=== PATIENT | male | born 1965 | race Native Hawaiian/Other Pacific Islander ===

== ENCOUNTER 2017-04-10 14:28 | Emergency (ER) | payer MEDICARE, OTHER ==
[2017-04-10] MEDS ORDERED: FLEXERIL PO ONE (15:51)
[2017-04-10] MEDS ORDERED: NORCO 5/325 PO ONE (15:51)
[2017-04-10 16:24] LABS: Bilirubin,Urine NEG (Negative); Blood,Urine NEG (Negative); Ketones,Urine NEG (Negative); Leukocyte Esterase,Urine NEG (Negative); Nitrite,Urine NEG (Negative); Protein,Urine <15 mg/dL mg/dL (Negative); Urobilinogen,Urine < 2.0 mg/dL (<2.0)
[2017-04-10 17:11] LABS: Basophils % (Auto) 0.6 % (0.0-1.8); Eosinophils % (Auto) 0.6 % (0.0-4.3); Hematocrit 30.1 % (35.5-45.6); Hemoglobin 9.6 gm/dl (11.8-15.2); Mean Corpuscular HGB Conc 32 % (32-34); Mean Corpuscular Hemoglobin 31 pg (28-32); Mean Corpuscular Volume 98 fl (84-94); Platelet Count 265 K/mm3 (140-440); Red Blood Count 3.08 M/mm3 (3.65-5.03); Red Cell Distribution Width 14.8 % (13.2-15.2); White Blood Count 9.6 K/mm3 (4.5-11.0)
[2017-04-10 17:28] LABS: Anion Gap 18 mmol/L; Blood Urea Nitrogen 16 mg/dL (9-20); Calcium 9.5 mg/dL (8.4-10.2); Carbon Dioxide 24 mmol/L (22-30); Chloride 100.6 mmol/L (98-107); Glucose 174 mg/dL (75-100); Potassium 4.8 mmol/L (3.6-5.0); Sodium 138 mmol/L (137-145)
--- NOTE | 2017-04-10 18:25 | Emergency Department Report ---
ED General Adult HPI - General Chief complaint: Hypoglycemia Stated complaint: LOW SUGAR Time Seen by Provider: 04/10/17 15:50 Source: patient, EMS Mode of arrival: Stretcher Limitations: Physical Limitation - History of Present Illness Initial comments: Patient is a 51-year-old male past history of diabetes who presents with hypoglycemia and leg cramps. Patient states that he had breakfast today but he felt weak and lightheaded and he feels this way when his blood sugars is low. Patient states that he has some cramps in his left leg there about a 5 out 10 walking on his leg makes it worse and nothing makes it better. He also states that it's an achy type of pain that doesn't radiate. It happened 6 hours ago. Patient states that he felt lightheaded and his glucose level was low and within the 40s he was given sugar and some bread. He was about to go home but he came to the hospital because his leg as cramping. He states that he is not out of his insulin. And sometimes he gets hypoglycemic. No fevers, no chills, no chest pain. Severity scale (0 -10): 1 - Related Data Home Medications Medication Instructions Recorded Confirmed Last Taken glipiZIDE [glipiZIDE ER] 5 mg PO QAM 01/04/17 03/29/17 01/04/17 Aspirin [Aspirin BABY CHEW TAB] 81 mg PO QDAY 03/29/17 03/29/17 Unknown Metoprolol [Lopressor TAB] 25 mg PO BID 03/29/17 03/29/17 Unknown Previous Rx's Medication Instructions Recorded Last Taken Type Ferrous Sulfate [Feosol 325 MG tab] 325 mg PO BID #60 tablet 10/09/16 01/04/17 Rx Folic Acid [Folvite] 1 mg PO QDAY #30 tablet 10/09/16 01/04/17 Rx Lisinopril [Zestril TAB] 2.5 mg PO QDAY #30 tab 10/09/16 01/04/17 Rx Pantoprazole [Protonix TAB] 40 mg PO QDAY #30 tablet 10/09/16 01/04/17 Rx Simvastatin [Zocor TAB] 20 mg PO QHS #30 tablet 10/09/16 01/04/17 Rx Insulin NPH/Regular [NovoLIN 70/30] 15 unit SQ BIDDIAB 30 Days 04/03/17 Rx Ipratropium/Albuterol Sulfate 1 ampul IH Q6HRT #30 ampul.neb 04/03/17 Unknown Rx [DUONEB *Not for PRN Use*] Levofloxacin [Levaquin TAB] 750 mg PO Q24H #4 tablet 04/03/17 Unknown Rx traMADol [Ultram 50 MG tab] 50 mg PO Q6HR PRN #15 tablet 04/10/17 Unknown Rx Allergies Allergy/AdvReac Type Severity Reaction Status Date / Time No Known Drug Allergies Allergy Unknown Verified 05/05/13 02:40 ED Review of Systems ROS: Stated complaint: LOW SUGAR Other details as noted in HPI Constitutional: weakness. denies: chills, fever Eyes: denies: eye pain, eye discharge, vision change ENT: denies: ear pain, throat pain Respiratory: denies: cough, shortness of breath, wheezing Cardiovascular: denies: chest pain, palpitations Endocrine: no symptoms reported Gastrointestinal: denies: abdominal pain, nausea, diarrhea Genitourinary: denies: urgency, dysuria Musculoskeletal: other (foot cramps) Skin: denies: rash, lesions Neurological: denies: headache, weakness, paresthesias Psychiatric: denies: anxiety, depression Hematological/Lymphatic: denies: easy bleeding, easy bruising ED Past Medical Hx - Past Medical History Hx Hypertension: Yes Hx Heart Attack/AMI: Yes Hx Diabetes: Yes Hx GERD: Yes Hx Asthma: Yes Hx COPD: No Hx HIV: No Additional medical history: Prolonged hospitalization after a hypoglycemic episode in the fall of 2012 "problems with Pancreas" - Surgical History Additional Surgical History: "fractured bones" - Social History Smoking Status: Current Every Day Smoker Substance Use Type: None - Medications Home Medications: Home Medications Medication Instructions Recorded Confirmed Last Taken Type Ferrous Sulfate [Feosol 325 MG tab] 325 mg PO BID #60 tablet 10/09/16 03/29/17 01/04/17 Rx Folic Acid [Folvite] 1 mg PO QDAY #30 tablet 10/09/16 03/29/17 01/04/17 Rx Lisinopril [Zestril TAB] 2.5 mg PO QDAY #30 tab 10/09/16 03/29/17 01/04/17 Rx Pantoprazole [Protonix TAB] 40 mg PO QDAY #30 tablet 10/09/16 03/29/17 01/04/17 Rx Simvastatin [Zocor TAB] 20 mg PO QHS #30 tablet 10/09/16 03/29/17 01/04/17 Rx glipiZIDE [glipiZIDE ER] 5 mg PO QAM 01/04/17 03/29/17 01/04/17 History Aspirin [Aspirin BABY CHEW TAB] 81 mg PO QDAY 03/29/17 03/29/17 Unknown History Metoprolol [Lopressor TAB] 25 mg PO BID 03/29/17 03/29/17 Unknown History Insulin NPH/Regular [NovoLIN 70/30] 15 unit SQ BIDDIAB 30 Days 04/03/1701/04/17 Rx Ipratropium/Albuterol Sulfate 1 ampul IH Q6HRT #30 ampul.neb 04/03/17 Unknown Rx [DUONEB *Not for PRN Use*] Levofloxacin [Levaquin TAB] 750 mg PO Q24H #4 tablet 04/03/17 Unknown Rx traMADol [Ultram 50 MG tab] 50 mg PO Q6HR PRN #15 tablet 04/10/17 Unknown Rx ED Physical Exam - General Limitations: Physical Limitation General appearance: alert, in no apparent distress - Head Head exam: Present: atraumatic, normocephalic - Eye Eye exam: Present: normal appearance - ENT ENT exam: Present: mucous membranes moist - Neck Neck exam: Present: normal inspection - Respiratory Respiratory exam: Present: normal lung sounds bilaterally. Absent: respiratory distress - Cardiovascular Cardiovascular Exam: Present: regular rate, normal rhythm. Absent: systolic murmur, diastolic murmur, rubs, gallop - GI/Abdominal GI/Abdominal exam: Present: soft, normal bowel sounds - Rectal Rectal exam: Present: deferred - Extremities Exam Extremities exam: Present: normal inspection - Back Exam Back exam: Present: normal inspection - Neurological Exam Neurological exam: Present: alert, oriented X3, CN II-XII intact - Psychiatric Psychiatric exam: Present: normal affect, normal mood - Skin Skin exam: Present: warm, dry, intact, normal color. Absent: rash ED Course Vital Signs 04/10/17 04/10/17 04/10/17 15:01 15:11 15:20 Temperature 97.6 F Pulse Rate 91 H 98 H Respiratory 13 20 Rate Blood Pressure 131/77 131/77 Blood Pressure [Right] O2 Sat by Pulse 100 100 Oximetry 04/10/17 04/10/17 04/10/17 15:21 15:28 15:31 Temperature 97.6 F Pulse Rate 98 H Respiratory 20 Rate Blood Pressure 131/77 131/77 Blood Pressure 131/77 [Right] O2 Sat by Pulse 100 100 100 Oximetry 04/10/17 04/10/17 04/10/17 15:41 15:51 16:00 Temperature Pulse Rate Respiratory 24 Rate Blood Pressure 131/77 131/77 131/75 Blood Pressure [Right] O2 Sat by Pulse 100 99 98 Oximetry 04/10/17 04/10/17 04/10/17 16:11 16:15 16:21 Temperature Pulse Rate 88 Respiratory 20 20 Rate Blood Pressure 131/75 131/75 Blood Pressure [Right] O2 Sat by Pulse 100 100 Oximetry 04/10/17 04/10/17 04/10/17 16:31 16:41 16:51 Temperature Pulse Rate 86 91 H Respiratory 10 L 25 H Rate Blood Pressure 131/75 131/75 131/75 Blood Pressure [Right] O2 Sat by Pulse 100 100 100 Oximetry 04/10/17 04/10/17 04/10/17 17:00 17:11 17:21 Temperature Pulse Rate 89 Respiratory Rate Blood Pressure 127/70 127/70 127/70 Blood Pressure [Right] O2 Sat by Pulse 100 100 100 Oximetry 04/10/17 04/10/17 04/10/17 17:31 17:41 17:51 Temperature Pulse Rate Respiratory Rate Blood Pressure 127/70 127/70 127/70 Blood Pressure [Right] O2 Sat by Pulse 100 99 99 Oximetry 04/10/17 04/10/17 04/10/17 18:00 18:11 18:21 Temperature Pulse Rate Respiratory Rate Blood Pressure 99/59 99/59 99/59 Blood Pressure [Right] O2 Sat by Pulse 100 100 98 Oximetry 04/10/17 18:37 Temperature Pulse Rate Respiratory 20 Rate Blood Pressure Blood Pressure [Right] O2 Sat by Pulse 99 Oximetry - Reevaluation(s) Reevaluation #1: 04/10/17 18:20 sign patient states he is feeling better is likely cramps are improved after the oral medication. Patient will go home. His blood sugar has remained within the 200 range. ED Medical Decision Making - Lab Data Result diagrams: 04/10/17 17:00 04/10/17 17:00 Laboratory Results - last 24 hr 04/10/17 04/10/17 04/10/17 15:12 16:00 17:00 WBC 9.6 RBC 3.08 L Hgb 9.6 L Hct 30.1 L MCV 98 H MCH 31 MCHC 32 RDW 14.8 Plt Count 265 Lymph % (Auto) 19.8 [place] % (Auto) 5.0 Eos % (Auto) 0.6 Baso % (Auto) 0.6 Lymph # 1.9 [place] # 0.5 Eos # 0.1 Baso # 0.1 Seg Neutrophils % 74.0 H Seg Neutrophils # 7.1 Sodium Potassium Chloride Carbon Dioxide Anion Gap BUN Creatinine Estimated GFR BUN/Creatinine Ratio Glucose POC Glucose 203 H Calcium Urine Color Colorless Urine Turbidity Clear Urine pH 6.0 Ur Specific [place] 1.005 Urine Protein <15 mg/dl Urine Glucose (UA) 150 Urine Ketones Neg Urine Blood Neg Urine Nitrite Neg Urine Bilirubin Neg Urine Urobilinogen < 2.0 Ur Leukocyte Esterase Neg Urine WBC (Auto) 1.0 Urine RBC (Auto) 1.0 U Epithel Cells (Auto) 1.0 04/10/17 17:00 WBC RBC Hgb Hct MCV MCH MCHC RDW Plt Count Lymph % (Auto) [place] % (Auto) Eos % (Auto) Baso % (Auto) Lymph # [place] # Eos # Baso # Seg Neutrophils % Seg Neutrophils # Sodium 138 Potassium 4.8 Chloride 100.6 Carbon Dioxide 24 Anion Gap 18 BUN 16 Creatinine 0.5 L Estimated GFR > 60 BUN/Creatinine Ratio 32.00 Glucose 174 H POC Glucose Calcium 9.5 Urine Color Urine Turbidity Urine pH Ur Specific [place] Urine Protein Urine Glucose (UA) Urine Ketones Urine Blood Urine Nitrite Urine Bilirubin Urine Urobilinogen Ur Leukocyte Esterase Urine WBC (Auto) Urine RBC (Auto) U Epithel Cells (Auto) - Medical Decision Making Chief medical diagnosis: Hypoglycemia secondary to insulin use Differential medical diagnosis metabolic abnormality, infection, myalgias, medication effect CBC, CMP, food, point of care glucose, and oral pain medication. Patient's lab findings show no metabolic abnormality. Patient's vital signs are within normal limits infection is highly unlikely. Patient feels good and states that he will go home he had often has hypoglycemia episodes like this. Advised patient about monitoring his blood sugar often. Additional verbal discharge instructions were given. Patient agrees with plan. Critical care attestation.: If time is entered above; I have spent that time in minutes in the direct care of this critically ill patient, excluding procedure time. ED Disposition Clinical Impression: Hypoglycemia, Leg cramp Disposition: DC-01 TO HOME OR SELFCARE Is pt being admited?: No Does the pt Need Aspirin: No Condition: Stable Instructions: Diabetic Hypoglycemia (ED) Prescriptions: traMADol [Ultram 50 MG tab] 50 mg PO Q6HR PRN #15 tablet PRN Reason: Pain Referrals: MYNOR GRIGSBY [Primary Care Provider] - 3-5 Days Time of Disposition: 18:24
[2017-04-10 18:40] VITALS: BP 99/59
== END 2017-04-10 18:40 | disposition home or self-care (01) ==
LOC: ED 14:28
DX: E11.649 Type 2 diabetes mellitus with hypoglycemia without coma (principal); M79.605 Pain in left leg; I10 Essential (primary) hypertension; K21.9 Gastro-esophageal reflux disease without esophagitis; I25.2 Old myocardial infarction; J45.909 Unspecified asthma, uncomplicated; F17.200 Nicotine dependence, unspecified, uncomplicated; Z79.82 Long term (current) use of aspirin; Z79.4 Long term (current) use of insulin
CPT/HCPCS: 36415; 80048; 81001; 82962; 85025; 99284

== ENCOUNTER 2018-01-20 23:44 | Observation (INO) | payer MEDICARE ==
[2018-01-21] MEDS ORDERED: SUBLIMAZE IV ONE (00:19)
[2018-01-21] MEDS ORDERED: NACL 0.9% 1000 ML 1,000 ML IV ONE ×3 (00:19→09:12)
[2018-01-21] MEDS ORDERED: ZOFRAN IV ONE (00:19)
--- NOTE | 2018-01-21 00:23 | Emergency Department Report ---
<VIELKA ENGLISH M - Last Filed: 01/21/18 09:08> ED Abdominal Pain HPI - General Chief Complaint: Abdominal Pain Stated Complaint: ABD/ETOH Time Seen by Provider: 01/21/18 00:14 - Related Data Home Medications Medication Instructions Recorded Confirmed Last Taken glipiZIDE [glipiZIDE ER] 5 mg PO QAM 01/04/17 01/21/18 01/04/17 Aspirin [Aspirin BABY CHEW TAB] 81 mg PO QDAY 03/29/17 01/21/18 Unknown Metoprolol [Lopressor TAB] 25 mg PO BID 03/29/17 01/21/18 Unknown Insulin NPH/Regular [NovoLIN 70/30] See Protocol SQ TID 01/21/18 01/21/18 Unknown Ipratropium/Albuterol Sulfate 1 ampul IH Q6HRT PRN 01/21/18 01/21/18 Unknown [DUONEB *Not for PRN Use*] Previous Rx's Medication Instructions Recorded Last Taken Type Folic Acid [Folvite] 1 mg PO QDAY #30 tablet 10/09/16 01/04/17 Rx Lisinopril [Zestril TAB] 2.5 mg PO QDAY #30 tab 10/09/16 01/04/17 Rx traMADol [Ultram 50 MG tab] 50 mg PO Q6HR PRN #15 tablet 04/10/17 Unknown Rx Allergies Allergy/AdvReac Type Severity Reaction Status Date / Time No Known Drug Allergies Allergy Unknown Verified 05/05/13 02:40 ED Review of Systems ROS: Stated complaint: ABD/ETOH Other details as noted in HPI ED Past Medical Hx - Medications Home Medications: Home Medications Medication Instructions Recorded Confirmed Last Taken Type Folic Acid [Folvite] 1 mg PO QDAY #30 tablet 10/09/16 01/21/18 01/04/17 Rx Lisinopril [Zestril TAB] 2.5 mg PO QDAY #30 tab 10/09/16 01/21/18 01/04/17 Rx glipiZIDE [glipiZIDE ER] 5 mg PO QAM 01/04/17 01/21/18 01/04/17 History Aspirin [Aspirin BABY CHEW TAB] 81 mg PO QDAY 03/29/17 01/21/18 Unknown History Metoprolol [Lopressor TAB] 25 mg PO BID 03/29/17 01/21/18 Unknown History traMADol [Ultram 50 MG tab] 50 mg PO Q6HR PRN #15 tablet 04/10/17 01/21/18 Unknown Rx Insulin NPH/Regular [NovoLIN 70/30] See Protocol SQ TID 01/21/18 01/21/18 Unknown History Ipratropium/Albuterol Sulfate 1 ampul IH Q6HRT PRN 01/21/18 01/21/18 Unknown History [DUONEB *Not for PRN Use*] ED Course Vital Signs 01/21/18 01/21/18 01/21/18 00:04 00:15 00:30 Temperature Pulse Rate Respiratory Rate Blood Pressure 87/49 112/71 100/57 Blood Pressure [Left] O2 Sat by Pulse Oximetry 01/21/18 01/21/18 01/21/18 00:38 00:45 01:00 Temperature 97.9 F Pulse Rate 94 H Respiratory 16 Rate Blood Pressure 97/58 102/60 Blood Pressure 87/49 [Left] O2 Sat by Pulse 98 Oximetry 01/21/18 01/21/18 01/21/18 01:15 01:23 01:30 Temperature Pulse Rate Respiratory 16 Rate Blood Pressure 98/59 84/50 Blood Pressure [Left] O2 Sat by Pulse 97 Oximetry 01/21/18 01/21/18 01/21/18 01:45 02:00 02:15 Temperature Pulse Rate Respiratory Rate Blood Pressure 74/40 76/43 70/43 Blood Pressure [Left] O2 Sat by Pulse Oximetry 01/21/18 01/21/18 01/21/18 02:30 02:45 03:00 Temperature Pulse Rate Respiratory Rate Blood Pressure 70/40 121/73 106/68 Blood Pressure [Left] O2 Sat by Pulse Oximetry 01/21/18 01/21/18 01/21/18 03:15 03:30 03:45 Temperature Pulse Rate Respiratory Rate Blood Pressure 98/47 93/49 94/50 Blood Pressure [Left] O2 Sat by Pulse Oximetry 01/21/18 01/21/18 01/21/18 03:50 04:00 04:26 Temperature 97.6 F Pulse Rate 91 H Respiratory 16 Rate Blood Pressure 84/50 84/50 Blood Pressure 90/56 [Left] O2 Sat by Pulse 96 Oximetry 01/21/18 01/21/18 01/21/18 04:30 04:45 05:00 Temperature Pulse Rate Respiratory Rate Blood Pressure 94/53 91/53 80/47 Blood Pressure [Left] O2 Sat by Pulse 96 94 Oximetry 20 052018 05 05:15 05:30 05:45 Temperature Pulse Rate Respiratory Rate Blood Pressure 77/40 68/38 97/64 Blood Pressure [Left] O2 Sat by Pulse 94 95 Oximetry 01/21/18 052018 05 06:00 06:15 06:30 Temperature Pulse Rate Respiratory Rate Blood Pressure 100/56 90/48 82/41 Blood Pressure [Left] O2 Sat by Pulse 95 95 Oximetry 01/21/ 0520/18 05/ 06:45 07:00 07:10 Temperature Pulse Rate Respiratory Rate Blood Pressure 83/45 76/41 76/41 Blood Pressure [Left] O2 Sat by Pulse 95 95 Oximetry 01/21/1820/18 05/ 07:20 07:30 07:40 Temperature Pulse Rate Respiratory Rate Blood Pressure 76/41 121/65 121/65 Blood Pressure [Left] O2 Sat by Pulse 94 97 96 Oximetry 01/21/18 0520/18 01/21/18 07:50 07:53 08:00 Temperature Pulse Rate 99 H Respiratory 18 Rate Blood Pressure 121/65 112/59 Blood Pressure 118/74 [Left] O2 Sat by Pulse 96 100 97 Oximetry 01/21/18 052018 05 08:10 08:20 08:30 Temperature Pulse Rate Respiratory Rate Blood Pressure 112/59 112/59 112/59 Blood Pressure [Left] O2 Sat by Pulse 94 95 98 Oximetry 18 0520/18 0520 08:40 08:50 09:00 Temperature Pulse Rate Respiratory Rate Blood Pressure 112/59 112/59 119/74 Blood Pressure [Left] O2 Sat by Pulse 92 93 96 Oximetry 20/18 05/20/18 0520 09:10 09:20 09:30 Temperature Pulse Rate Respiratory Rate Blood Pressure 119/74 119/74 119/74 Blood Pressure [Left] O2 Sat by Pulse 94 94 96 Oximetry 20/18 0520/18 0520 09:40 09:50 10:00 Temperature Pulse Rate Respiratory Rate Blood Pressure 119/74 119/74 122/64 Blood Pressure [Left] O2 Sat by Pulse 95 96 Oximetry 01/21/18 01/21/18 01/21/18 10:10 10:20 10:34 Temperature 97.9 F Pulse Rate 88 Respiratory 18 Rate Blood Pressure 122/64 122/64 Blood Pressure 124/72 [Left] O2 Sat by Pulse 97 99 100 Oximetry - Reevaluation(s) Reevaluation #1: The patient was seen and examined by me. He does have epigastric tenderness and a bit of voluntary guarding. He has no peritoneal signs. I think he would do poorly to go home and begin feeding now. He does need an MRCP. Therefore he is admitted for intravenous fluids and analgesia and MRCP. 01/21/18 09:08 ED Medical Decision Making - Lab Data Result diagrams: 01/21/18 00:15 01/21/18 00:15 Critical care attestation.: If time is entered above; I have spent that time in minutes in the direct care of this critically ill patient, excluding procedure time. ED Disposition Clinical Impression: Abdominal pain, Pancreatitis, alcoholic, acute, Pancreatic mass, Pancreatic duct obstruction Disposition: OP ADMIT IP TO THIS HOSP Is pt being admited?: Yes Does the pt Need Aspirin: Yes Condition: Stable Time of Disposition: 09:09 <NIHARIKA NICKERSON - Last Filed: 01/22/18 06:16> ED Abdominal Pain HPI - General Source: EMS Mode of arrival: Stretcher Limitations: No Limitations - History of Present Illness Initial Comments: Patient is 52 years old male with history of diabetes in frequent episode of alcoholic pancreatitis. Patient presented to the ER complaining of epigastric pain that radiated to his back. He stated that is similar to his previous episode. Patient admitted to drinking alcohol today. Patient is also complaining of nausea and vomiting. Patient denied any chest pain, shortness of breath, fever or cough. MD Complaint: abdominal pain -: This afternoon Location: epigastric Radiation: back Migration to: no migration Severity: moderate Severity scale (0 -10): 6 Consistency: constant Associated Symptoms: nausea, vomiting ED Review of Systems Comment: All other systems reviewed and negative Constitutional: denies: chills, fever ENT: denies: ear pain, throat pain, dental pain, hearing loss Respiratory: denies: cough, orthopnea, shortness of breath, SOB with exertion, SOB at rest, wheezing Cardiovascular: denies: chest pain, palpitations, dyspnea on exertion Gastrointestinal: abdominal pain, nausea, vomiting. denies: diarrhea, constipation, hematemesis, melena, hematochezia Skin: denies: rash, lesions, change in color, change in hair/nails, pruritus Neurological: denies: headache, weakness, numbness, paresthesias, confusion, abnormal gait ED Past Medical Hx - Past Medical History Hx Hypertension: Yes Hx Heart Attack/AMI: Yes Hx Diabetes: Yes Hx GERD: Yes Hx Asthma: Yes Hx COPD: No Hx HIV: No Additional medical history: Prolonged hospitalization after a hypoglycemic episode in the fall of 2012 "problems with Pancreas" - Surgical History Additional Surgical History: "fractured bones" - Social History Smoking Status: Current Every Day Smoker Substance Use Type: Alcohol ED Physical Exam - General Limitations: No Limitations General appearance: alert, in no apparent distress - Head Head exam: Present: atraumatic, normocephalic, normal inspection - Eye Eye exam: Present: normal appearance - ENT ENT exam: Present: normal exam, normal orophraynx, mucous membranes moist - Neck Neck exam: Present: normal inspection, full ROM. Absent: tenderness, meningismus, lymphadenopathy, thyromegaly - Respiratory Respiratory exam: Present: normal lung sounds bilaterally - Cardiovascular Cardiovascular Exam: Present: regular rate, normal rhythm, normal heart sounds - GI/Abdominal GI/Abdominal exam: Present: soft, tenderness (epigastric), normal bowel sounds. Absent: distended, guarding, rebound, rigid, diminished bowel sounds, organomegaly, mass, bruit, pulsatile mass, hernia - Extremities Exam Extremities exam: Present: normal inspection, full ROM, normal capillary refill - Back Exam Back exam: Present: normal inspection, full ROM. Absent: tenderness, CVA tenderness (R), CVA tenderness (L), muscle spasm, paraspinal tenderness, vertebral tenderness, rash noted - Neurological Exam Neurological exam: Present: alert, oriented X3, CN II-XII intact, normal gait, reflexes normal - Skin Skin exam: Present: warm, intact, normal color ED Course Vital Signs 01/21/18 01/21/18 01/21/18 00:04 00:15 00:30 Temperature Pulse Rate Respiratory Rate Blood Pressure 87/49 112/71 100/57 Blood Pressure [Left] O2 Sat by Pulse Oximetry 01/21/18 01/21/18 01/21/18 00:38 00:45 01:00 Temperature 97.9 F Pulse Rate 94 H Respiratory 16 Rate Blood Pressure 97/58 102/60 Blood Pressure 87/49 [Left] O2 Sat by Pulse 98 Oximetry 01/21/18 01/21/18 01/21/18 01:15 01:23 01:30 Temperature Pulse Rate Respiratory 16 Rate Blood Pressure 98/59 84/50 Blood Pressure [Left] O2 Sat by Pulse 97 Oximetry 01/21/18 01/21/18 01/21/18 01:45 02:00 02:15 Temperature Pulse Rate Respiratory Rate Blood Pressure 74/40 76/43 70/43 Blood Pressure [Left] O2 Sat by Pulse Oximetry 01/21/18 01/21/18 01/21/18 02:30 02:45 03:00 Temperature Pulse Rate Respiratory Rate Blood Pressure 70/40 121/73 106/68 Blood Pressure [Left] O2 Sat by Pulse Oximetry 01/21/18 01/21/18 01/21/18 03:15 03:30 03:45 Temperature Pulse Rate Respiratory Rate Blood Pressure 98/47 93/49 94/50 Blood Pressure [Left] O2 Sat by Pulse Oximetry 01/21/18 01/21/18 01/21/18 03:50 04:00 04:26 Temperature 97.6 F Pulse Rate 91 H Respiratory 16 Rate Blood Pressure 84/50 84/50 Blood Pressure 90/56 [Left] O2 Sat by Pulse 96 Oximetry 01/21/18 01/21/18 01/21/18 04:30 04:45 05:00 Temperature Pulse Rate Respiratory Rate Blood Pressure 94/53 91/53 80/47 Blood Pressure [Left] O2 Sat by Pulse 96 94 Oximetry 01/21/18 01/21/18 01/21/18 05:15 05:30 05:45 Temperature Pulse Rate Respiratory Rate Blood Pressure 77/40 68/38 97/64 Blood Pressure [Left] O2 Sat by Pulse 94 95 Oximetry 01/21/18 01/21/18 01/21/18 06:00 06:15 06:30 Temperature Pulse Rate Respiratory Rate Blood Pressure 100/56 90/48 82/41 Blood Pressure [Left] O2 Sat by Pulse 95 95 Oximetry 05/01/21/18 01/21/18 06:45 07:00 07:10 Temperature Pulse Rate Respiratory Rate Blood Pressure 83/45 76/41 76/41 Blood Pressure [Left] O2 Sat by Pulse 95 95 Oximetry 01/21/18 01/21/18 01/21/18 07:20 07:30 07:40 Temperature Pulse Rate Respiratory Rate Blood Pressure 76/41 121/65 121/65 Blood Pressure [Left] O2 Sat by Pulse 94 97 96 Oximetry 01/21/18 01/21/18 01/21/18 07:50 07:53 08:00 Temperature Pulse Rate 99 H Respiratory 18 Rate Blood Pressure 121/65 112/59 Blood Pressure 118/74 [Left] O2 Sat by Pulse 96 100 97 Oximetry 01/21/18 01/21/18 01/21/18 08:10 08:20 08:30 Temperature Pulse Rate Respiratory Rate Blood Pressure 112/59 112/59 112/59 Blood Pressure [Left] O2 Sat by Pulse 94 95 98 Oximetry 01/21/18 01/21/18 01/21/18 08:40 08:50 09:00 Temperature Pulse Rate Respiratory Rate Blood Pressure 112/59 112/59 119/74 Blood Pressure [Left] O2 Sat by Pulse 92 93 96 Oximetry 01/21/18 01/21/18 01/21/18 09:10 09:20 09:30 Temperature Pulse Rate Respiratory Rate Blood Pressure 119/74 119/74 119/74 Blood Pressure [Left] O2 Sat by Pulse 94 94 96 Oximetry 01/21/18 01/21/18 01/21/18 09:40 09:50 10:00 Temperature Pulse Rate Respiratory Rate Blood Pressure 119/74 119/74 122/64 Blood Pressure [Left] O2 Sat by Pulse 95 96 Oximetry 01/21/18 01/21/18 01/21/18 10:10 10:20 10:34 Temperature 97.9 F Pulse Rate 88 Respiratory 18 Rate Blood Pressure 122/64 122/64 Blood Pressure 124/72 [Left] O2 Sat by Pulse 97 99 100 Oximetry ED Medical Decision Making - Lab Data Result diagrams: 01/21/18 00:15 01/21/18 00:15 - Radiology Data Radiology results: report reviewed Referring Physician: NIHARIKA NICKERSON Patient Name: MADDY LAM Date of : 1965 Sex: Male Report Date: 2018-01-21 Report Status: Finalized Findings [facility] [address] [place] [address] Cat Scan Report Signed Patient: MADDY LAM MR#: [id number] : 1965 Acct:[id number] Age/Sex: 52 / M ADM Date: 01/20/18 Loc: ED Attending Dr: Ordering Physician: NIHARIKA NICKERSON Date of Service: 01/21/18 Procedure(s): CT abdomen pelvis w con Accession Number(s): [id number] cc: NIHARIKA NICKERSON FINAL REPORT EXAM: CT ABDOMEN PELVIS W CON HISTORY: abdominal pain TECHNIQUE: CT images are acquired through the Abdomen and Pelvis arterial and delayed phases following intravenous administration of contrast. Transaxial, coronal and sagittal reformations are provided. PRIORS: 09/27/2016, 10/06/2013 FINDINGS: Partially visualized intrathoracic contents are remarkable for coronary artery disease and bibasilar atelectasis/scarring. There is intra and extrahepatic biliary ductal dilatation. The common duct measures up to 9-10 millimeters near the pancreatic head. There is diffuse pancreatic ductal dilatation and distal pancreatic atrophy, which appears new/worse compared to prior. Multiple calcifications throughout the pancreas. Masslike configuration within the pancreatic head/uncinate measures approximately 3.3 cm transverse x 1.8 cm AP on axial series 4, image 33. Distension of the gallbladder appears unchanged. No calcified gallstones or pericholecystic inflammatory findings identified. Kidneys show no worrisome lesions, hydronephrosis, or calculi. Urinary bladder is unremarkable. Small and large bowel are normal in caliber. Appendix is normal. No free air, free fluid, or lymphadenopathy identified. Aorta is normal in course and caliber with diffusely scattered atherosclerosis. Superficial soft tissues are unremarkable. No acute or aggressive appearing skeletal findings. IMPRESSION: Extensive sequela of chronic pancreatitis with possible superimposed findings of pancreatic head/uncinate mass measuring 3.3 x 1.8 cm and increased intra and extrahepatic biliary ductal and main pancreatic ductal dilatation. Distension of the gallbladder without calcified stones appears unchanged from prior. Differential diagnosis includes pancreatic neoplasm, benign sequela of chronic pancreatitis and choledocholithiasis. Right upper quadrant ultrasound for initial further evaluation of the gallbladder and common duct is recommended. Follow-up MRCP is also recommended for further more sensitive evaluation of the pancreatic head and common bile duct. Notification initiated via [employer] system support specialist immediately following this dictation on 01/21/2018. Transcribed By: MANDA Dictated By: GALLO OLMEDO MD Electronically Authenticated By: GALLO OLMEDO MD Signed Date/Time: 01/21/18500 DD/ 0 TD/TT: 01/21/181 Critical Care Time: Yes Critical care time in (mins) excluding proc time.: 30 ED Disposition Is pt being admited?: Yes
[2018-01-21 00:50] LABS: Basophils % (Auto) 0.7 % (0.0-1.8); Eosinophils # (Auto) 0.1 K/mm3 (0.0-0.4); Eosinophils % (Auto) 1.5 % (0.0-4.3); Hematocrit 29.7 % (35.5-45.6); Hemoglobin 10.2 gm/dl (11.8-15.2); Lymphocytes # (Auto) 3.1 K/mm3 (1.2-5.4); Lymphocytes % (Auto) 47.8 % (13.4-35.0); Mean Corpuscular HGB Conc 34 % (32-34); Mean Corpuscular Hemoglobin 35 pg (28-32); Mean Corpuscular Volume 101 fl (84-94); Monocytes # (Auto) 0.7 K/mm3 (0.0-0.8); Monocytes % (Auto) 10.6 % (0.0-7.3); Platelet Count 195 K/mm3 (140-440); Red Blood Count 2.94 M/mm3 (3.65-5.03); Red Cell Distribution Width 12.9 % (13.2-15.2)
[2018-01-21 01:02] LABS: Bilirubin,Urine NEG (Negative); Blood,Urine NEG (Negative); Color,Urine Yellow (Yellow); Mucus,Urine FEW /HPF; Protein,Urine <15 mg/dL mg/dL (Negative); Urobilinogen,Urine < 2.0 mg/dL (<2.0)
[2018-01-21 01:12] LABS: Alanine Aminotransferase 34 units/L (7-56); BUN/Creatinine Ratio 13; Blood Urea Nitrogen 9 mg/dL (9-20); Calcium 9.3 mg/dL (8.4-10.2); Hemolysis Index 5; Lipase 130 units/L (13-60)
[2018-01-21] MEDS ORDERED: HumuLIN R IV ONE (01:36)
--- NOTE | 2018-01-21 05:05 | Cat Scan Report ---
FINAL REPORT EXAM: CT ABDOMEN PELVIS W CON HISTORY: abdominal pain TECHNIQUE: CT images are acquired through the Abdomen and Pelvis arterial and delayed phases following intravenous administration of contrast. Transaxial, coronal and sagittal reformations are provided. PRIORS: 09/27/2016, 10/06/2013 FINDINGS: Partially visualized intrathoracic contents are remarkable for coronary artery disease and bibasilar atelectasis/scarring. There is intra and extrahepatic biliary ductal dilatation. The common duct measures up to 9-10 millimeters near the pancreatic head. There is diffuse pancreatic ductal dilatation and distal pancreatic atrophy, which appears new/worse compared to prior. Multiple calcifications throughout the pancreas. Masslike configuration within the pancreatic head/uncinate measures approximately 3.3 cm transverse x 1.8 cm AP on axial series 4, image 33. Distension of the gallbladder appears unchanged. No calcified gallstones or pericholecystic inflammatory findings identified. Kidneys show no worrisome lesions, hydronephrosis, or calculi. Urinary bladder is unremarkable. Small and large bowel are normal in caliber. Appendix is normal. No free air, free fluid, or lymphadenopathy identified. Aorta is normal in course and caliber with diffusely scattered atherosclerosis. Superficial soft tissues are unremarkable. No acute or aggressive appearing skeletal findings. IMPRESSION: Extensive sequela of chronic pancreatitis with possible superimposed findings of pancreatic head/uncinate mass measuring 3.3 x 1.8 cm and increased intra and extrahepatic biliary ductal and main pancreatic ductal dilatation. Distension of the gallbladder without calcified stones appears unchanged from prior. Differential diagnosis includes pancreatic neoplasm, benign sequela of chronic pancreatitis and choledocholithiasis. Right upper quadrant ultrasound for initial further evaluation of the gallbladder and common duct is recommended. Follow-up MRCP is also recommended for further more sensitive evaluation of the pancreatic head and common bile duct. Notification initiated via [employer] and support center agent immediately following this dictation on 01/21/2018.
--- NOTE | 2018-01-21 06:35 | Ultrasound Report ---
FINAL REPORT EXAM: US ABDOMEN LIMITED HISTORY: abdominal pain/gallbladder ultrasound COMPARISONS: CT abdomen and pelvis of the same date FINDINGS: Grayscale ultrasound evaluation of the right upper abdomen Liver is normal in size and contour. Hepatic parenchymal echogenicity is within normal limits. No parenchymal lesion identified. Both intra and extrahepatic biliary ductal dilatation are present. At the point of distal tapering within the pancreatic head, the common duct measures around 4 millimeters, however it is much larger at the deana hepatis and near the cystic duct confluence. Unremarkable sonographic appearance of the distended gallbladder. No sludge or cholelithiasis. Gallbladder wall measures approximately 2-3 millimeters in thickness. The pancreatic head is largely obscured by overlying bowel gas and is much better demonstrated on CT of the same date. The imaged portion of the abdominal aorta and inferior vena cava is unremarkable. No abdominal ascites or free fluid in Betts's pouch. The right kidney measures up to 9.6 cm in length and is without hydronephrosis or echogenic shadowing foci to suggest nephrolithiasis. IMPRESSION: Unremarkable gallbladder. No cholelithiasis or choledocholithiasis. Follow-up MRI abdomen with contrast and MRCP are recommended for further evaluation of the pancreatic head and suspected 3+ centimeter mass.
[2018-01-21] MEDS ORDERED: ZOFRAN IV PRN (09:12)
[2018-01-21] MEDS ORDERED: D50W (25GM) Syringe IV PRN (09:21)
[2018-01-21] MEDS ORDERED: MORPHINE IV PRN (09:25)
--- NOTE | 2018-01-21 09:30 | History and Physical Report ---
History of Present Illness Date of examination: 01/21/18 Date of admission: 01/21/18 Chief complaint: mass head of pancreas abdominal pain History of present illness: Patient is 52 years old male who presented to the Ed on account of having epigastric abdominal pain. He has a history of diabetes, Alcohol use disorder, and pancreatitis. Epigastric pain is 8/10 in severity, radiating to his back. He stated that is similar to his previous episode. Patient admitted to drinking alcohol today. Patient is also complaining of nausea and vomiting. Patient denied any chest pain, shortness of breath, hematemesis, melena, fever or cough. Past History Past Medical History: diabetes, other (pnacreatitis, epigstric pain) Past Surgical History: No surgical history Social history: smoking, alcohol abuse Family history: no significant family history Medications and Allergies Allergies Allergy/AdvReac Type Severity Reaction Status Date / Time No Known Drug Allergies Allergy Unknown Verified 05/05/13 02:40 Home Medications Medication Instructions Recorded Confirmed Last Taken Type Folic Acid [Folvite] 1 mg PO QDAY #30 tablet 10/09/16 01/21/18 01/04/17 Rx Lisinopril [Zestril TAB] 2.5 mg PO QDAY #30 tab 10/09/16 01/21/18 01/04/17 Rx glipiZIDE [glipiZIDE ER] 5 mg PO QAM 01/04/17 01/21/18 01/04/17 History Aspirin [Aspirin BABY CHEW TAB] 81 mg PO QDAY 03/29/17 01/21/18 Unknown History Metoprolol [Lopressor TAB] 25 mg PO BID 03/29/17 01/21/18 Unknown History traMADol [Ultram 50 MG tab] 50 mg PO Q6HR PRN #15 tablet 04/10/17 01/21/18 Unknown Rx Insulin NPH/Regular [NovoLIN 70/30] See Protocol SQ TID 01/21/18 01/21/18 Unknown History Ipratropium/Albuterol Sulfate 1 ampul IH Q6HRT PRN 01/21/18 01/21/18 Unknown History [DUONEB *Not for PRN Use*] Active Meds: Active Medications Dextrose (D50w (25gm) Syringe) 50 ml IV PRN PRN PRN Reason: Hypoglycemia Sodium Chloride (Nacl 0.9% 1000 Ml) 1,000 mls @ 125 mls/hr IV ONCE ONE Stop: 01/21/18 17:11 Insulin Human Lispro (Humalog) 0 unit SUB-Q ACHS [facility]; Protocol Morphine Sulfate (Morphine) 2 mg IV Q4H PRN PRN Reason: pain Morphine Sulfate (Morphine) 2 mg IV Q4H PRN PRN Reason: Pain, Moderate (4-6) Ondansetron HCl (Zofran) 4 mg IV Q4HR PRN PRN Reason: nausea Pantoprazole Sodium (Protonix) 40 mg IV BID [facility] Review of Systems Constitutional: anorexia, fatigue, no weight loss, no weight gain, no fever, no chills Ears, nose, mouth and throat: no ear pain, no ear discharge, no tinnitis, no decreased hearing Cardiovascular: no chest pain, no orthopnea, no palpitations, no rapid/ irregular heart beat Respiratory: no cough, no cough with sputum, no excessive sputum, no hemoptysis Gastrointestinal: abdominal pain, nausea, vomiting, no constipation, no hematemesis Genitourinary Male: no dysuria, no hematuria, no flank pain Rectal: no pain, no incontinence Musculoskeletal: no neck pain, no shooting arm pain, no arm numbness/tingling Integumentary: no rash, no pruritis, no redness, no sores Neurological: no head injury, no transient paralysis, no paralysis, no weakness Psychiatric: insomnia, no anxiety, no memory loss, no change in sleep habits, no sleep disturbances Endocrine: no cold intolerance, no heat intolerance, no polyphagia, no excessive thirst, no polydipsia, no weight change Hematologic/Lymphatic: no easy bruising, no easy bleeding Allergic/Immunologic: no urticaria, no allergic rhinitis, no wheezing Exam - Constitutional Vitals: Temp Pulse Resp BP Pulse Ox 97.6 F 99 H 18 118/74 100 01/21/18 03:50 01/21/18 07:53 01/21/18 07:53 01/21/18 07:53 01/21/18 07:53 General appearance: Present: no acute distress, well-nourished - EENT Eyes: Present: PERRL ENT: hearing intact, clear oral mucosa - Neck Neck: Present: supple, normal ROM - Respiratory Respiratory effort: normal Respiratory: bilateral: CTA - Cardiovascular Heart Sounds: Present: S1 & S2. Absent: rub, click - Extremities Extremities: pulses symmetrical, No edema Peripheral Pulses: within normal limits - Abdominal General gastrointestinal: Present: soft, tender (epigastrium), non-distended, normal bowel sounds - Integumentary Integumentary: Present: clear, warm, dry - Musculoskeletal Musculoskeletal: gait normal, strength equal bilaterally - Psychiatric Psychiatric: appropriate mood/affect, intact judgment & insight - Neurologic Neurologic: CNII-XII intact, moves all extremities Results - Labs CBC & Chem 7: 01/21/18 00:15 01/21/18 00:15 Labs: Abnormal lab results 01/21/18 01/21/18 01/21/18 Range/Units 00:15 00:15 00:40 RBC 2.94 L (3.65-5.03) M/mm3 Hgb 10.2 L (11.8-15.2) gm/dl Hct 29.7 L (35.5-45.6) % MCV 101 H (84-94) fl MCH 35 H (28-32) pg RDW 12.9 L (13.2-15.2) % Lymph % (Auto) 47.8 H (13.4-35.0) % [place] % (Auto) 10.6 H (0.0-7.3) % Seg Neutrophils % 39.4 L (40.0-70.0) % Sodium 131 L (137-145) mmol/L Chloride 91.2 L (98-107) mmol/L Carbon Dioxide 20 L (22-30) mmol/L Creatinine 0.7 L (0.8-1.5) mg/dL Glucose 252 H (75-100) mg/dL POC Glucose (70-105) Alkaline Phosphatase 263 H (35-129) units/L Lipase 130 H (13-60) units/L Plasma/Serum Alcohol 0.22 H (0-0.07) % 01/21/18 Range/Units 04:40 RBC (3.65-5.03) M/mm3 Hgb (11.8-15.2) gm/dl Hct (35.5-45.6) % MCV (84-94) fl MCH (28-32) pg RDW (13.2-15.2) % Lymph % (Auto) (13.4-35.0) % [place] % (Auto) (0.0-7.3) % Seg Neutrophils % (40.0-70.0) % Sodium (137-145) mmol/L Chloride (98-107) mmol/L Carbon Dioxide (22-30) mmol/L Creatinine (0.8-1.5) mg/dL Glucose (75-100) mg/dL POC Glucose 110 H (70-105) Alkaline Phosphatase (35-129) units/L Lipase (13-60) units/L Plasma/Serum Alcohol (0-0.07) % - Imaging and Cardiology CT scan - abdomen: report reviewed Assessment and Plan Patient is 52 years old male who presented to the Ed on account of having epigastric abdominal pain. He has a history of diabetes, Alcohol use disorder, and pancreatitis. Epigastric pain is 8/10 in severity, radiating to his back. He stated that is similar to his previous episode. Patient admitted to drinking alcohol today. Patient is also complaining of nausea and vomiting. Patient denied any chest pain, shortness of breath, hematemesis, melena, fever or cough. - Acute on chronic pancraetitis NPO, IVF IV Morphin, protonix and Zofran Lipase - Mass, head of pancrease per CT abdomen For ERCP GI consult - T2DM Pt NPO SSI Consistenc CHO diet when he commnece po intake - Anemia - likely of Chronic disease W/u - DBT PPx with Lovenox
[2018-01-21] MEDS: PROTONIX IV SCH ×2 (09:57→22:42)
[2018-01-21 10:41] LABS: Chol/HDL Ratio 1.45 %
[2018-01-21 10:45] LABS: INR 0.83 (0.87-1.13)
[2018-01-21] MEDS ORDERED: ASPIRIN ONE (11:18)
[2018-01-21] MEDS: ASPIRIN PO SCH (11:20)
[2018-01-21] MEDS: HumaLOG SUB-Q SCH ×3 (12:00→22:42)
[2018-01-21] MEDS: D5/0.45NS 1,000 ML IV SCH (13:24)
[2018-01-21] MEDS: MORPHINE IV PRN ×2 (14:12→23:05)
[2018-01-21] MEDS: ZESTRIL PO SCH (14:29)
[2018-01-21] MEDS: LOPRESSOR PO SCH ×2 (14:29→22:40)
--- NOTE | 2018-01-21 15:50 | Magnetic Resonance Report ---
FINAL REPORT PROCEDURE: MR ABDOMEN MRCP TECHNIQUE: Magnetic resonance imaging of the abdomen was performed using standard pulse sequences without contrast material. MRCP was also performed. HISTORY: abdominal pain pancreatic mass and obstruction COMPARISON: CT 01/21/2018 FINDINGS: Liver: Normal. Biliary system: The common bile duct is dilated up to 15 millimeters in caliber. There is also intrahepatic biliary ductal dilatation. There are numerous small filling defects within the gallbladder lumen, compatible with small gallstones. There is motion artifact limiting evaluation of the common bile duct, however there may be small filling defects in the distal common bile duct, concerning for choledocholithiasis. Pancreas: As seen on the recent CT, there is diffuse pancreatic parenchymal atrophy of the body and tail. However there is an isointense prominent soft tissue area of the pancreatic head, with a pancreatic head mass not excluded. This measures approximately 3.7 centimeters transverse x 3.5 centimeters AP x 2.7 centimeters craniocaudal. Pancreatic duct is dilated, concerning for obstruction Kidneys/Adrenal glands: Normal. Spleen: Normal. Aorta/Lymph nodes: Normal. IMPRESSION: Cholelithiasis. Common bile duct evaluation is limited due to motion artifact, however there is suspicion for small gallstones in the distal duct. There is intrahepatic and extrahepatic biliary ductal dilatation. There is prominence of the pancreatic head, with neoplasm not excluded. The pancreatic duct is also dilated, possibly obstructed. Consider further evaluation with ERCP
--- NOTE | 2018-01-21 15:59 | Consultation ---
History of Present Illness - Reason for Consult Consult date: 01/21/18 pancreatic head mass Requesting physician: ERIK BHARDWAJ - History of Present Illness Patient is a 52-year-old man with a 15 year history of alcohol abuse. He has known episodes of alcoholic pancreatitis. He presented with onset of epigastric pain yesterday, consistent with his prior episodes. He states his last episode was one year ago. His alcohol level on admission was 0.22. CT scan here showed a 3 cm mass in the head of the pancreas with pancreatic atrophy of the body. He is feeling better at present. He denies nausea or vomiting. His bowel movements are regular on a once a day basis. He does smoke 2-3 cigarettes a day. Of note, patient is scheduled for an outpatient colonoscopy with Dr. Gilliam on February 04. Past History Past Medical History: diabetes, other (pnacreatitis, epigstric pain) Past Surgical History: No surgical history Social history: smoking, alcohol abuse Family history: no significant family history Medications and Allergies Allergies Allergy/AdvReac Type Severity Reaction Status Date / Time No Known Drug Allergies Allergy Unknown Verified 05/05/13 02:40 Home Medications Medication Instructions Recorded Confirmed Last Taken Type Folic Acid [Folvite] 1 mg PO QDAY #30 tablet 10/09/16 01/21/18 01/04/17 Rx Lisinopril [Zestril TAB] 2.5 mg PO QDAY #30 tab 10/09/16 01/21/18 01/04/17 Rx glipiZIDE [glipiZIDE ER] 5 mg PO QAM 01/04/17 01/21/18 01/04/17 History Aspirin [Aspirin BABY CHEW TAB] 81 mg PO QDAY 03/29/17 01/21/18 Unknown History Metoprolol [Lopressor TAB] 25 mg PO BID 03/29/17 01/21/18 Unknown History traMADol [Ultram 50 MG tab] 50 mg PO Q6HR PRN #15 tablet 04/10/17 01/21/18 Unknown Rx Insulin NPH/Regular [NovoLIN 70/30] See Protocol SQ TID 01/21/18 01/21/18 Unknown History Ipratropium/Albuterol Sulfate 1 ampul IH Q6HRT PRN 01/21/18 01/21/18 Unknown History [DUONEB *Not for PRN Use*] Active Meds: Active Medications Aspirin (Aspirin) 325 mg PO QDAY [facility] Last Admin: 01/21/18 11:20 Dose: 325 mg Atorvastatin Calcium (Lipitor) 10 mg PO QHS [facility] Dextrose (D50w (25gm) Syringe) 50 ml IV PRN PRN PRN Reason: Hypoglycemia Enoxaparin Sodium (Lovenox) 40 mg SUB-Q QDAY@2200 [facility] Sodium Chloride (Nacl 0.9% 1000 Ml) 1,000 mls @ 125 mls/hr IV ONCE ONE Stop: 01/21/18 17:11 Last Admin: 01/21/18 09:37 Dose: 125 mls/hr Dextrose/Sodium Chloride (D5/0.45ns) 1,000 mls @ 100 mls/hr IV DIRECT [facility] Last Admin: 01/21/18 13:24 Dose: 100 mls/hr Insulin Human Lispro (Humalog) 0 unit SUB-Q ACHS [facility]; Protocol Last Admin: 01/21/18 12:00 Dose: Not Given Lisinopril (Zestril) 2.5 mg PO QDAY [facility] Last Admin: 01/21/18 14:29 Dose: 2.5 mg Metoprolol Tartrate (Lopressor) 12.5 mg PO BID [facility] Last Admin: 01/21/18 14:29 Dose: 12.5 mg Morphine Sulfate (Morphine) 2 mg IV Q4H PRN PRN Reason: pain Last Admin: 01/21/18 14:12 Dose: 2 mg Ondansetron HCl (Zofran) 4 mg IV Q4HR PRN PRN Reason: nausea Pantoprazole Sodium (Protonix) 40 mg IV BID [facility] Last Admin: 01/21/18 09:57 Dose: 40 mg Review of Systems All systems: negative Exam - Constitutional Vitals: Temp Pulse Resp BP Pulse Ox 98.7 F 84 16 126/79 97 01/21/18 14:33 01/21/18 14:33 01/21/18 14:33 01/21/18 14:33 01/21/18 14:33 General appearance: Present: no acute distress - EENT Eyes: Present: PERRL, EOM intact ENT: hearing intact - Neck Neck: Present: supple - Respiratory Respiratory effort: normal Respiratory: bilateral: CTA - Cardiovascular Rhythm: regular Heart Sounds: Present: S1 & S2 - Extremities Extremities: No edema - Abdominal General gastrointestinal: Present: soft, non-tender Results - Labs CBC & Chem 7: 01/21/18 00:15 01/21/18 00:15 Labs: Abnormal lab results 01/21/18 01/21/18 01/21/18 Range/Units 00:15 00:15 00:40 RBC 2.94 L (3.65-5.03) M/mm3 Hgb 10.2 L (11.8-15.2) gm/dl Hct 29.7 L (35.5-45.6) % MCV 101 H (84-94) fl MCH 35 H (28-32) pg RDW 12.9 L (13.2-15.2) % Lymph % (Auto) 47.8 H (13.4-35.0) % [place] % (Auto) 10.6 H (0.0-7.3) % Seg Neutrophils % 39.4 L (40.0-70.0) % PT (12.2-14.9) Sec. INR (0.87-1.13) Sodium 131 L (137-145) mmol/L Chloride 91.2 L (98-107) mmol/L Carbon Dioxide 20 L (22-30) mmol/L Creatinine 0.7 L (0.8-1.5) mg/dL Glucose 252 H (75-100) mg/dL POC Glucose (70-105) Hemoglobin A1c (4-6) % Alkaline Phosphatase 263 H (35-129) units/L LDL Cholesterol Direct (50-130) mg/dL HDL Cholesterol (40-59) mg/dL Lipase 130 H (13-60) units/L Plasma/Serum Alcohol 0.22 H (0-0.07) % 01/21/18 01/21/18 01/21/18 Range/Units 04:40 09:48 09:48 RBC (3.65-5.03) M/mm3 Hgb (11.8-15.2) gm/dl Hct (35.5-45.6) % MCV (84-94) fl MCH (28-32) pg RDW (13.2-15.2) % Lymph % (Auto) (13.4-35.0) % [place] % (Auto) (0.0-7.3) % Seg Neutrophils % (40.0-70.0) % PT (12.2-14.9) Sec. INR (0.87-1.13) Sodium (137-145) mmol/L Chloride (98-107) mmol/L Carbon Dioxide (22-30) mmol/L Creatinine (0.8-1.5) mg/dL Glucose (75-100) mg/dL POC Glucose 110 H (70-105) Hemoglobin A1c 8.6 H (4-6) % Alkaline Phosphatase (35-129) units/L LDL Cholesterol Direct 38 L (50-130) mg/dL HDL Cholesterol 84 H (40-59) mg/dL Lipase (13-60) units/L Plasma/Serum Alcohol (0-0.07) % 01/21/18 01/21/18 Range/Units 09:48 12:24 RBC (3.65-5.03) M/mm3 Hgb (11.8-15.2) gm/dl Hct (35.5-45.6) % MCV (84-94) fl MCH (28-32) pg RDW (13.2-15.2) % Lymph % (Auto) (13.4-35.0) % [place] % (Auto) (0.0-7.3) % Seg Neutrophils % (40.0-70.0) % PT 11.8 L (12.2-14.9) Sec. INR 0.83 L (0.87-1.13) Sodium (137-145) mmol/L Chloride (98-107) mmol/L Carbon Dioxide (22-30) mmol/L Creatinine (0.8-1.5) mg/dL Glucose (75-100) mg/dL POC Glucose 169 H (70-105) Hemoglobin A1c (4-6) % Alkaline Phosphatase (35-129) units/L LDL Cholesterol Direct (50-130) mg/dL HDL Cholesterol (40-59) mg/dL Lipase (13-60) units/L Plasma/Serum Alcohol (0-0.07) % - Imaging and Cardiology CT scan - abdomen: report reviewed (3 cm mass in HOP, with atrophy) Assessment and Plan 1. Pancreatic head mass - Etiology unclear. This could very well be a neoplastic process. Alternatively, it could be related to chronic calcific pancreatitis. At this point, patient is symptomatically feeling better. I would advance his diet. I will check a CA 19-9 level. -Advance diet as tolerated -Check CA 19-9 -If does well, outpatient follow-up with GI. -Likely will need endoscopic ultrasound as outpatient. If EUS is negative for malignancy, patient may well be developing biliary obstruction due to chronic pancreatitis, given elevated alkaline phosphatase, and may need stenting in the near future. -Discussed tobacco and smoking cessation with patient.
[2018-01-21 16:39] LABS: Creatinine,Urine 59.8 mg/dL (0.1-20.0)
[2018-01-21] MEDS ORDERED: LOVENOX SUB-Q SCH (22:00)
[2018-01-22] MEDS: D5/0.45NS 1,000 ML IV SCH (00:23)
[2018-01-22] MEDS: HumaLOG SUB-Q SCH ×3 (07:30→16:30)
[2018-01-22 07:58] LABS: Basophils # (Auto) 0.1 K/mm3 (0.0-0.1); Basophils % (Auto) 1.4 % (0.0-1.8); Eosinophils # (Auto) 0.1 K/mm3 (0.0-0.4); Eosinophils % (Auto) 2.9 % (0.0-4.3); Hemoglobin 10.8 gm/dl (11.8-15.2); Lymphocytes % (Auto) 39.8 % (13.4-35.0); Mean Corpuscular HGB Conc 34 % (32-34); Mean Corpuscular Hemoglobin 34 pg (28-32); Mean Corpuscular Volume 102 fl (84-94); Monocytes # (Auto) 0.6 K/mm3 (0.0-0.8); Monocytes % (Auto) 11.2 % (0.0-7.3); Platelet Count 170 K/mm3 (140-440); Red Blood Count 3.15 M/mm3 (3.65-5.03); Red Cell Distribution Width 12.6 % (13.2-15.2)
[2018-01-22 08:33] LABS: Alanine Aminotransferase 34 units/L (7-56); Albumin 3.5 g/dL (3.9-5); BUN/Creatinine Ratio 12; Blood Urea Nitrogen 7 mg/dL (9-20); Calcium 8.6 mg/dL (8.4-10.2); Hemolysis Index 8
--- NOTE | 2018-01-22 09:22 | Gastroenterology Progress Note ---
Assessment and Plan 1.Pancreatic head mass -etiology unclear- possible neoplastic process vs chronic calcific pancreatitis -CA 19-9 level pending -clinically pt is now feeling better with abd pain improved, no N/V, and tolerating liquids -advance diet- if tolerates okay to d/c home per GI standpoint with clinic follow up (patient already has an appt on February [address] Gilliam) -will likely need EUS as outpatient, if negative for malignancy, patient may well be developing biliary obstruction due to chronic pancreatitis given elevated alk phos and may need stenting in the near future -tobacco cessation discussed with pt -continue supportive care -will sign off, please call if needed Subjective Date of service: 01/22/18 Principal diagnosis: pancreatic mass Interval history: Patient resting in bed this am w/o distress. Reports feeling better this am with abd pain now improved. Denies N/V. Objective - Constitutional Vitals: Temp Pulse Resp BP Pulse Ox 98.6 F 78 16 173/94 99 01/22/18 08:55 01/22/18 08:55 01/22/18 08:55 01/22/18 08:55 01/22/18 08:55 General appearance: no acute distress - Respiratory Respiratory: bilateral: CTA - Cardiovascular Rhythm: regular Heart Sounds: Present: S1 & S2 - Gastrointestinal General gastrointestinal: Present: soft, non-tender, non-distended, normal bowel sounds - Neurologic Neurological: alert and oriented x3 - Labs CBC & Chem 7: 01/22/18 06:55 01/22/18 06:55 Labs: Laboratory Results - last 24 hr 01/21/18 01/21/18 01/21/18 09:48 09:48 09:48 WBC RBC Hgb Hct MCV MCH MCHC RDW Plt Count Lymph % (Auto) [place] % (Auto) Eos % (Auto) Baso % (Auto) Lymph # [place] # Eos # Baso # Seg Neutrophils % Seg Neutrophils # PT 11.8 L INR 0.83 L Sodium Potassium Chloride Carbon Dioxide Anion Gap BUN Creatinine Estimated GFR BUN/Creatinine Ratio Glucose POC Glucose Hemoglobin A1c 8.6 H Calcium Total Bilirubin AST ALT Alkaline Phosphatase Total Protein Albumin Albumin/Globulin Ratio Triglycerides 54 Cholesterol 122 LDL Cholesterol Direct 38 L HDL Cholesterol 84 H Cholesterol/HDL Ratio 1.45 Urine Creatinine Urine Microalbumin Microalb/Creat Ratio 01/21/18 01/21/18 01/21/18 12:24 16:00 17:10 WBC RBC Hgb Hct MCV MCH MCHC RDW Plt Count Lymph % (Auto) [place] % (Auto) Eos % (Auto) Baso % (Auto) Lymph # [place] # Eos # Baso # Seg Neutrophils % Seg Neutrophils # PT INR Sodium Potassium Chloride Carbon Dioxide Anion Gap BUN Creatinine Estimated GFR BUN/Creatinine Ratio Glucose POC Glucose 169 H 219 H Hemoglobin A1c Calcium Total Bilirubin AST ALT Alkaline Phosphatase Total Protein Albumin Albumin/Globulin Ratio Triglycerides Cholesterol LDL Cholesterol Direct HDL Cholesterol Cholesterol/HDL Ratio Urine Creatinine 59.8 H Urine Microalbumin < 1.2 Microalb/Creat Ratio 20.0 01/21/18 01/22/18 01/22/18 21:29 05:43 06:55 WBC 5.1 RBC 3.15 L Hgb 10.8 L Hct 32.0 L MCV 102 H MCH 34 H MCHC 34 RDW 12.6 L Plt Count 170 Lymph % (Auto) 39.8 H [place] % (Auto) 11.2 H Eos % (Auto) 2.9 Baso % (Auto) 1.4 Lymph # 2.0 [place] # 0.6 Eos # 0.1 Baso # 0.1 Seg Neutrophils % 44.7 Seg Neutrophils # 2.3 PT INR Sodium Potassium Chloride Carbon Dioxide Anion Gap BUN Creatinine Estimated GFR BUN/Creatinine Ratio Glucose POC Glucose 290 H 171 H Hemoglobin A1c Calcium Total Bilirubin AST ALT Alkaline Phosphatase Total Protein Albumin Albumin/Globulin Ratio Triglycerides Cholesterol LDL Cholesterol Direct HDL Cholesterol Cholesterol/HDL Ratio Urine Creatinine Urine Microalbumin Microalb/Creat Ratio 01/22/18 06:55 WBC RBC Hgb Hct MCV MCH MCHC RDW Plt Count Lymph % (Auto) [place] % (Auto) Eos % (Auto) Baso % (Auto) Lymph # [place] # Eos # Baso # Seg Neutrophils % Seg Neutrophils # PT INR Sodium 136 L Potassium 4.8 Chloride 99.0 Carbon Dioxide 22 Anion Gap 20 BUN 7 L Creatinine 0.6 L Estimated GFR > 60 BUN/Creatinine Ratio 12 Glucose 340 H POC Glucose Hemoglobin A1c Calcium 8.6 Total Bilirubin 0.40 AST 47 H ALT 34 Alkaline Phosphatase 367 H Total Protein 6.0 L Albumin 3.5 L Albumin/Globulin Ratio 1.4 Triglycerides Cholesterol LDL Cholesterol Direct HDL Cholesterol Cholesterol/HDL Ratio Urine Creatinine Urine Microalbumin Microalb/Creat Ratio
[2018-01-22] MEDS: ZESTRIL PO SCH (09:32)
[2018-01-22] MEDS: PROTONIX IV SCH (09:32)
[2018-01-22] MEDS: LOPRESSOR PO SCH (09:33)
[2018-01-22] MEDS: ASPIRIN PO SCH (09:33)
[2018-01-22 10:31] LABS: INR 0.87 (0.87-1.13)
[2018-01-22 16:24] VITALS: BP 114/74
--- NOTE | 2018-01-22 17:46 | Discharge Summary ---
Providers - Providers Date of Admission: 01/21/18 09:10 Date of discharge: 01/22/18 Attending physician: ERIK BHARDWAJ 01/21/18 09:22 Consult to Physician [CONS] Routine Comment: Consulting Provider: MEREDITH KRAUSE Physician Instructions: Reason For Exam: Mass Head of pancrease Primary care physician: DEMTERIO LEACH Hospitalization Reason for admission: Acute on chronic pancrdatitis, Mass head of pancreas, Epigastric pain Condition: Stable Pertinent studies: CT abdomen and pelvis cecil showed mass at the head of the pancreas MRCP that showed dilated intra, extra biliary ducts as well as intra pancreatic ducts Procedures: none Hospital course: Patient is 52 years old male who presented to the Ed on account of having epigastric abdominal pain. He has a history of diabetes, Alcohol use disorder, and pancreatitis. Epigastric pain is 8/10 in severity, radiating to his back. He stated that is similar to his previous episode. Patient admitted to drinking alcohol today. Patient is also complaining of nausea and vomiting. Patient denied any chest pain, shortness of breath, hematemesis, melena, fever or cough. CT abdomen and pelvis on admssion was remarkable for mass at the head of the pancreas. Pt was commence on iv protonix. Pain control was with narcotic. Counseling on alcohol cessation was done. Was placed on liquid diet and advance to regular diet. He tolaeratd saem. GI consult was obtained on admission. ERC ordered. finding consistent with dilated inta and extra biliary duct as well as the intrahepatic duct. Abdominal pain resolved. Pt tolerated regular diet and is being discharged today to f/u with GI, Dr. Gilliam with whom he already has an appointment for February 04. He is to f/u with his pCP in 3-5 days Disposition: DC-01 TO HOME OR SELFCARE Time spent for discharge: 36 mins Core Measure Documentation - Palliative Care Palliative Care/ Comfort Measures: Not Applicable - Core Measures Any of the following diagnoses?: none Exam - Constitutional Vitals: Temp Pulse Resp BP Pulse Ox 98.2 F 82 15 114/74 100 01/22/18 16:18 01/22/18 16:18 01/22/18 16:18 01/22/18 16:18 01/22/18 16:18 General appearance: Present: no acute distress, well-nourished - EENT Eyes: Present: PERRL - Neck Neck: Present: supple, normal ROM - Respiratory Respiratory effort: normal Respiratory: bilateral: CTA - Cardiovascular Heart Sounds: Present: S1 & S2. Absent: rub, click - Extremities Extremities: pulses symmetrical, No edema Peripheral Pulses: within normal limits - Abdominal General gastrointestinal: Present: soft, non-tender, non-distended, normal bowel sounds - Integumentary Integumentary: Present: clear, warm, dry - Musculoskeletal Musculoskeletal: gait normal, strength equal bilaterally - Psychiatric Psychiatric: appropriate mood/affect, intact judgment & insight - Neurologic Neurologic: CNII-XII intact, moves all extremities Plan Activity: advance as tolerated Diet: advance as tolerated Follow up with: DEMETRIO LEACH MD [Primary Care Provider] - 3-5 Days CESIA GILLIAM MD [Staff Physician] - 7 Days Prescriptions: Aspirin [Aspirin BABY CHEW TAB] 81 mg PO QDAY #30 tab.chew AtorvaSTATin [Lipitor] 10 mg PO QHS #30 tablet Folic Acid [Folvite] 1 mg PO QDAY #30 tablet Lisinopril [Zestril TAB] 2.5 mg PO QDAY #30 tab Metoprolol [Lopressor TAB] 25 mg PO BID #60 tablet Pantoprazole [Protonix TAB] 40 mg PO BID #60 tablet
[2018-01-23] MEDS ORDERED: PROTONIX PO SCH (10:00)
== END 2018-01-22 19:01 | disposition home or self-care (01) ==
LOC: ED 23:44 → INTOOBSV 01-21 09:10 → 3A 01-21 09:10
PROVIDERS: ADMIT Family Medicine; ATTEND Family Medicine
DX: K86.1 Other chronic pancreatitis (principal); K86.89 Other specified diseases of pancreas; F17.210 Nicotine dependence, cigarettes, uncomplicated; E11.9 Type 2 diabetes mellitus without complications; K21.9 Gastro-esophageal reflux disease without esophagitis; J45.909 Unspecified asthma, uncomplicated; D64.9 Anemia, unspecified; I10 Essential (primary) hypertension
CPT/HCPCS: 36415; 74177; 74181; 76705; 80053; 80061; 81001; 82043; 82962; 83036; 83690; 85025; 85610; 86301; 96361; 96374; 96375; 99285; 99406; A9270; C9113; G0378; G0480; J1650; J2270; J2405; J3010; J7030; Q9967; 80320; 96372; 96376; J1815

== ENCOUNTER 2018-10-13 19:17 | Inpatient (IN) | payer MEDICARE ==
[2018-10-13] MEDS ORDERED: ZOFRAN IV ONE ×2 (19:25→21:45)
--- NOTE | 2018-10-13 19:29 | Emergency Department Report ---
ED General Adult HPI - General Stated complaint: N/V CHEST PAIN Time Seen by Provider: 10/13/18 19:17 Source: patient, EMS Mode of arrival: Stretcher Limitations: Altered Mental Status - History of Present Illness Initial comments: Patient is a 53-year-old male that presents emergency room with complaints of nausea and vomiting 3 days and chest pain 1 day. Patient states his chest pain is his bilateral chest. Patient states chest pain is a 6 out of 10. Patient states is worse with movement and vomiting. Patient states chest pain is better with rest. Patient states she's been vomiting for 2-3 days. Patient denies blood in his vomitus. Patient denies diarrhea. Patient states he is having epigastric abdominal pain as well. Patient states the epigastric abdominal pain is a 7 out of 10. Pain is better with rest and worse with vomiting and palpation -: Sudden Location: abdomen Radiation: other (chest) Severity scale (0 -10): 6 Quality: burning, stabbing Consistency: constant Improves with: rest Worsens with: eating, movement, other (vomiting) Associated Symptoms: chest pain, loss of appetite, nausea/vomiting. denies: confusion, cough, diaphoresis, fever/chills, headaches, malaise, rash, seizure, shortness of breath, syncope, weakness Treatments Prior to Arrival: none - Related Data Home Medications Medication Instructions Recorded Confirmed Last Taken Aspirin 81 mg PO DAILY 10/13/18 10/13/18 Unknown Folic Acid [Folvite] 1 mg PO QDAY 10/13/18 10/13/18 Unknown Ipratropium/Albuterol Sulfate 1 ampul IH QID PRN 10/13/18 10/13/18 Unknown [DUONEB *Not for PRN Use*] Lisinopril [Zestril TAB] 2.5 mg PO QDAY 10/13/18 10/13/18 Unknown Pantoprazole [Protonix TAB] 40 mg PO DAILY 10/13/18 10/13/18 Unknown Sildenafil 20 mg PO TID 10/13/18 10/13/18 Unknown Simvastatin 20 mg PO HS 10/13/18 10/13/18 Unknown glipiZIDE [Glipizide] 5 mg PO BID 10/13/18 10/13/18 Unknown metFORMIN [Glucophage] 500 mg PO BID 10/13/18 10/13/18 Unknown traMADol [Ultram 50 MG tab] 50 mg PO DAILY 10/13/18 10/13/18 Unknown Previous Rx's Medication Instructions Recorded Last Taken Type Escitalopram Oxalate [Lexapro] 20 mg PO QDAY #30 tablet 06/14/18 Unknown Rx Gabapentin [Neurontin] 300 mg PO DAILY #30 capsule 06/14/18 Unknown Rx Insulin NPH Hum/Reg Insulin Hm 30 unit SQ BID #1 vial 06/14/18 Unknown Rx [Novolin 70-30 100 Unit/ml Vial] Allergies Allergy/AdvReac Type Severity Reaction Status Date / Time No Known Drug Allergies Allergy Unknown Verified 05/05/13 02:40 ED Review of Systems ROS: Stated complaint: N/V CHEST PAIN Other details as noted in HPI Constitutional: denies: chills, fever Eyes: denies: eye pain, eye discharge, vision change ENT: denies: ear pain, throat pain Respiratory: denies: cough, shortness of breath, wheezing Cardiovascular: chest pain. denies: palpitations Endocrine: no symptoms reported Gastrointestinal: abdominal pain, nausea, vomiting. denies: diarrhea Genitourinary: denies: urgency, dysuria Musculoskeletal: denies: back pain, joint swelling, arthralgia Skin: denies: rash, lesions Neurological: denies: headache, weakness, paresthesias Psychiatric: denies: anxiety, depression Hematological/Lymphatic: denies: easy bleeding, easy bruising ED Past Medical Hx - Past Medical History Previous Medical History?: Yes Hx Hypertension: Yes Hx Heart Attack/AMI: Yes Hx Congestive Heart Failure: No Hx Diabetes: Yes Hx GERD: Yes Hx Renal Disease: No Hx Asthma: Yes Hx COPD: No Hx HIV: No Additional medical history: Prolonged hospitalization after a hypoglycemic episode in the fall of 2012 "problems with Pancreas" - Surgical History Past Surgical History?: Yes Additional Surgical History: "fractured bones", sphincterectomy at bile duct 03/21 - Family History Family history: no significant - Social History Smoking Status: Current Every Day Smoker Substance Use Type: Alcohol - Medications Home Medications: Home Medications Medication Instructions Recorded Confirmed Last Taken Type Escitalopram Oxalate [Lexapro] 20 mg PO QDAY #30 tablet 06/14/18 10/13/18 Unknown Rx Gabapentin [Neurontin] 300 mg PO DAILY #30 capsule 06/14/18 10/13/18 Unknown Rx Insulin NPH Hum/Reg Insulin Hm 30 unit SQ BID #1 vial 06/14/18 10/13/18 Unknown Rx [Novolin 70-30 100 Unit/ml Vial] Aspirin 81 mg PO DAILY 10/13/18 10/13/18 Unknown History Folic Acid [Folvite] 1 mg PO QDAY 10/13/18 10/13/18 Unknown History Ipratropium/Albuterol Sulfate 1 ampul IH QID PRN 10/13/18 10/13/18 Unknown History [DUONEB *Not for PRN Use*] Lisinopril [Zestril TAB] 2.5 mg PO QDAY 10/13/18 10/13/18 Unknown History Pantoprazole [Protonix TAB] 40 mg PO DAILY 10/13/18 10/13/18 Unknown History Sildenafil 20 mg PO TID 10/13/18 10/13/18 Unknown History Simvastatin 20 mg PO HS 10/13/18 10/13/18 Unknown History glipiZIDE [Glipizide] 5 mg PO BID 10/13/18 10/13/18 Unknown History metFORMIN [Glucophage] 500 mg PO BID 10/13/18 10/13/18 Unknown History traMADol [Ultram 50 MG tab] 50 mg PO DAILY 10/13/18 10/13/18 Unknown History ED Physical Exam - General Limitations: No Limitations General appearance: alert, in no apparent distress - Head Head exam: Present: atraumatic, normocephalic - Eye Eye exam: Present: normal appearance - ENT ENT exam: Present: mucous membranes dry - Neck Neck exam: Present: normal inspection - Respiratory Respiratory exam: Present: normal lung sounds bilaterally. Absent: respiratory distress - Cardiovascular Cardiovascular Exam: Present: regular rate, normal rhythm. Absent: systolic murmur, diastolic murmur, rubs, gallop - GI/Abdominal GI/Abdominal exam: Present: soft, tenderness (epigastric tenderness. Left upper quadrant tenderness), normal bowel sounds. Absent: distended, guarding, rebound - Rectal Rectal exam: Present: deferred - Extremities Exam Extremities exam: Present: normal inspection - Back Exam Back exam: Present: normal inspection - Neurological Exam Neurological exam: Present: alert, oriented X3 - Psychiatric Psychiatric exam: Present: normal affect, normal mood - Skin Skin exam: Present: warm, dry, intact, normal color. Absent: rash ED Course Vital Signs 10/13/18 10/13/1819 19:19 19:30 20:00 Temperature 97.7 F Pulse Rate 115 H 112 H 105 H Respiratory 18 26 H 22 Rate Blood Pressure 130/86 104/57 104/66 O2 Sat by Pulse 100 100 Oximetry 10/13/18 10/13/18 10/13/18 20:30 21:00 21:30 Temperature Pulse Rate 106 H 102 H 101 H Respiratory 22 16 18 Rate Blood Pressure 110/71 105/65 117/74 O2 Sat by Pulse Oximetry 10/13/18 10/13/18 10/13/18 22:41 23:00 23:30 Temperature Pulse Rate 107 H 109 H 103 H Respiratory 19 24 30 H Rate Blood Pressure 97/63 102/67 102/67 O2 Sat by Pulse 97 100 Oximetry 10/13/18 10/13/18 10/14/18 23:44 23:56 00:00 Temperature Pulse Rate 102 H 105 H 105 H Respiratory 12 13 10 L Rate Blood Pressure 102/67 102/67 111/57 O2 Sat by Pulse 96 97 98 Oximetry 10/14/18 00:10 Temperature Pulse Rate 103 H Respiratory 14 Rate Blood Pressure 111/57 O2 Sat by Pulse 99 Oximetry - Reevaluation(s) Reevaluation #1: Initial evaluation done. Patient's active vomiting. Zofran has been ordered. 10/13/18 19:17 Patient's nausea has resolved. 10/13/18 21:21 Discussed all results with patient. Patient denies having history of kidney disease or kidney problems. Patient states he does have chronic pancreatitis. Patient to be admitted to the hospitalist service. Patient agrees with plan of care. 10/13/18 23:16 - Consultations Consultation #1: Hospitalist consulted for admission. Hospitalist to admit patient. Hospitalist to assume care patient 10/13/18 23:17 ED Medical Decision Making - Lab Data Result diagrams: 10/13/18 19:52 10/13/18 20:13 - EKG Data -: EKG Interpreted by Me EKG shows normal: sinus rhythm, axis, intervals, QRS complexes, ST-T waves Rate: tachycardia - Radiology Data Radiology results: report reviewed FINAL REPORT EXAM: XR CHEST 1V AP HISTORY: cp COMPARISON: June 2018. FINDINGS: Frontal view(s) of the chest obtained. Cardiac silhouette within normal limits. No gross consolidation or effusion. No pneumothorax. IMPRESSION: No grossly acute findings. FINAL REPORT PROCEDURE: CT ABDOMEN PELVIS WO CON TECHNIQUE: Computerized axial tomography of the abdomen and pelvis was performed without intravenous contrast. This study is performed without intravascular contrast material and its sensitivity for abdominal and pelvic pathology, including neoplasms, inflammation, abscess, free fluid, thrombosis, arterial dissection and infarction, is reduced compared with a contrast enhanced study. HISTORY: abd pain. n/v COMPARISON: Prior CT scan 04/05/2018 FINDINGS: Lower Lung fong: No focal abnormality seen. Upper Abdomen: There is increased density dependently in the gallbladder. There appear to be multiple layering gallstones. Gallbladder is mildly distended otherwise unremarkable. The common bile duct is distended. The pancreatic duct is also distended. There are numerous punctate calcifications seen in the pancreatic head. These were visualized on the prior study. Pancreatic head appears to have enlarged since the prior study. I cannot exclude a mass in the pancreatic head. The enlargement could be due to pancreatitis. Pancreatic head now appears to measure approximately 5 centimeters x 4.2 centimeters. I do not see evidence of a pseudocyst. Prominent pancreatic head best visualized on image 116 series 3 axial image and image 59 series 2. The unenhanced images of the liver showed no focal abnormalities of the exception of intrahepatic bile duct dilatation. This was seen on the prior study. The adrenal glands and the spleen show no focal abnormalities. Kidneys, Ureters and Urinary bladder: Kidneys and ureter show no abnormalities. The spring of the urinary bladder appear mildly thickened. Some of this may be due to lack of distension. I cannot exclude cystitis or muscular hypertrophy. Retroperitoneum: Atherosclerotic changes are seen in the abdominal aorta. No aneurysm is visualized. Nonspecific subcentimeter lymph nodes are seen in the retroperitoneum. No pathologically enlarged lymph nodes are identified. Bowel: Spring of the cecum appear thickened and thicker than on the prior exam. This is best visualized on axial image 97 series 2 and coronal reconstruction image sixty-six series 602. This could be an artifact from contraction. I cannot exclude a nonspecific colitis including infectious colitis, inflammatory bowel disease or even a mass. Bowel loops otherwise are unremarkable. No evidence of bowel obstruction ascites or free intraperitoneal gas. Minimal umbilical hernia containing adipose tissue visualized. No herniated loops of bowel are seen. Reproductive organs: Uterus does not appear to be significantly enlarged. Other: No acute bony abnormalities are seen. IMPRESSION: Interval enlargement of the pancreatic head. Numerous punctate calcifications are seen in the pancreatic head consistent with chronic pancreatitis. The large min could be due to pancreatitis. I cannot exclude a mass in the pancreatic head. The intrahepatic ducts extrahepatic ducts and common bile duct remain distended. These were distended on the prior study as well. Cholelithiasis. Spring of the cecum appear thickened and are thicker than they were on the prior exam. I cannot exclude a nonspecific colitis as described above. - Medical Decision Making Patient is a 53-year-old male the patient's emergency room with complaints of chest pain, nausea vomiting, abdominal pain. Patient history of chronic pancreatitis. Patient does not have. - Differential Diagnosis chest pain. Nausea vomiting. Abdominal pain. pancreatitis Critical Care Time: Yes Critical care attestation.: If time is entered above; I have spent that time in minutes in the direct care of this critically ill patient, excluding procedure time. Critical Care Time: 45 minutes ED Disposition Clinical Impression: Pancreatitis Qualifiers: Chronicity: acute Pancreatitis type: unspecified pancreatitis type Acute pancreatitis complication: unspecified Qualified Code(s): K85.90 - Acute pancreatitis without necrosis or infection, unspecified Nausea & vomiting Qualifiers: Vomiting type: unspecified Vomiting Intractability: intractable Qualified Code(s): R11.2 - Nausea with vomiting, unspecified Chest pain Qualifiers: Chest pain type: unspecified Qualified Code(s): R07.9 - Chest pain, unspecified Abdominal pain Qualifiers: Abdominal location: upper abdomen, unspecified Qualified Code(s): R10.10 - Upper abdominal pain, unspecified Acute renal failure Qualifiers: Acute renal failure type: unspecified Qualified Code(s): N17.9 - Acute kidney failure, unspecified Disposition: -09 OP ADMIT IP TO THIS HOSP Is pt being admited?: Yes Does the pt Need Aspirin: No Condition: Critical Time of Disposition: 23:14
--- NOTE | 2018-10-13 19:46 | XRay Report ---
FINAL REPORT EXAM: XR CHEST 1V AP HISTORY: cp COMPARISON: June 2018. FINDINGS: Frontal view(s) of the chest obtained. Cardiac silhouette within normal limits. No gross consolidatio n or effusion. No pneumothorax. IMPRESSION: No grossly acute findings.
[2018-10-13 19:59] LABS: Basophils # (Auto) 0.1 K/mm3 (0.0-0.1); Basophils % (Auto) 0.8 % (0.0-1.8); Hematocrit 44.1 % (35.5-45.6); Lymphocytes # (Auto) 1.7 K/mm3 (1.2-5.4); Lymphocytes % (Auto) 12.1 % (13.4-35.0); Mean Corpuscular HGB Conc 34 % (32-34); Mean Corpuscular Volume 96 fl (84-94); Monocytes # (Auto) 1.4 K/mm3 (0.0-0.8); Platelet Count 305 K/mm3 (140-440); Red Cell Distribution Width 14.8 % (13.2-15.2)
[2018-10-13] MEDS ORDERED: NACL 0.9% 1000 ML 1,000 ML ONE (20:41)
[2018-10-13] MEDS ORDERED: NACL 0.9% 1000 ML 1,000 ML IV ONE ×2 (20:47→22:43)
[2018-10-13 21:12] LABS: Albumin 4.4 g/dL (3.9-5)
[2018-10-13] MEDS ORDERED: MORPHINE IV ONE (21:38)
[2018-10-13] MEDS ORDERED: MORPHINE ONE (21:41)
--- NOTE | 2018-10-13 22:56 | Cat Scan Report ---
FINAL REPORT PROCEDURE: CT ABDOMEN PELVIS WO CON TECHNIQUE: Computerized axial tomography of the abdomen and pelvis was performed without intravenous contrast. This study is performed without intravascular contrast material and its sensitivity for ab dominal and pelvic pathology, including neoplasms, inflammation, abscess, free fluid, thrombosis, art erial dissection and infarction, is reduced compared with a contrast enhanced study. HISTORY: abd pain. n/v COMPARISON: Prior CT scan 04/05/2018 FINDINGS: Lower Lung fong: No focal abnormality seen. Upper Abdomen: There is increased density dependently in the gallbladder. There appear to be multiple layering gallstones. Gallbladder is mildly distended otherwise unremarkable. The common bile duct is distended. The pancreatic duct is also distended. There are numerous punctate calcifications seen in the pancreatic head. These were visualized on the prior study. Pancreatic head appears to have enlar ged since the prior study. I cannot exclude a mass in the pancreatic head. The enlargement could be d ue to pancreatitis. Pancreatic head now appears to measure approximately 5 centimeters x 4.2 centimet ers. I do not see evidence of a pseudocyst. Prominent pancreatic head best visualized on image 116 se chase 3 axial image and image 59 series 2. The unenhanced images of the liver showed no focal abnormalities of the exception of intrahepatic raghav e duct dilatation. This was seen on the prior study. The adrenal glands and the spleen show no focal abnormalities. Kidneys, Ureters and Urinary bladder: Kidneys and ureter show no abnormalities. The spring of the urin isaura bladder appear mildly thickened. Some of this may be due to lack of distension. I cannot exclude cystitis or muscular hypertrophy. Retroperitoneum: Atherosclerotic changes are seen in the abdominal aorta. No aneurysm is visualized. Nonspecific subcentimeter lymph nodes are seen in the retroperitoneum. No pathologically enlarged lym ph nodes are identified. Bowel: Spring of the cecum appear thickened and thicker than on the prior exam. This is best visualize d on axial image 97 series 2 and coronal reconstruction image sixty-six series 602. This could be an artifact from contraction. I cannot exclude a nonspecific colitis including infectious colitis, infla mmatory bowel disease or even a mass. Bowel loops otherwise are unremarkable. No evidence of bowel ob struction ascites or free intraperitoneal gas. Minimal umbilical hernia containing adipose tissue vis ualized. No herniated loops of bowel are seen. Reproductive organs: Uterus does not appear to be significantly enlarged. Other: No acute bony abnormalities are seen. IMPRESSION: Interval enlargement of the pancreatic head. Numerous punctate calcifications are seen in the pancrea tic head consistent with chronic pancreatitis. The large min could be due to pancreatitis. I cannot e xclude a mass in the pancreatic head. The intrahepatic ducts extrahepatic ducts and common bile duct remain distended. These were distended on the prior study as well. Cholelithiasis. Spring of the cecum appear thickened and are thicker than they were on the prior exam. I cannot exclud e a nonspecific colitis as described above.
--- NOTE | 2018-10-14 00:18 | History and Physical Report ---
<DIAN GUNN - Last Filed: 10/14/18 04:30> History of Present Illness Date of examination: 10/14/18 Date of admission: 10/13/18 23:29 Chief complaint: Chest pain and abdominal pain, nausea/vomiting History of present illness: Patient is a 53-year-old male with past medical history of chronic pancreatitis, diabetes mellitus type 2, who presents to the ER with complaints of chest pain1 day, abdominal pain, nausea and vomiting 2 days. Patient states that yesterday he woke up in morning and had breakfast, right after he ate he felt nauseated, he went to lay down, he woke up around 3 PM with nausea and vomiting, patient states that he threw up everything he ate that , he could not keep anything down. The following day patient states that he woke up with chest pain on the left substernal area, this chest pain is 6 out of 10 in intensity, and the nausea and vomiting continues. Patient admits to having similar chest pain before, but no cardiac disease, he also states that his abdomen pain was located in his epigastric area, associated nausea and vomiting, he reports no radiation of the pain. Patient states that the pain is better when he lays down and rest, he reports palpitation, denies diaphoresis but he reports feeling hot all the time, denies any shortness of breath, denies headache, denies dizziness. Patie nt also reports that the cysts yesterday also was having tingling on both hands and feet. In the ER patient had a CT scan that was positive for acute pancreatitis, lipase was elevated 248, blood glucose was 354, cardiac enzymes 0.023. Patient is admitted for further evaluation and treatment. Past History Past Surgical History: No surgical history Social history: no significant social history Family history: no significant family history Medications and Allergies Allergies Allergy/AdvReac Type Severity Reaction Status Date / Time No Known Drug Allergies Allergy Unknown Verified 05/05/13 02:40 Home Medications Medication Instructions Recorded Confirmed Last Taken Type Escitalopram Oxalate [Lexapro] 20 mg PO QDAY #30 tablet 06/14/18 10/13/18 Unknown Rx Gabapentin [Neurontin] 300 mg PO DAILY #30 capsule 06/14/18 10/13/18 Unknown Rx Insulin NPH Hum/Reg Insulin Hm 30 unit SQ BID #1 vial 06/14/18 10/13/18 Unknown Rx [Novolin 70-30 100 Unit/ml Vial] Aspirin 81 mg PO DAILY 10/13/18 10/13/18 Unknown History Folic Acid [Folvite] 1 mg PO QDAY 10/13/18 10/13/18 Unknown History Ipratropium/Albuterol Sulfate 1 ampul IH QID PRN 10/13/18 10/13/18 Unknown History [DUONEB *Not for PRN Use*] Lisinopril [Zestril TAB] 2.5 mg PO QDAY 10/13/18 10/13/18 Unknown History Pantoprazole [Protonix TAB] 40 mg PO DAILY 10/13/18 10/13/18 Unknown History Sildenafil 20 mg PO TID 10/13/18 10/13/18 Unknown History Simvastatin 20 mg PO HS 10/13/18 10/13/18 Unknown History glipiZIDE [Glipizide] 5 mg PO BID 10/13/18 10/13/18 Unknown History metFORMIN [Glucophage] 500 mg PO BID 10/13/18 10/13/18 Unknown History traMADol [Ultram 50 MG tab] 50 mg PO DAILY 10/13/18 10/13/18 Unknown History Active Meds: Active Medications Enoxaparin Sodium (Lovenox) 30 mg SUB-Q QDAY [facility] Review of Systems Cardiovascular: chest pain, palpitations Gastrointestinal: abdominal pain, nausea, vomiting Exam - Constitutional Vitals: Temp Pulse Resp BP Pulse Ox 97.7 F 103 H 30 H 104/63 100 10/13/18 19:19 10/13/18 23:30 10/13/18 23:30 10/13/18 23:30 10/13/18 23:30 General appearance: Present: no acute distress - EENT Eyes: Present: EOM intact ENT: hearing intact - Neck Neck: Present: supple - Respiratory Respiratory effort: normal Respiratory: bilateral: CTA - Cardiovascular Rhythm: regular Heart Sounds: Present: S1 & S2 - Extremities Extremities: no ischemia Peripheral Pulses: within normal limits - Abdominal Localized gastrointestinal: tender: LUQ Male genitourinary: Present: deferred - Rectal Rectal Exam: deferred - Integumentary Integumentary: Present: clear - Musculoskeletal Musculoskeletal: strength equal bilaterally - Psychiatric Psychiatric: appropriate mood/affect - Neurologic Neurologic: moves all extremities Results - Labs CBC & Chem 7: 10/14/18 01:44 10/14/18 01:44 Labs: Laboratory Last Values WBC 14.4 K/mm3 (4.5-11.0) H 10/13/18 19:52 RBC 4.60 M/mm3 (3.65-5.03) 10/13/18 19:52 Hgb 15.0 gm/dl (11.8-15.2) 10/13/18 19:52 Hct 44.1 % (35.5-45.6) 10/13/18 19:52 MCV 96 fl (84-94) H 10/13/18 19:52 MCH 33 pg (28-32) H 10/13/18 19:52 MCHC 34 % (32-34) 10/13/18 19:52 RDW 14.8 % (13.2-15.2) 10/13/18 19:52 Plt Count 305 K/mm3 (140-440) 10/13/18 19:52 Lymph % (Auto) 12.1 % (13.4-35.0) L 10/13/18 19:52 [place] % (Auto) 10.0 % (0.0-7.3) H 10/13/18 19:52 Eos % (Auto) 0.0 % (0.0-4.3) 10/13/18 19:52 Baso % (Auto) 0.8 % (0.0-1.8) 10/13/18 19:52 Lymph # 1.7 K/mm3 (1.2-5.4) 10/13/18 19:52 [place] # 1.4 K/mm3 (0.0-0.8) H 10/13/18 19:52 Eos # 0.0 K/mm3 (0.0-0.4) 10/13/18 19:52 Baso # 0.1 K/mm3 (0.0-0.1) 10/13/18 19:52 Seg Neutrophils % 77.1 % (40.0-70.0) H 10/13/18 19:52 Seg Neutrophils # 11.1 K/mm3 (1.8-7.7) H 10/13/18 19:52 Sodium 134 mmol/L (137-145) L 10/13/18 20:13 Potassium 4.3 mmol/L (3.6-5.0) 10/13/18 20:13 Chloride 63.7 mmol/L (98-107) L 10/13/18 20:13 Carbon Dioxide 24 mmol/L (22-30) 10/13/18 20:13 Anion Gap 51 mmol/L 10/13/18 20:13 BUN 36 mg/dL (9-20) H 10/13/18 20:13 Creatinine 4.6 mg/dL (0.8-1.5) H 10/13/18 20:13 Estimated GFR 13 ml/min 10/13/18 20:13 BUN/Creatinine Ratio 8 % 10/13/18 20:13 Glucose 354 mg/dL (75-100) H 10/13/18 20:13 Lactic Acid 1.90 mmol/L (0.7-2.0) 10/13/18 22:50 Calcium 10.0 mg/dL (8.4-10.2) 10/13/18 20:13 Total Bilirubin 0.60 mg/dL (0.1-1.2) 10/13/18 20:13 AST 42 units/L (5-40) H 10/13/18 20:13 ALT 42 units/L (7-56) 10/13/18 20:13 Alkaline Phosphatase 1025 units/L (35-129) H 10/13/18 20:13 Total Creatine Kinase 97 units/L (55-170) 10/13/18 20:13 CK-MB (CK-2) 1.0 ng/mL (0.0-4.0) 10/13/18 20:13 CK-MB (CK-2) Rel Index 1.0 (0-4) 10/13/18 20:13 Troponin T 0.023 ng/mL (0.00-0.029) 10/13/18 20:13 Total Protein 7.8 g/dL (6.3-8.2) 10/13/18 20:13 Albumin 4.4 g/dL (3.9-5) 10/13/18 20:13 Albumin/Globulin Ratio 1.3 % 10/13/18 20:13 Lipase 248 units/L (13-60) H 10/13/18 20:13 Assessment and Plan Assessment and plan: 1. Acute pancreatitis 2. Abdominal pain/nausea/vomiting (due to above) 3. Dehydration (due to nausea and vomiting) 4. Acute renal insufficiency (due to dehydration vrs other) 5. Leukocytosis 6. Hyponatremia 7. Uncontrolled DM type II 8. Chest pain (rule out ACS) 9. History of chronic pancreatitis. 10. Peripheral neuropathy Plan: Patient is admitted to [facility] telemetry for acute pancreatitis Will continue cardiac enzymes every 6 hours 2 more Nothing by mouth for bowel rest IVF for hydration/renal perfusion Accu-Chek ACHS with insulin per sliding scale Consult GI for acute pancreatitis Consult cardiology for chest pain If no improvement in kidney function, consult nephrology in a.m. DVT prophylaxis Further plan per GI and cardiovascular recommendation Patient's condition and plan of care discussed with Dr. Ramon Advance Directives: Yes VTE prophylaxis?: Chemical Plan of care discussed with patient/family: Yes <EDD RAMON - Last Filed: 10/14/18 05:14> History of Present Illness Date of admission: 10/13/18 23:29 Medications and Allergies Active Meds: Active Medications Acetaminophen (Tylenol) 650 mg PO Q4H PRN PRN Reason: Pain MILD(1-3)/Fever >100.5/HOLT Aspirin (Ecotrin) 325 mg PO QDAY [facility] Enoxaparin Sodium (Lovenox) 30 mg SUB-Q QDAY [facility] Dextrose/Sodium Chloride (D5/0.45ns) 1,000 mls @ 125 mls/hr IV DIRECT [facility]IVI Morphine Sulfate (Morphine) 3 mg IV Q4H PRN PRN Reason: Chest Pain unrelieved by NTG Ondansetron HCl (Zofran) 4 mg IV Q8H PRN PRN Reason: Nausea And Vomiting Sodium Chloride (Sodium Chloride Flush Syringe 10 Ml) 10 ml IV PRN PRN PRN Reason: LINE FLUSH Sodium Chloride (Sodium Chloride Flush Syringe 10 Ml) 10 ml IV BID [facility] Exam - Constitutional Vitals: Temp Pulse Resp BP Pulse Ox 97.9 F 98 H 18 124/69 98 10/14/18 00:31 10/14/18 00:31 10/14/18 00:31 10/14/18 00:31 10/14/18 00:31 Results - Labs CBC & Chem 7: 10/14/18 01:44 10/14/18 01:44 Labs: Laboratory Last Values WBC 11.6 K/mm3 (4.5-11.0) H 10/14/18 01:44 RBC 4.07 M/mm3 (3.65-5.03) 10/14/18 01:44 Hgb 12.8 gm/dl (11.8-15.2) 10/14/18 01:44 Hct 38.9 % (35.5-45.6) 10/14/18 01:44 MCV 96 fl (84-94) H 10/14/18 01:44 MCH 31 pg (28-32) 10/14/18 01:44 MCHC 33 % (32-34) 10/14/18 01:44 RDW 14.7 % (13.2-15.2) 10/14/18 01:44 Plt Count 261 K/mm3 (140-440) 10/14/18 01:44 Lymph % (Auto) 12.9 % (13.4-35.0) L 10/14/18 01:44 [place] % (Auto) 10.3 % (0.0-7.3) H 10/14/18 01:44 Eos % (Auto) 0.0 % (0.0-4.3) 10/14/18 01:44 Baso % (Auto) 0.4 % (0.0-1.8) 10/14/18 01:44 Lymph # 1.5 K/mm3 (1.2-5.4) 10/14/18 01:44 [place] # 1.2 K/mm3 (0.0-0.8) H 10/14/18 01:44 Eos # 0.0 K/mm3 (0.0-0.4) 10/14/18 01:44 Baso # 0.0 K/mm3 (0.0-0.1) 10/14/18 01:44 Seg Neutrophils % 76.4 % (40.0-70.0) H 10/14/18 01:44 Seg Neutrophils # 8.8 K/mm3 (1.8-7.7) H 10/14/18 01:44 Sodium 136 mmol/L (137-145) L 10/14/18 01:44 Potassium 4.4 mmol/L (3.6-5.0) 10/14/18 01:44 Chloride 73.8 mmol/L (98-107) L 10/14/18 01:44 Carbon Dioxide 26 mmol/L (22-30) 10/14/18 01:44 Anion Gap 41 mmol/L 10/14/18 01:44 BUN 40 mg/dL (9-20) H 10/14/18 01:44 Creatinine 4.4 mg/dL (0.8-1.5) H 10/14/18 01:44 Estimated GFR 14 ml/min 10/14/18 01:44 BUN/Creatinine Ratio 9 % 10/14/18 01:44 Glucose 401 mg/dL (75-100) H 10/14/18 01:44 Hemoglobin A1c 7.3 % (4-6) H 10/14/18 01:44 Lactic Acid 1.90 mmol/L (0.7-2.0) 10/13/18 22:50 Calcium 8.5 mg/dL (8.4-10.2) 10/14/18 01:44 Total Bilirubin 0.60 mg/dL (0.1-1.2) 10/13/18 20:13 AST 42 units/L (5-40) H 10/13/18 20:13 ALT 42 units/L (7-56) 10/13/18 20:13 Alkaline Phosphatase 1025 units/L (35-129) H 10/13/18 20:13 Total Creatine Kinase 97 units/L (55-170) 10/13/18 20:13 CK-MB (CK-2) 1.0 ng/mL (0.0-4.0) 10/13/18 20:13 CK-MB (CK-2) Rel Index 1.0 (0-4) 10/13/18 20:13 Troponin T 0.023 ng/mL (0.00-0.029) 10/13/18 20:13 Total Protein 7.8 g/dL (6.3-8.2) 10/13/18 20:13 Albumin 4.4 g/dL (3.9-5) 10/13/18 20:13 Albumin/Globulin Ratio 1.3 % 10/13/18 20:13 Triglycerides 234 mg/dL (2-149) H 10/14/18 01:44 Cholesterol 181 mg/dL (50-199) 10/14/18 01:44 LDL Cholesterol Direct 90 mg/dL (50-130) 10/14/18 01:44 HDL Cholesterol 55 mg/dL (40-59) 10/14/18 01:44 Cholesterol/HDL Ratio 3.29 % 10/14/18 01:44 Lipase 248 units/L (13-60) H 10/13/18 20:13 Assessment and Plan Assessment and plan: Patient seen and examined with [employer]. 53-year-old man history of hypertension, diabetes, chronic pancreatitis, chronic kidney disease, CVAs, coronary artery disease, status post bile and pancreatic duct cleanout comes emergency room with complaints of nausea vomiting and chest pain, abdominal pain the epigastric area 3 days. Symptoms consistent with pancreatitis , patient quit drinking. Physical exam is significant for tenderness in his epigastric area, agree with plan as discussed above
[2018-10-14] MEDS ORDERED: ZOFRAN IV PRN ×2 (00:19→15:54)
[2018-10-14] MEDS ORDERED: SODIUM CHLORIDE FLUSH SYRINGE 10 ML IV PRN ×3 (00:19→15:54)
[2018-10-14] MEDS ORDERED: TYLENOL PO PRN ×2 (00:19→15:54)
[2018-10-14] MEDS ORDERED: ZOFRAN ONE (01:25)
[2018-10-14 02:33] LABS: Chol/HDL Ratio 3.29 %
[2018-10-14 03:32] LABS: Basophils % (Auto) 0.4 % (0.0-1.8); Calcium 8.5 mg/dL (8.4-10.2); Hematocrit 38.9 % (35.5-45.6); Hemoglobin 12.8 gm/dl (11.8-15.2); Lymphocytes # (Auto) 1.5 K/mm3 (1.2-5.4); Lymphocytes % (Auto) 12.9 % (13.4-35.0); Mean Corpuscular HGB Conc 33 % (32-34); Mean Corpuscular Volume 96 fl (84-94); Monocytes # (Auto) 1.2 K/mm3 (0.0-0.8); Monocytes % (Auto) 10.3 % (0.0-7.3); Platelet Count 261 K/mm3 (140-440); Red Blood Count 4.07 M/mm3 (3.65-5.03); Red Cell Distribution Width 14.7 % (13.2-15.2)
[2018-10-14] MEDS: MORPHINE IV PRN ×2 (06:02→17:11)
[2018-10-14] MEDS: D5/0.45NS 1,000 ML IV SCH ×2 (06:03→14:58)
[2018-10-14 06:47] LABS: Bilirubin,Urine NEG (Negative); Blood,Urine NEG (Negative); Color,Urine Yellow (Yellow); Mucus,Urine FEW /HPF; Urobilinogen,Urine < 2.0 mg/dL (<2.0)
[2018-10-14] MEDS ORDERED: DUONEB *Not for PRN Use IH (06:48)
[2018-10-14] MEDS ORDERED: PROTONIX IV SCH (10:00)
[2018-10-14] MEDS: LOVENOX SUB-Q SCH (10:15)
[2018-10-14] MEDS: SODIUM CHLORIDE FLUSH SYRINGE 10 ML IV SCH ×3 (10:16→22:21)
--- NOTE | 2018-10-14 11:59 | Consultation ---
History of Present Illness Consult date: 10/14/18 Consult reason: chest pain History of present illness: Patient is a 53-year-old male with past medical history of chronic pancreatitis who presented to hospital with epigastric pain, nausea, and vomiting. In the ER patient had a CT scan that was positive for acute pancreatitis, lipase was elevated 248. He has been admitted due to acute on chronic pancreatitis. His troponin level is normal at 0.023. 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 His last MPI on 01/07/17 revealed normal pefusion. ECG reveals sinus rhythm, prolonged QTc, anterior lateral T wave inversions. Past History Past Medical History: diabetes, other (chronic pancreatitis) Social history: no significant social history Family history: no significant family history Medications and Allergies Allergies Allergy/AdvReac Type Severity Reaction Status Date / Time No Known Drug Allergies Allergy Unknown Verified 05/05/13 02:40 Home Medications Medication Instructions Recorded Confirmed Last Taken Type Escitalopram Oxalate [Lexapro] 20 mg PO QDAY #30 tablet 06/14/18 10/13/18 U nknown Rx Gabapentin [Neurontin] 300 mg PO DAILY #30 capsule 06/14/18 10/13/18 Unknown Rx Insulin NPH Hum/Reg Insulin Hm 30 unit SQ BID #1 vial 06/14/18 10/13/18 Unknown Rx [Novolin 70-30 100 Unit/ml Vial] Aspirin 81 mg PO DAILY 10/13/18 10/13/18 Unknown History Folic Acid [Folvite] 1 mg PO QDAY 10/13/18 10/13/18 Unknown History Ipratropium/Albuterol Sulfate 1 ampul IH QID PRN 10/13/18 10/13/18 Unknown History [DUONEB *Not for PRN Use*] Lisinopril [Zestril TAB] 2.5 mg PO QDAY 10/13/18 10/13/18 Unknown History Pantoprazole [Protonix TAB] 40 mg PO DAILY 10/13/18 10/13/18 Unknown History Sildenafil 20 mg PO TID 10/13/18 10/13/18 Unknown History Simvastatin 20 mg PO HS 10/13/18 10/13/18 Unknown History glipiZIDE [Glipizide] 5 mg PO BID 10/13/18 10/13/18 Unknown History metFORMIN [Glucophage] 500 mg PO BID 10/13/18 10/13/18 Unknown History traMADol [Ultram 50 MG tab] 50 mg PO DAILY 10/13/18 10/13/18 Unknown History Active Meds: Active Medications Acetaminophen (Tylenol) 650 mg PO Q4H PRN PRN Reason: Pain MILD(1-3)/Fever >100.5/HOLT Albuterol/Ipratropium (Duoneb *Not For Prn Use*) 1 ampul IH QIDRT PRN PRN Reason: asthma Aspirin (Ecotrin) 325 mg PO QDAY [facility] Enoxaparin Sodium (Lovenox) 30 mg SUB-Q QDAY [facility] Last Admin: 10/14/18 10:15 Dose: 30 mg Documented by: Dextrose/Sodium Chloride (D5/0.45ns) 1,000 mls @ 125 mls/hr IV DIRECT [facility] Last Admin: 10/14/18 06:03 Dose: 125 mls/hr Documented by: Insulin Human Isoph/Insulin Regular (Humulin 70/30) 30 unit SUB-Q BIDDIAB [facility] Last Admin: 10/14/18 08:37 Dose: 30 unit Documented by: Morphine Sulfate (Morphine) 3 mg IV Q4H PRN PRN Reason: Chest Pain unrelieved by NTG Last Admin: 10/14/18 06:02 Dose: 3 mg Documented by: Ondansetron HCl (Zofran) 4 mg IV Q8H PRN PRN Reason: Nausea And Vomiting Last Admin: 10/14/18 06:02 Dose: 4 mg Documented by: Pantoprazole Sodium (Protonix) 40 mg IV BID [facility] Last Admin: 10/14/18 10:15 Dose: 40 mg Documented by: Sodium Chloride (Sodium Chloride Flush Syringe 10 Ml) 10 ml IV PRN PRN PRN Reason: LINE FLUSH Sodium Chloride (Sodium Chloride Flush Syringe 10 Ml) 10 ml IV BID [facility] Last Admin: 10/14/18 10:16 Dose: 10 ml Documented by: Review of Systems All systems: negative (per hpi) Physical Examination Vital Signs Temp Pulse Resp BP Pulse Ox 97.7 F 115 H 18 130/86 100 10/13/18 19:19 10/13/18 19:19 10/13/18 19:19 10/13/18 19:19 10/13/18 19:19 General appearance: no acute distress HEENT: Positive: PERRL, EOMI Neck: Positive: neck supple Cardiac: Positive: Reg Rate and Rhythm. Negative: Audible Murmur Lungs: Positive: clear to auscultation Abdomen: Positive: Tender Extremities: Absent: edema Results 10/14/18 01:44 10/14/18 01:44 Cardiac Enzymes 10/13/18 10/13/18 Range/Units 20:13 20:13 AST 42 H (5-40) units/L CK-MB (CK-2) 1.0 (0.0-4.0) ng/mL Lipids 10/14/18 Range/Units 01:44 Triglycerides 234 H (2-149) mg/dL Cholesterol 181 (50-199) mg/dL HDL Cholesterol 55 (40-59) mg/dL Cholesterol/HDL Ratio 3.29 % CBC 10/13/18 10/14/18 Range/Units 19:52 01:44 WBC 14.4 H 11.6 H (4.5-11.0) K/mm3 RBC 4.60 4.07 (3.65-5.03) M/mm3 Hgb 15.0 12.8 (11.8-15.2) gm/dl Hct 44.1 38.9 (35.5-45.6) % Plt Count 305 261 (140-440) K/mm3 Lymph # 1.7 1.5 (1.2-5.4) K/mm3 [place] # 1.4 H 1.2 H (0.0-0.8) K/mm3 Eos # 0.0 0.0 (0.0-0.4) K/mm3 Baso # 0.1 0.0 (0.0-0.1) K/mm3 Comprehensive Metabolic Panel 10/13/18 10/14/18 Range/Units 20:13 01:44 Sodium 134 L 136 L (137-145) mmol/L Potassium 4.3 4.4 (3.6-5.0) mmol/L Chloride 63.7 L 73.8 L (98-107) mmol/L Carbon Dioxide 24 26 (22-30) mmol/L BUN 36 H 40 H (9-20) mg/dL Creatinine 4.6 H 4.4 H (0.8-1.5) mg/dL Glucose 354 H 401 H (75-100) mg/dL Calcium 10.0 8.5 (8.4-10.2) mg/dL AST 42 H (5-40) units/L ALT 42 (7-56) units/L Alkaline Phosphatase 1025 H (35-129) units/L Total Protein 7.8 (6.3-8.2) g/dL Albumin 4.4 (3.9-5) g/dL Assessment and Plan Acute on chronic pancreatitis DM Recommend: Continue ongoing evaluation and treatment for pancreatitis Check Echocardiogram
[2018-10-14] MEDS ORDERED: LIBRIUM PO PRN ×2 (15:50)
[2018-10-14] MEDS ORDERED: ATIVAN IV PRN ×2 (15:50)
--- NOTE | 2018-10-14 15:50 | Progress Note ---
Assessment and Plan Assessment and plan 1. Acute pancreatitis--mild 2. Abdominal pain/nausea/vomiting (due to above)--improved 3. Dehydration (due to nausea and vomiting)--- improved 4. Acute kidney injury secondary to ATN--- IV fluids for now 5. Leukocytosis--demargination 6. Hyponatremia--improving 7. Uncontrolled DM type II--adjusted insulin 8. Chest pain (rule out ACS)--- nonspecific 9. History of chronic pancreatitis.----Advised abstinence from alcohol 10. Peripheral neuropathy Subjective Date of service: 10/14/18 Principal diagnosis: acute kidney injury and acute pancreatitis Interval history: Patient symptomatically better, abdominal pain less Objective - Constitutional Vitals: Vital Signs - 12hr 10/14/18 10/14/18 05:47 13:09 Temperature 97.9 F 98.0 F Pulse Rate 107 H 91 H Respiratory 18 15 Rate Blood Pressure 93/58 90/56 O2 Sat by Pulse 96 95 Oximetry General appearance: Present: no acute distress, well-nourished - EENT Eyes: PERRL, EOM intact ENT: hearing intact, clear oral mucosa Ears: bilateral: normal - Neck Neck: supple, normal ROM - Respiratory Respiratory effort: normal Respiratory: bilateral: CTA - Breasts Breasts: normal - Cardiovascular Rhythm: regular Heart Sounds: Present: S1 & S2. Absent: gallop, rub Extremities: pulses intact, No edema, normal color, Full ROM - Gastrointestinal General gastrointestinal: Present: soft, non-tender, non-distended, normal bowel sounds - Genitourinary Male genitourinary: normal - Integumentary Integumentary: clear, warm, dry - Musculoskeletal Musculoskeletal: 1, strength equal bilaterally - Neurologic Neurologic: moves all extremities - Psychiatric Psychiatric: memory intact, appropriate mood/affect, intact judgment & insight - Labs CBC & Chem 7: 10/15/18 04:37 10/15/18 14:31 Labs: Abnormal lab results 10/13/18 10/13/18 10/13/18 Range/Units 19:52 20:13 20:13 WBC 14.4 H (4.5-11.0) K/mm3 MCV 96 H (84-94) fl MCH 33 H (28-32) pg Lymph % (Auto) 12.1 L (13.4-35.0) % [place] % (Auto) 10.0 H (0.0-7.3) % [place] # 1.4 H (0.0-0.8) K/mm3 Seg Neutrophils % 77.1 H (40.0-70.0) % Seg Neutrophils # 11.1 H (1.8-7.7) K/mm3 Sodium 134 L (137-145) mmol/L Chloride 63.7 L (98-107) mmol/L BUN 36 H (9-20) mg/dL Creatinine 4.6 H (0.8-1.5) mg/dL Glucose 354 H (75-100) mg/dL POC Glucose (70-105) Hemoglobin A1c (4-6) % AST 42 H (5-40) units/L Alkaline Phosphatase 1025 H (35-129) units/L Triglycerides (2-149) mg/dL Lipase 248 H (13-60) units/L 10/14/18 10/14/18 10/14/18 Range/Units 01:44 01:44 01:44 WBC 11.6 H (4.5-11.0) K/mm3 MCV 96 H (84-94) fl MCH (28-32) pg Lymph % (Auto) 12.9 L (13.4-35.0) % [place] % (Auto) 10.3 H (0.0-7.3) % [place] # 1.2 H (0.0-0.8) K/mm3 Seg Neutrophils % 76.4 H (40.0-70.0) % Seg Neutrophils # 8.8 H (1.8-7.7) K/mm3 Sodium 136 L (137-145) mmol/L Chloride 73.8 L (98-107) mmol/L BUN 40 H (9-20) mg/dL Creatinine 4.4 H (0.8-1.5) mg/dL Glucose 401 H (75-100) mg/dL POC Glucose (70-105) Hemoglobin A1c 7.3 H (4-6) % AST (5-40) units/L Alkaline Phosphatase (35-129) units/L Triglycerides (2-149) mg/dL Lipase (13-60) units/L 10/14/18 10/14/18 10/14/18 Range/Units 01:44 07:54 11:59 WBC (4.5-11.0) K/mm3 MCV (84-94) fl MCH (28-32) pg Lymph % (Auto) (13.4-35.0) % [place] % (Auto) (0.0-7.3) % [place] # (0.0-0.8) K/mm3 Seg Neutrophils % (40.0-70.0) % Seg Neutrophils # (1.8-7.7) K/mm3 Sodium (137-145) mmol/L Chloride (98-107) mmol/L BUN (9-20) mg/dL Creatinine (0.8-1.5) mg/dL Glucose (75-100) mg/dL POC Glucose 375 H 329 H (70-105) Hemoglobin A1c (4-6) % AST (5-40) units/L Alkaline Phosphatase (35-129) units/L Triglycerides 234 H (2-149) mg/dL Lipase (13-60) units/L
[2018-10-14] MEDS ORDERED: PERCOCET 5/325 PO PRN (15:54)
[2018-10-14] MEDS ORDERED: DILAUDID IV PRN (15:54)
[2018-10-14] MEDS ORDERED: PEPCID IV SCH (16:00)
--- NOTE | 2018-10-14 16:58 | Gastroenterology Consultation ---
History of Present Illness - Reason for Consult Consult date: 10/14/18 Acute on Chronic Pancreatitis Requesting physician: AMANDA HARGROVE - History of Present Illness The patient was last seen in April for severe pancreatic disease from EtOH. He had ductal dilation (CBD and PD) and was felt to possibly have a malignancy; w/u by Dr Clarke at [facility] with Spyglass showed only inflammatory changes. He quit EtOH for awhile, and has actually gained about 10-20 pounds by his report, but now is drinking 1-3 6-packs of beer per week, as well as occasional liquor. He was admitted with severe pain, and acute on chronic pancreatitis. He has calcifications on his CT consistent with prior necrosis. He is already insulin- requiring diabetic, but denies steatorrhea-type symptoms. He is no longer on pancreatic enzymes. Past History Past Medical History: CAD, diabetes, hypertension, other (chronic pancreatitis from EtOH) Past Surgical History: No surgical history Social history: smoking, alcohol abuse Family history: diabetes, hypertension Medications and Allergies Allergies Allergy/AdvReac Type Severity Reaction Status Date / Time No Known Drug Allergies Allergy Unknown Verified 05/05/13 02:40 Home Medications Medication Instructions Recorded Confirmed Last Taken Type Escitalopram Oxalate [Lexapro] 20 mg PO QDAY #30 tablet 06/14/18 10/13/18 Unknown Rx Gabapentin [Neurontin] 300 mg PO DAILY #30 capsule 06/14/18 10/13/18 Unknown Rx Insulin NPH Hum/Reg Insulin Hm 30 unit SQ BID #1 vial 06/14/18 10/13/18 Unknown Rx [Novolin 70-30 100 Unit/ml Vial] Aspirin 81 mg PO DAILY 10/13/18 10/13/18 Unknown History Folic Acid [Folvite] 1 mg PO QDAY 10/13/18 10/13/18 Unknown History Ipratropium/Albuterol Sulfate 1 ampul IH QID PRN 10/13/18 10/13/18 Unknown History [DUONEB *Not for PRN Use*] Lisinopril [Zestril TAB] 2.5 mg PO QDAY 10/13/18 10/13/18 Unknown History Pantoprazole [Protonix TAB] 40 mg PO DAILY 10/13/18 10/13/18 Unknown History Sildenafil 20 mg PO TID 10/13/18 10/13/18 Unknown History Simvastatin 20 mg PO HS 10/13/18 10/13/18 Unknown History glipiZIDE [Glipizide] 5 mg PO BID 10/13/18 10/13/18 Unknown History metFORMIN [Glucophage] 500 mg PO BID 10/13/18 10/13/18 Unknown History traMADol [Ultram 50 MG tab] 50 mg PO DAILY 10/13/18 10/13/18 Unknown History Active Meds: Active Medications Acetaminophen (Tylenol) 650 mg PO Q4H PRN PRN Reason: Pain MILD(1-3)/Fever >100.5/HOLT Acetaminophen (Tylenol) 650 mg PO Q4H PRN PRN Reason: Pain MILD(1-3)/Fever >100.5/HOLT Albuterol/Ipratropium (Duoneb *Not For Prn Use*) 1 ampul IH QIDRT PRN PRN Reason: asthma Lipase/Protease/Amylase (Crejeanette Dr 6,000 Units) 2 each PO AC VIVI Aspirin (Ecotrin) 325 mg PO QDAY VIVI Chlordiazepoxide HCl (Librium) 50 mg PO Q1H PRN PRN Reason: Fidelina 8-15 Stop: 10/15/18 15:49 Chlordiazepoxide HCl (Librium) 100 mg PO Q1H PRN PRN Reason: Fidelina 16 Stop: 10/16/18 23:59 Enoxaparin Sodium (Lovenox) 30 mg SUB-Q QDAY [facility] Last Admin: 10/14/18 10:15 Dose: 30 mg Documented by: Hydromorphone HCl (Dilaudid) 0.5 mg IV Q3H PRN PRN Reason: Pain , Severe (7-10) Dextrose/Sodium Chloride (D5/0.45ns) 1,000 mls @ 125 mls/hr IV DIRECT [facility] Last Admin: 10/14/18 14:58 Dose: 125 mls/hr Documented by: Dextrose/Sodium Chloride (D5ns) 1,000 mls @ 125 mls/hr IV DIRECT VIVI Insulin Human Isoph/Insulin Regular (Humulin 70/30) 30 unit SUB-Q BIDDIAB [facility] Last Admin: 10/14/18 08:37 Dose: 30 unit Documented by: Lorazepam (Ativan) 2 mg IV Q1H PRN PRN Reason: CIWA-Ar 8-15 Lorazepam (Ativan) 4 mg IV Q1H PRN PRN Reason: CIWA-Ar 16-25 Stop: 10/16/18 15:49 Morphine Sulfate (Morphine) 3 mg IV Q4H PRN PRN Reason: Chest Pain unrelieved by NTG Last Admin: 10/14/18 06:02 Dose: 3 mg Documented by: Multivitamins (Theragran Tab) 1 each PO QDAY [facility] Ondansetron HCl (Zofran) 4 mg IV Q8H PRN PRN Reason: Nausea And Vomiting Last Admin: 10/14/18 06:02 Dose: 4 mg Documented by: Ondansetron HCl (Zofran) 4 mg IV Q8H PRN PRN Reason: Nausea And Vomiting Oxycodone/Acetaminophen (Percocet 5/325) 1 tab PO Q6H PRN PRN Reason: Pain, Moderate (4-6) Pantoprazole Sodium (Protonix) 40 mg PO QDAY [facility] Sodium Chloride (Sodium Chloride Flush Syringe 10 Ml) 10 ml IV PRN PRN PRN Reason: LINE FLUSH Sodium Chloride (Sodium Chloride Flush Syringe 10 Ml) 10 ml IV BID [facility] Last Admin: 10/14/18 10:16 Dose: 10 ml Documented by: Sodium Chloride (Sodium Chloride Flush Syringe 10 Ml) 10 ml IV BID VIVI Sodium Chloride (Sodium Chloride Flush Syringe 10 Ml) 10 ml IV PRN PRN PRN Reason: LINE FLUSH I HAVE REVIEWED AND RECONCILED MEDICATONS Review of Systems - Review of Systems All systems: negative (as noted in the HPI) Exam - Constitutional Vital Signs: Temp Pulse Resp BP Pulse Ox 98.0 F 91 H 15 90/56 95 10/14/18 13:09 10/14/18 13:09 10/14/18 13:09 10/14/18 13:09 10/14/18 13:09 General appearance: no acute distress, temporal muscle wasting - EENT Eyes: PERRL, EOM intact ENT: hearing intact, clear oral mucosa, poor dentition, no thrush - Neck Neck: supple, normal ROM - Respiratory Respiratory effort: normal Respiratory: bilateral: CTA - Cardiovascular Rhythm: regular Heart Sounds: Present: S1 & S2 Extremities: no ischemia, No edema - Gastrointestinal General gastrointestinal: Present: soft, tender (minimal epigastric tenderness), non-distended - Integumentary Integumentary: Present: clear, warm, dry - Musculoskeletal Musculoskeletal: other (diffuse muscular wasting) - Neurologic Neurological: alert and oriented x3 - Labs CBC & Chem 7: 10/14/18 01:44 10/14/18 01:44 Lab Results: Laboratory Results - last 24 hr 10/13/18 10/13/18 10/13/18 19:52 20:13 20:13 WBC 14.4 H RBC 4.60 Hgb 15.0 Hct 44.1 MCV 96 H MCH 33 H MCHC 34 RDW 14.8 Plt Count 305 Lymph % (Auto) 12.1 L [place] % (Auto) 10.0 H Eos % (Auto) 0.0 Baso % (Auto) 0.8 Lymph # 1.7 [place] # 1.4 H Eos # 0.0 Baso # 0.1 Seg Neutrophils % 77.1 H Seg Neutrophils # 11.1 H Sodium 134 L Potassium 4.3 Chloride 63.7 L Carbon Dioxide 24 Anion Gap 51 BUN 36 H Creatinine 4.6 H Estimated GFR 13 BUN/Creatinine Ratio 8 Glucose 354 H POC Glucose Hemoglobin A1c Lactic Acid Calcium 10.0 Total Bilirubin 0.60 AST 42 H ALT 42 Alkaline Phosphatase 1025 H Total Creatine Kinase 97 CK-MB (CK-2) 1.0 CK-MB (CK-2) Rel Index 1.0 Troponin T 0.023 Total Protein 7.8 Albumin 4.4 Albumin/Globulin Ratio 1.3 Triglycerides Cholesterol LDL Cholesterol Direct HDL Cholesterol Cholesterol/HDL Ratio Lipase Urine Color Urine Turbidity Urine pH Ur Specific [place] Urine Protein Urine Glucose (UA) Urine Ketones Urine Blood Urine Nitrite Urine Bilirubin Urine Urobilinogen Ur Leukocyte Esterase Urine WBC (Auto) Urine RBC (Auto) U Epithel Cells (Auto) Urine Mucus 10/13/18 10/13/18 10/14/18 20:13 22:50 01:44 WBC 11.6 H RBC 4.07 Hgb 12.8 Hct 38.9 MCV 96 H MCH 31 MCHC 33 RDW 14.7 Plt Count 261 Lymph % (Auto) 12.9 L [place] % (Auto) 10.3 H Eos % (Auto) 0.0 Baso % (Auto) 0.4 Lymph # 1.5 [place] # 1.2 H Eos # 0.0 Baso # 0.0 Seg Neutrophils % 76.4 H Seg Neutrophils # 8.8 H Sodium Potassium Chloride Carbon Dioxide Anion Gap BUN Creatinine Estimated GFR BUN/Creatinine Ratio Glucose POC Glucose Hemoglobin A1c Lactic Acid 1.90 Calcium Total Bilirubin AST ALT Alkaline Phosphatase Total Creatine Kinase CK-MB (CK-2) CK-MB (CK-2) Rel Index Troponin T Total Protein Albumin Albumin/Globulin Ratio Triglycerides Cholesterol LDL Cholesterol Direct HDL Cholesterol Cholesterol/HDL Ratio Lipase 248 H Urine Color Urine Turbidity Urine pH Ur Specific [place] Urine Protein Urine Glucose (UA) Urine Ketones Urine Blood Urine Nitrite Urine Bilirubin Urine Urobilinogen Ur Leukocyte Esterase Urine WBC (Auto) Urine RBC (Auto) U Epithel Cells (Auto) Urine Mucus 10/14/18 10/14/18 10/14/18 01:44 01:44 01:44 WBC RBC Hgb Hct MCV MCH MCHC RDW Plt Count Lymph % (Auto) [place] % (Auto) Eos % (Auto) Baso % (Auto) Lymph # [place] # Eos # Baso # Seg Neutrophils % Seg Neutrophils # Sodium 136 L Potassium 4.4 Chloride 73.8 L Carbon Dioxide 26 Anion Gap 41 BUN 40 H Creatinine 4.4 H Estimated GFR 14 BUN/Creatinine Ratio 9 Glucose 401 H POC Glucose Hemoglobin A1c 7.3 H Lactic Acid Calcium 8.5 Total Bilirubin AST ALT Alkaline Phosphatase Total Creatine Kinase CK-MB (CK-2) CK-MB (CK-2) Rel Index Troponin T Total Protein Albumin Albumin/Globulin Ratio Triglycerides 234 H Cholesterol 181 LDL Cholesterol Direct 90 HDL Cholesterol 55 Cholesterol/HDL Ratio 3.29 Lipase Urine Color Urine Turbidity Urine pH Ur Specific [place] Urine Protein Urine Glucose (UA) Urine Ketones Urine Blood Urine Nitrite Urine Bilirubin Urine Urobilinogen Ur Leukocyte Esterase Urine WBC (Auto) Urine RBC (Auto) U Epithel Cells (Auto) Urine Mucus 10/14/18 10/14/18 10/14/18 06:15 07:54 11:59 WBC RBC Hgb Hct MCV MCH MCHC RDW Plt Count Lymph % (Auto) [place] % (Auto) Eos % (Auto) Baso % (Auto) Lymph # [place] # Eos # Baso # Seg Neutrophils % Seg Neutrophils # Sodium Potassium Chloride Carbon Dioxide Anion Gap BUN Creatinine Estimated GFR BUN/Creatinine Ratio Glucose POC Glucose 375 H 329 H Hemoglobin A1c Lactic Acid Calcium Total Bilirubin AST ALT Alkaline Phosphatase Total Creatine Kinase CK-MB (CK-2) CK-MB (CK-2) Rel Index Troponin T Total Protein Albumin Albumin/Globulin Ratio Triglycerides Cholesterol LDL Cholesterol Direct HDL Cholesterol Cholesterol/HDL Ratio Lipase Urine Color Yellow Urine Turbidity Slightly-cloudy Urine pH 5.0 Ur Specific [place] 1.008 Urine Protein 30 mg/dl Urine Glucose (UA) >=500 Urine Ketones 80 Urine Blood Neg Urine Nitrite Neg Urine Bilirubin Neg Urine Urobilinogen < 2.0 Ur Leukocyte Esterase Neg Urine WBC (Auto) 4.0 Urine RBC (Auto) 1.0 U Epithel Cells (Auto) < 1.0 Urine Mucus Few 10/14/18 16:09 WBC RBC Hgb Hct MCV MCH MCHC RDW Plt Count Lymph % (Auto) [place] % (Auto) Eos % (Auto) Baso % (Auto) Lymph # [place] # Eos # Baso # Seg Neutrophils % Seg Neutrophils # Sodium Potassium Chloride Carbon Dioxide Anion Gap BUN Creatinine Estimated GFR BUN/Creatinine Ratio Glucose POC Glucose 259 H Hemoglobin A1c Lactic Acid Calcium Total Bilirubin AST ALT Alkaline Phosphatase Total Creatine Kinase CK-MB (CK-2) CK-MB (CK-2) Rel Index Troponin T Total Protein Albumin Albumin/Globulin Ratio Triglycerides Cholesterol LDL Cholesterol Direct HDL Cholesterol Cholesterol/HDL Ratio Lipase Urine Color Urine Turbidity Urine pH Ur Specific [place] Urine Protein Urine Glucose (UA) Urine Ketones Urine Blood Urine Nitrite Urine Bilirubin Urine Urobilinogen Ur Leukocyte Esterase Urine WBC (Auto) Urine RBC (Auto) U Epithel Cells (Auto) Urine Mucus Assessment and Plan - Patient Problems (1) Acute on chronic pancreatitis Current Visit: Yes Status: Acute Plan to address problem: - Long hx of EtOH abuse, and active. - Discussed physiology of pancreas/liver disease, and the need for abstinence. - Will advance diet, and place on MVI and pancreas enzymes. - Pain control and IV fluids. - Agree with CIWA protocol. - No need to repeat ERCP or other imaging at present, as no significant change. (2) Protein-calorie malnutrition, moderate Current Visit: Yes Status: Acute Plan to address problem: - MVI and pancreas enzymes initiated.
[2018-10-14] MEDS: D5NS 1,000 ML IV SCH (17:46)
[2018-10-15] MEDS: D5NS 1,000 ML IV SCH ×2 (02:56→15:03)
[2018-10-15 04:54] LABS: Basophils % (Auto) 0.6 % (0.0-1.8); Eosinophils # (Auto) 0.1 K/mm3 (0.0-0.4); Eosinophils % (Auto) 1.7 % (0.0-4.3); Hematocrit 36.6 % (35.5-45.6); Lymphocytes % (Auto) 26.1 % (13.4-35.0); Mean Corpuscular HGB Conc 33 % (32-34); Mean Corpuscular Volume 97 fl (84-94); Monocytes % (Auto) 12.7 % (0.0-7.3); Platelet Count 199 K/mm3 (140-440); Red Blood Count 3.76 M/mm3 (3.65-5.03); Red Cell Distribution Width 14.4 % (13.2-15.2)
[2018-10-15 05:11] LABS: Albumin 3.4 g/dL (3.9-5)
[2018-10-15] MEDS ORDERED: K-DUR PO ONE ×2 (06:27→15:00)
[2018-10-15] MEDS: K-DUR PO SCH ×3 (06:32→09:37)
[2018-10-15] MEDS: CREON DR 6,000 UNITS PO SCH ×3 (08:32→17:09)
--- NOTE | 2018-10-15 09:02 | Progress Note ---
Assessment and Plan - Patient Problems (1) CAD (coronary artery disease) Current Visit: Yes Status: Acute (2) Acute on chronic pancreatitis Current Visit: Yes Status: Acute (3) Diabetes mellitus type 2 in nonobese Current Visit: No Status: Acute Subjective Date of service: 10/15/18 Interval history: MILD ABD. PAIN,,,,NO CV C\O Objective Vital Signs Temp Pulse Resp BP BP Pulse Ox 10/15/18 05:59 97.7 F 74 16 104/55 95 10/15/18 00:19 98.2 F 72 17 115/55 99 10/14/18 23:58 98.8 F 81 16 88/48 95 10/14/18 17:43 98.2 F 87 1 L 106/60 99 10/14/18 13:09 98.0 F 91 H 15 90/56 95 - Physical Examination General: No Apparent Distress HEENT: Positive: PERRL, EOMI Neck: Positive: neck supple Cardiac: Positive: Reg Rate and Rhythm Lungs: Positive: clear to auscultation Neuro: Positive: Grossly Intact Abdomen: Positive: Tender Extremities: Present: normal. Absent: edema - Labs and Meds Cardiac Enzymes 10/15/18 Range/Units 04:37 AST 21 (5-40) units/L CBC 10/15/18 Range/Units 04:37 WBC 7.6 (4.5-11.0) K/mm3 RBC 3.76 (3.65-5.03) M/mm3 Hgb 12.0 (11.8-15.2) gm/dl Hct 36.6 (35.5-45.6) % Plt Count 199 (140-440) K/mm3 Lymph # 2.0 (1.2-5.4) K/mm3 [place] # 1.0 H (0.0-0.8) K/mm3 Eos # 0.1 (0.0-0.4) K/mm3 Baso # 0.0 (0.0-0.1) K/mm3 Comprehensive Metabolic Panel 10/15/18 10/15/18 Range/Units 04:37 06:53 Sodium 138 137 (137-145) mmol/L Potassium 2.8 L* D 2.9 L* (3.6-5.0) mmol/L Chloride 90.8 L 90.2 L (98-107) mmol/L Carbon Dioxide 36 H D 35 H (22-30) mmol/L BUN 21 H 20 (9-20) mg/dL Creatinine 1.4 D 1.3 (0.8-1.5) mg/dL Glucose 153 H 179 H (75-100) mg/dL Calcium 8.0 L 8.0 L (8.4-10.2) mg/dL AST 21 (5-40) units/L ALT 24 (7-56) units/L Alkaline Phosphatase 606 H (35-129) units/L Total Protein 6.4 (6.3-8.2) g/dL Albumin 3.4 L (3.9-5) g/dL
[2018-10-15] MEDS: LOVENOX SUB-Q SCH (09:37)
[2018-10-15] MEDS ORDERED: THERAGRAN Tab PO SCH (10:00)
[2018-10-15] MEDS ORDERED: PROTONIX PO SCH (10:00)
[2018-10-15] MEDS ORDERED: ECOTRIN PO SCH (10:00)
--- NOTE | 2018-10-15 11:22 | Gastroenterology Progress Note ---
Addendum entered and electronically signed by HENRI DREW MD 10/15/18 20:18: I have personally interviewed and examined the patient. I agree with the A/P. Original Note: Assessment and Plan 1.acute on chronic pancreatitis 2.protein-calorie malnutrition -afebrile -WBC 7.6-trended down -lipase 121-trending down -CT c/w prior necrosis-s/p spyglass by Dr. Clarke at [facility] which showed only inflammatory changes (no malignancy) -patient with long hx of ETOH abuse, and active -clinically, patient reports feeling better with abd pain improving and no N/V. Tolerating clears. -advance diet as tolerated -continue MVI, pancreas enzymes, and supportive care -alcohol cessation discussed and encouraged with patient- monitor for withdrawal symptoms -Patient okay to be d/c per GI standpoint once tolerating PO with f/u in clinic -no further recommendations at this time -will sign off, please call if needed Subjective Date of service: 10/15/18 Principal diagnosis: pancreatitis Interval history: No acute distress. Reports abd pain improving. No N/V. Tolerating clears. Objective - Constitutional Vitals: Temp Pulse Resp BP Pulse Ox 97.7 F 74 16 104/55 95 10/15/18 05:59 10/15/18 05:59 10/15/18 05:59 10/15/18 05:59 10/15/18 05:59 General appearance: no acute distress, other (thin appearing) - Respiratory Respiratory: bilateral: CTA - Cardiovascular Rhythm: regular Heart Sounds: Present: S1 & S2 - Gastrointestinal General gastrointestinal: Present: soft, tender (slight TTP in epigastric area), non-distended, normal bowel sounds - Neurologic Neurological: alert and oriented x3 - Labs CBC & Chem 7: 10/15/18 04:37 10/15/18 06:53 Labs: Laboratory Results - last 24 hr 10/14/18 10/14/18 10/14/18 11:59 16:09 17:17 WBC RBC Hgb Hct MCV MCH MCHC RDW Plt Count Lymph % (Auto) [place] % (Auto) Eos % (Auto) Baso % (Auto) Lymph # [place] # Eos # Baso # Seg Neutrophils % Seg Neutrophils # Sodium Potassium Chloride Carbon Dioxide Anion Gap BUN Creatinine Estimated GFR BUN/Creatinine Ratio Glucose POC Glucose 329 H 259 H Calcium Magnesium 2.30 Total Bilirubin AST ALT Alkaline Phosphatase Total Protein Albumin Albumin/Globulin Ratio Amylase Lipase 10/14/18 10/15/18 10/15/18 22:14 04:37 04:37 WBC 7.6 RBC 3.76 Hgb 12.0 Hct 36.6 MCV 97 H MCH 32 MCHC 33 RDW 14.4 Plt Count 199 Lymph % (Auto) 26.1 [place] % (Auto) 12.7 H Eos % (Auto) 1.7 Baso % (Auto) 0.6 Lymph # 2.0 [place] # 1.0 H Eos # 0.1 Baso # 0.0 Seg Neutrophils % 58.9 Seg Neutrophils # 4.5 Sodium 138 Potassium 2.8 L* D Chloride 90.8 L Carbon Dioxide 36 H D Anion Gap 14 BUN 21 H Creatinine 1.4 D Estimated GFR 53 BUN/Creatinine Ratio 15 Glucose 153 H POC Glucose 87 Calcium 8.0 L Magnesium Total Bilirubin 0.40 AST 21 ALT 24 Alkaline Phosphatase 606 H Total Protein 6.4 Albumin 3.4 L Albumin/Globulin Ratio 1.1 Amylase 99 Lipase 121 H 10/15/18 10/15/18 06:53 07:49 WBC RBC Hgb Hct MCV MCH MCHC RDW Plt Count Lymph % (Auto) [place] % (Auto) Eos % (Auto) Baso % (Auto) Lymph # [place] # Eos # Baso # Seg Neutrophils % Seg Neutrophils # Sodium 137 Potassium 2.9 L* Chloride 90.2 L Carbon Dioxide 35 H Anion Gap 15 BUN 20 Creatinine 1.3 Estimated GFR 58 BUN/Creatinine Ratio 15 Glucose 179 H POC Glucose 215 H Calcium 8.0 L Magnesium Total Bilirubin AST ALT Alkaline Phosphatase Total Protein Albumin Albumin/Globulin Ratio Amylase Lipase
[2018-10-15] MEDS: SODIUM CHLORIDE FLUSH SYRINGE 10 ML IV SCH ×2 (11:58→12:04)
[2018-10-15 15:01] LABS: BUN/Creatinine Ratio 13; Blood Urea Nitrogen 14 mg/dL (9-20); Calcium 8.5 mg/dL (8.4-10.2); Hemolysis Index 49
[2018-10-15] MEDS: KCL 10MEQ/100ML 10 MEQ/100 ML BAG IV SCH ×3 (16:00→18:45)
[2018-10-15 16:44] VITALS: BP 128/75
--- NOTE | 2018-10-15 18:12 | Discharge Summary ---
Providers - Providers Date of Admission: 10/13/18 23:29 Date of discharge: 10/15/18 Attending physician: AMANDA HARGROVE 10/14/18 00:57 Consult to Physician [CONS] Routine Comment: Consulting Provider: CESIA GOMEZ Physician Instructions: Reason For Exam: acute pancreatitis 10/14/18 05:15 Consult to Physician [CONS] Routine Comment: Consulting Provider: BRII MOREIRA Physician Instructions: Reason For Exam: Primary care physician: DEMETRIO LEACH Hospitalization Condition: Critical Hospital course: 1. Acute pancreatitis--mild 2. Abdominal pain/nausea/vomiting (due to above)--improved 3. Dehydration (due to nausea and vomiting)--- improved 4. Acute kidney injury secondary to ATN--- improved to baseline 5. Leukocytosis--demargination 6. Hyponatremia--improved 7. Uncontrolled DM type II--adjusted insulin 8. Chest pain (rule out ACS)--- nonspecific 9. History of chronic pancreatitis.----Advised abstinence from alcohol 10. Peripheral neuropathy 11. EtOH dependence-patient counseled-Ativan prescribed 1 mg 3 times a day when necessary and to follow up with his PCP and alcohol rehabilitation place 12. Hypokalemia--corrected Disposition: DC-01 TO HOME OR SELFCARE Core Measure Documentation - Palliative Care Palliative Care/ Comfort Measures: Not Applicable - Core Measures Any of the following diagnoses?: none Exam - Constitutional Vitals: Temp Pulse Resp BP Pulse Ox 99.4 F 74 19 128/75 95 10/15/18 16:43 10/15/18 05:59 10/15/18 16:43 10/15/18 16:43 10/15/18 05:59 General appearance: Present: no acute distress, well-nourished - EENT Eyes: Present: PERRL ENT: hearing intact, clear oral mucosa - Neck Neck: Present: supple, normal ROM - Respiratory Respiratory effort: normal Respiratory: bilateral: CTA - Cardiovascular Heart rate: 78 Rhythm: regular Heart Sounds: Present: S1 & S2. Absent: rub, click - Extremities Extremities: pulses symmetrical, No edema Peripheral Pulses: within normal limits - Abdominal General gastrointestinal: Present: soft, non-tender, non-distended, normal bowel sounds Male genitourinary: Present: normal - Integumentary Integumentary: Present: clear, warm, dry - Musculoskeletal Musculoskeletal: gait normal, strength equal bilaterally - Psychiatric Psychiatric: appropriate mood/affect, intact judgment & insight - Neurologic Neurologic: CNII-XII intact, moves all extremities Plan Activity: no restrictions, advance as tolerated (clear liquids for 3 days) Diet: clear liquids (for 3 days then advance as directed) Follow up with: DEMETRIO LEACH MD [Primary Care Provider] - 7 Days
[2018-10-16] MEDS ORDERED: LOVENOX SUB-Q SCH (10:00)
== END 2018-10-15 19:25 | disposition home or self-care (01) | DRG 438 ==
LOC: ED 19:17 → 3A 23:29
PROVIDERS: ADMIT Internal Medicine; ATTEND Internal Medicine
DX: K85.20 Alcohol induced acute pancreatitis without necrosis or infection (principal); N17.0 Acute kidney failure with tubular necrosis; E44.0 Moderate protein-calorie malnutrition; E87.1 Hypo-osmolality and hyponatremia; K86.0 Alcohol-induced chronic pancreatitis; E86.0 Dehydration; Y90.9 Presence of alcohol in blood, level not specified; F17.200 Nicotine dependence, unspecified, uncomplicated; K21.9 Gastro-esophageal reflux disease without esophagitis; F10.20 Alcohol dependence, uncomplicated; E11.42 Type 2 diabetes mellitus with diabetic polyneuropathy; I12.9 Hypertensive chronic kidney disease with stage 1 through stage 4 chronic kidney disease, or unspecified chronic kidney disease; N18.9 Chronic kidney disease, unspecified; F17.210 Nicotine dependence, cigarettes, uncomplicated; I25.10 Atherosclerotic heart disease of native coronary artery without angina pectoris; E87.6 Hypokalemia; Z68.20 Body mass index [BMI] 20.0-20.9, adult; Z79.4 Long term (current) use of insulin; Z79.899 Other long term (current) drug therapy; Z79.82 Long term (current) use of aspirin; I25.2 Old myocardial infarction; Z71.41 Alcohol abuse counseling and surveillance of alcoholic; Z71.6 Tobacco abuse counseling
CPT/HCPCS: 36415; 71045; 74176; 80048; 80053; 80061; 81001; 82140; 82150; 82550; 82553; 82962; 83036; 83690; 83735; 84484; 85025; 87116; 93005; 93010; 93306; 99406; G0378; C9113; J1650; J1815; J2270; J2405; J3480; J7030; J7042

== ENCOUNTER 2018-10-27 20:58 | Emergency (ER) | payer MEDICARE ==
[2018-10-27] MEDS ORDERED: NACL 0.9% 1000 ML 1,000 ML IV ONE (21:10)
[2018-10-27] MEDS ORDERED: NACL 0.9% 1000 ML 1,000 ML ONE (21:10)
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
[2018-10-27 21:56] LABS: Basophils # (Auto) 0.1 K/mm3 (0.0-0.1); Basophils % (Auto) 1.3 % (0.0-1.8); Eosinophils # (Auto) 0.3 K/mm3 (0.0-0.4); Eosinophils % (Auto) 2.9 % (0.0-4.3); Hemoglobin 13.1 gm/dl (11.8-15.2); Lymphocytes # (Auto) 2.3 K/mm3 (1.2-5.4); Lymphocytes % (Auto) 26.7 % (13.4-35.0); Mean Corpuscular HGB Conc 33 % (32-34); Mean Corpuscular Volume 98 fl (84-94); Monocytes # (Auto) 0.6 K/mm3 (0.0-0.8); Monocytes % (Auto) 6.6 % (0.0-7.3); Platelet Count 258 K/mm3 (140-440); Red Blood Count 3.99 M/mm3 (3.65-5.03); Red Cell Distribution Width 14.6 % (13.2-15.2)
[2018-10-27 22:17] LABS: Alanine Aminotransferase 31 units/L (7-56); Albumin 4.2 g/dL (3.9-5); BUN/Creatinine Ratio 13; Blood Urea Nitrogen 9 mg/dL (9-20); Calcium 9.9 mg/dL (8.4-10.2); Hemolysis Index 14
[2018-10-27] MEDS ORDERED: D50W (25GM) Syringe IV ONE ×2 (22:34→22:53)
[2018-10-28 01:08] VITALS: BP 119/42
== END 2018-10-28 01:43 | disposition home or self-care (01) ==
LOC: ED 20:58
DX: E11.649 Type 2 diabetes mellitus with hypoglycemia without coma (principal); I10 Essential (primary) hypertension; I25.2 Old myocardial infarction; K21.9 Gastro-esophageal reflux disease without esophagitis; J45.909 Unspecified asthma, uncomplicated
CPT/HCPCS: 36415; 80053; 82805; 82962; 84484; 85025; 93005; 93010; 96374; 99284; G0480; J7030; 80320

== ENCOUNTER 2019-06-12 20:31 | Inpatient (IN) | payer MEDICARE ==
[2019-06-12] MEDS ORDERED: ZOFRAN IV ONE (22:06)
[2019-06-12] MEDS ORDERED: NACL 0.9% 1000 ML 1,000 ML IV ONE (22:06)
[2019-06-12] MEDS ORDERED: MORPHINE IV ONE (22:06)
[2019-06-12 22:20] LABS: Basophils % (Auto) 0.9 % (0.0-1.8); Eosinophils % (Auto) 0.3 % (0.0-4.3); Hematocrit 37.2 % (35.5-45.6); Lymphocytes # (Auto) 1.2 K/mm3 (1.2-5.4); Lymphocytes % (Auto) 22.5 % (13.4-35.0); Mean Corpuscular HGB Conc 32 % (32-34); Mean Corpuscular Volume 101 fl (84-94); Monocytes # (Auto) 0.5 K/mm3 (0.0-0.8); Monocytes % (Auto) 10.3 % (0.0-7.3); Platelet Count 280 K/mm3 (140-440); Red Blood Count 3.67 M/mm3 (3.65-5.03); Red Cell Distribution Width 13.1 % (13.2-15.2)
[2019-06-12 22:32] LABS: INR 0.94 (0.87-1.13); Partial Thromboplastin Time 27.8 Sec. (24.2-36.6)
[2019-06-12] MEDS ORDERED: HABITROL TD ONE (22:32)
--- NOTE | 2019-06-12 22:37 | XRay Report ---
CHEST 1 VIEW 06/12/2019 10:10 PM INDICATION / CLINICAL INFORMATION: weakness. COMPARISON: Images from 10/13/18 are not immediately available. Report from that study was reviewed. FINDINGS: SUPPORT DEVICES: None. HEART / MEDIASTINUM: No significant abnormality. LUNGS / PLEURA: No significant pulmonary or pleural abnormality. No pneumothorax. ADDITIONAL FINDINGS: No significant additional findings. IMPRESSION: 1. No acute findings. Signer Name: Beny Carias MD Signed: 06/12/2019 10:33 PM Workstation Name: [email or web address]
[2019-06-12 22:43] LABS: Alanine Aminotransferase 46 units/L (7-56); Albumin 4.2 g/dL (3.9-5); BUN/Creatinine Ratio 13; Blood Urea Nitrogen 16 mg/dL (9-20); Calcium 9.6 mg/dL (8.4-10.2); Hemolysis Index 2
--- NOTE | 2019-06-12 23:07 | Cat Scan Report ---
CT ABDOMEN AND PELVIS WITHOUT CONTRAST INDICATION / CLINICAL INFORMATION: abdominal pain epigastric. TECHNIQUE: Axial CT images were obtained through the abdomen and pelvis without IV contrast. All CT scans at [facility] location are performed using CT dose reduction for ALARA by means of automated exposure control. COMPARISON: CT abdomen pelvis 10/13/2018 FINDINGS: LOWER CHEST: Visualized lung bases are clear. Trace pericardial effusion. LIVER: No significant abnormality. GALLBLADDER: Cholelithiasis. The gallbladder is slightly round and distended, but without significant pericholecystic inflammatory change. BILE DUCTS: Moderate intra- and extrahepatic biliary dilation is not significant changed, with the co mmon bile duct measuring up to 1.2 cm in diameter. There is tapering of the common bile duct caliber at the level of the pancreatic head. PANCREAS: Masslike enlargement of the pancreatic head with multiple punctate calcifications is unchan ged in appearance from prior examination. There is again diffuse dilation of the downstream pancreati c duct measuring up to 6 to 7 mm in caliber, and atrophy of the pancreatic neck, body, and tail. SPLEEN: No significant abnormality. ADRENALS: No significant abnormality. RIGHT KIDNEY and URETER: No significant abnormality. LEFT KIDNEY and URETER: No significant abnormality. STOMACH and SMALL BOWEL: The stomach is mildly distended and fluid-filled. The second portion of the duodenum is indistinct from the adjacent pancreatic head lesion. Remainder of the small bowel is unre markable. COLON: No significant abnormality. APPENDIX: No significant abnormality. PERITONEUM: No free fluid. No free air. No fluid collection. LYMPH NODES: Several prominent periportal and upper abdominal retroperitoneal lymph nodes, not signif icant changed. AORTA and ARTERIES: Extensive aortic atherosclerosis. IVC and VEINS: No significant abnormality. URINARY BLADDER: No significant abnormality. REPRODUCTIVE ORGANS: No significant abnormality. ADDITIONAL FINDINGS: None. SKELETAL SYSTEM: Old left rib fracture. IMPRESSION: 1. Unchanged masslike appearance of the pancreatic head with abrupt cut off of both the common bile d uct and pancreatic duct, most worrisome for pancreatic neoplasm. Given the associated parenchymal maria del carmen cifications, differential consideration includes chronic pancreatitis with associated strictures. 2. Mass effect on the second portion of the duodenum with mild upstream gastric distention, may refle ct partial obstruction. 3. Cholelithiasis. Moderate intra and extra hepatic biliary dilation related to the pancreatic lesion . 4. Multiple prominent periportal and retroperitoneal lymph nodes are not significant changed. Signer Name: Charisma Smith MD Signed: 06/12/2019 11:03 PM Workstation Name: [id number]
--- NOTE | 2019-06-12 23:14 | Cat Scan Report ---
CT head/brain wo con INDICATION: weakness. TECHNIQUE: Routine CT head without contrast. All CT scans at this location are performed using CT dos e reduction for ALARA by means of automated exposure control. COMPARISON: None. FINDINGS: BRAIN / INTRACRANIAL CONTENTS: No acute hemorrhage, mass effect, midline shift, or hydrocephalus. No appreciable acute large territorial or lacunar infarct. No chronic infarct or focal atrophy. Normal b rain volume and ventricular/sulcal size for age. Minimal periventricular white matter low density, no nspecific but suggestive of chronic microvascular ischemic change. ORBITS: No significant abnormality of visualized orbits. SINUSES / MASTOIDS: No significant abnormality of visualized sinuses and mastoid air cells. ADDITIONAL FINDINGS: None. IMPRESSION: 1. No acute intracranial abnormality on noncontrast CT of the brain. Signer Name: Charisma Smith MD Signed: 06/12/2019 11:10 PM Workstation Name: [id number]
--- NOTE | 2019-06-12 23:16 | Emergency Department Report ---
ED General Adult HPI - General Chief complaint: Weakness Stated complaint: GENERAL WEAKNESS Time Seen by Provider: 06/12/19 21:15 Source: patient, EMS Mode of arrival: Stretcher Limitations: No Limitations - History of Present Illness Initial comments: Patient presents to the emergency department with a chief complaint of epigastric abdominal pain that has been present for greater than a month and generalized weakness with dizziness. Patient states he has a history of chronic pancreatitis. Patient endorses a decreased appetite with nausea. Patient denies chest pain, headache, shortness of breath. Patient states that he has lost 10 pounds within the last month with this weight change her from 124 pounds 114 pounds -: Gradual Location: abdomen Radiation: non-radiation Severity scale (0 -10): 7 Quality: sharp Consistency: constant Improves with: none Worsens with: none Associated Symptoms: denies other symptoms Treatments Prior to Arrival: none - Related Data Home Medications Medication Instructions Recorded Confirmed Last Taken Folic Acid [Folvite] 1 mg PO QDAY 10/13/18 06/12/19 Unknown Ipratropium/Albuterol Sulfate 1 ampul IH QID PRN 10/13/18 06/12/19 Unknown [DUONEB *Not for PRN Use*] Sildenafil 20 mg PO TID 10/13/18 06/12/19 Unknown Simvastatin 20 mg PO HS 10/13/18 06/12/19 Unknown traMADol [Ultram 50 MG tab] 50 mg PO DAILY 10/13/18 06/12/19 Unknown NovoLOG 100 UNITS/ML VIAL See Protocol SUB-Q TID 10/27/18 06/12/19 Unknown Previous Rx's Medication Instructions Recorded Last Taken Type Escitalopram Oxalate [Lexapro] 20 mg PO QDAY #30 tablet 10/15/18 Unknown Rx LORazepam [Ativan] 1 mg PO TID PRN #30 tablet 10/15/18 Unknown Rx Pantoprazole [Protonix TAB] 40 mg PO DAILY #30 tablet 10/15/18 Unknown Rx oxyCODONE /ACETAMINOPHEN [Percocet 1 tab PO Q6H PRN #20 tablet 10/15/18 Unknown Rx 5/325 mg] Allergies Allergy/AdvReac Type Severity Reaction Status Date / Time No Known Drug Allergies Allergy Unknown Verified 05/05/13 02:40 ED Review of Systems ROS: Stated complaint: GENERAL WEAKNESS Other details as noted in HPI Constitutional: weakness. denies: chills, fever Eyes: denies: eye pain, eye discharge, vision change ENT: denies: ear pain, throat pain Respiratory: denies: cough, shortness of breath, wheezing Cardiovascular: denies: chest pain, palpitations Endocrine: no symptoms reported Gastrointestinal: abdominal pain. 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) Hx Heart Attack/AMI: Yes Hx Congestive Heart Failure: No Hx Diabetes: Yes Hx GERD: Yes Hx Renal Disease: No Hx Asthma: Yes Hx COPD: Yes Hx HIV: No Additional medical history: Prolonged hospitalization after a hypoglycemic episode in the fall of 2012 "problems with Pancreas", ALAYNA, chronic pancreatitis - Surgical History Additional Surgical History: "fractured bones", sphincterectomy at bile duct 03/21 - Social History Smoking Status: Current Every Day Smoker Substance Use Type: None - Medications Home Medications: Home Medications Medication Instructions Recorded Confirmed Last Taken Type Folic Acid [Folvite] 1 mg PO QDAY 10/13/18 06/12/19 Unknown History Ipratropium/Albuterol Sulfate 1 ampul IH QID PRN 10/13/18 06/12/19 Unknown History [DUONEB *Not for PRN Use*] Sildenafil 20 mg PO TID 10/13/18 06/12/19 Unknown History Simvastatin 20 mg PO HS 10/13/18 06/12/19 Unknown History traMADol [Ultram 50 MG tab] 50 mg PO DAILY 10/13/18 06/12/19 Unknown History Escitalopram Oxalate [Lexapro] 20 mg PO QDAY #30 tablet 10/15/18 06/12/19 Unknown Rx LORazepam [Ativan] 1 mg PO TID PRN #30 tablet 10/15/18 06/12/19 Unknown Rx Pantoprazole [Protonix TAB] 40 mg PO DAILY #30 tablet 10/15/18 06/12/19 Unknown Rx oxyCODONE /ACETAMINOPHEN [Percocet 1 tab PO Q6H PRN #20 tablet 10/15/18 06/12/19 Unknown Rx 5/325 mg] NovoLOG 100 UNITS/ML VIAL See Protocol SUB-Q TID 10/27/18 06/12/19 Unknown History ED Physical Exam - General Limitations: No Limitations General appearance: alert, in no apparent distress, other (thin appearing) - Head Head exam: Present: atraumatic, normocephalic - Eye Eye exam: Present: normal appearance - ENT ENT exam: Present: mucous membranes dry - Neck Neck exam: Present: normal inspection - Respiratory Respiratory exam: Present: normal lung sounds bilaterally. Absent: respiratory distress - Cardiovascular Cardiovascular Exam: Present: regular rate, normal rhythm. Absent: systolic murmur, diastolic murmur, rubs, gallop - GI/Abdominal GI/Abdominal exam: Present: soft, tenderness (ttp of the epigastric region), normal bowel sounds. Absent: distended - Rectal Rectal exam: Present: deferred - Extremities Exam Extremities exam: Present: normal inspection - Back Exam Back exam: Present: normal inspection - Neurological Exam Neurological exam: Present: alert, oriented X3, CN II-XII intact. Absent: motor sensory deficit - Psychiatric Psychiatric exam: Present: normal affect, normal mood - Skin Skin exam: Present: warm, dry, intact, normal color. Absent: rash ED Course Vital Signs 06/12/19 06/12/19 06/12/19 20:50 20:54 21:00 Temperature 97.9 F Pulse Rate 105 H 108 H Respiratory 18 16 Rate Blood Pressure 132/77 O2 Sat by Pulse 100 Oximetry 06/12/19 06/12/19 06/12/19 21:16 21:30 21:46 Temperature Pulse Rate 111 H 110 H 104 H Respiratory 21 21 20 Rate Blood Pressure 131/71 116/67 130/78 O2 Sat by Pulse 100 100 100 Oximetry 06/12/19 06/12/19 06/12/19 22:00 22:07 22:16 Temperature Pulse Rate 107 H 108 H Respiratory 14 18 15 Rate Blood Pressure 109/67 123/86 O2 Sat by Pulse 100 95 100 Oximetry 06/12/19 06/12/19 06/12/19 22:43 22:46 23:00 Temperature Pulse Rate 106 H 100 H 99 H Respiratory 13 12 14 Rate Blood Pressure 133/83 133/83 137/76 O2 Sat by Pulse 100 100 100 Oximetry 06/12/19 06/12/19 23:16 23:30 Temperature Pulse Rate 102 H 107 H Respiratory 14 10 L Rate Blood Pressure 119/66 116/61 O2 Sat by Pulse 100 100 Oximetry ED Medical Decision Making - Lab Data Result diagrams: 06/12/19 21:59 06/12/19 21:59 Lab Results 06/12/19 06/12/19 06/12/19 Range/Units 21:59 21:59 21:59 WBC 5.2 (4.5-11.0) K/mm3 RBC 3.67 (3.65-5.03) M/mm3 Hgb 12.0 (11.8-15.2) gm/dl Hct 37.2 (35.5-45.6) % MCV 101 H (84-94) fl MCH 33 H (28-32) pg MCHC 32 (32-34) % RDW 13.1 L (13.2-15.2) % Plt Count 280 (140-440) K/mm3 Lymph % (Auto) 22.5 (13.4-35.0) % Ponce % (Auto) 10.3 H (0.0-7.3) % Eos % (Auto) 0.3 (0.0-4.3) % Baso % (Auto) 0.9 (0.0-1.8) % Lymph # 1.2 (1.2-5.4) K/mm3 Ponce # 0.5 (0.0-0.8) K/mm3 Eos # 0.0 (0.0-0.4) K/mm3 Baso # 0.0 (0.0-0.1) K/mm3 Seg Neutrophils % 66.0 (40.0-70.0) % Seg Neutrophils # 3.5 (1.8-7.7) K/mm3 PT 12.3 (12.2-14.9) Sec. INR 0.94 (0.87-1.13) APTT 27.8 (24.2-36.6) Sec. Sodium 138 (137-145) mmol/L Potassium 4.6 (3.6-5.0) mmol/L Chloride 94.4 L (98-107) mmol/L Carbon Dioxide 12 L (22-30) mmol/L Anion Gap 36 mmol/L BUN 16 (9-20) mg/dL Creatinine 1.2 (0.8-1.5) mg/dL Estimated GFR > 60 ml/min BUN/Creatinine Ratio 13 % Glucose 369 H (75-100) mg/dL Calcium 9.6 (8.4-10.2) mg/dL Total Bilirubin 0.70 (0.1-1.2) mg/dL AST 23 (5-40) units/L ALT 46 (7-56) units/L Alkaline Phosphatase 1568 H (35-129) units/L Troponin T < 0.010 (0.00-0.029) ng/mL NT-Pro-B Natriuret Pep 72.70 (0-900) pg/mL Total Protein 8.3 H (6.3-8.2) g/dL Albumin 4.2 (3.9-5) g/dL Albumin/Globulin Ratio 1.0 % Lipase (13-60) units/L 06/12/19 Range/Units 21:59 WBC (4.5-11.0) K/mm3 RBC (3.65-5.03) M/mm3 Hgb (11.8-15.2) gm/dl Hct (35.5-45.6) % MCV (84-94) fl MCH (28-32) pg MCHC (32-34) % RDW (13.2-15.2) % Plt Count (140-440) K/mm3 Lymph % (Auto) (13.4-35.0) % Ponce % (Auto) (0.0-7.3) % Eos % (Auto) (0.0-4.3) % Baso % (Auto) (0.0-1.8) % Lymph # (1.2-5.4) K/mm3 Ponce # (0.0-0.8) K/mm3 Eos # (0.0-0.4) K/mm3 Baso # (0.0-0.1) K/mm3 Seg Neutrophils % (40.0-70.0) % Seg Neutrophils # (1.8-7.7) K/mm3 PT (12.2-14.9) Sec. INR (0.87-1.13) APTT (24.2-36.6) Sec. Sodium (137-145) mmol/L Potassium (3.6-5.0) mmol/L Chloride (98-107) mmol/L Carbon Dioxide (22-30) mmol/L Anion Gap mmol/L BUN (9-20) mg/dL Creatinine (0.8-1.5) mg/dL Estimated GFR ml/min BUN/Creatinine Ratio % Glucose (75-100) mg/dL Calcium (8.4-10.2) mg/dL Total Bilirubin (0.1-1.2) mg/dL AST (5-40) units/L ALT (7-56) units/L Alkaline Phosphatase (35-129) units/L Troponin T (0.00-0.029) ng/mL NT-Pro-B Natriuret Pep (0-900) pg/mL Total Protein (6.3-8.2) g/dL Albumin (3.9-5) g/dL Albumin/Globulin Ratio % Lipase 167 H (13-60) units/L - Radiology Data Radiology results: report reviewed - Medical Decision Making Abdomen values reviewed from prior visit and the patient's alkaline phosphatase is significantly elevated when compared to prior studies Although the mass on the CT was present on prior CAT scans the involvement with the biliary ducts seems to be more impressive Critical care attestation.: If time is entered above; I have spent that time in minutes in the direct care of this critically ill patient, excluding procedure time. ED Disposition Clinical Impression: Pancreatic mass, Abdominal pain, Nausea and vomiting, Elevated alkaline phosphatase level Disposition: OP ADMIT IP TO THIS HOSP Is pt being admited?: Yes Does the pt Need Aspirin: No Condition: Stable
[2019-06-13] MEDS ORDERED: APRESOLINE IV PRN (00:44)
[2019-06-13] MEDS ORDERED: D50W (25GM) Syringe IV PRN (00:45)
[2019-06-13] MEDS ORDERED: SODIUM CHLORIDE FLUSH SYRINGE 10 ML IV PRN (00:45)
[2019-06-13] MEDS ORDERED: ZOFRAN IV PRN (00:45)
[2019-06-13] MEDS ORDERED: ATIVAN IV PRN ×3 (00:45)
[2019-06-13] MEDS ORDERED: TYLENOL PO PRN (00:45)
[2019-06-13] MEDS ORDERED: PROVENTIL IH PRN (00:51)
--- NOTE | 2019-06-13 00:54 | History and Physical Report ---
History of Present Illness Chief complaint: Abdominal pain History of present illness: 53-year-old man with history of chronic pancreatitis who presents to the hospital with weight loss, abdominal pain and hypochondrium, intractable vomiting, his symptoms have been going on for 2 to 3 weeks.. 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 He had spyglass biopsy with Dr. Clarke at [facility] which only showed inflammatory changes and was negative for malignancy.. However patient has had a change in status. Before he was able to tolerate p.o., his pain was not so uncontrolled, and he was not losing weight. He denies jaundice, denies rosa colored stools, denies melena or hematochezia. He has been vomiting nonstop and cannot even hold water down. PAST MEDICAL HISTORY:hypertension, diabetes, CVA, coronary artery disease, pancreatic mass, pancreatitis PAST SURGICAL HISTORY: None SOCIAL HISTORY: No drugs, or smoking, long history of alcohol abuse, he has not had a drink in 6 weeks. FAMILY HISTORY: Hypertension Medications and Allergies Allergies Allergy/AdvReac Type Severity Reaction Status Date / Time No Known Drug Allergies Allergy Unknown Verified 05/05/13 02:40 Home Medications Medication Instructions Recorded Confirmed Last Taken Type Folic Acid [Folvite] 1 mg PO QDAY 10/13/18 06/12/19 Unknown History Ipratropium/Albuterol Sulfate 1 ampul IH QID PRN 10/13/18 06/12/19 Unknown History [DUONEB *Not for PRN Use*] Sildenafil 20 mg PO TID 10/13/18 06/12/19 Unknown History Simvastatin 20 mg PO HS 10/13/18 06/12/19 Unknown History traMADol [Ultram 50 MG tab] 50 mg PO DAILY 10/13/18 06/12/19 Unknown History Escitalopram Oxalate [Lexapro] 20 mg PO QDAY #30 tablet 10/15/18 06/12/19 Unknown Rx LORazepam [Ativan] 1 mg PO TID PRN #30 tablet 10/15/18 06/12/19 Unknown Rx Pantoprazole [Protonix TAB] 40 mg PO DAILY #30 tablet 10/15/18 06/12/19 Unknown Rx oxyCODONE /ACETAMINOPHEN [Percocet 1 tab PO Q6H PRN #20 tablet 10/15/18 06/12/19 Unknown Rx 5/325 mg] NovoLOG 100 UNITS/ML VIAL See Protocol SUB-Q TID 10/27/18 06/12/19 Unknown History Active Meds: Active Medications Acetaminophen (Tylenol) 650 mg PO Q4H PRN PRN Reason: Pain MILD(1-3)/Fever >100.5/HOLT Acetaminophen/Hydrocodone Bitart ([place] 5/325) 2 each PO Q6H PRN PRN Reason: Pain, Moderate (4-6) Dextrose (D50w (25gm) Syringe) 50 ml IV PRN PRN PRN Reason: Hypoglycemia Enoxaparin Sodium (Lovenox) 40 mg SUB-Q QDAY VIVI Folic Acid (Folvite) 1 mg PO QDAY VIVI Hydralazine HCl (Apresoline) 10 mg IV Q4HR PRN PRN Reason: BP >160/100 Hydromorphone HCl (Dilaudid) 0.5 mg IV Q3H PRN PRN Reason: Pain , Severe (7-10) Dextrose/Sodium Chloride (D5/0.45ns) 1,000 mls @ 100 mls/hr IV DIRECT VIVI Thiamine HCl 100 mg/ Sodium (Chloride) 51 mls @ 100 mls/hr IV ONCE ONE Stop: 06/13/19 01:18 Insulin Human Lispro (Humalog) 0 unit SUB-Q ACHS VIVI; Protocol Lorazepam (Ativan) 2 mg IV Q1H PRN PRN Reason: CIWA-Ar 8-15 Lorazepam (Ativan) 4 mg IV Q1H PRN PRN Reason: CIWA-Ar 16-25 Lorazepam (Ativan) 4 mg IV Q15MIN PRN PRN Reason: CIWA-Ar >25 Ondansetron HCl (Zofran) 4 mg IV Q8H PRN PRN Reason: Nausea And Vomiting Sodium Chloride (Sodium Chloride Flush Syringe 10 Ml) 10 ml IV BID VIVI Sodium Chloride (Sodium Chloride Flush Syringe 10 Ml) 10 ml IV PRN PRN PRN Reason: LINE FLUSH Thiamine HCl (Vitamin B-1) 100 mg PO ONCE ONE Stop: 06/13/19 00:49 Review of Systems All systems: negative Constitutional: weight loss Exam - Constitutional Vitals: Temp Pulse Resp BP Pulse Ox 97.9 F 107 H 10 L 116/61 100 06/12/19 20:50 06/12/19 23:30 06/12/19 23:30 06/12/19 23:30 06/12/19 23:30 General appearance: Present: mild distress, cachectic - EENT Eyes: Present: PERRL ENT: hearing intact, clear oral mucosa - Neck Neck: Present: supple, normal ROM - Respiratory Respiratory effort: normal Respiratory: bilateral: CTA - Cardiovascular Heart Sounds: Present: S1 & S2. Absent: rub, click - Extremities Extremities: pulses symmetrical, No edema Peripheral Pulses: within normal limits - Abdominal General gastrointestinal: Present: soft, tender, non-distended, normal bowel sounds Male genitourinary: Present: normal - Integumentary Integumentary: Present: clear, warm, dry - Musculoskeletal Musculoskeletal: gait normal, strength equal bilaterally - Psychiatric Psychiatric: appropriate mood/affect, intact judgment & insight - Neurologic Neurologic: CNII-XII intact, moves all extremities Results - Labs CBC & Chem 7: 06/12/19 21:59 06/12/19 21:59 Labs: Laboratory Last Values WBC 5.2 K/mm3 (4.5-11.0) 06/12/19 21:59 RBC 3.67 M/mm3 (3.65-5.03) 06/12/19 21:59 Hgb 12.0 gm/dl (11.8-15.2) 06/12/19 21:59 Hct 37.2 % (35.5-45.6) 06/12/19 21:59 MCV 101 fl (84-94) H 06/12/19 21:59 MCH 33 pg (28-32) H 06/12/19 21:59 MCHC 32 % (32-34) 06/12/19 21:59 RDW 13.1 % (13.2-15.2) L 06/12/19 21:59 Plt Count 280 K/mm3 (140-440) 06/12/19 21:59 Lymph % (Auto) 22.5 % (13.4-35.0) 06/12/19 21:59 [place] % (Auto) 10.3 % (0.0-7.3) H 06/12/19 21:59 Eos % (Auto) 0.3 % (0.0-4.3) 06/12/19 21:59 Baso % (Auto) 0.9 % (0.0-1.8) 06/12/19 21:59 Lymph # 1.2 K/mm3 (1.2-5.4) 06/12/19 21:59 [place] # 0.5 K/mm3 (0.0-0.8) 06/12/19 21:59 Eos # 0.0 K/mm3 (0.0-0.4) 06/12/19 21:59 Baso # 0.0 K/mm3 (0.0-0.1) 06/12/19 21:59 Seg Neutrophils % 66.0 % (40.0-70.0) 06/12/19 21:59 Seg Neutrophils # 3.5 K/mm3 (1.8-7.7) 06/12/19 21:59 PT 12.3 Sec. (12.2-14.9) 06/12/19 21:59 INR 0.94 (0.87-1.13) 06/12/19 21:59 APTT 27.8 Sec. (24.2-36.6) 06/12/19 21:59 Sodium 138 mmol/L (137-145) 06/12/19 21:59 Potassium 4.6 mmol/L (3.6-5.0) 06/12/19 21:59 Chloride 94.4 mmol/L (98-107) L 06/12/19 21:59 Carbon Dioxide 12 mmol/L (22-30) L 06/12/19 21:59 Anion Gap 36 mmol/L 06/12/19 21:59 BUN 16 mg/dL (9-20) 06/12/19 21:59 Creatinine 1.2 mg/dL (0.8-1.5) 06/12/19 21:59 Estimated GFR > 60 ml/min 06/12/19 21:59 BUN/Creatinine Ratio 13 % 06/12/19 21:59 Glucose 369 mg/dL (75-100) H 06/12/19 21:59 Calcium 9.6 mg/dL (8.4-10.2) 06/12/19 21:59 Total Bilirubin 0.70 mg/dL (0.1-1.2) 06/12/19 21:59 AST 23 units/L (5-40) 06/12/19 21:59 ALT 46 units/L (7-56) 06/12/19 21:59 Alkaline Phosphatase 1568 units/L (35-129) H 06/12/19 21:59 Troponin T < 0.010 ng/mL (0.00-0.029) 06/12/19 22:48 NT-Pro-B Natriuret Pep 72.70 pg/mL (0-900) 06/12/19 21:59 Total Protein 8.3 g/dL (6.3-8.2) H 06/12/19 21:59 Albumin 4.2 g/dL (3.9-5) 06/12/19 21:59 Albumin/Globulin Ratio 1.0 % 06/12/19 21:59 Lipase 167 units/L (13-60) H 06/12/19 21:59 Assessment and Plan Assessment and plan: 53-year-old man with history of chronic pancreatitis and ongoing alcohol abuse who presents with abdominal pain vomiting and weight loss. Labs show a glucose of 369, alkaline phosphatase 1568, lipase is 167 CT abdomen and pelvis; unchanged masslike appearance of the pancreatic head with upper cutoff of both the common bile duct and pancreatic duct, most worrisome for pancreatic neoplasm. Given associated parenchymal calcifications differential consideration include chronic pancreatitis with associated strictures Mass-effect on the second portion of the duodenum with mild upstream gastric distention may reflect partial obstruction, Cholelithiasis, Pancreatic head mass like abnormality GI consult, patient may benefit from repeat biopsy, it may be due to pancreatitis scarring and stricture, ALK phos now elevated, check bili and MRCP Intractable nausea and vomiting Keep n.p.o. for now, antiemetics and pain meds as needed. May have sips of water for comfort Chronic pancreatitis Pain meds, IV fluids, antiemetics History of alcohol dependence/ Has not had a drink in 6 weeks, patient was counseled on continued abstinence Preventative health counseling performed for 17 minutes Hypertension; optimize BP meds Diabetes with persistent hyperglycemia , sliding scale insulin, check A1c Severe malnutrition Dietitian consult DVT prophylaxis with Lovenox Plan of care discussed with patient/family: Yes
[2019-06-13] MEDS: D5/0.45NS 1,000 ML IV SCH ×2 (01:19→17:27)
[2019-06-13] MEDS: NORCO 5/325 PO PRN (01:20)
[2019-06-13 01:38] LABS: Bilirubin,Direct 0.4 mg/dL (0-0.2)
[2019-06-13] MEDS ORDERED: VITAMIN B-1 100 MG in NACL 0.9% 50 ML IV ONE (02:00)
[2019-06-13] MEDS: HumaLOG SUB-Q SCH ×4 (02:52→17:30)
--- NOTE | 2019-06-13 07:26 | Progress Note ---
Assessment and Plan Assessment and plan: Patient is a 53 year man with a history of IDDM, Bipolar disorder, AMI, CVA, COPD, depression and chronic pancreatitis with necrosis who presented to [facility] ED with Abdominal pains, n/v * Labs show a glucose of 369, alkaline phosphatase 1568, lipase is 167 * CT abdomen and pelvis; unchanged masslike appearance of the pancreatic head with upper cutoff of both the common bile duct and pancreatic duct, most worrisome for pancreatic neoplasm. Given associated parenchymal calcifications differential consideration include chronic pancreatitis with associated strictures, Mass-effect on the second portion of the duodenum with mild upstream gastric distention may reflect partial obstruction, Cholelithiasis, Pancreatic head mass like abnormality: GI consult, patient may benefit from repeat biopsy, it may be due to pancreatitis scarring and stricture, ALK phos now elevated, check bili and MRCP Cholelithiasis: order GB ultrasound Intractable nausea and vomiting: Keep n.p.o. for now, antiemetics and pain meds as needed. May have sips of water for comfort Chronic pancreatitis, recurrent: Pain meds, IV fluids, antiemetics, bowel rest History of alcohol dependence, Has not had a drink in 6 weeks: patient was counseled on continued abstinence, CiWA protocol and thiamine ordered Hypertension; optimize BP meds Diabetes mellitus with uncontrolled hyperglycemia: sliding scale insulin, checked A1c==>9.4, counseling and education done Severe malnutrition: Dietitian consult DVT prophylaxis with Lovenox History Interval history: Patient was seen and examined. Follow-up on current diagnosis of Abd pains. No overnight events reported to me. Patient denies any chest pain, shortness breath, severe headaches. Imaging, nursing note, chart, labs and old chart reviewed. Discussed with patient. Hospitalist Physical - Physical exam Narrative exam: Gen: thin frail, chronically disable appearing, NAD, Awake, Alert, Orientated HEENT: NCAT, EOMI, PERRL, OP Clear Neck: supple, no adenopathy, no thyromegaly, no JVD CVS/Heart: RRR, normal S1S2, pulses present bilaterally Chest/Lungs: CTA B, Symmetrical chest expansion, good air entry bilaterally GI/Abdomen: soft, +tenderness good bowel sounds, no guarding or rebound /Bladder: no suprapubic tenderness, no CVA or paraspinal tenderness Extermity/Skin: no c/c/e, no obvious rash MSK: FROM x 4 Neuro: CN 2-12 grossly intact, no new focal deficits Psych: calm - Constitutional Vitals: Temp Pulse Resp BP Pulse Ox 97.5 F L 105 H 22 111/69 100 06/13/19 04:07 06/13/19 04:07 06/13/19 04:07 06/13/19 04:07 06/13/19 04:07 General appearance: Present: no acute distress, cachectic. Absent: mild distress, severe distress Results - Labs CBC & Chem 7: 06/12/19 21:59 06/12/19 21:59 Labs: Laboratory Last Values WBC 5.2 K/mm3 (4.5-11.0) 06/12/19 21:59 RBC 3.67 M/mm3 (3.65-5.03) 06/12/19 21:59 Hgb 12.0 gm/dl (11.8-15.2) 06/12/19 21:59 Hct 37.2 % (35.5-45.6) 06/12/19 21:59 MCV 101 fl (84-94) H 06/12/19 21:59 MCH 33 pg (28-32) H 06/12/19 21:59 MCHC 32 % (32-34) 06/12/19 21:59 RDW 13.1 % (13.2-15.2) L 06/12/19 21:59 Plt Count 280 K/mm3 (140-440) 06/12/19 21:59 Lymph % (Auto) 22.5 % (13.4-35.0) 06/12/19 21:59 [place] % (Auto) 10.3 % (0.0-7.3) H 06/12/19 21:59 Eos % (Auto) 0.3 % (0.0-4.3) 06/12/19 21:59 Baso % (Auto) 0.9 % (0.0-1.8) 06/12/19 21:59 Lymph # 1.2 K/mm3 (1.2-5.4) 06/12/19 21:59 [place] # 0.5 K/mm3 (0.0-0.8) 06/12/19 21:59 Eos # 0.0 K/mm3 (0.0-0.4) 06/12/19 21:59 Baso # 0.0 K/mm3 (0.0-0.1) 06/12/19 21:59 Seg Neutrophils % 66.0 % (40.0-70.0) 06/12/19 21:59 Seg Neutrophils # 3.5 K/mm3 (1.8-7.7) 06/12/19 21:59 PT 12.3 Sec. (12.2-14.9) 06/12/19 21:59 INR 0.94 (0.87-1.13) 06/12/19 21:59 APTT 27.8 Sec. (24.2-36.6) 06/12/19 21:59 Sodium 138 mmol/L (137-145) 06/12/19 21:59 Potassium 4.6 mmol/L (3.6-5.0) 06/12/19 21:59 Chloride 94.4 mmol/L (98-107) L 06/12/19 21:59 Carbon Dioxide 12 mmol/L (22-30) L 06/12/19 21:59 Anion Gap 36 mmol/L 06/12/19 21:59 BUN 16 mg/dL (9-20) 06/12/19 21:59 Creatinine 1.2 mg/dL (0.8-1.5) 06/12/19 21:59 Estimated GFR > 60 ml/min 06/12/19 21:59 BUN/Creatinine Ratio 13 % 06/12/19 21:59 Glucose 369 mg/dL (75-100) H 06/12/19 21:59 POC Glucose 385 (70-105) H 06/13/19 02:46 Hemoglobin A1c 9.4 % (4-6) H 06/13/19 04:15 Calcium 9.6 mg/dL (8.4-10.2) 06/12/19 21:59 Total Bilirubin 0.60 mg/dL (0.1-1.2) 06/13/19 01:18 Direct Bilirubin 0.4 mg/dL (0-0.2) H 06/13/19 01:18 Indirect Bilirubin 0.2 mg/dL 06/13/19 01:18 AST 23 units/L (5-40) 06/12/19 21:59 ALT 46 units/L (7-56) 06/12/19 21:59 Alkaline Phosphatase 1568 units/L (35-129) H 06/12/19 21:59 Troponin T < 0.010 ng/mL (0.00-0.029) 06/12/19 22:48 NT-Pro-B Natriuret Pep 72.70 pg/mL (0-900) 06/12/19 21:59 Total Protein 8.3 g/dL (6.3-8.2) H 06/12/19 21:59 Albumin 4.2 g/dL (3.9-5) 06/12/19 21:59 Albumin/Globulin Ratio 1.0 % 06/12/19 21:59 Lipase 167 units/L (13-60) H 06/12/19 21:59 Active Medications - Current Medications Current Medications: Generic Name Dose Route Start Last Admin Trade Name Freq PRN Reason Stop Dose Admin Acetaminophen 650 mg 06/13/19 00:45 Tylenol PO Q4H PRN Pain MILD(1-3)/Fever >100.5/HOLT Acetaminophen/Hydrocodone Bitart 2 each 06/13/19 00:45 06/13/19 01:20 [place] 5/325 PO 2 each Q6H PRN Administration Pain, Moderate (4-6) Albuterol 2.5 mg 06/13/19 00:51 Proventil IH QIDRT PRN asthma Dextrose 50 ml 06/13/19 00:45 D50w (25gm) Syringe IV PRN PRN Hypoglycemia Enoxaparin Sodium 40 mg 06/13/19 10:00 Lovenox SUB-Q QDAY VIVI Escitalopram Oxalate 20 mg 06/13/19 10:00 Lexapro PO QDAY VIVI Folic Acid 1 mg 06/13/19 10:00 Folvite PO QDAY VIVI Hydralazine HCl 10 mg 06/13/19 00:44 Apresoline IV Q4H PRN BP >160/100 Hydromorphone HCl 0.5 mg 06/13/19 00:45 Dilaudid IV Q3H PRN Pain , Severe (7-10) Dextrose/Sodium Chloride 1,000 mls @ 100 mls/hr 06/13/19 01:00 06/13/19 01:19 D5/0.45ns IV 100 mls/hr DIRECT VIVI Administration Insulin Human Lispro 0 unit 06/13/19 03:00 06/13/19 02:52 Humalog SUB-Q 8 unit Q6H VIVI Administration Protocol Lorazepam 2 mg 06/13/19 00:45 Ativan IV Q1H PRN CIWA-Ar 8-15 Lorazepam 4 mg 06/13/19 00:45 Ativan IV Q1H PRN CIWA-Ar 16-25 Lorazepam 4 mg 06/13/19 00:45 Ativan IV Q15MIN PRN CIWA-Ar >25 Ondansetron HCl 4 mg 06/13/19 00:45 06/13/19 01:48 Zofran IV 4 mg Q8H PRN Administration Nausea And Vomiting Pantoprazole Sodium 40 mg 06/13/19 10:00 Protonix PO DAILY [facility] Pravastatin Sodium 40 mg 06/13/19 22:00 Pravachol PO QHS [facility] Sodium Chloride 10 ml 06/13/19 10:00 Sodium Chloride Flush Syringe 10 Ml IV BID VIVI Sodium Chloride 10 ml 06/13/19 00:45 Sodium Chloride Flush Syringe 10 Ml IV PRN PRN LINE FLUSH Thiamine HCl 100 mg 06/13/19 10:00 Vitamin B-1 PO QDAY VIVI Tramadol HCl 50 mg 06/13/19 10:00 Ultram PO DAILY VIVI
[2019-06-13] MEDS ORDERED: HumaLOG SUB-Q SCH (07:30)
[2019-06-13] MEDS ORDERED: ULTRAM PO SCH (10:00)
[2019-06-13] MEDS ORDERED: FOLVITE PO SCH (10:00)
--- NOTE | 2019-06-13 10:08 | Ultrasound Report ---
LIMITED RUQ ABDOMINAL ULTRASOUND INDICATION: cholelithiasis. COMPARISON: Noncontrast CT abdomen and pelvis dated 06/12/2019. FINDINGS: Pancreas: Visualized portions show no significant abnormality. Masslike lesion in the pancreatic head seen on previous CT are not clearly demonstrated on ultrasound. Abdominal Aorta: No significant abnormality. IVC: No significant abnormality. Liver: No significant abnormality. Normal hepatopedal blood flow in the main portal vein. Gallbladder: There are multiple small shadowing stones in a mild degree of sludge in the gallbladder. The gallbladder wall is mildly thickened measuring or 0.1 mm.. Bile ducts: Mild intrahepatic biliary dilatation is suspected. Common bile duct measures 16 mm. Right kidney: The right kidney measures 8.8 cm and demonstrates mild increased echotexture suggesting mild chronic renal parenchymal disease. No focal lesion or hydronephrosis.. Free fluid: None. Additional Findings: None. IMPRESSION: Cholelithiasis. There is moderate diffuse biliary dilatation with the common bile duct measuring 1.6 cm. No obvious choledocholithiasis on ultrasound. Mild chronic renal parenchymal disease. The pancreas is poorly evaluated on ultrasound as described above.. Signer Name: Zurdo Lindo Jr, MD Signed: 06/13/2019 10:04 AM Workstation Name: [id number]
--- NOTE | 2019-06-13 11:38 | Magnetic Resonance Report ---
MR ABDOMEN MRCP HISTORY: Abdominal pain, weight loss, vomiting, elevated alkaline phosphatase COMPARISON: CT abdomen pelvis without contrast dated 06/12/2019. Right upper quadrant ultrasound dated 06/13/2019. MRCP dated 01/21/2018 TECHNIQUE: Multiplanar, multisequence MR imaging was performed of the abdomen without intravenous con trast. T2-weighted MIP projections were post-processed under concurrent physician supervision for pu rposes of MRCP. CONTRAST: None. FINDINGS: Comment: This exam is markedly limited secondary to breathing motion artifact on all sequences. Liver: The liver is normal size and contour. No parenchymal liver disease is appreciated. Biliary: Multiple small gallstones and a mild degree of sludge is again identified in the gallbladder . No evidence for acute cholecystitis. Moderate intrahepatic and extrahepatic biliary dilatation is a gain demonstrated and not significantly changed. The common bile duct measures up to 1.3 cm in diamet er. There is mild to moderate diffuse intrahepatic biliary dilatation as well. Although this examinat ion is limited by motion artifact there is no obvious choledocholithiasis. There does appear to be a smooth stricture of the distal common bile duct. Spleen: No significant abnormality. Pancreas: Mild prominence of the pancreatic head is again noted on MRI. This finding is unchanged. Th ere is suggestion of chronic pancreatitis on previous CTs. There is no obvious pancreatic head mass o n noncontrast MRI. Mild atrophy of the distal pancreas with ductal dilatation is unchanged. No pseudo cyst. Adrenals: No significant abnormality. Kidneys: No significant abnormality. Lymphatics: No lymphadenopathy. Vasculature: The aorta and IVC are widely patent. 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 In retrospect this appears unchanged from pre vious studies. There are multiple collateral vessels in the deana hepatis. Bowel and Mesentery: Visualized portions without significant abnormality. Fluid: No ascites. Osseous Structures: No significant abnormality. Additional Findings: None. IMPRESSION: Cholelithiasis. There is moderate intrahepatic and extrahepatic biliary dilatation as described above. CBD measures u p to 1.3 cm in diameter. There is no obvious choledocholithiasis on this limited with motion. There d oes appear to be a moderate to high-grade smooth stricture in the distal common bile duct which is un changed since the previous MRCP. 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 Mild prominence of the pancreatic head is again noted but no definite mass on noncontrast MRI. Signer Name: Zurdo Lindo Jr, MD Signed: 06/13/2019 11:33 AM Workstation Name: [id number]
[2019-06-13] MEDS: LEXAPRO PO SCH (11:41)
[2019-06-13] MEDS: PROTONIX PO SCH (11:42)
[2019-06-13] MEDS: FOLVITE PO SCH (11:42)
[2019-06-13] MEDS: VITAMIN B-1 PO SCH (11:43)
[2019-06-13] MEDS: LOVENOX SUB-Q SCH (11:43)
[2019-06-13] MEDS: SODIUM CHLORIDE FLUSH SYRINGE 10 ML IV SCH ×2 (11:43→21:25)
--- NOTE | 2019-06-13 20:01 | Gastroenterology Consultation ---
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 he has had intermittent episodes of abstinence with relapse of alcohol (mostly beer), but states he quit ~4-6 weeks ago. He has been feeling unwell for 2-3 weeks. He has a h/o biliary and PD dilatation and concern for HOP mass, however prior ercp with spyglass did not show signs of malignancy. he has lost weight recently with poor po intake. alk phos > 1400; rest of liver enzymes unremarkable, lipase mildly elevated. Past History Past Medical History: other (chronic pancreatitis) Social history: alcohol abuse Family history: no significant family history Medications and Allergies Allergies Allergy/AdvReac Type Severity Reaction Status Date / Time No Known Drug Allergies Allergy Unknown Verified 05/05/13 02:40 Home Medications Medication Instructions Recorded Confirmed Last Taken Type Folic Acid [Folvite] 1 mg PO QDAY 10/13/18 06/12/19 Unknown History Ipratropium/Albuterol Sulfate 1 ampul IH QID PRN 10/13/18 06/12/19 Unknown History [DUONEB *Not for PRN Use*] Sildenafil 20 mg PO TID 10/13/18 06/12/19 Unknown History Simvastatin 20 mg PO HS 10/13/18 06/12/19 Unknown History traMADol [Ultram 50 MG tab] 50 mg PO DAILY 10/13/18 06/12/19 Unknown History Escitalopram Oxalate [Lexapro] 20 mg PO QDAY #30 tablet 10/15/18 06/12/19 Unknown Rx LORazepam [Ativan] 1 mg PO TID PRN #30 tablet 10/15/18 06/12/19 Unknown Rx Pantoprazole [Protonix TAB] 40 mg PO DAILY #30 tablet 10/15/18 06/12/19 Unknown Rx oxyCODONE /ACETAMINOPHEN [Percocet 1 tab PO Q6H PRN #20 tablet 10/15/18 06/12/19 Unknown Rx 5/325 mg] NovoLOG 100 UNITS/ML VIAL See Protocol SUB-Q TID 10/27/18 06/12/19 Unknown History Active Meds: Active Medications Acetaminophen (Tylenol) 650 mg PO Q4H PRN PRN Reason: Pain MILD(1-3)/Fever >100.5/HOLT Acetaminophen/Hydrocodone Bitart ([place] 5/325) 2 each PO Q6H PRN PRN Reason: Pain, Moderate (4-6) Last Admin: 06/13/19 01:20 Dose: 2 each Documented by: Albuterol (Proventil) 2.5 mg IH QIDRT PRN PRN Reason: asthma Dextrose (D50w (25gm) Syringe) 50 ml IV PRN PRN PRN Reason: Hypoglycemia Enoxaparin Sodium (Lovenox) 40 mg SUB-Q QDAY [facility] Last Admin: 06/13/19 11:43 Dose: 40 mg Documented by: Escitalopram Oxalate (Lexapro) 20 mg PO QDAY [facility] Last Admin: 06/13/19 11:41 Dose: 20 mg Documented by: Folic Acid (Folvite) 1 mg PO QDAY [facility] Last Admin: 06/13/19 11:42 Dose: 1 mg Documented by: Hydralazine HCl (Apresoline) 10 mg IV Q4H PRN PRN Reason: BP >160/100 Hydromorphone HCl (Dilaudid) 0.5 mg IV Q3H PRN PRN Reason: Pain , Severe (7-10) Dextrose/Sodium Chloride (D5/0.45ns) 1,000 mls @ 100 mls/hr IV DIRECT [facility] Last Admin: 06/13/19 17:27 Dose: 100 mls/hr Documented by: Insulin Human Lispro (Humalog) 0 unit SUB-Q Q6HR [facility]; Protocol Last Admin: 06/13/19 17:30 Dose: 4 unit Documented by: Lorazepam (Ativan) 2 mg IV Q1H PRN PRN Reason: CIWA-Ar 8-15 Lorazepam (Ativan) 4 mg IV Q1H PRN PRN Reason: CIWA-Ar 16-25 Lorazepam (Ativan) 4 mg IV Q15MIN PRN PRN Reason: CIWA-Ar >25 Ondansetron HCl (Zofran) 4 mg IV Q8H PRN PRN Reason: Nausea And Vomiting Last Admin: 06/13/19 01:48 Dose: 4 mg Documented by: Pantoprazole Sodium (Protonix) 40 mg PO DAILY [facility] Last Admin: 06/13/19 11:42 Dose: 40 mg Documented by: Pravastatin Sodium (Pravachol) 40 mg PO QHS [facility] Sodium Chloride (Sodium Chloride Flush Syringe 10 Ml) 10 ml IV BID [facility] Last Admin: 06/13/19 11:43 Dose: 10 ml Documented by: Sodium Chloride (Sodium Chloride Flush Syringe 10 Ml) 10 ml IV PRN PRN PRN Reason: LINE FLUSH Thiamine HCl (Vitamin B-1) 100 mg PO QDAY [facility] Last Admin: 06/13/19 11:43 Dose: 100 mg Documented by: Reviewed/updated patient's home and current medications. Review of Systems - Review of Systems All systems: negative (per HPI) Exam - Constitutional Vital Signs: Temp Pulse Resp BP Pulse Ox 98.9 F 96 H 14 108/68 100 06/13/19 16:22 06/13/19 16:22 06/13/19 16:22 06/13/19 16:22 06/13/19 16:22 General appearance: no acute distress, other (chronically ill appearing) - Neck Neck: supple, normal ROM - Respiratory Respiratory effort: normal Respiratory: bilateral: CTA - Cardiovascular Rhythm: regular Heart Sounds: Present: S1 & S2 - Gastrointestinal General gastrointestinal: Present: soft, tender, normal bowel sounds - Integumentary Integumentary: Present: clear, warm - Neurologic Neurological: alert and oriented x3 - Psychiatric Psychiatric: appropriate mood/affect - Labs CBC & Chem 7: 06/14/19 05:40 06/14/19 05:40 Lab Results: Laboratory Results - last 24 hr 06/12/19 06/12/19 06/12/19 21:59 21:59 21:59 WBC 5.2 RBC 3.67 Hgb 12.0 Hct 37.2 MCV 101 H MCH 33 H MCHC 32 RDW 13.1 L Plt Count 280 Lymph % (Auto) 22.5 [place] % (Auto) 10.3 H Eos % (Auto) 0.3 Baso % (Auto) 0.9 Lymph # 1.2 [place] # 0.5 Eos # 0.0 Baso # 0.0 Seg Neutrophils % 66.0 Seg Neutrophils # 3.5 PT 12.3 INR 0.94 APTT 27.8 Sodium 138 Potassium 4.6 Chloride 94.4 L Carbon Dioxide 12 L Anion Gap 36 BUN 16 Creatinine 1.2 Estimated GFR > 60 BUN/Creatinine Ratio 13 Glucose 369 H POC Glucose Hemoglobin A1c Calcium 9.6 Total Bilirubin 0.70 Direct Bilirubin Indirect Bilirubin AST 23 ALT 46 Alkaline Phosphatase 1568 H Troponin T < 0.010 NT-Pro-B Natriuret Pep 72.70 Total Protein 8.3 H Albumin 4.2 Albumin/Globulin Ratio 1.0 Lipase 06/12/19 06/12/19 06/13/19 21:59 22:48 01:18 WBC RBC Hgb Hct MCV MCH MCHC RDW Plt Count Lymph % (Auto) [place] % (Auto) Eos % (Auto) Baso % (Auto) Lymph # [place] # Eos # Baso # Seg Neutrophils % Seg Neutrophils # PT INR APTT Sodium Potassium Chloride Carbon Dioxide Anion Gap BUN Creatinine Estimated GFR BUN/Creatinine Ratio Glucose POC Glucose Hemoglobin A1c Calcium Total Bilirubin 0.60 Direct Bilirubin 0.4 H Indirect Bilirubin 0.2 AST ALT Alkaline Phosphatase Troponin T < 0.010 NT-Pro-B Natriuret Pep Total Protein Albumin Albumin/Globulin Ratio Lipase 167 H 06/13/19 06/13/19 06/13/19 02:46 04:15 08:55 WBC RBC Hgb Hct MCV MCH MCHC RDW Plt Count Lymph % (Auto) [place] % (Auto) Eos % (Auto) Baso % (Auto) Lymph # [place] # Eos # Baso # Seg Neutrophils % Seg Neutrophils # PT INR APTT Sodium Potassium Chloride Carbon Dioxide Anion Gap BUN Creatinine Estimated GFR BUN/Creatinine Ratio Glucose POC Glucose 385 H 306 H Hemoglobin A1c 9.4 H Calcium Total Bilirubin Direct Bilirubin Indirect Bilirubin AST ALT Alkaline Phosphatase Troponin T NT-Pro-B Natriuret Pep Total Protein Albumin Albumin/Globulin Ratio Lipase 06/13/19 06/13/19 11:40 16:33 WBC RBC Hgb Hct MCV MCH MCHC RDW Plt Count Lymph % (Auto) [place] % (Auto) Eos % (Auto) Baso % (Auto) Lymph # [place] # Eos # Baso # Seg Neutrophils % Seg Neutrophils # PT INR APTT Sodium Potassium Chloride Carbon Dioxide Anion Gap BUN Creatinine Estimated GFR BUN/Creatinine Ratio Glucose POC Glucose 308 H 285 H Hemoglobin A1c Calcium Total Bilirubin Direct Bilirubin Indirect Bilirubin AST ALT Alkaline Phosphatase Troponin T NT-Pro-B Natriuret Pep Total Protein Albumin Albumin/Globulin Ratio Lipase - Imaging CT Scan: report reviewed MRI: report reviewed Assessment and Plan 1. Abdominal pain with nausea/vomiting 2. Chronic pancreatitis 3. Biliary dilatation -symptoms likely due to chronic pancreatitis with possible acute component in setting of recent alcohol use -prior work-up for HOP lesion/mass included ercp with spyglass which did not show signs of malignancy -consider EUS as outpatient given persistent findings and worsening symptoms to r/o occult malignancy -diet as tolerated and counseled on alcohol cessation.
[2019-06-13] MEDS: PRAVACHOL PO SCH (21:24)
[2019-06-14] MEDS: HumaLOG SUB-Q SCH ×4 (04:20→17:48)
[2019-06-14] MEDS: D5/0.45NS 1,000 ML IV SCH ×2 (04:34→16:19)
[2019-06-14] MEDS: NORCO 5/325 PO PRN ×2 (05:57→21:45)
[2019-06-14 06:41] LABS: Basophils % (Auto) 0.3 % (0.0-1.8); Eosinophils % (Auto) 0.7 % (0.0-4.3); Hemoglobin 11.1 gm/dl (11.8-15.2); Lymphocytes # (Auto) 0.8 K/mm3 (1.2-5.4); Lymphocytes % (Auto) 11.2 % (13.4-35.0); Mean Corpuscular HGB Conc 34 % (32-34); Mean Corpuscular Volume 97 fl (84-94); Monocytes # (Auto) 0.5 K/mm3 (0.0-0.8); Monocytes % (Auto) 7.6 % (0.0-7.3); Platelet Count 212 K/mm3 (140-440); Red Cell Distribution Width 12.9 % (13.2-15.2)
[2019-06-14 06:56] LABS: Alanine Aminotransferase 36 units/L (7-56); Albumin 3.4 g/dL (3.9-5); BUN/Creatinine Ratio 7; Blood Urea Nitrogen 7 mg/dL (9-20); Calcium 8.8 mg/dL (8.4-10.2); Hemolysis Index 1
[2019-06-14] MEDS ORDERED: POTASSIUM CHLORIDE PO NR (07:17)
[2019-06-14] MEDS: PROTONIX PO SCH (09:40)
[2019-06-14] MEDS: VITAMIN B-1 PO SCH (09:40)
[2019-06-14] MEDS: KCL 10MEQ/100ML 10 MEQ/100 ML BAG IV SCH ×4 (09:40→13:04)
[2019-06-14] MEDS: LOVENOX SUB-Q SCH (09:41)
[2019-06-14] MEDS: FOLVITE PO SCH (09:41)
[2019-06-14] MEDS: LEXAPRO PO SCH (09:41)
[2019-06-14] MEDS: SODIUM CHLORIDE FLUSH SYRINGE 10 ML IV SCH ×2 (09:41→21:45)
[2019-06-14 10:44] LABS: Bilirubin,Urine NEG (Negative); Blood,Urine NEG (Negative); Color,Urine Yellow (Yellow); Protein,Urine <15 mg/dL mg/dL (Negative); RBC,Urine < 1.0 /HPF (0.0-6.0); Urobilinogen,Urine < 2.0 mg/dL (<2.0)
[2019-06-14 10:50] LABS: WBC,Urine < 1.0 /HPF (0.0-6.0)
--- NOTE | 2019-06-14 13:31 | Progress Note ---
Assessment and Plan Assessment and plan: Patient is a 53 year man with a history of IDDM, Bipolar disorder, AMI, CVA, COPD, depression and chronic pancreatitis with necrosis who presented to [facility] ED with Abdominal pains, n/v * Labs show a glucose of 369, alkaline phosphatase 1568, lipase is 167 * CT abdomen and pelvis; unchanged mass-like appearance of the pancreatic head with upper cutoff of both the common bile duct and pancreatic duct, most worrisome for pancreatic neoplasm. Given associated parenchymal calcifications differential consideration include chronic pancreatitis with associated strictures, Mass-effect on the second portion of the duodenum with mild upstream gastric distention may reflect partial obstruction, Cholelithiasis, Acute on Chronic pancreatitis, recurrent: Pain meds, IV fluids, antiemetics, advance diet. Pancreatic head mass like abnormality: GI consulted, patient may benefit from repeat biopsy, it may be due to pancreatitis scarring and stricture, ALK phos now elevated, check bili and MRCP Cholelithiasis: ordered GB ultrasound with acute cholecystitis, GI input noted Intractable nausea and vomiting: Keep n.p.o. for now, antiemetics and pain meds as needed. May have sips of water for comfort History of alcohol dependence, Has not had a drink in 6 weeks: patient was counseled on continued abstinence, CiWA protocol and thiamine ordered Hypertension; optimize BP meds Diabetes mellitus with uncontrolled hyperglycemia: sliding scale insulin, checked A1c==>9.4, counseling and education done Severe malnutrition: Dietitian consult DVT prophylaxis with Lovenox d/w at bedside Disposition: continue inpatient care for pancreatitis History Interval history: Patient was seen and examined. Follow-up on current diagnosis of Abd pains, slightly improved, tolerating clear liquids. No overnight events reported to me. Patient denies any chest pain, shortness breath, severe headaches. Imaging, nursing note, chart, labs and old chart reviewed. Discussed with patient. Hospitalist Physical - Physical exam Narrative exam: Gen: thin frail, chronically disable appearing, NAD, Awake, Alert, Orientated HEENT: NCAT, EOMI, PERRL, OP Clear Neck: supple, no adenopathy, no thyromegaly, no JVD CVS/Heart: RRR, normal S1S2, pulses present bilaterally Chest/Lungs: CTA B, Symmetrical chest expansion, good air entry bilaterally GI/Abdomen: soft, +tenderness good bowel sounds, no guarding or rebound /Bladder: no suprapubic tenderness, no CVA or paraspinal tenderness Extermity/Skin: no c/c/e, no obvious rash MSK: FROM x 4 Neuro: CN 2-12 grossly intact, no new focal deficits Psych: calm - Constitutional Vitals: Temp Pulse Resp BP Pulse Ox 97.7 F 97 H 15 105/68 100 06/14/19 12:06 06/14/19 12:06 06/14/19 12:06 06/14/19 12:06 06/14/19 12:06 General appearance: Present: no acute distress, cachectic. Absent: mild distre ss, severe distress Results - Labs CBC & Chem 7: 06/14/19 05:40 06/14/19 05:40 Labs: Laboratory Last Values WBC 7.1 K/mm3 (4.5-11.0) 06/14/19 05:40 RBC 3.40 M/mm3 (3.65-5.03) L 06/14/19 05:40 Hgb 11.1 gm/dl (11.8-15.2) L 06/14/19 05:40 Hct 33.0 % (35.5-45.6) L 06/14/19 05:40 MCV 97 fl (84-94) H 06/14/19 05:40 MCH 33 pg (28-32) H 06/14/19 05:40 MCHC 34 % (32-34) 06/14/19 05:40 RDW 12.9 % (13.2-15.2) L 06/14/19 05:40 Plt Count 212 K/mm3 (140-440) 06/14/19 05:40 Lymph % (Auto) 11.2 % (13.4-35.0) L 06/14/19 05:40 [place] % (Auto) 7.6 % (0.0-7.3) H 06/14/19 05:40 Eos % (Auto) 0.7 % (0.0-4.3) 06/14/19 05:40 Baso % (Auto) 0.3 % (0.0-1.8) 06/14/19 05:40 Lymph # 0.8 K/mm3 (1.2-5.4) L 06/14/19 05:40 [place] # 0.5 K/mm3 (0.0-0.8) 06/14/19 05:40 Eos # 0.0 K/mm3 (0.0-0.4) 06/14/19 05:40 Baso # 0.0 K/mm3 (0.0-0.1) 06/14/19 05:40 Seg Neutrophils % 80.2 % (40.0-70.0) H 06/14/19 05:40 Seg Neutrophils # 5.7 K/mm3 (1.8-7.7) 06/14/19 05:40 PT 12.3 Sec. (12.2-14.9) 06/12/19 21:59 INR 0.94 (0.87-1.13) 06/12/19 21:59 APTT 27.8 Sec. (24.2-36.6) 06/12/19 21:59 Sodium 138 mmol/L (137-145) 06/14/19 05:40 Potassium 2.9 mmol/L (3.6-5.0) L* D 06/14/19 05:40 Chloride 104.1 mmol/L (98-107) 06/14/19 05:40 Carbon Dioxide 19 mmol/L (22-30) L D 06/14/19 05:40 Anion Gap 18 mmol/L 06/14/19 05:40 BUN 7 mg/dL (9-20) L 06/14/19 05:40 Creatinine 1.0 mg/dL (0.8-1.5) 06/14/19 05:40 Estimated GFR > 60 ml/min 06/14/19 05:40 BUN/Creatinine Ratio 7 % 06/14/19 05:40 Glucose 321 mg/dL (75-100) H 06/14/19 05:40 POC Glucose 405 (70-105) H 06/14/19 12:17 Hemoglobin A1c 9.4 % (4-6) H 06/13/19 04:15 Calcium 8.8 mg/dL (8.4-10.2) 06/14/19 05:40 Total Bilirubin 0.60 mg/dL (0.1-1.2) 06/14/19 05:40 Direct Bilirubin 0.4 mg/dL (0-0.2) H 06/13/19 01:18 Indirect Bilirubin 0.2 mg/dL 06/13/19 01:18 AST 27 units/L (5-40) 06/14/19 05:40 ALT 36 units/L (7-56) 06/14/19 05:40 Alkaline Phosphatase 1094 units/L (35-129) H 06/14/19 05:40 Troponin T < 0.010 ng/mL (0.00-0.029) 06/12/19 22:48 NT-Pro-B Natriuret Pep 72.70 pg/mL (0-900) 06/12/19 21:59 Total Protein 6.8 g/dL (6.3-8.2) 06/14/19 05:40 Albumin 3.4 g/dL (3.9-5) L 06/14/19 05:40 Albumin/Globulin Ratio 1.0 % 06/14/19 05:40 Lipase 167 units/L (13-60) H 06/12/19 21:59 Urine Color Yellow (Yellow) 06/14/19 10:30 Urine Turbidity Clear (Clear) 06/14/19 10:30 Urine pH 6.0 (5.0-7.0) 06/14/19 10:30 Ur Specific [place] 1.018 (1.003-1.030) 06/14/19 10:30 Urine Protein <15 mg/dl mg/dL (Negative) 06/14/19 10:30 Urine Glucose (UA) >=500 mg/dL (Negative) 06/14/19 10:30 Urine Ketones 20 mg/dL (Negative) 06/14/19 10:30 Urine Blood Neg (Negative) 06/14/19 10:30 Urine Nitrite Neg (Negative) 06/14/19 10:30 Urine Bilirubin Neg (Negative) 06/14/19 10:30 Urine Urobilinogen < 2.0 mg/dL (<2.0) 06/14/19 10:30 Ur Leukocyte Esterase Neg (Negative) 06/14/19 10:30 Urine WBC (Auto) < 1.0 /HPF (0.0-6.0) 06/14/19 10:30 Urine RBC (Auto) < 1.0 /HPF (0.0-6.0) 06/14/19 10:30 Active Medications - Current Medications Current Medications: Generic Name Dose Route Start Last Admin Trade Name Freq PRN Reason Stop Dose Admin Acetaminophen 650 mg 06/13/19 00:45 Tylenol PO Q4H PRN Pain MILD(1-3)/Fever >100.5/HOLT Acetaminophen/Hydrocodone Bitart 2 each 06/13/19 00:45 06/14/19 05:57 [place] 5/325 PO 2 each Q6H PRN Administration Pain, Moderate (4-6) Albuterol 2.5 mg 06/13/19 00:51 Proventil IH QIDRT PRN asthma Dextrose 50 ml 06/13/19 00:45 D50w (25gm) Syringe IV PRN PRN Hypoglycemia Enoxaparin Sodium 40 mg 06/13/19 10:00 06/14/19 09:41 Lovenox SUB-Q 40 mg QDAY [facility] Administration Escitalopram Oxalate 20 mg 06/13/19 10:00 06/14/19 09:41 Lexapro PO 20 mg QDAY [facility] Administration Folic Acid 1 mg 06/13/19 10:00 06/14/19 09:41 Folvite PO 1 mg QDAY [facility] Administration Hydralazine HCl 10 mg 06/13/19 00:44 Apresoline IV Q4H PRN BP >160/100 Hydromorphone HCl 0.5 mg 06/13/19 00:45 Dilaudid IV Q3H PRN Pain , Severe (7-10) Dextrose/Sodium Chloride 1,000 mls @ 100 mls/hr 06/13/19 01:00 06/14/19 04:34 D5/0.45ns IV 100 mls/hr DIRECT [facility] Administration Insulin Human Lispro 0 unit 06/13/19 18:00 06/14/19 13:05 Humalog SUB-Q 8 unit Q6HR [facility] Administration Protocol Lorazepam 2 mg 06/13/19 00:45 Ativan IV Q1H PRN CIWA-Ar 8-15 Lorazepam 4 mg 06/13/19 00:45 Ativan IV Q1H PRN CIWA-Ar 16-25 Lorazepam 4 mg 06/13/19 00:45 Ativan IV Q15MIN PRN CIWA-Ar >25 Ondansetron HCl 4 mg 06/13/19 00:45 06/13/19 01:48 Zofran IV 4 mg Q8H PRN Administration Nausea And Vomiting Pantoprazole Sodium 40 mg 06/13/19 10:00 06/14/19 09:40 Protonix PO 40 mg DAILY [facility] Administration Pravastatin Sodium 40 mg 06/13/19 22:00 06/13/19 21:24 Pravachol PO 40 mg QHS [facility] Administration Sodium Chloride 10 ml 06/13/19 10:00 06/14/19 09:41 Sodium Chloride Flush Syringe 10 Ml IV 10 ml BID [facility] Administration Sodium Chloride 10 ml 06/13/19 00:45 Sodium Chloride Flush Syringe 10 Ml IV PRN PRN LINE FLUSH Thiamine HCl 100 mg 06/13/19 10:00 06/14/19 09:40 Vitamin B-1 PO 100 mg QDAY [facility] Administration Nutrition/Malnutrition Assess - Dietary Evaluation Nutrition/Malnutrition Findings: Nutrition Notes Start: 06/13/19 13:15 Freq: Status: Active Protocol: Document 06/14/19 08:43 MK (Rec: 06/14/19 08:45 MK [id number]) Co-Sign 06/14/19 08:43 LP Nutrition Notes Initial or Follow up Brief Note Current Diagnosis Coronary Artery Disease, Diabetes,Hypertension Other Pertinent Diagnosis Pacreatitis, CVD Current Diet NPO Subjective/Other Information Pt continues NPO. Nutrition Intervention Follow-Up By: 06/17/19 Additional Comments F/U for diet advancement
[2019-06-14] MEDS: PRAVACHOL PO SCH (21:45)
[2019-06-15] MEDS: HumaLOG SUB-Q SCH ×4 (00:47→18:22)
[2019-06-15] MEDS: D5/0.45NS 1,000 ML IV SCH (04:16)
[2019-06-15 05:25] LABS: BUN/Creatinine Ratio 6; Blood Urea Nitrogen 4 mg/dL (9-20); Calcium 8.8 mg/dL (8.4-10.2); Hemolysis Index 2
[2019-06-15 05:27] LABS: Hematocrit 32.6 % (35.5-45.6); Mean Corpuscular HGB Conc 34 % (32-34); Mean Corpuscular Volume 96 fl (84-94); Platelet Count 185 K/mm3 (140-440); Red Blood Count 3.38 M/mm3 (3.65-5.03); Red Cell Distribution Width 12.9 % (13.2-15.2)
--- NOTE | 2019-06-15 06:55 | Event Note ---
Date: 06/15/19 potassium 2.8 this am, will order K 40 Meq po, and 20 IV. follow up repeat labs
[2019-06-15] MEDS ORDERED: K-DUR PO NR (06:57)
[2019-06-15] MEDS ORDERED: MAGNESIUM SULFATE 2GM/50ML 2 GM/50 ML BAG IV NR (07:16)
--- NOTE | 2019-06-15 07:22 | Progress Note ---
Assessment and Plan Assessment and plan: Patient is a 53 year man with a history of IDDM, Bipolar disorder, AMI, CVA, COPD, depression and chronic pancreatitis with necrosis who presented to [facility] with Abdominal pains, n/v * Labs show a glucose of 369, alkaline phosphatase 1568, lipase is 167 * CT abdomen and pelvis; unchanged mass-like appearance of the pancreatic head with upper cutoff of both the common bile duct and pancreatic duct, most worrisome for pancreatic neoplasm. Given associated parenchymal calcifications differential consideration include chronic pancreatitis with associated strictures, Mass-effect on the second portion of the duodenum with mild upstream gastric distention may reflect partial obstruction, Cholelithiasis, Acute on Chronic pancreatitis, recurrent: Pain meds, IV fluids, antiemetics, advanced diet. Pancreatic head mass like abnormality: GI consulted, patient may benefit from repeat biopsy, it may be due to pancreatitis scarring and stricture, ALK phos now elevated, check bili and MRCP Cholelithiasis: ordered GB ultrasound with acute cholecystitis, GI input noted Intractable nausea and vomiting: Keep n.p.o. for now, antiemetics and pain meds as needed. May have sips of water for comfort History of alcohol dependence, Has not had a drink in 6 weeks: patient was counseled on continued abstinence, CiWA protocol and thiamine ordered Hypertension; optimize BP meds Diabetes mellitus with uncontrolled hyperglycemia: sliding scale insulin, checked A1c==>9.4, counseling and education done, stop IV with Dextrose Severe malnutrition: Dietitian consult Severe hypokalemia: replete and recheck in AM, also augment with IV magnesium DVT prophylaxis with Lovenox Disposition: continue inpatient care for pancreatitis, once potassium level improved will d/c hopefully tomorrow. History Interval history: Patient was seen and examined. Follow-up on current diagnosis of Abd pains/n/v, improved, tolerating clear liquids. No overnight events reported to me. Patient denies any chest pain, shortness breath, severe headaches. Imaging, nursing note, chart, labs and old chart reviewed. Discussed with patient. Hospitalist Physical - Physical exam Narrative exam: Gen: thin frail, chronically disable appearing, NAD, Awake, Alert, Orientated HEENT: NCAT, EOMI, PERRL, OP Clear Neck: supple, no adenopathy, no thyromegaly, no JVD CVS/Heart: RRR, normal S1S2, pulses present bilaterally Chest/Lungs: CTA B, Symmetrical chest expansion, good air entry bilaterally GI/Abdomen: soft, +tenderness epigastric area improving, good bowel sounds, no g uarding or rebound /Bladder: no suprapubic tenderness, no CVA or paraspinal tenderness Extermity/Skin: no c/c/e, no obvious rash MSK: FROM x 4 Neuro: CN 2-12 grossly intact, no new focal deficits Psych: calm - Constitutional Vitals: Temp Pulse Resp BP Pulse Ox 97.9 F 90 17 118/69 100 06/15/19 04:48 06/15/19 04:48 06/15/19 04:48 06/15/19 04:48 06/15/19 04:48 General appearance: Present: no acute distress, cachectic. Absent: mild distress, severe distress Results - Labs CBC & Chem 7: 06/15/19 04:12 06/15/19 04:12 Labs: Laboratory Last Values WBC 5.4 K/mm3 (4.5-11.0) 06/15/19 04:12 RBC 3.38 M/mm3 (3.65-5.03) L 06/15/19 04:12 Hgb 11.0 gm/dl (11.8-15.2) L 06/15/19 04:12 Hct 32.6 % (35.5-45.6) L 06/15/19 04:12 MCV 96 fl (84-94) H 06/15/19 04:12 MCH 33 pg (28-32) H 06/15/19 04:12 MCHC 34 % (32-34) 06/15/19 04:12 RDW 12.9 % (13.2-15.2) L 06/15/19 04:12 Plt Count 185 K/mm3 (140-440) 06/15/19 04:12 Lymph % (Auto) 11.2 % (13.4-35.0) L 06/14/19 05:40 [place] % (Auto) 7.6 % (0.0-7.3) H 06/14/19 05:40 Eos % (Auto) 0.7 % (0.0-4.3) 06/14/19 05:40 Baso % (Auto) 0.3 % (0.0-1.8) 06/14/19 05:40 Lymph # 0.8 K/mm3 (1.2-5.4) L 06/14/19 05:40 [place] # 0.5 K/mm3 (0.0-0.8) 06/14/19 05:40 Eos # 0.0 K/mm3 (0.0-0.4) 06/14/19 05:40 Baso # 0.0 K/mm3 (0.0-0.1) 06/14/19 05:40 Seg Neutrophils % 80.2 % (40.0-70.0) H 06/14/19 05:40 Seg Neutrophils # 5.7 K/mm3 (1.8-7.7) 06/14/19 05:40 PT 12.3 Sec. (12.2-14.9) 06/12/19 21:59 INR 0.94 (0.87-1.13) 06/12/19 21:59 APTT 27.8 Sec. (24.2-36.6) 06/12/19 21:59 Sodium 136 mmol/L (137-145) L 06/15/19 04:12 Potassium 2.8 mmol/L (3.6-5.0) L* 06/15/19 04:12 Chloride 101.0 mmol/L (98-107) 06/15/19 04:12 Carbon Dioxide 23 mmol/L (22-30) 06/15/19 04:12 Anion Gap 15 mmol/L 06/15/19 04:12 BUN 4 mg/dL (9-20) L 06/15/19 04:12 Creatinine 0.7 mg/dL (0.8-1.5) L 06/15/19 04:12 Estimated GFR > 60 ml/min 06/15/19 04:12 BUN/Creatinine Ratio 6 % 06/15/19 04:12 Glucose 315 mg/dL (75-100) H 06/15/19 04:12 POC Glucose 413 (70-105) H 06/15/19 00:46 Hemoglobin A1c 9.4 % (4-6) H 06/13/19 04:15 Calcium 8.8 mg/dL (8.4-10.2) 06/15/19 04:12 Total Bilirubin 0.60 mg/dL (0.1-1.2) 06/14/19 05:40 Direct Bilirubin 0.4 mg/dL (0-0.2) H 06/13/19 01:18 Indirect Bilirubin 0.2 mg/dL 06/13/19 01:18 AST 27 units/L (5-40) 06/14/19 05:40 ALT 36 units/L (7-56) 06/14/19 05:40 Alkaline Phosphatase 1094 units/L (35-129) H 06/14/19 05:40 Troponin T < 0.010 ng/mL (0.00-0.029) 06/12/19 22:48 NT-Pro-B Natriuret Pep 72.70 pg/mL (0-900) 06/12/19 21:59 Total Protein 6.8 g/dL (6.3-8.2) 06/14/19 05:40 Albumin 3.4 g/dL (3.9-5) L 06/14/19 05:40 Albumin/Globulin Ratio 1.0 % 06/14/19 05:40 Lipase 167 units/L (13-60) H 06/12/19 21:59 Urine Color Yellow (Yellow) 06/14/19 10:30 Urine Turbidity Clear (Clear) 06/14/19 10:30 Urine pH 6.0 (5.0-7.0) 06/14/19 10:30 Ur Specific [place] 1.018 (1.003-1.030) 06/14/19 10:30 Urine Protein <15 mg/dl mg/dL (Negative) 06/14/19 10:30 Urine Glucose (UA) >=500 mg/dL (Negative) 06/14/19 10:30 Urine Ketones 20 mg/dL (Negative) 06/14/19 10:30 Urine Blood Neg (Negative) 06/14/19 10:30 Urine Nitrite Neg (Negative) 06/14/19 10:30 Urine Bilirubin Neg (Negative) 06/14/19 10:30 Urine Urobilinogen < 2.0 mg/dL (<2.0) 06/14/19 10:30 Ur Leukocyte Esterase Neg (Negative) 06/14/19 10:30 Urine WBC (Auto) < 1.0 /HPF (0.0-6.0) 06/14/19 10:30 Urine RBC (Auto) < 1.0 /HPF (0.0-6.0) 06/14/19 10:30 Active Medications - Current Medications Current Medications: Generic Name Dose Route Start Last Admin Trade Name Freq PRN Reason Stop Dose Admin Acetaminophen 650 mg 06/13/19 00:45 Tylenol PO Q4H PRN Pain MILD(1-3)/Fever >100.5/HOLT Acetaminophen/Hydrocodone Bitart 2 each 06/13/19 00:45 06/14/19 21:45 [place] 5/325 PO 2 each Q6H PRN Administration Pain, Moderate (4-6) Albuterol 2.5 mg 06/13/19 00:51 Proventil IH QIDRT PRN asthma Dextrose 50 ml 06/13/19 00:45 D50w (25gm) Syringe IV PRN PRN Hypoglycemia Enoxaparin Sodium 40 mg 06/13/19 10:00 06/14/19 09:41 Lovenox SUB-Q 40 mg QDAY VIVI Administration Escitalopram Oxalate 20 mg 06/13/19 10:00 06/14/19 09:41 Lexapro PO 20 mg QDAY VIVI Administration Folic Acid 1 mg 06/13/19 10:00 06/14/19 09:41 Folvite PO 1 mg QDAY VIVI Administration Hydralazine HCl 10 mg 06/13/19 00:44 Apresoline IV Q4H PRN BP >160/100 Hydromorphone HCl 0.5 mg 06/13/19 00:45 Dilaudid IV Q3H PRN Pain , Severe (7-10) Potassium Chloride 10 meq in 100 mls @ 100 mls/hr 06/15/19 07:00 Kcl 10meq/100ml IV 06/15/19 08:59 Q1H VIVI Magnesium Sulfate 2 gm in 50 mls @ 25 mls/hr 06/15/19 07:16 Magnesium Sulfate 2gm/50ml IV 06/15/19 09:15 ONCE ONE Insulin Human Lispro 0 unit 06/13/19 18:00 06/15/19 05:13 Humalog SUB-Q 4 unit Q6HR VIVI Administration Protocol Lorazepam 2 mg 06/13/19 00:45 Ativan IV Q1H PRN CIWA-Ar 8-15 Lorazepam 4 mg 06/13/19 00:45 Ativan IV Q1H PRN CIWA-Ar 16-25 Lorazepam 4 mg 06/13/19 00:45 Ativan IV Q15MIN PRN CIWA-Ar >25 Ondansetron HCl 4 mg 06/13/19 00:45 06/13/19 01:48 Zofran IV 4 mg Q8H PRN Administration Nausea And Vomiting Pantoprazole Sodium 40 mg 06/13/19 10:00 06/14/19 09:40 Protonix PO 40 mg DAILY VIVI Administration Pantoprazole Sodium 40 mg 06/15/19 10:00 Protonix PO QDAY VIVI Potassium Chloride 40 meq 06/15/19 06:57 K-Dur PO 06/15/19 06:58 ONCE ONE Pravastatin Sodium 40 mg 06/13/19 22:00 06/14/19 21:45 Pravachol PO 40 mg QHS VIVI Administration Sodium Chloride 10 ml 06/13/19 10:00 06/14/19 21:45 Sodium Chloride Flush Syringe 10 Ml IV 10 ml BID VIVI Administration Sodium Chloride 10 ml 06/13/19 00:45 Sodium Chloride Flush Syringe 10 Ml IV PRN PRN LINE FLUSH Thiamine HCl 100 mg 06/13/19 10:00 06/14/19 09:40 Vitamin B-1 PO 100 mg QDAY VIVI Administration Nutrition/Malnutrition Assess - Dietary Evaluation Nutrition/Malnutrition Findings: Nutrition Notes Start: 06/13/19 13:15 Freq: Status: Active Protocol: Document 06/14/19 08:43 MK (Rec: 06/14/19 08:45 MK [id number]) Co-Sign 06/14/19 08:43 LP Nutrition Notes Initial or Follow up Brief Note Current Diagnosis Coronary Artery Disease, Diabetes,Hypertension Other Pertinent Diagnosis Pacreatitis, CVD Current Diet NPO Subjective/Other Information Pt continues NPO. Nutrition Intervention Follow-Up By: 06/17/19 Additional Comments F/U for diet advancement
[2019-06-15] MEDS ORDERED: KCL 10MEQ/100ML 10 MEQ/100 ML BAG IV SCH (08:00)
[2019-06-15] MEDS: KCL 10MEQ/100ML 10 MEQ/100 ML BAG IV SCH ×2 (09:44→12:55)
[2019-06-15] MEDS: LEXAPRO PO SCH (09:57)
[2019-06-15] MEDS: VITAMIN B-1 PO SCH (09:58)
[2019-06-15] MEDS: FOLVITE PO SCH (09:58)
[2019-06-15] MEDS: PROTONIX PO SCH ×2 (09:58→10:00)
[2019-06-15] MEDS: LOVENOX SUB-Q SCH (09:59)
[2019-06-15] MEDS: SODIUM CHLORIDE FLUSH SYRINGE 10 ML IV SCH ×2 (09:59→21:09)
--- NOTE | 2019-06-15 12:41 | Gastroenterology Progress Note ---
Assessment and Plan 1. Abdominal pain with nausea/vomiting - improved; n/v resolved. tolerating liquids. suspect acute on chronic pancreatitis etiology 2. Chronic pancreatitis - counseled on alcohol cessation 3. Biliary dilatation -prior work-up for HOP lesion/mass included ercp with spyglass which did not show signs of malignancy -consider EUS as outpatient given persistent findings and worsening symptoms to r/o occult malignancy will sign off, please call as needed or with questions. pt instructed to f/u with his primary gi physician in 2-3 weeks after d/c. Subjective Date of service: 06/15/19 Principal diagnosis: abdominal pain, pancreatitis Interval history: Patient seen and examined; tolerating liquids. still with abd pain but improved since admission. no n/v. Objective - Exam Narrative Exam: Gen: NAD, thin male, chronically ill appearing CV: RRR Lungs: CTAB Abd: soft, mild epigastric ttp, no r/g, +bs - Constitutional Vitals: Temp Pulse Resp BP Pulse Ox 97.7 F 90 16 138/79 99 06/15/19 12:09 06/15/19 12:09 06/15/19 12:09 06/15/19 12:09 06/15/19 12:09 - Labs CBC & Chem 7: 06/15/19 04:12 06/15/19 04:12 Labs: Laboratory Results - last 24 hr 06/14/19 06/14/19 06/15/19 12:17 17:13 00:46 WBC RBC Hgb Hct MCV MCH MCHC RDW Plt Count Sodium Potassium Chloride Carbon Dioxide Anion Gap BUN Creatinine Estimated GFR BUN/Creatinine Ratio Glucose POC Glucose 405 H 376 H 413 H Calcium 06/15/19 06/15/19 06/15/19 04:12 04:12 05:08 WBC 5.4 RBC 3.38 L Hgb 11.0 L Hct 32.6 L MCV 96 H MCH 33 H MCHC 34 RDW 12.9 L Plt Count 185 Sodium 136 L Potassium 2.8 L* Chloride 101.0 Carbon Dioxide 23 Anion Gap 15 BUN 4 L Creatinine 0.7 L Estimated GFR > 60 BUN/Creatinine Ratio 6 Glucose 315 H POC Glucose 298 H Calcium 8.8 06/15/19 11:42 WBC RBC Hgb Hct MCV MCH MCHC RDW Plt Count Sodium Potassium Chloride Carbon Dioxide Anion Gap BUN Creatinine Estimated GFR BUN/Creatinine Ratio Glucose POC Glucose 309 H Calcium
[2019-06-15 13:41] LABS: Albumin 3.4 g/dL (3.9-5); Bilirubin,Direct 0.4 mg/dL (0-0.2)
[2019-06-15] MEDS ORDERED: LANTUS SUB-Q ONE (20:15)
[2019-06-15] MEDS ORDERED: HumuLIN R SUB-Q ONE (20:16)
[2019-06-15] MEDS: PRAVACHOL PO SCH (21:08)
[2019-06-15] MEDS: DILAUDID IV PRN (21:08)
[2019-06-16] MEDS: HumaLOG SUB-Q SCH ×4 (00:13→19:32)
[2019-06-16] MEDS: NORCO 5/325 PO PRN (00:13)
[2019-06-16] MEDS: DILAUDID IV PRN (02:18)
[2019-06-16 05:24] LABS: Hematocrit 33.7 % (35.5-45.6); Hemoglobin 11.5 gm/dl (11.8-15.2); Mean Corpuscular HGB Conc 34 % (32-34); Mean Corpuscular Volume 96 fl (84-94); Platelet Count 219 K/mm3 (140-440); Red Blood Count 3.52 M/mm3 (3.65-5.03); Red Cell Distribution Width 13.1 % (13.2-15.2)
[2019-06-16 05:51] LABS: BUN/Creatinine Ratio TNR; Blood Urea Nitrogen TNR mg/dL (9-20); Calcium TNR mg/dL (8.4-10.2)
[2019-06-16 05:52] LABS: Hemolysis Index TNR
[2019-06-16 07:18] LABS: BUN/Creatinine Ratio 6; Blood Urea Nitrogen 3 mg/dL (9-20); Calcium 9.1 mg/dL (8.4-10.2); Hemolysis Index 1
[2019-06-16] MEDS: LOVENOX SUB-Q SCH (09:08)
[2019-06-16] MEDS: PROTONIX PO SCH ×2 (09:08→09:46)
[2019-06-16] MEDS: LEXAPRO PO SCH (09:08)
[2019-06-16] MEDS: VITAMIN B-1 PO SCH (09:08)
[2019-06-16] MEDS: FOLVITE PO SCH (09:08)
[2019-06-16] MEDS: POTASSIUM CHLORIDE PO SCH ×2 (09:09→22:09)
[2019-06-16] MEDS: LANTUS SUB-Q SCH (09:16)
[2019-06-16] MEDS: SODIUM CHLORIDE FLUSH SYRINGE 10 ML IV SCH ×2 (09:17→22:12)
--- NOTE | 2019-06-16 12:06 | Progress Note ---
Assessment and Plan Assessment and plan: Patient is a 53 year man with a history of IDDM, Bipolar disorder, AMI, CVA, COPD, depression and chronic pancreatitis with necrosis who presented to [facility] with Abdominal pains, n/v * Labs show a glucose of 369, alkaline phosphatase 1568, lipase is 167 * CT abdomen and pelvis; unchanged mass-like appearance of the pancreatic head with upper cutoff of both the common bile duct and pancreatic duct, most worrisome for pancreatic neoplasm. Given associated parenchymal calcifications differential consideration include chronic pancreatitis with associated strictures, Mass-effect on the second portion of the duodenum with mild upstream gastric distention may reflect partial obstruction, Cholelithiasis, Acute on Chronic pancreatitis, recurrent: Pain meds, IV fluids, antiemetics, advanced diet. Pancreatic head mass like abnormality: GI consulted, patient may benefit from repeat biopsy, it may be due to pancreatitis scarring and stricture, ALK phos now elevated, check bili and MRCP Cholelithiasis: ordered GB ultrasound with acute cholecystitis, GI input noted Intractable nausea and vomiting: Keep n.p.o. for now, antiemetics and pain meds as needed. May have sips of water for comfort History of alcohol dependence, Has not had a drink in 6 weeks: patient was counseled on continued abstinence, CiWA protocol and thiamine ordered Hypertension; optimize BP meds Diabetes mellitus with uncontrolled hyperglycemia: sliding scale insulin, checked A1c==>9.4, counseling and education done, stop IV with Dextrose Severe malnutrition: Dietitian consult Severe hypokalemia: replete and recheck in AM, also augment with IV magnesium DVT prophylaxis with Lovenox Constipation: suppository Disposition: continue inpatient care for pancreatitis, once potassium level improved will d/c hopefully tomorrow. History Interval history: Patient was seen and examined. Follow-up on current diagnosis of Abd pains/n/v, improved, tolerating clear liquids. No overnight events reported to me. Patient denies any chest pain, shortness breath, severe headaches. Imaging, nursing note, chart, labs and old chart reviewed. Discussed with patient. Hospitalist Physical - Physical exam Narrative exam: Gen: thin frail, chronically disable appearing, NAD, Awake, Alert, Orientated HEENT: NCAT, EOMI, PERRL, OP Clear Neck: supple, no adenopathy, no thyromegaly, no JVD CVS/Heart: RRR, normal S1S2, pulses present bilaterally Chest/Lungs: CTA B, Symmetrical chest expansion, good air entry bilaterally GI/Abdomen: soft, +tenderness epigastric area improving, good bowel sounds, no guarding or rebound /Bladder: no suprapubic tenderness, no CVA or paraspinal tenderness Extermity/Skin: no c/c/e, no obvious rash MSK: FROM x 4 Neuro: CN 2-12 grossly intact, no new focal deficits Psych: calm - Constitutional Vitals: Temp Pulse Resp BP Pulse Ox 97.3 F L 88 24 111/66 100 06/16/19 05:45 06/16/19 05:45 06/16/19 05:45 06/16/19 05:45 06/16/19 05:45 General appearance: Present: no acute distress, cachectic. Absent: mild distress, severe distress Results - Labs CBC & Chem 7: 06/16/19 04:05 06/16/19 06:10 Labs: Laboratory Last Values WBC 5.5 K/mm3 (4.5-11.0) 06/16/19 04:05 RBC 3.52 M/mm3 (3.65-5.03) L 06/16/19 04:05 Hgb 11.5 gm/dl (11.8-15.2) L 06/16/19 04:05 Hct 33.7 % (35.5-45.6) L 06/16/19 04:05 MCV 96 fl (84-94) H 06/16/19 04:05 MCH 33 pg (28-32) H 06/16/19 04:05 MCHC 34 % (32-34) 06/16/19 04:05 RDW 13.1 % (13.2-15.2) L 06/16/19 04:05 Plt Count 219 K/mm3 (140-440) 06/16/19 04:05 Lymph % (Auto) 11.2 % (13.4-35.0) L 06/14/19 05:40 [place] % (Auto) 7.6 % (0.0-7.3) H 06/14/19 05:40 Eos % (Auto) 0.7 % (0.0-4.3) 06/14/19 05:40 Baso % (Auto) 0.3 % (0.0-1.8) 06/14/19 05:40 Lymph # 0.8 K/mm3 (1.2-5.4) L 06/14/19 05:40 [place] # 0.5 K/mm3 (0.0-0.8) 06/14/19 05:40 Eos # 0.0 K/mm3 (0.0-0.4) 06/14/19 05:40 Baso # 0.0 K/mm3 (0.0-0.1) 06/14/19 05:40 Seg Neutrophils % 80.2 % (40.0-70.0) H 06/14/19 05:40 Seg Neutrophils # 5.7 K/mm3 (1.8-7.7) 06/14/19 05:40 PT 12.3 Sec. (12.2-14.9) 06/12/19 21:59 INR 0.94 (0.87-1.13) 06/12/19 21:59 APTT 27.8 Sec. (24.2-36.6) 06/12/19 21:59 Sodium 136 mmol/L (137-145) L 06/16/19 06:10 Potassium 2.8 mmol/L (3.6-5.0) L* 06/16/19 06:10 Chloride 97.3 mmol/L (98-107) L 06/16/19 06:10 Carbon Dioxide 25 mmol/L (22-30) 06/16/19 06:10 Anion Gap 17 mmol/L 06/16/19 06:10 BUN 3 mg/dL (9-20) L 06/16/19 06:10 Creatinine 0.5 mg/dL (0.8-1.5) L 06/16/19 06:10 Estimated GFR > 60 ml/min 06/16/19 06:10 BUN/Creatinine Ratio 6 % 06/16/19 06:10 Glucose 187 mg/dL (75-100) H 06/16/19 06:10 POC Glucose 133 (70-105) H 06/16/19 12:00 Hemoglobin A1c 9.4 % (4-6) H 06/13/19 04:15 Calcium 9.1 mg/dL (8.4-10.2) 06/16/19 06:10 Total Bilirubin 0.70 mg/dL (0.1-1.2) 06/15/19 12:35 Direct Bilirubin 0.4 mg/dL (0-0.2) H 06/15/19 12:35 Indirect Bilirubin 0.3 mg/dL 06/15/19 12:35 AST 31 units/L (5-40) 06/15/19 12:35 ALT 39 units/L (7-56) 06/15/19 12:35 Alkaline Phosphatase 1363 units/L (35-129) H 06/15/19 12:35 Troponin T < 0.010 ng/mL (0.00-0.029) 06/12/19 22:48 NT-Pro-B Natriuret Pep 72.70 pg/mL (0-900) 06/12/19 21:59 Total Protein 7.5 g/dL (6.3-8.2) 06/15/19 12:35 Albumin 3.4 g/dL (3.9-5) L 06/15/19 12:35 Albumin/Globulin Ratio 0.8 % 06/15/19 12:35 Lipase 167 units/L (13-60) H 06/12/19 21:59 Urine Color Yellow (Yellow) 06/14/19 10:30 Urine Turbidity Clear (Clear) 06/14/19 10:30 Urine pH 6.0 (5.0-7.0) 06/14/19 10:30 Ur Specific [place] 1.018 (1.003-1.030) 06/14/19 10:30 Urine Protein <15 mg/dl mg/dL (Negative) 06/14/19 10:30 Urine Glucose (UA) >=500 mg/dL (Negative) 06/14/19 10:30 Urine Ketones 20 mg/dL (Negative) 06/14/19 10:30 Urine Blood Neg (Negative) 06/14/19 10:30 Urine Nitrite Neg (Negative) 06/14/19 10:30 Urine Bilirubin Neg (Negative) 06/14/19 10:30 Urine Urobilinogen < 2.0 mg/dL (<2.0) 06/14/19 10:30 Ur Leukocyte Esterase Neg (Negative) 06/14/19 10:30 Urine WBC (Auto) < 1.0 /HPF (0.0-6.0) 06/14/19 10:30 Urine RBC (Auto) < 1.0 /HPF (0.0-6.0) 06/14/19 10:30 Active Medications - Current Medications Current Medications: Generic Name Dose Route Start Last Admin Trade Name Freq PRN Reason Stop Dose Admin Acetaminophen 650 mg 06/13/19 00:45 Tylenol PO Q4H PRN Pain MILD(1-3)/Fever >100.5/HOLT Acetaminophen/Hydrocodone Bitart 2 each 06/13/19 00:45 06/16/19 00:13 [place] 5/325 PO 2 each Q6H PRN Administration Pain, Moderate (4-6) Albuterol 2.5 mg 06/13/19 00:51 Proventil IH QIDRT PRN asthma Dextrose 50 ml 06/13/19 00:45 D50w (25gm) Syringe IV PRN PRN Hypoglycemia Enoxaparin Sodium 40 mg 06/13/19 10:00 06/16/19 09:08 Lovenox SUB-Q 40 mg QDAY VIVI Administration Escitalopram Oxalate 20 mg 06/13/19 10:00 06/16/19 09:08 Lexapro PO 20 mg QDAY VIVI Administration Folic Acid 1 mg 06/13/19 10:00 06/16/19 09:08 Folvite PO 1 mg QDAY VIVI Administration Hydralazine HCl 10 mg 06/13/19 00:44 Apresoline IV Q4H PRN BP >160/100 Hydromorphone HCl 0.5 mg 06/13/19 00:45 06/16/19 02:18 Dilaudid IV 0.5 mg Q3H PRN Administration Pain , Severe (7-10) Insulin Glargine 15 units 06/16/19 08:00 06/16/19 09:16 Lantus SUB-Q 15 units QAMDIAB VIVI Administration Insulin Human Lispro 0 unit 06/13/19 18:00 06/16/19 08:20 Humalog SUB-Q 3 unit Q6HR VIVI Administration Protocol Lorazepam 2 mg 06/13/19 00:45 Ativan IV Q1H PRN CIWA-Ar 8-15 Lorazepam 4 mg 06/13/19 00:45 Ativan IV Q1H PRN CIWA-Ar 16-25 Lorazepam 4 mg 06/13/19 00:45 Ativan IV Q15MIN PRN CIWA-Ar >25 Ondansetron HCl 4 mg 06/13/19 00:45 06/13/19 01:48 Zofran IV 4 mg Q8H PRN Administration Nausea And Vomiting Pantoprazole Sodium 40 mg 06/13/19 10:00 06/16/19 09:08 Protonix PO 40 mg DAILY VIVI Administration Pantoprazole Sodium 40 mg 06/15/19 10:00 06/16/19 09:46 Protonix PO Not Given QDAY VIVI Potassium Chloride 40 meq 06/16/19 10:00 06/16/19 09:09 Potassium Chloride PO 40 meq BID VIVI Administration Pravastatin Sodium 40 mg 06/13/19 22:00 06/15/19 21:08 Pravachol PO 40 mg QHS VIVI Administration Sodium Chloride 10 ml 06/13/19 10:00 06/16/19 09:17 Sodium Chloride Flush Syringe 10 Ml IV 10 ml BID VIVI Administration Sodium Chloride 10 ml 06/13/19 00:45 Sodium Chloride Flush Syringe 10 Ml IV PRN PRN LINE FLUSH Thiamine HCl 100 mg 06/13/19 10:00 06/16/19 09:08 Vitamin B-1 PO 100 mg QDAY VIVI Administration Nutrition/Malnutrition Assess - Dietary Evaluation Nutrition/Malnutrition Findings: Nutrition Notes Start: 06/13/19 13:15 Freq: Status: Active Protocol: Document 06/14/19 08:43 MK (Rec: 06/14/19 08:45 MK [id number]) Co-Sign 06/14/19 08:43 LP Nutrition Notes Initial or Follow up Brief Note Current Diagnosis Coronary Artery Disease, Diabetes,Hypertension Other Pertinent Diagnosis Pacreatitis, CVD Current Diet NPO Subjective/Other Information Pt continues NPO. Nutrition Intervention Follow-Up By: 06/17/19 Additional Comments F/U for diet advancement
[2019-06-16] MEDS ORDERED: DULCOLAX PR ONE (12:07)
[2019-06-16] MEDS: PRAVACHOL PO SCH (22:11)
[2019-06-17] MEDS: HumaLOG SUB-Q SCH ×3 (00:05→12:57)
[2019-06-17 04:51] LABS: Hematocrit 32.2 % (35.5-45.6); Hemoglobin 10.9 gm/dl (11.8-15.2); Mean Corpuscular HGB Conc 34 % (32-34); Mean Corpuscular Volume 96 fl (84-94); Platelet Count 232 K/mm3 (140-440); Red Blood Count 3.35 M/mm3 (3.65-5.03); Red Cell Distribution Width 13.3 % (13.2-15.2)
[2019-06-17 05:12] LABS: BUN/Creatinine Ratio 4; Blood Urea Nitrogen 2 mg/dL (9-20); Calcium 9.2 mg/dL (8.4-10.2); Hemolysis Index 0
[2019-06-17] MEDS: LEXAPRO PO SCH (09:31)
[2019-06-17] MEDS: POTASSIUM CHLORIDE PO SCH (09:31)
[2019-06-17] MEDS: VITAMIN B-1 PO SCH (09:31)
[2019-06-17] MEDS: FOLVITE PO SCH (09:32)
[2019-06-17] MEDS: PROTONIX PO SCH (09:32)
[2019-06-17] MEDS: SODIUM CHLORIDE FLUSH SYRINGE 10 ML IV SCH (09:32)
[2019-06-17] MEDS: LOVENOX SUB-Q SCH (09:32)
[2019-06-17] MEDS: LANTUS SUB-Q SCH (09:38)
[2019-06-17 12:07] VITALS: BP 105/70
--- NOTE | 2019-06-17 12:45 | Discharge Summary ---
Providers - Providers Date of Admission: 06/13/19 02:00 Date of discharge: 06/17/19 Attending physician: MILTON ABBASI 06/13/19 00:44 Consult to Physician [CONS] Routine Comment: Consulting Provider: HENRI DREW Physician Instructions: Reason For Exam: pancreatitis, 06/13/19 00:45 Consult to Dietitian/Nutrition [CONS] Routine Physician Instructions: Reason For Exam: Reason for Consult: Malnutrition Primary care physician: DEMETRIO LEACH Hospitalization Condition: Stable Hospital course: Patient is a 53 year man with a history of IDDM, Bipolar disorder, AMI, CVA, COPD, depression and chronic pancreatitis with necrosis who presented to [facility] with Abdominal pains, n/v * Labs show a glucose of 369, alkaline phosphatase 1568, lipase is 167 * CT abdomen and pelvis; unchanged mass-like appearance of the pancreatic head with upper cutoff of both the common bile duct and pancreatic duct, most worrisome for pancreatic neoplasm. Given associated parenchymal calcifications differential consideration include chronic pancreatitis with associated strictures, Mass-effect on the second portion of the duodenum with mild upstream gastric distention may reflect partial obstruction, Cholelithiasis, Discharge Diagnoses: Acute on Chronic pancreatitis, recurrent: Pain meds, IV fluids, antiemetics, advanced diet. Pancreatic head mass like abnormality: GI consulted, patient may benefit from repeat biopsy, it may be due to pancreatitis scarring and stricture, ALK phos now elevated, check bili and MRCP Cholelithiasis: ordered GB ultrasound with acute cholecystitis, GI input noted Intractable nausea and vomiting: Keep n.p.o. for now, antiemetics and pain meds as needed. May have sips of water for comfort History of alcohol dependence, Has not had a drink in 6 weeks: patient was cou nseled on continued abstinence, CiWA protocol and thiamine ordered Hypertension; optimize BP meds Diabetes mellitus with uncontrolled hyperglycemia: sliding scale insulin, checked A1c==>9.4, counseling and education done, stop IV with Dextrose Severe malnutrition: Dietitian consult Severe hypokalemia: replete and recheck in AM, also augment with IV magnesium Constipation: suppository Disposition: - TO HOME OR SELFCARE Time spent for discharge: 34 minutes Core Measure Documentation - Palliative Care Palliative Care/ Comfort Measures: Not Applicable - Core Measures Any of the following diagnoses?: none - VTE Discharge Requirements Deep Vein Thrombosis/Pulmonary Embolism Present on Admission: No Has pt received <5 days of overlap therapy or INR<2.0: No Anticoagulant overlap therapy prescribed at discharge: No Contraindication No Overlap Therapy order at DC: Not Indicated Exam - Physical Exam Narrative exam: Gen: thin frail, chronically disable appearing, NAD, Awake, Alert, Orientated HEENT: NCAT, EOMI, PERRL, OP Clear Neck: supple, no adenopathy, no thyromegaly, no JVD CVS/Heart: RRR, normal S1S2, pulses present bilaterally Chest/Lungs: CTA B, Symmetrical chest expansion, good air entry bilaterally GI/Abdomen: soft, +tenderness epigastric area improving, good bowel sounds, no guarding or rebound /Bladder: no suprapubic tenderness, no CVA or paraspinal tenderness Extermity/Skin: no c/c/e, no obvious rash MSK: FROM x 4 Neuro: CN 2-12 grossly intact, no new focal deficits Psych: calm - Constitutional Vitals: Temp Pulse Resp BP Pulse Ox 97.8 F 90 16 105/70 100 06/17/19 12:06 06/17/19 12:06 06/17/19 12:06 06/17/19 12:06 06/17/19 12:06 Plan Activity: other (no strenous activity) Diet: advance as tolerated Follow up with: PRIMARY CAREMD [Referring] - 7 Days HENRI DREW MD [Staff Physician] - 7 Days Prescriptions: Insulin Detemir [Levemir Flextouch] 15 unit SQ QHS #1 each HYDROcodone/APAP 5-325 [[place] 5-325 mg TAB] 1 tab PO Q6H PRN #20 tablet PRN Reason: Pain , Severe (7-10) Potassium Chloride 40 meq PO BID 30 Days liquid
== END 2019-06-17 17:23 | disposition home or self-care (01) | DRG 438 ==
LOC: ED 20:31 → 3A 06-13 02:00
PROVIDERS: ADMIT Internal Medicine; ATTEND Internal Medicine
DX: K85.91 Acute pancreatitis with uninfected necrosis, unspecified (principal); E43 Unspecified severe protein-calorie malnutrition; Z68.1 Body mass index [BMI] 19.9 or less, adult; K80.00 Calculus of gallbladder with acute cholecystitis without obstruction; F10.20 Alcohol dependence, uncomplicated; I10 Essential (primary) hypertension; E11.65 Type 2 diabetes mellitus with hyperglycemia; F31.9 Bipolar disorder, unspecified; J44.9 Chronic obstructive pulmonary disease, unspecified; K86.1 Other chronic pancreatitis; K86.9 Disease of pancreas, unspecified; E87.6 Hypokalemia; I25.10 Atherosclerotic heart disease of native coronary artery without angina pectoris; K21.9 Gastro-esophageal reflux disease without esophagitis; F17.200 Nicotine dependence, unspecified, uncomplicated; I25.2 Old myocardial infarction; Z86.73 Personal history of transient ischemic attack (TIA), and cerebral infarction without residual deficits; Z71.41 Alcohol abuse counseling and surveillance of alcoholic; Z82.49 Family history of ischemic heart disease and other diseases of the circulatory system; Z79.899 Other long term (current) drug therapy
CPT/HCPCS: 36415; 70450; 71045; 74176; 74181; 76705; 80048; 80053; 80076; 81001; 82247; 82248; 82947; 82962; 83036; 83690; 83735; 83880; 84484; 85025; 85027; 85610; 85730; 87116; G0378; A9270-GY; J0360; J1170; J1650; J1815; J2270; J2405; J3411; J3475; J3480; J7030

== ENCOUNTER 2021-06-05 14:22 | Inpatient (IN) | payer MEDICARE ==
[2021-06-05] MEDS ORDERED: SODIUM CHLORIDE 0.9% 1000 ML 1,000 ML IV ONE (14:41)
--- NOTE | 2021-06-05 14:46 | Emergency Department Report ---
HPI - General Chief Complaint: Hyperglycemia Time Seen by Provider: 06/05/21 14:33 - HPI HPI: Room 22 Patient is a 55-year-old male present with a chief complaint of altered mental status. EMS was called to the patient's home because the patient was "not acting right." No further history was given. The patient is slow to respond and soft-spoken but does acknowledge abdominal pain. Patient states he has had a diagnosis of pancreatitis in the past. Patient appears lethargic and it is difficult to understand everything that he is saying. ED Past Medical Hx - Past Medical History Hx Hypertension: Yes Hx CVA: Yes (mild residual left side weakness) Hx Heart Attack/AMI: Yes Hx Diabetes: Yes Hx GERD: Yes Hx Renal Disease: Yes Hx Asthma: Yes Hx COPD: Yes Additional medical history: Prolonged hospitalization after a hypoglycemic episode in the fall of 2012 "problems with Pancreas", ALAYNA, chronic pancreatitis - Surgical History Additional Surgical History: "fractured bones", sphincterectomy at bile duct 03/21 - Family History Family history: no significant - Social History Smoking Status: Unknown if ever smoked Substance Use Type: None - Medications Home Medications: Home Medications Medication Instructions Recorded Confirmed Last Taken Type Folic Acid [Folvite] 1 mg PO QDAY 10/13/18 06/12/19 Unknown History Sildenafil 20 mg PO TID 10/13/18 06/12/19 Unknown History Simvastatin 20 mg PO HS 10/13/18 06/12/19 Unknown History Escitalopram Oxalate [Lexapro] 20 mg PO QDAY #30 tablet 10/15/18 06/12/19 Unknown Rx LORazepam [Ativan] 1 mg PO TID PRN #30 tablet 10/15/18 06/12/19 Unknown Rx Pantoprazole [Protonix TAB] 40 mg PO DAILY #30 tablet 10/15/18 06/12/19 Unknown Rx NovoLOG 100 UNITS/ML VIAL See Protocol SUB-Q TID 10/27/18 06/12/19 Unknown History Acetaminophen [Acetaminophen TAB] 1 tab PO Q6H PRN #10 tablet 06/17/19 Unknown Rx HYDROcodone/APAP 5-325 [[place] 1 tab PO Q6H PRN #20 tablet 06/17/19 Unknown Rx 5-325 mg TAB] Insulin Detemir (Nf) [Levemir 15 unit SQ QHS #1 each 06/17/19 Unknown Rx Flextouch] Potassium Chloride 40 meq PO BID 30 Days liquid 06/17/19 Unknown Rx Thiamine [Vitamin B-1] 100 mg PO QDAY #30 tablet 06/17/19 Unknown Rx ED Review of Systems ROS: Stated complaint: AMS Other details as noted in HPI Comment: Unobtainable due to pts medical conditions Physical Exam - Physical Exam Physical Exam: GENERAL: The patient is well-developed thin male lying on stretcher not appearing to be in acute distress HEENT: Normocephalic. Atraumatic. Extraocular motions are intact. Patient has dry mucous membranes. NECK: Supple. Trachea midline CHEST/LUNGS: Clear to auscultation. There is no respiratory distress noted. HEART/CARDIOVASCULAR: Regular. There is no tachycardia. There is no gallop rub or murmur. ABDOMEN: Abdomen is soft, nontender. Patient has normal bowel sounds. There is no abdominal distention. SKIN: There is no rash. There is no edema. There is no diaphoresis. NEURO: The patient is awake but lethargic and soft-spoken. The patient is cooperative. The patient has no focal neurologic deficits. The patient has normal speech. GCS 14 MUSCULOSKELETAL: There is no evidence of acute injury. ED Medical Decision Making - Lab Data Result diagrams: 06/05/21 14:50 06/05/21 14:50 - Differential Diagnosis DKA, acute on chronic pancreatitis, gastritis, dehydration Critical care attestation.: If time is entered above; I have spent that time in minutes in the direct care of this critically ill patient, excluding procedure time. ED Disposition Clinical Impression: DKA (diabetic ketoacidosis), Altered mental status Disposition: ADMITTED INPATIENT Is pt being admited?: Yes Does the pt Need Aspirin: No Condition: Fair Instructions: Diabetic Ketoacidosis (ED) Time of Disposition: 15:52 (Hospitalist called (Dr. Dia))
[2021-06-05 15:10] LABS: Basophils % (Auto) 0.3 % (0.0-1.8); Hematocrit 34.5 % (35.5-45.6); Hemoglobin 10.1 gm/dl (11.8-15.2); Lymphocytes % (Auto) 7.7 % (13.4-35.0); Mean Corpuscular HGB Conc 29 % (32-34); Mean Corpuscular Volume 106 fl (84-94); Monocytes # (Auto) 0.8 K/mm3 (0.0-0.8); Monocytes % (Auto) 6.1 % (0.0-7.3); Platelet Count 319 K/mm3 (140-440); Red Blood Count 3.26 M/mm3 (3.65-5.03); Red Cell Distribution Width 15.8 % (13.2-15.2)
[2021-06-05 15:27] LABS: Alanine Aminotransferase 43 units/L (7-56); Albumin 3.5 g/dL (3.9-5); BUN/Creatinine Ratio 26; Blood Urea Nitrogen 59 mg/dL (9-20); Calcium 9.7 mg/dL (8.4-10.2); Hemolysis Index 0
[2021-06-05 15:33] LABS: Creatine Kinase MB < 1.0 ng/mL (0.0-4.0)
--- NOTE | 2021-06-05 15:54 | History and Physical Report ---
History of Present Illness Chief complaint: He is not acting right History of present illness: 55 YO Male with DM, [place], CVA with LHP, GERD, CAD, CKD, Asthma, COPD, ETOH Dependence, Chronic Pancreatitis presents to ED for evaluation. Patient is lethargic with diminished cognition and is unable to provide detailed history at the time my evaluation. Patient history provided by EMS staff, ED staff, as well as patient's family was made available by telephone for interview. As per family the patient "was not acting right". EMS was notified and upon arrival the patient was found to be in distress and subsequent transported to [facility] for further care and evaluation of the aforementioned symptoms. The patient was seen and evaluated in the emergency department. All lab and imaging studies reviewed. The patient was found to have diabetic ketoacidosis complicated by metabolic encephalopathy, metabolic acidosis, acute kidney injury, as well as systemic inflammatory response syndrome. The patient was admitted to ICU due to increased risk of worsening symptoms and initiated on DKA protocol. No reports of fever, chills, chest pain, palpitation, productive cough, skin rash, trauma, recent ill contacts, or known exposure to COVID-19. Prior admission records on 06/13/2019 reviewed. All medication listed at time of admission has been reconciled. Advanced care planning conducted in ED. Past History Past Medical History: acute [place], COPD, diabetes, GERD, other (See HPI) Past Surgical History: Other (ERCP with sphincterotomy) Social history: , lives with family, alcohol abuse. denies: smoking Family history: diabetes, hypertension Medications and Allergies Allergies Allergy/AdvReac Type Severity Reaction Status Date / Time No Known Drug Allergies Allergy Unknown Verified 05/05/13 02:40 Home Medications Medication Instructions Recorded Confirmed Last Taken Type Folic Acid [Folvite] 1 mg PO QDAY 10/13/18 06/12/19 Unknown History Sildenafil 20 mg PO TID 10/13/18 06/12/19 Unknown History Simvastatin 20 mg PO HS 10/13/18 06/12/19 Unknown History Escitalopram Oxalate [Lexapro] 20 mg PO QDAY #30 tablet 10/15/18 06/12/19 Unknown Rx LORazepam [Ativan] 1 mg PO TID PRN #30 tablet 10/15/18 06/12/19 Unknown Rx Pantoprazole [Protonix TAB] 40 mg PO DAILY #30 tablet 10/15/18 06/12/19 Unknown Rx NovoLOG 100 UNITS/ML VIAL See Protocol SUB-Q TID 10/27/18 06/12/19 Unknown History Acetaminophen [Acetaminophen TAB] 1 tab PO Q6H PRN #10 tablet 06/17/19 Unknown Rx HYDROcodone/APAP 5-325 [[place] 1 tab PO Q6H PRN #20 tablet 06/17/19 Unknown Rx 5-325 mg TAB] Insulin Detemir (Nf) [Levemir 15 unit SQ QHS #1 each 06/17/19 Unknown Rx Flextouch] Potassium Chloride 40 meq PO BID 30 Days liquid 06/17/19 Unknown Rx Thiamine [Vitamin B-1] 100 mg PO QDAY #30 tablet 06/17/19 Unknown Rx Active Meds: Active Medications Insulin Human Regular 100 (units/ Sodium Chloride) 100 mls @ 6 mls/hr IV TITR VIVI; Protocol Review of Systems ROS unobtainable: due to mental status Exam - Constitutional Vitals: Temp Pulse Resp BP Pulse Ox 113 H 15 112/33 95 06/05/21 15:50 06/05/21 15:38 06/05/21 15:38 06/05/21 15:38 General appearance: Present: mild distress - EENT Eyes: Present: PERRL ENT: hearing decreased - Neck Neck: Present: supple, normal ROM - Respiratory Respiratory effort: normal Respiratory: bilateral: CTA - Cardiovascular Heart Sounds: Present: S1 & S2. Absent: rub, click - Extremities Extremities: pulses symmetrical, No edema Peripheral Pulses: within normal limits - Abdominal General gastrointestinal: Present: soft, non-tender, non-distended, normal bowel sounds Male genitourinary: Present: normal - Integumentary Integumentary: Present: clear, dry, clammy, decreased turgor - Musculoskeletal Musculoskeletal: generalized weakness - Psychiatric Psychiatric: no appropriate mood/affect, no intact judgment & insight, no memory intact - Neurologic Neurologic: CNII-XII intact, no focal deficits, moves all extremities, no gait normal HEART Score - HEART Score Troponin: Troponin T < 0.010 ng/mL (0.00-0.029) 06/05/21 14:50 Results - Labs CBC & Chem 7: 06/05/21 14:50 06/05/21 14:50 Labs: Abnormal lab results 06/05/21 06/05/21 06/05/21 Range/Units 14:50 14:50 14:50 WBC 12.9 H (4.5-11.0) K/mm3 RBC 3.26 L (3.65-5.03) M/mm3 Hgb 10.1 L (11.8-15.2) gm/dl Hct 34.5 L (35.5-45.6) % MCV 106 H (84-94) fl MCHC 29 L (32-34) % RDW 15.8 H (13.2-15.2) % Lymph % (Auto) 7.7 L (13.4-35.0) % Lymph # (Auto) 1.0 L (1.2-5.4) K/mm3 Seg Neutrophils % 85.9 H (40.0-70.0) % Seg Neutrophils # 11.1 H (1.8-7.7) K/mm3 VBG pH 7.103 L* (7.320-7.420) Potassium 6.4 H* (3.6-5.0) mmol/L Chloride 90.7 L (98-107) mmol/L Carbon Dioxide 8 L* (22-30) mmol/L BUN 59 H (9-20) mg/dL Creatinine 2.3 H (0.8-1.3) mg/dL Glucose 953 H* (75-100) mg/dL Alkaline Phosphatase 721 H (35-129) units/L Total Creatine Kinase 30 L (55-170) units/L Total Protein 8.5 H (6.3-8.2) g/dL Albumin 3.5 L (3.9-5) g/dL Assessment and Plan - Patient Problems (1) DKA (diabetic ketoacidosis) Status: Acute Qualifiers: Diabetes mellitus type: type 1 Plan to address problem: DKA protocol: Insulin drip, IV fluid resuscitation therapy, serial BMP, monitor anion gap, monitor fluid balance, urine output every shift, The high probability of a clinically significant, sudden or life threatening deterioration of the [endocrine, neuro, renal] system(s) required my full and direct attention, intervention and personal management. The aggregate critical care time was [65] minutes. This time is in addition to time spent performing reported procedures but includes the following: [x] Data Review and interpretation [x] Patient assessment and monitoring of vital signs [x] Documentation [x] Medication orders and management (2) Metabolic encephalopathy Status: Acute Plan to address problem: Neuro check, seizure precautions, aspiration precautions (3) Metabolic acidosis Status: Acute Plan to address problem: IV bicarbonate therapy, BMP, repeat BMP in a.m. (4) Acute kidney injury Status: Acute Plan to address problem: IV fluid resuscitation therapy, monitor urine output q. shift, monitor fluid balance, BMP, repeat BMP in a.m. to monitor serum creatinine as well as GFR (5) Systemic inflammatory response syndrome Status: Acute Plan to address problem: CBC, CMP, urinalysis, IV antibiotic therapy x1, his repeat CBC in a.m. (6) DVT prophylaxis Status: Acute Plan to address problem: SCD to bilateral lower extremities while in bed (7) Advance care planning Status: Acute Plan to address problem: Disease education conducted, care plan discussed, diagnoses discussed, prognosis discussed, patient is full code, +30 minutes.
[2021-06-05] MEDS ORDERED: ALBUTEROL 2.5 MG/3 ML NEBU IH PRN (15:55)
[2021-06-05] MEDS ORDERED: INSULIN REGULAR, HUMAN 100 UNITS in SODIUM CHLORIDE 0.9% 99 ML IV SCH (16:00)
[2021-06-05] MEDS ORDERED: LORazepam 1 MG TAB PO PRN (16:01)
[2021-06-05] MEDS ORDERED: SODIUM CHLORIDE 0.9% 1000 ML 3,000 ML IV ONE (16:03)
[2021-06-05] MEDS ORDERED: LORazepam 2 MG/ML VIAL IV PRN (16:30)
[2021-06-05 16:50] LABS: Bilirubin,Urine NEG (Negative); Blood,Urine NEG (Negative); Color,Urine Straw (Yellow); Mucus,Urine FEW /HPF; Protein,Urine <15 mg/dL mg/dL (Negative); Urobilinogen,Urine < 2.0 mg/dL (<2.0)
[2021-06-05] MEDS ORDERED: SODIUM BICARB 8.4% 50 MEQ/50 ML SYRINGE IV ONE ×2 (17:00→19:00)
[2021-06-05] MEDS ORDERED: THIAMINE 100 MG, FOLIC ACID 1 MG, MULTIPLE VITAMIN INJ, ADULT 10 ML in SODIUM CHLORIDE ... IV ONE (17:00)
[2021-06-05 17:10] LABS: Calcium 8.9 mg/dL (8.4-10.2)
[2021-06-05] MEDS ORDERED: VANCOMYCIN/NS 1 GM/250 ML 1 GM/250 ML BAG IV ONE (18:00)
[2021-06-05 18:33] LABS: Calcium 8.9 mg/dL (8.4-10.2)
[2021-06-05] MEDS: POTASSIUM CHLORIDE ER 20 MEQ TAB PO SCH (22:00)
[2021-06-05] MEDS ORDERED: POTASSIUM CHLORIDE 40 MEQ/15 ML PO SCH (22:00)
[2021-06-05] MEDS: PRAVASTATIN 40 MG TAB PO SCH (22:00)
[2021-06-05] MEDS ORDERED: NON-FORMULARY EACH (Simvastatin [Simvastatin] 20 MG Tablet) PO SCH (22:00)
[2021-06-06] MEDS ORDERED: D5W/0.45% NACL/KCL 20 MEQ 20 MEQ/1,000 ML BAG IV SCH (01:00)
[2021-06-06 02:23] LABS: Calcium 9.2 mg/dL (8.4-10.2)
[2021-06-06 09:09] LABS: BUN/Creatinine Ratio 29; Blood Urea Nitrogen 29 mg/dL (9-20); Calcium 9.3 mg/dL (8.4-10.2); Hemolysis Index 11
--- NOTE | 2021-06-06 09:20 | XRay Report ---
CHEST 1 VIEW 06/06/2021 8:48 AM INDICATION / CLINICAL INFORMATION: SIRS. COMPARISON: 06/12/2019 FINDINGS: SUPPORT DEVICES: None. HEART / MEDIASTINUM: No significant abnormality. LUNGS / PLEURA: No significant pulmonary or pleural abnormality. No pneumothorax. ADDITIONAL FINDINGS: No significant additional findings. IMPRESSION: 1. No acute findings. Signer Name: Dillon Harris DO Signed: 06/06/2021 9:16 AM Workstation Name: [id number]
[2021-06-06] MEDS ORDERED: NON-FORMULARY EACH (Escitalopram Oxalate [Lexapro] 20 MG Tablet) PO SCH (10:00)
--- NOTE | 2021-06-06 10:30 | Progress Note ---
Assessment and Plan Assessment and plan: DKA Metabolic encephalopathy Acute kidney injury SIRS Diabetes mellitus type 2 History of CVA with left hemiparesis Acute kidney injury with etiology secondary to vasomotor nephropathy. Asthma. EtOH dependence CAD History of chronic pancreatitis. 06/06/2021. DKA has resolved. Patient will be transition from IV insulin drip to home regimen of Lantus 15 units at bedtime. We will give 70/30 25 units x 1 today. Start diabetic diet. Follow-up chest x-ray for SIRS. Urinalysis is negative. Check CBC. Patient had a baseline creatinine of 1.June. Continue IV fluid hydration and monitor creatinine. The patient will be transferred to [facility]. Continue CIWA protocol History Interval history: No new issues overnight Hospitalist Physical - Constitutional Vitals: Temp Pulse Resp BP Pulse Ox 97.6 F 88 11 L 137/82 100 06/06/21 09:15 06/06/21 09:15 06/06/21 08:01 06/06/21 09:15 06/06/21 08:01 General appearance: Present: mild distress - EENT Eyes: Present: PERRL, EOM intact ENT: hearing intact, clear oral mucosa, dentition normal - Neck Neck: Present: supple, normal ROM - Respiratory Respiratory effort: normal Respiratory: bilateral: CTA - Cardiovascular Rhythm: regular Heart Sounds: Present: S1 & S2. Absent: gallop, rub - Extremities Extremities: no ischemia, No edema, Full ROM - Abdominal General gastrointestinal: soft, non-tender, non-distended, normal bowel sounds - Integumentary Integumentary: Present: clear, warm, dry - Neurologic Neurologic: CNII-XII intact, moves all extremities HEART Score - HEART Score Troponin: Troponin T < 0.010 ng/mL (0.00-0.029) 06/05/21 14:50 Results - Labs CBC & Chem 7: 06/05/21 14:50 06/06/21 08:37 Labs: Laboratory Last Values WBC 12.9 K/mm3 (4.5-11.0) H 06/05/21 14:50 RBC 3.26 M/mm3 (3.65-5.03) L 06/05/21 14:50 Hgb 10.1 gm/dl (11.8-15.2) L 06/05/21 14:50 Hct 34.5 % (35.5-45.6) L 06/05/21 14:50 MCV 106 fl (84-94) H 06/05/21 14:50 MCH 31 pg (28-32) 06/05/21 14:50 MCHC 29 % (32-34) L 06/05/21 14:50 RDW 15.8 % (13.2-15.2) H 06/05/21 14:50 Plt Count 319 K/mm3 (140-440) 06/05/21 14:50 Lymph % (Auto) 7.7 % (13.4-35.0) L 06/05/21 14:50 [place] % (Auto) 6.1 % (0.0-7.3) 06/05/21 14:50 Eos % (Auto) 0.0 % (0.0-4.3) 06/05/21 14:50 Baso % (Auto) 0.3 % (0.0-1.8) 06/05/21 14:50 Lymph # (Auto) 1.0 K/mm3 (1.2-5.4) L 06/05/21 14:50 [place] # (Auto) 0.8 K/mm3 (0.0-0.8) 06/05/21 14:50 Eos # (Auto) 0.0 K/mm3 (0.0-0.4) 06/05/21 14:50 Baso # (Auto) 0.0 K/mm3 (0.0-0.1) 06/05/21 14:50 Seg Neutrophils % 85.9 % (40.0-70.0) H 06/05/21 14:50 Seg Neutrophils # 11.1 K/mm3 (1.8-7.7) H 06/05/21 14:50 VBG pH 7.103 (7.320-7.420) L* 06/05/21 14:50 Sodium 154 mmol/L (137-145) H 06/06/21 08:37 Potassium 3.3 mmol/L (3.6-5.0) L 06/06/21 08:37 Chloride 114.1 mmol/L (98-107) H 06/06/21 08:37 Carbon Dioxide 27 mmol/L (22-30) 06/06/21 08:37 Anion Gap 16 mmol/L 06/06/21 08:37 BUN 29 mg/dL (9-20) H 06/06/21 08:37 Creatinine 1.0 mg/dL (0.8-1.3) 06/06/21 08:37 Estimated GFR > 60 ml/min 06/06/21 08:37 BUN/Creatinine Ratio 29 % 06/06/21 08:37 Glucose 194 mg/dL (75-100) H 06/06/21 08:37 POC Glucose 190 mg/dL (70-105) H 06/06/21 09:19 Calcium 9.3 mg/dL (8.4-10.2) 06/06/21 08:37 Phosphorus 6.90 mg/dL (2.5-4.5) H 06/05/21 16:06 Magnesium 2.80 mg/dL (1.7-2.3) H 06/05/21 16:06 Total Bilirubin 0.20 mg/dL (0.1-1.2) 06/05/21 14:50 AST 19 units/L (5-40) 06/05/21 14:50 ALT 43 units/L (7-56) 06/05/21 14:50 Alkaline Phosphatase 721 units/L (35-129) H 06/05/21 14:50 Total Creatine Kinase 30 units/L (55-170) L 06/05/21 14:50 CK-MB (CK-2) < 1.0 ng/mL (0.0-4.0) 06/05/21 14:50 CK-MB (CK-2) Rel Index 3.3 (0-4) 06/05/21 14:50 Troponin T < 0.010 ng/mL (0.00-0.029) 06/05/21 14:50 Total Protein 8.5 g/dL (6.3-8.2) H 06/05/21 14:50 Albumin 3.5 g/dL (3.9-5) L 06/05/21 14:50 Albumin/Globulin Ratio 0.7 % 06/05/21 14:50 Lipase 18 units/L (13-60) 06/05/21 14:50 Urine Color Straw (Yellow) 06/05/21 16:35 Urine Turbidity Clear (Clear) 06/05/21 16:35 Urine pH 5.0 (5.0-7.0) 06/05/21 16:35 Ur Specific Crystal 1.017 (1.003-1.030) 06/05/21 16:35 Urine Protein <15 mg/dl mg/dL (Negative) 06/05/21 16:35 Urine Glucose (UA) >=500 mg/dL (Negative) 06/05/21 16:35 Urine Ketones 80 mg/dL (Negative) 06/05/21 16:35 Urine Blood Neg (Negative) 06/05/21 16:35 Urine Nitrite Neg (Negative) 06/05/21 16:35 Urine Bilirubin Neg (Negative) 06/05/21 16:35 Urine Urobilinogen < 2.0 mg/dL (<2.0) 06/05/21 16:35 Ur Leukocyte Esterase Neg (Negative) 06/05/21 16:35 Urine WBC (Auto) 4.0 /HPF (0.0-6.0) 06/05/21 16:35 Urine RBC (Auto) 1.0 /HPF (0.0-6.0) 06/05/21 16:35 Urine Mucus Few /HPF 06/05/21 16:35 Active Medications - Current Medications Current Medications: Generic Name Dose Route Start Last Admin Trade Name Freq PRN Reason Stop Dose Admin Acetaminophen 650 mg 06/05/21 15:55 Acetaminophen 325 Mg Tab PO Q6H PRN Pain MILD(1-3)/Fever >100.5/HOLT Albuterol 2.5 mg 06/05/21 15:55 Albuterol 2.5 Mg/3 Ml Nebu IH Q3H PRN Shortness Of Breath Escitalopram Oxalate 20 mg 06/06/21 10:00 Escitalopram 10 Mg Tab PO DAILY VIVI Folic Acid 1 mg 06/06/21 10:00 Folic Acid 1 Mg Tab PO QDAY VIVI Hydromorphone HCl 0.5 mg 06/05/21 15:55 Hydromorphone 1 Mg/1 Ml Inj IV Q23H PRN Pain , Severe (7-10) Potassium Chloride/Dextrose/Sod Cl 20 meq in 1,000 mls @ 125 mls/hr 06/06/21 01:00 06/06/21 09:14 D5w/0.45% Nacl/Kcl 20 Meq IV 125 mls/hr DIRECT VIVI Administration Lorazepam 1 mg 06/05/21 16:01 Lorazepam 1 Mg Tab PO TID PRN Anxiety Lorazepam 2 mg 06/05/21 16:30 Lorazepam 2 Mg/Ml Vial IV Q1H PRN CIWA-Ar 8-15 Oxycodone/Acetaminophen 1 tab 06/05/21 15:55 Oxycodone /Acetaminophen 5-325mg Tab PO Q16H PRN Pain, Moderate (4-6) Pantoprazole Sodium 40 mg 06/06/21 10:00 Pantoprazole 40 Mg Tab PO DAILY VIVI Potassium Chloride 40 meq 06/05/21 22:00 06/05/21 22:00 Potassium Chloride Er 20 Meq Tab PO 40 meq BID VIVI Administration Pravastatin Sodium 40 mg 06/05/21 22:00 06/05/21 22:00 Pravastatin 40 Mg Tab PO 40 mg QHS VIVI Administration Sodium Chloride 10 ml 06/05/21 22:00 06/05/21 22:00 Sodium Chloride 0.9% 10 Ml Flush Syringe IV 10 ml BID VIVI Administration Sodium Chloride 10 ml 06/05/21 15:55 Sodium Chloride 0.9% 10 Ml Flush Syringe IV PRN PRN LINE FLUSH
[2021-06-06] MEDS: FOLIC ACID 1 MG TAB PO SCH (10:55)
[2021-06-06] MEDS: PANTOPRAZOLE 40 MG TAB PO SCH (10:55)
[2021-06-06] MEDS: POTASSIUM CHLORIDE ER 20 MEQ TAB PO SCH (10:56)
[2021-06-06] MEDS ORDERED: POTASSIUM CHLORIDE 10 MEQ in SODIUM CHLORIDE 0.45% 1000 ML 1,000 ML IV SCH (12:00)
[2021-06-06] MEDS ORDERED: INSULIN NPH/REGULAR 70/30 INJ SUB-Q ONE (12:00)
[2021-06-06] MEDS: ESCITALOPRAM 10 MG TAB PO SCH (14:39)
[2021-06-06] MEDS: INSULIN REGULAR, HUMAN 100 UNITS/1 ML SUB-Q SCH ×2 (14:41→17:43)
--- NOTE | 2021-06-06 16:18 | Consultation ---
History of Present Illness Consult date: 06/06/21 Requesting physician: MISHA BELLA Reason for consult: other (DKA) History of present illness: ICU admission requested re: DKA he is off IV insulin therapy at this time with his AG closed - please re-consult as needed Past History Past Medical History: acute [place], COPD, diabetes, GERD, other (See HPI) Past Surgical History: Other (ERCP with sphincterotomy) Social history: , lives with family, alcohol abuse. denies: smoking Family history: diabetes, hypertension Medications and Allergies Allergies Allergy/AdvReac Type Severity Reaction Status Date / Time No Known Drug Allergies Allergy Unknown Verified 05/05/13 02:40 Home Medications Medication Instructions Recorded Confirmed Last Taken Type Folic Acid [Folvite] 1 mg PO QDAY 10/13/18 06/12/19 Unknown History Sildenafil 20 mg PO TID 10/13/18 06/12/19 Unknown History Simvastatin 20 mg PO HS 10/13/18 06/12/19 Unknown History Escitalopram Oxalate [Lexapro] 20 mg PO QDAY #30 tablet 10/15/18 06/12/19 Unknown Rx LORazepam [Ativan] 1 mg PO TID PRN #30 tablet 10/15/18 06/12/19 Unknown Rx Pantoprazole [Protonix TAB] 40 mg PO DAILY #30 tablet 10/15/18 06/12/19 Unknown Rx NovoLOG 100 UNITS/ML VIAL See Protocol SUB-Q TID 10/27/18 06/12/19 Unknown History Acetaminophen [Acetaminophen TAB] 1 tab PO Q6H PRN #10 tablet 06/17/19 Unknown Rx HYDROcodone/APAP 5-325 [[place] 1 tab PO Q6H PRN #20 tablet 06/17/19 Unknown Rx 5-325 mg TAB] Insulin Detemir (Nf) [Levemir 15 unit SQ QHS #1 each 06/17/19 Unknown Rx Flextouch] Potassium Chloride 40 meq PO BID 30 Days liquid 06/17/19 Unknown Rx Thiamine [Vitamin B-1] 100 mg PO QDAY #30 tablet 06/17/19 Unknown Rx Active Meds: Active Medications Acetaminophen (Acetaminophen 325 Mg Tab) 650 mg PO Q6H PRN PRN Reason: Pain MILD(1-3)/Fever >100.5/HOLT Albuterol (Albuterol 2.5 Mg/3 Ml Nebu) 2.5 mg IH Q3H PRN PRN Reason: Shortness Of Breath Dextrose (Dextrose 50% In Water (25gm) 50 Ml Syringe) 50 ml IV Q30MIN PRN; Protocol PRN Reason: Hypoglycemia Escitalopram Oxalate (Escitalopram 10 Mg Tab) 20 mg PO DAILY [facility] Last Admin: 06/06/21 14:39 Dose: 20 mg Documented by: Folic Acid (Folic Acid 1 Mg Tab) 1 mg PO QDAY [facility] Last Admin: 06/06/21 10:55 Dose: 1 mg Documented by: Hydromorphone HCl (Hydromorphone 1 Mg/1 Ml Inj) 0.5 mg IV Q23H PRN PRN Reason: Pain , Severe (7-10) Potassium Chloride 10 meq/ (Sodium Chloride) 1,005 mls @ 75 mls/hr IV DIRECT [facility] Insulin Glargine (Insulin Glargine 100 Units/Ml) 15 units SUB-Q QHS [facility] Insulin Human Regular (Insulin Regular, Human 100 Units/1 Ml) 0 units SUB-Q Q6 HR [facility]; Protocol Last Admin: 06/06/21 14:41 Dose: 2 units Documented by: Lorazepam (Lorazepam 1 Mg Tab) 1 mg PO TID PRN PRN Reason: Anxiety Lorazepam (Lorazepam 2 Mg/Ml Vial) 2 mg IV Q1H PRN PRN Reason: CIWA-Ar 8-15 Oxycodone/Acetaminophen (Oxycodone /Acetaminophen 5-325mg Tab) 1 tab PO Q16H PRN PRN Reason: Pain, Moderate (4-6) Pantoprazole Sodium (Pantoprazole 40 Mg Tab) 40 mg PO DAILY [facility] Last Admin: 06/06/21 10:55 Dose: 40 mg Documented by: Potassium Chloride (Potassium Chloride Er 20 Meq Tab) 40 meq PO BID [facility] Last Admin: 06/06/21 10:56 Dose: 40 meq Documented by: Pravastatin Sodium (Pravastatin 40 Mg Tab) 40 mg PO QHS [facility] Last Admin: 06/05/21 22:00 Dose: 40 mg Documented by: Sodium Chloride (Sodium Chloride 0.9% 10 Ml Flush Syringe) 10 ml IV BID [facility] Last Admin: 06/06/21 10:56 Dose: 10 ml Documented by: Sodium Chloride (Sodium Chloride 0.9% 10 Ml Flush Syringe) 10 ml IV PRN PRN PRN Reason: LINE FLUSH Physical Examination Vital signs: Vital Signs Pulse Resp BP Pulse Ox 102 H 30 H 129/64 94 06/05/21 10:41 06/05/21 10:41 06/05/21 10:41 06/05/21 10:41 Results - Laboratory Findings CBC and BMP: 06/05/21 14:50 06/06/21 08:37 Abnormal lab findings: Abnormal Labs 06/05/21 06/05/21 06/05/21 14:50 14:50 14:50 WBC 12.9 H RBC 3.26 L Hgb 10.1 L Hct 34.5 L MCV 106 H MCHC 29 L RDW 15.8 H Lymph % (Auto) 7.7 L Lymph # (Auto) 1.0 L Seg Neutrophils % 85.9 H Seg Neutrophils # 11.1 H VBG pH 7.103 L* Sodium Potassium 6.4 H* Chloride 90.7 L Carbon Dioxide 8 L* BUN 59 H Creatinine 2.3 H Glucose 953 H* POC Glucose Phosphorus Magnesium Alkaline Phosphatase 721 H Total Creatine Kinase 30 L Total Protein 8.5 H Albumin 3.5 L 06/05/21 06/05/21 06/05/21 16:06 17:58 18:43 WBC RBC Hgb Hct MCV MCHC RDW Lymph % (Auto) Lymph # (Auto) Seg Neutrophils % Seg Neutrophils # VBG pH Sodium Potassium 5.7 H 5.2 H Chloride 96.1 L Carbon Dioxide 5 L* 9 L* BUN 57 H 53 H Creatinine 2.2 H 1.9 H Glucose 892 H* 740 H* POC Glucose > 600 H Phosphorus 6.90 H Magnesium 2.80 H Alkaline Phosphatase Total Creatine Kinase Total Protein Albumin 06/05/21 06/05/21 06/05/21 19:59 21:57 23:54 WBC RBC Hgb Hct MCV MCHC RDW Lymph % (Auto) Lymph # (Auto) Seg Neutrophils % Seg Neutrophils # VBG pH Sodium Potassium Chloride Carbon Dioxide BUN Creatinine Glucose POC Glucose 499 H 417 H 237 H Phosphorus Magnesium Alkaline Phosphatase Total Creatine Kinase Total Protein Albumin 06/06/21 06/06/21 06/06/21 01:38 03:06 05:49 WBC RBC Hgb Hct MCV MCHC RDW Lymph % (Auto) Lymph # (Auto) Seg Neutrophils % Seg Neutrophils # VBG pH Sodium 156 H D Potassium 3.5 L D Chloride 114.0 H Carbon Dioxide BUN 42 H Creatinine 1.4 H Glucose 217 H POC Glucose 210 H 177 H Phosphorus Magnesium Alkaline Phosphatase Total Creatine Kinase Total Protein Albumin 06/06/21 06/06/21 06/06/21 08:05 08:37 09:19 WBC RBC Hgb Hct MCV MCHC RDW Lymph % (Auto) Lymph # (Auto) Seg Neutrophils % Seg Neutrophils # VBG pH Sodium 154 H Potassium 3.3 L Chloride 114.1 H Carbon Dioxide BUN 29 H Creatinine Glucose 194 H POC Glucose 175 H 190 H Phosphorus Magnesium Alkaline Phosphatase Total Creatine Kinase Total Protein Albumin 06/06/21 06/06/21 10:49 12:18 WBC RBC Hgb Hct MCV MCHC RDW Lymph % (Auto) Lymph # (Auto) Seg Neutrophils % Seg Neutrophils # VBG pH Sodium Potassium Chloride Carbon Dioxide BUN Creatinine Glucose POC Glucose 152 H 189 H Phosphorus Magnesium Alkaline Phosphatase Total Creatine Kinase Total Protein Albumin
[2021-06-06] MEDS ORDERED: INSULIN GLARGINE 100 UNITS/ML SUB-Q SCH (22:00)
[2021-06-07] MEDS: INSULIN REGULAR, HUMAN 100 UNITS/1 ML SUB-Q SCH ×4 (00:35→19:12)
[2021-06-07] MEDS: POTASSIUM CHLORIDE ER 20 MEQ TAB PO SCH ×2 (00:35→10:48)
[2021-06-07] MEDS: PRAVASTATIN 40 MG TAB PO SCH ×2 (00:45→23:00)
[2021-06-07 04:30] LABS: Red Blood Count 3.76 M/mm3 (3.65-5.03)
[2021-06-07 04:31] LABS: Basophils # (Auto) 0.1 K/mm3 (0.0-0.1); Basophils % (Auto) 0.6 % (0.0-1.8); Eosinophils # (Auto) 0.1 K/mm3 (0.0-0.4); Eosinophils % (Auto) 0.3 % (0.0-4.3); Hematocrit 34.5 % (35.5-45.6); Hemoglobin 11.4 gm/dl (11.8-15.2); Lymphocytes # (Auto) 2.2 K/mm3 (1.2-5.4); Lymphocytes % (Auto) 11.6 % (13.4-35.0); Mean Corpuscular HGB Conc 33 % (32-34); Mean Corpuscular Volume 92 fl (84-94); Monocytes # (Auto) 0.9 K/mm3 (0.0-0.8); Monocytes % (Auto) 4.9 % (0.0-7.3); Platelet Count 359 K/mm3 (140-440); Red Cell Distribution Width 13.9 % (13.2-15.2)
[2021-06-07 04:46] LABS: Blood Urea Nitrogen 22 mg/dL (9-20); Calcium 9.9 mg/dL (8.4-10.2); Hemolysis Index 23
[2021-06-07 04:56] LABS: BUN/Creatinine Ratio 31
[2021-06-07] MEDS: DEXTROSE 50% IN WATER (25GM) 50 ML SYRINGE IV PRN (10:18)
--- NOTE | 2021-06-07 10:18 | Progress Note ---
Assessment and Plan Assessment and plan: DKA Metabolic encephalopathy Acute kidney injury SIRS/leukocytosis Diabetes mellitus type 2 History of CVA with left hemiparesis Acute kidney injury with etiology secondary to vasomotor nephropathy. Asthma. EtOH dependence CAD History of chronic pancreatitis. 06/06/2021. DKA has resolved. Patient will be transition from IV insulin drip to home regimen of Lantus 15 units at bedtime. We will give 70/30 25 units x 1 today. Start diabetic diet. Follow-up chest x-ray for SIRS. Urinalysis is negative. Check CBC. Patient had a baseline creatinine of 1.June. Continue IV fluid hydration and monitor creatinine. The patient will be transferred to [facility]. Continue CIWA protocol 06/07/2021. Patient still appears to be confused. Etiology is multifactorial likely secondary to hypoglycemia and EtOH withdrawal. Patient with hypoglycemia this morning with BG 43. Decrease Lantus to 10 units at bedtime. D50 as needed for hypoglycemia. Creatinine has improved back to baseline of 0.7. Continue CIWA protocol. Patient with no obvious signs of infection. However, leukocyt osis worse. Afebrile. Empiric antibiotics with Levaquin History Interval history: No new issues overnight Hospitalist Physical - Constitutional Vitals: Temp Pulse Resp BP Pulse Ox 97.3 F L 103 H 27 H 106/71 99 06/06/21 18:23 06/07/21 06:01 06/07/21 06:01 06/07/21 06:01 06/07/21 05:01 General appearance: Present: no acute distress - EENT Eyes: Present: PERRL, EOM intact ENT: hearing intact, clear oral mucosa, dentition normal - Neck Neck: Present: supple, normal ROM - Respiratory Respiratory effort: normal Respiratory: bilateral: CTA - Cardiovascular Rhythm: regular Heart Sounds: Present: S1 & S2. Absent: gallop, rub - Extremities Extremities: no ischemia, No edema, Full ROM - Abdominal General gastrointestinal: soft, non-tender, non-distended, normal bowel sounds - Integumentary Integumentary: Present: clear, warm, dry - Neurologic Neurologic: CNII-XII intact, moves all extremities HEART Score - HEART Score Troponin: Troponin T < 0.010 ng/mL (0.00-0.029) 06/05/21 14:50 Results - Labs CBC & Chem 7: 06/07/21 04:10 06/07/21 04:10 Labs: Laboratory Last Values WBC 18.8 K/mm3 (4.5-11.0) H 06/07/21 04:10 RBC 3.76 M/mm3 (3.65-5.03) 06/07/21 04:10 Hgb 11.4 gm/dl (11.8-15.2) L 06/07/21 04:10 Hct 34.5 % (35.5-45.6) L 06/07/21 04:10 MCV 92 fl (84-94) 06/07/21 04:10 MCH 30 pg (28-32) 06/07/21 04:10 MCHC 33 % (32-34) 06/07/21 04:10 RDW 13.9 % (13.2-15.2) 06/07/21 04:10 Plt Count 359 K/mm3 (140-440) 06/07/21 04:10 Lymph % (Auto) 11.6 % (13.4-35.0) L 06/07/21 04:10 [place] % (Auto) 4.9 % (0.0-7.3) 06/07/21 04:10 Eos % (Auto) 0.3 % (0.0-4.3) 06/07/21 04:10 Baso % (Auto) 0.6 % (0.0-1.8) 06/07/21 04:10 Lymph # (Auto) 2.2 K/mm3 (1.2-5.4) 06/07/21 04:10 [place] # (Auto) 0.9 K/mm3 (0.0-0.8) H 06/07/21 04:10 Eos # (Auto) 0.1 K/mm3 (0.0-0.4) 06/07/21 04:10 Baso # (Auto) 0.1 K/mm3 (0.0-0.1) 06/07/21 04:10 Seg Neutrophils % 82.6 % (40.0-70.0) H 06/07/21 04:10 Seg Neutrophils # 15.5 K/mm3 (1.8-7.7) H 06/07/21 04:10 VBG pH 7.103 (7.320-7.420) L* 06/05/21 14:50 Sodium 156 mmol/L (137-145) H 06/07/21 04:10 Potassium 3.7 mmol/L (3.6-5.0) 06/07/21 04:10 Chloride 117.9 mmol/L (98-107) H 06/07/21 04:10 Carbon Dioxide 27 mmol/L (22-30) 06/07/21 04:10 Anion Gap 15 mmol/L 06/07/21 04:10 BUN 22 mg/dL (9-20) H 06/07/21 04:10 Creatinine 0.7 mg/dL (0.8-1.3) L 06/07/21 04:10 Estimated GFR > 60 ml/min 06/07/21 04:10 BUN/Creatinine Ratio 31 % 06/07/21 04:10 Glucose 137 mg/dL (75-100) H 06/07/21 04:10 POC Glucose 43 mg/dL (70-105) L 06/07/21 10:07 Calcium 9.9 mg/dL (8.4-10.2) 06/07/21 04:10 Phosphorus 6.90 mg/dL (2.5-4.5) H 06/05/21 16:06 Magnesium 2.80 mg/dL (1.7-2.3) H 06/05/21 16:06 Total Bilirubin 0.20 mg/dL (0.1-1.2) 06/05/21 14:50 AST 19 units/L (5-40) 06/05/21 14:50 ALT 43 units/L (7-56) 06/05/21 14:50 Alkaline Phosphatase 721 units/L (35-129) H 06/05/21 14:50 Total Creatine Kinase 30 units/L (55-170) L 06/05/21 14:50 CK-MB (CK-2) < 1.0 ng/mL (0.0-4.0) 06/05/21 14:50 CK-MB (CK-2) Rel Index 3.3 (0-4) 06/05/21 14:50 Troponin T < 0.010 ng/mL (0.00-0.029) 06/05/21 14:50 Total Protein 8.5 g/dL (6.3-8.2) H 06/05/21 14:50 Albumin 3.5 g/dL (3.9-5) L 06/05/21 14:50 Albumin/Globulin Ratio 0.7 % 06/05/21 14:50 Lipase 18 units/L (13-60) 06/05/21 14:50 Urine Color Straw (Yellow) 06/05/21 16:35 Urine Turbidity Clear (Clear) 06/05/21 16:35 Urine pH 5.0 (5.0-7.0) 06/05/21 16:35 Ur Specific [place] 1.017 (1.003-1.030) 06/05/21 16:35 Urine Protein <15 mg/dl mg/dL (Negative) 06/05/21 16:35 Urine Glucose (UA) >=500 mg/dL (Negative) 06/05/21 16:35 Urine Ketones 80 mg/dL (Negative) 06/05/21 16:35 Urine Blood Neg (Negative) 06/05/21 16:35 Urine Nitrite Neg (Negative) 06/05/21 16:35 Urine Bilirubin Neg (Negative) 06/05/21 16:35 Urine Urobilinogen < 2.0 mg/dL (<2.0) 06/05/21 16:35 Ur Leukocyte Esterase Neg (Negative) 06/05/21 16:35 Urine WBC (Auto) 4.0 /HPF (0.0-6.0) 06/05/21 16:35 Urine RBC (Auto) 1.0 /HPF (0.0-6.0) 06/05/21 16:35 Urine Mucus Few /HPF 06/05/21 16:35 Active Medications - Current Medications Current Medications: Generic Name Dose Route Start Last Admin Trade Name Freq PRN Reason Stop Dose Admin Acetaminophen 650 mg 06/05/21 15:55 Acetaminophen 325 Mg Tab PO Q6H PRN Pain MILD(1-3)/Fever >100.5/HOLT Albuterol 2.5 mg 06/05/21 15:55 Albuterol 2.5 Mg/3 Ml Nebu IH Q3H PRN Shortness Of Breath Dextrose 50 ml 06/06/21 10:32 Dextrose 50% In Water (25gm) 50 Ml Syringe IV Q30MIN PRN Hypoglycemia Protocol Escitalopram Oxalate 20 mg 06/06/21 10:00 06/06/21 14:39 Escitalopram 10 Mg Tab PO 20 mg DAILY VIVI Administration Folic Acid 1 mg 06/06/21 10:00 06/06/21 10:55 Folic Acid 1 Mg Tab PO 1 mg QDAY VIVI Administration Hydromorphone HCl 0.5 mg 06/05/21 15:55 Hydromorphone 1 Mg/1 Ml Inj IV Q23H PRN Pain , Severe (7-10) Potassium Chloride 10 meq/ 1,005 mls @ 75 mls/hr 06/06/21 12:00 Sodium Chloride IV DIRECT VIVI Insulin Glargine 15 units 06/06/21 22:00 06/07/21 00:46 Insulin Glargine 100 Units/Ml SUB-Q 15 units QHS VIVI Administration Insulin Human Regular 0 units 06/06/21 12:00 06/07/21 00:35 Insulin Regular, Human 100 Units/1 Ml SUB-Q 3 units Q6HR VIVI Administration Protocol Lorazepam 1 mg 06/05/21 16:01 Lorazepam 1 Mg Tab PO TID PRN Anxiety Lorazepam 2 mg 06/05/21 16:30 Lorazepam 2 Mg/Ml Vial IV Q1H PRN CIWA-Ar 8-15 Oxycodone/Acetaminophen 1 tab 06/05/21 15:55 Oxycodone /Acetaminophen 5-325mg Tab PO Q16H PRN Pain, Moderate (4-6) Pantoprazole Sodium 40 mg 06/06/21 10:00 06/06/21 10:55 Pantoprazole 40 Mg Tab PO 40 mg DAILY VIVI Administration Potassium Chloride 40 meq 06/05/21 22:00 06/07/21 00:35 Potassium Chloride Er 20 Meq Tab PO 40 meq BID VIVI Administration Pravastatin Sodium 40 mg 06/05/21 22:00 06/07/21 00:45 Pravastatin 40 Mg Tab PO 40 mg QHS VIVI Administration Sodium Chloride 10 ml 06/05/21 22:00 06/07/21 00:30 Sodium Chloride 0.9% 10 Ml Flush Syringe IV 10 ml BID VIVI Administration Sodium Chloride 10 ml 06/05/21 15:55 Sodium Chloride 0.9% 10 Ml Flush Syringe IV PRN PRN LINE FLUSH
[2021-06-07] MEDS: PANTOPRAZOLE 40 MG TAB PO SCH (10:47)
[2021-06-07] MEDS: FOLIC ACID 1 MG TAB PO SCH (10:48)
[2021-06-07] MEDS: ESCITALOPRAM 10 MG TAB PO SCH (10:53)
[2021-06-07] MEDS: DEXTROSE 5% IN WATER 1,000 ML IV SCH (19:27)
[2021-06-07] MEDS ORDERED: INSULIN GLARGINE 100 UNITS/ML SUB-Q SCH (22:00)
[2021-06-08] MEDS: INSULIN REGULAR, HUMAN 100 UNITS/1 ML SUB-Q SCH ×4 (01:11→18:35)
[2021-06-08 09:07] LABS: Hematocrit 31.1 % (35.5-45.6); Mean Corpuscular HGB Conc 32 % (32-34); Mean Corpuscular Volume 93 fl (84-94); Platelet Count 259 K/mm3 (140-440); Red Blood Count 3.33 M/mm3 (3.65-5.03); Red Cell Distribution Width 14.5 % (13.2-15.2)
[2021-06-08] MEDS: PANTOPRAZOLE 40 MG TAB PO SCH (09:25)
[2021-06-08] MEDS: DEXTROSE 5% IN WATER 1,000 ML IV SCH (09:25)
[2021-06-08] MEDS: ESCITALOPRAM 10 MG TAB PO SCH (09:25)
[2021-06-08] MEDS: FOLIC ACID 1 MG TAB PO SCH (09:25)
[2021-06-08 09:26] LABS: BUN/Creatinine Ratio 26; Blood Urea Nitrogen 21 mg/dL (9-20); Calcium 9.1 mg/dL (8.4-10.2); Hemolysis Index 11
--- NOTE | 2021-06-08 11:11 | Electrocardiograph Report ---
[facility] Test Date: 2021-06-05 Test Time: 17:32:43 Pat Name: MADDY LAM Department: Room: A486 Gender: M Outreach Director: [facility] : 1965 Requested By: ANTONIO POTTS Order Number: [id number] Reading MD: Olga Phipps Measurements Intervals Dunn Rate: 110 P: 79 HI: 147 QRS: 90 QRSD: 93 T: 58 QT: 351 QTc: 476 Interpretive Statements Sinus tachycardia Nonspecific T wave abnormality No previous ECG available for comparison Electronically Signed On 06-08-2021 11:11:18 EDT by Olga Phipps
--- NOTE | 2021-06-08 13:26 | Progress Note ---
Assessment and Plan Assessment and plan: DKA Metabolic encephalopathy Acute kidney injury SIRS/leukocytosis Diabetes mellitus type 2 History of CVA with left hemiparesis Acute kidney injury with etiology secondary to vasomotor nephropathy. Asthma. EtOH dependence CAD History of chronic pancreatitis. Severe Malnutrition 06/06/2021. DKA has resolved. Patient will be transition from IV insulin drip to home regimen of Lantus 15 units at bedtime. We will give 70/30 25 units x 1 today. Start diabetic diet. Follow-up chest x-ray for SIRS. Urinalysis is negative. Check CBC. Patient had a baseline creatinine of 1.June. Continue IV fluid hydration and monitor creatinine. The patient will be transferred to [facility]. Continue CIWA protocol 06/07/2021. Patient still appears to be confused. Etiology is multifactorial likely secondary to hypoglycemia and EtOH withdrawal. Patient with hypoglycemia this morning with BG 43. Decrease Lantus to 10 units at bedtime. D50 as needed for hypoglycemia. Creatinine has improved back to baseline of 0.7. Continue CIWA protocol. Patient with no obvious signs of infection. However, leukocytosis worse. Afebrile. Empiric antibiotics with Levaquin 06/08/2021 Patient presented with altered mental status. Likely acute metabolic encephalopathy. Blood glucose still elevated. Increase Lantus to 20 Units QHS. Patient has been on Insulin pump but his glucose was more than 600 at presentation. Consult Neurology. patient also has severe malnutrition. Consult consulting sme. History Interval history: Altered mental status Hospitalist Physical - Physical exam Narrative exam: Gen: Not in acute distress, lying in bed, malnourished HEENT: Normocephalic, atraumatic Lungs: Clear to auscultation Heart: S1 and S2 reg, no murmurs, rubs or gallop Abd:soft, non-tender, non distended, normal bowel sounds, PEG tube, Insulin pump Ext: No edema, clubbing or cyanosis Neuro: Awake, alert. Knows name, knows he is in [facility], knows its 2020, but still confused on conversations, moves all extremities - Constitutional Vitals: Temp Pulse Resp BP Pulse Ox 98.1 F 107 H 16 96/57 100 06/08/21 12:08 06/08/21 12:08 06/08/21 12:08 06/08/21 12:15 06/08/21 12:08 General appearance: Present: no acute distress HEART Score - HEART Score Troponin: Troponin T < 0.010 ng/mL (0.00-0.029) 06/05/21 14:50 Results - Labs CBC & Chem 7: 06/08/21 08:31 06/08/21 08:31 Labs: Laboratory Last Values WBC 18.1 K/mm3 (4.5-11.0) H 06/08/21 08:31 RBC 3.33 M/mm3 (3.65-5.03) L 06/08/21 08:31 Hgb 10.0 gm/dl (11.8-15.2) L 06/08/21 08:31 Hct 31.1 % (35.5-45.6) L 06/08/21 08:31 MCV 93 fl (84-94) 06/08/21 08:31 MCH 30 pg (28-32) 06/08/21 08:31 MCHC 32 % (32-34) 06/08/21 08:31 RDW 14.5 % (13.2-15.2) 06/08/21 08:31 Plt Count 259 K/mm3 (140-440) 06/08/21 08:31 Lymph % (Auto) 11.6 % (13.4-35.0) L 06/07/21 04:10 [place] % (Auto) 4.9 % (0.0-7.3) 06/07/21 04:10 Eos % (Auto) 0.3 % (0.0-4.3) 06/07/21 04:10 Baso % (Auto) 0.6 % (0.0-1.8) 06/07/21 04:10 Lymph # (Auto) 2.2 K/mm3 (1.2-5.4) 06/07/21 04:10 [place] # (Auto) 0.9 K/mm3 (0.0-0.8) H 06/07/21 04:10 Eos # (Auto) 0.1 K/mm3 (0.0-0.4) 06/07/21 04:10 Baso # (Auto) 0.1 K/mm3 (0.0-0.1) 06/07/21 04:10 Seg Neutrophils % 82.6 % (40.0-70.0) H 06/07/21 04:10 Seg Neutrophils # 15.5 K/mm3 (1.8-7.7) H 06/07/21 04:10 VBG pH 7.103 (7.320-7.420) L* 06/05/21 14:50 Sodium 146 mmol/L (137-145) H D 06/08/21 08:31 Potassium 4.0 mmol/L (3.6-5.0) 06/08/21 08:31 Chloride 111.3 mmol/L (98-107) H 06/08/21 08:31 Carbon Dioxide 24 mmol/L (22-30) 06/08/21 08:31 Anion Gap 15 mmol/L 06/08/21 08:31 BUN 21 mg/dL (9-20) H 06/08/21 08:31 Creatinine 0.8 mg/dL (0.8-1.3) 06/08/21 08:31 Estimated GFR > 60 ml/min 06/08/21 08:31 BUN/Creatinine Ratio 26 % 06/08/21 08:31 Glucose 334 mg/dL (75-100) H 06/08/21 08:31 POC Glucose 369 mg/dL (70-105) H 06/08/21 12:34 Calcium 9.1 mg/dL (8.4-10.2) 06/08/21 08:31 Phosphorus 6.90 mg/dL (2.5-4.5) H 06/05/21 16:06 Magnesium 2.80 mg/dL (1.7-2.3) H 06/05/21 16:06 Total Bilirubin 0.20 mg/dL (0.1-1.2) 06/05/21 14:50 AST 19 units/L (5-40) 06/05/21 14:50 ALT 43 units/L (7-56) 06/05/21 14:50 Alkaline Phosphatase 721 units/L (35-129) H 06/05/21 14:50 Total Creatine Kinase 30 units/L (55-170) L 06/05/21 14:50 CK-MB (CK-2) < 1.0 ng/mL (0.0-4.0) 06/05/21 14:50 CK-MB (CK-2) Rel Index 3.3 (0-4) 06/05/21 14:50 Troponin T < 0.010 ng/mL (0.00-0.029) 06/05/21 14:50 Total Protein 8.5 g/dL (6.3-8.2) H 06/05/21 14:50 Albumin 3.5 g/dL (3.9-5) L 06/05/21 14:50 Albumin/Globulin Ratio 0.7 % 06/05/21 14:50 Lipase 18 units/L (13-60) 06/05/21 14:50 Urine Color Straw (Yellow) 06/05/21 16:35 Urine Turbidity Clear (Clear) 06/05/21 16:35 Urine pH 5.0 (5.0-7.0) 06/05/21 16:35 Ur Specific [place] 1.017 (1.003-1.030) 06/05/21 16:35 Urine Protein <15 mg/dl mg/dL (Negative) 06/05/21 16:35 Urine Glucose (UA) >=500 mg/dL (Negative) 06/05/21 16:35 Urine Ketones 80 mg/dL (Negative) 06/05/21 16:35 Urine Blood Neg (Negative) 06/05/21 16:35 Urine Nitrite Neg (Negative) 06/05/21 16:35 Urine Bilirubin Neg (Negative) 06/05/21 16:35 Urine Urobilinogen < 2.0 mg/dL (<2.0) 06/05/21 16:35 Ur Leukocyte Esterase Neg (Negative) 06/05/21 16:35 Urine WBC (Auto) 4.0 /HPF (0.0-6.0) 06/05/21 16:35 Urine RBC (Auto) 1.0 /HPF (0.0-6.0) 06/05/21 16:35 Urine Mucus Few /HPF 06/05/21 16:35 Microbiology: Microbiology 06/07/21 10:55 Peripheral/Venous Blood Culture - Preliminary NO GROWTH AFTER 24 HOURS 06/07/21 10:55 Peripheral/Venous Blood Culture - Preliminary NO GROWTH AFTER 24 HOURS Villarreal/IV: Voiding Method Indwelling Catheter Active Medications - Current Medications Current Medications: Generic Name Dose Route Start Last Admin Trade Name Freq PRN Reason Stop Dose Admin Acetaminophen 650 mg 06/05/21 15:55 Acetaminophen 325 Mg Tab PO Q6H PRN Pain MILD(1-3)/Fever >100.5/HOLT Albuterol 2.5 mg 06/05/21 15:55 Albuterol 2.5 Mg/3 Ml Nebu IH Q3H PRN Shortness Of Breath Dextrose 50 ml 06/06/21 10:32 06/07/21 10:18 Dextrose 50% In Water (25gm) 50 Ml Syringe IV 50 ml Q30MIN PRN Administration Hypoglycemia Protocol Escitalopram Oxalate 20 mg 06/06/21 10:00 06/08/21 09:25 Escitalopram 10 Mg Tab PO 20 mg DAILY VIVI Administration Folic Acid 1 mg 06/06/21 10:00 06/08/21 09:25 Folic Acid 1 Mg Tab PO 1 mg QDAY VIVI Administration Hydromorphone HCl 0.5 mg 06/05/21 15:55 Hydromorphone 1 Mg/1 Ml Inj IV Q23H PRN Pain , Severe (7-10) Levofloxacin/Dextrose 500 mg in 100 mls @ 100 mls/hr 06/07/21 11:00 06/08/21 10:50 Levaquin 500mg/100ml IV 100 mls/hr Q24H VIVI Administration Protocol Dextrose 1,000 mls @ 75 mls/hr 06/07/21 14:00 06/08/21 09:25 D5w IV 75 mls/hr DIRECT VIVI Administration Insulin Glargine 10 units 06/07/21 22:00 06/07/21 23:00 Insulin Glargine 100 Units/Ml SUB-Q 10 units QHS VIVI Administration Insulin Human Regular 0 units 06/06/21 12:00 06/08/21 06:25 Insulin Regular, Human 100 Units/1 Ml SUB-Q 2 units Q6HR VIVI Administration Protocol Lorazepam 1 mg 06/05/21 16:01 Lorazepam 1 Mg Tab PO TID PRN Anxiety Lorazepam 2 mg 06/05/21 16:30 Lorazepam 2 Mg/Ml Vial IV Q1H PRN CIWA-Ar 8-15 Oxycodone/Acetaminophen 1 tab 06/05/21 15:55 Oxycodone /Acetaminophen 5-325mg Tab PO Q16H PRN Pain, Moderate (4-6) Pantoprazole Sodium 40 mg 06/06/21 10:00 06/08/21 09:25 Pantoprazole 40 Mg Tab PO 40 mg DAILY VIVI Administration Pravastatin Sodium 40 mg 06/05/21 22:00 06/07/21 23:00 Pravastatin 40 Mg Tab PO 40 mg QHS VIVI Administration Sodium Chloride 10 ml 06/05/21 22:00 06/08/21 09:25 Sodium Chloride 0.9% 10 Ml Flush Syringe IV 10 ml BID VIVI Administration Sodium Chloride 10 ml 06/05/21 15:55 Sodium Chloride 0.9% 10 Ml Flush Syringe IV PRN PRN LINE FLUSH
--- NOTE | 2021-06-08 13:57 | Consultation ---
History of Present Illness Consult date: 06/08/21 Reason for Consult: altered mentation he is with DKA History of present illness: He is not acting right History of present illness: 55 YO Male with DM, HI, CVA with LHP, GERD, CAD, CKD, Asthma, COPD, ETOH Dependence, Chronic Pancreatitis presents to ED for evaluation. Patient is lethargic with diminished cognition and is unable to provide detailed history at the time my evaluation. Patient history provided by EMS staff, ED staff, as well as patient's family was made available by telephone for interview. As per family the patient "was not acting right". EMS was notified and upon arrival the patient was found to be in distress and subsequent transported to [facility] for further care and evaluation of the aforementioned symptoms. The patient was seen and evaluated in the emergency department. All lab and imaging studies reviewed. The patient was found to have diabetic ketoacidosis complicated by metabolic encephalopathy, metabolic acidosis, acute kidney injury, as well as systemic inflammatory response syndrome. The patient was admitted to ICU due to increased risk of worsening symptoms and initiated on DKA protocol. No reports of fever, chills, chest pain, palpitation, productive cough, skin rash, trauma, recent ill contacts, or known exposure to COVID-19. Prior admission records on 06/13/2019 reviewed. All medication listed at time of admission has been reconciled. Advanced care planning conducted in ED. today he is more alert interective with slight right upper weakness and diffuse myalgia he is with Insulin pump for years Past History Past Medical History: acute HI, COPD, diabetes, GERD, other (See HPI) Past Surgical History: Other (ERCP with sphincterotomy) Social history: , lives with family, alcohol abuse. denies: smoking Family history: diabetes, hypertension Medications and Allergies Allergies Allergy/AdvReac Type Severity Reaction Status Date / Time No Known Drug Allergies Allergy Unknown Verified 05/05/13 02:40 Home Medications Medication Instructions Recorded Confirmed Last Taken Type Folic Acid [Folvite] 1 mg PO QDAY 10/13/18 06/12/19 Unknown History Sildenafil 20 mg PO TID 10/13/18 06/12/19 Unknown History Simvastatin 20 mg PO HS 10/13/18 06/12/19 Unknown History Escitalopram Oxalate [Lexapro] 20 mg PO QDAY #30 tablet 10/15/18 06/12/19 Unknown Rx LORazepam [Ativan] 1 mg PO TID PRN #30 tablet 10/15/18 06/12/19 Unknown Rx Pantoprazole [Protonix TAB] 40 mg PO DAILY #30 tablet 10/15/18 06/12/19 Unknown Rx NovoLOG 100 UNITS/ML VIAL See Protocol SUB-Q TID 10/27/18 06/12/19 Unknown History Acetaminophen [Acetaminophen TAB] 1 tab PO Q6H PRN #10 tablet 06/17/19 Unknown Rx HYDROcodone/APAP 5-325 [[place] 1 tab PO Q6H PRN #20 tablet 06/17/19 Unknown Rx 5-325 mg TAB] Insulin Detemir (Nf) [Levemir 15 unit SQ QHS #1 each 06/17/19 Unknown Rx Flextouch] Potassium Chloride 40 meq PO BID 30 Days liquid 06/17/19 Unknown Rx Thiamine [Vitamin B-1] 100 mg PO QDAY #30 tablet 06/17/19 Unknown Rx Active Meds: Active Medications Insulin Human Regular 100 (units/ Sodium Chloride) 100 mls @ 6 mls/hr IV TITR VIVI; Protocol Review of Systems ROS unobtainable: due to mental status Past History Past Medical History: acute HI, COPD, diabetes, GERD, other (See HPI) Past Surgical History: Other (ERCP with sphincterotomy) Social history: , lives with family, alcohol abuse. denies: smoking Family history: diabetes, hypertension Medications and Allergies Allergies Allergy/AdvReac Type Severity Reaction Status Date / Time No Known Drug Allergies Allergy Unknown Verified 05/05/13 02:40 Home Medications Medication Instructions Recorded Confirmed Last Taken Type Simvastatin 20 mg PO HS 10/13/18 06/08/21 Unknown History Escitalopram Oxalate [Lexapro] 20 mg PO QDAY #30 tablet 10/15/18 06/12/19 Unknown Rx Pantoprazole [Protonix TAB] 40 mg PO DAILY #30 tablet 10/15/18 06/08/21 Unknown Rx Albuterol Sulfate 2 puff INHALATION QID PRN 06/08/21 06/08/21 Unknown History Cyclobenzaprine HCl [Flexeril 5 MG 5 mg PO BID 06/08/21 06/08/21 Unknown History TAB] Fluticasone 50 mcg INNOSTRIL BID 06/08/21 06/08/21 Unknown History Gabapentin [Neurontin] 800 mg PO TID 06/08/21 06/08/21 Unknown History HYDROcodone/APAP 5-325 5 - 325 mg PO TID PRN 06/08/21 06/08/21 Unknown History Loperamide [Imodium] 4 mg PO QID 06/08/21 06/08/21 Unknown History Meloxicam [Mobic] 7.5 mg PO QDAY 06/08/21 06/08/21 Unknown History QUEtiapine [SEROquel] 1 tab PO DAILY 06/08/21 06/08/21 Unknown History Active Meds: Active Medications Acetaminophen (Acetaminophen 325 Mg Tab) 650 mg PO Q6H PRN PRN Reason: Pain MILD(1-3)/Fever >100.5/HOLT Albuterol (Albuterol 2.5 Mg/3 Ml Nebu) 2.5 mg IH Q3H PRN PRN Reason: Shortness Of Breath Dextrose (Dextrose 50% In Water (25gm) 50 Ml Syringe) 50 ml IV Q30MIN PRN; Protocol PRN Reason: Hypoglycemia Last Admin: 06/07/21 10:18 Dose: 50 ml Documented by: Escitalopram Oxalate (Escitalopram 10 Mg Tab) 20 mg PO DAILY VIVI Last Admin: 06/08/21 09:25 Dose: 20 mg Documented by: Folic Acid (Folic Acid 1 Mg Tab) 1 mg PO QDAY VIVI Last Admin: 06/08/21 09:25 Dose: 1 mg Documented by: Hydromorphone HCl (Hydromorphone 1 Mg/1 Ml Inj) 0.5 mg IV Q23H PRN PRN Reason: Pain , Severe (7-10) Levofloxacin/Dextrose (Levaquin 500mg/100ml) 500 mg in 100 mls @ 100 mls/hr IV Q24H VIVI; Protocol Last Admin: 06/08/21 10:50 Dose: 100 mls/hr Documented by: Dextrose (D5w) 1,000 mls @ 75 mls/hr IV DIRECT VIVI Last Admin: 06/08/21 09:25 Dose: 75 mls/hr Documented by: Insulin Glargine (Insulin Glargine 100 Units/Ml) 10 units SUB-Q QHS VIVI Last Admin: 06/07/21 23:00 Dose: 10 units Documented by: Insulin Human Regular (Insulin Regular, Human 100 Units/1 Ml) 0 units SUB-Q Q6 HR VIVI; Protocol Last Admin: 06/08/21 06:25 Dose: 2 units Documented by: Lorazepam (Lorazepam 1 Mg Tab) 1 mg PO TID PRN PRN Reason: Anxiety Lorazepam (Lorazepam 2 Mg/Ml Vial) 2 mg IV Q1H PRN PRN Reason: CIWA-Ar 8-15 Oxycodone/Acetaminophen (Oxycodone /Acetaminophen 5-325mg Tab) 1 tab PO Q16H PRN PRN Reason: Pain, Moderate (4-6) Pantoprazole Sodium (Pantoprazole 40 Mg Tab) 40 mg PO DAILY [facility] Last Admin: 06/08/21 09:25 Dose: 40 mg Documented by: Pravastatin Sodium (Pravastatin 40 Mg Tab) 40 mg PO QHS [facility] Last Admin: 06/07/21 23:00 Dose: 40 mg Documented by: Sodium Chloride (Sodium Chloride 0.9% 10 Ml Flush Syringe) 10 ml IV BID [facility] Last Admin: 06/08/21 09:25 Dose: 10 ml Documented by: Sodium Chloride (Sodium Chloride 0.9% 10 Ml Flush Syringe) 10 ml IV PRN PRN PRN Reason: LINE FLUSH Physical Examination - Vital Signs Vital Signs: Vital Signs Pulse Resp BP Pulse Ox 102 H 30 H 129/64 94 06/05/21 10:41 06/05/21 10:41 06/05/21 10:41 06/05/21 10:41 - Constitutional General appearance: comfortable - EENT EENT: Present: PERRL, mucous membranes moist - Respiratory Respiratory: Present: chest non-tender, lungs clear, rhonchi - Cardiovascular Cardiovascular: Present: regular rate, normal S1, normal S2 Extremities: Present: no peripheral edema bilatateraly, no clubbing, cyanosis - Gastrointestinal Gastrointestinal: Present: normoactive bowel sounds - Integumentary Integumentary: Present: normal - Neurologic Cranial nerve examination: PERRL, EOMI, intact Speech examination: intact Detailed motor examination: other (slight right upper drift and diffuse give away weakness , and ache.) - Level of Consciousness 1a. Level of Consciousness: alert/keenly responsive - LOC Questions 1b. LOC Questions: answers 1 question correctly - LOC Command 1c. LOC Commands: performs tasks correctly - Best Gaze 2. Best Gaze: normal - Visual 3. Visual: no visual loss - Facial Palsy 4. Facial Palsy: normal symmetrical movement - Motor Arm 5a. Motor Arm Left: no drift 5b. Motor Arm Right: drift - Motor Leg 6a. Motor Leg Left: no drift 6b. Motor Leg Right: no drift - Limb Ataxia 7. Limb Ataxia: absent - Sensory 8. Sensory: normal - Best Language 9. Best Language: no aphasia - Dysarthria 10. Dysarthria: normal - Extinction and Inattention 11. Extinction/Inattention: no abnormality - Scoring Total Score: 2 Stroke Severity: Minor Stroke Results - Laboratory Findings CBC and BMP: 06/08/21 08:31 06/08/21 08:31 Abnormal Lab Findings: Abnormal Labs 06/05/21 06/05/21 06/05/21 14:50 14:50 14:50 WBC 12.9 H RBC 3.26 L Hgb 10.1 L Hct 34.5 L MCV 106 H MCHC 29 L RDW 15.8 H Lymph % (Auto) 7.7 L Lymph # (Auto) 1.0 L [place] # (Auto) Seg Neutrophils % 85.9 H Seg Neutrophils # 11.1 H VBG pH 7.103 L* Sodium Potassium 6.4 H* Chloride 90.7 L Carbon Dioxide 8 L* BUN 59 H Creatinine 2.3 H Glucose 953 H* POC Glucose Phosphorus Magnesium Alkaline Phosphatase 721 H Total Creatine Kinase 30 L Total Protein 8.5 H Albumin 3.5 L 06/05/21 06/05/21 06/05/21 16:06 17:58 18:43 WBC RBC Hgb Hct MCV MCHC RDW Lymph % (Auto) Lymph # (Auto) [place] # (Auto) Seg Neutrophils % Seg Neutrophils # VBG pH Sodium Potassium 5.7 H 5.2 H Chloride 96.1 L Carbon Dioxide 5 L* 9 L* BUN 57 H 53 H Creatinine 2.2 H 1.9 H Glucose 892 H* 740 H* POC Glucose > 600 H Phosphorus 6.90 H Magnesium 2.80 H Alkaline Phosphatase Total Creatine Kinase Total Protein Albumin 06/05/21 06/05/21 06/05/21 19:59 21:57 23:54 WBC RBC Hgb Hct MCV MCHC RDW Lymph % (Auto) Lymph # (Auto) [place] # (Auto) Seg Neutrophils % Seg Neutrophils # VBG pH Sodium Potassium Chloride Carbon Dioxide BUN Creatinine Glucose POC Glucose 499 H 417 H 237 H Phosphorus Magnesium Alkaline Phosphatase Total Creatine Kinase Total Protein Albumin 06/06/21 06/06/21 06/06/21 01:38 03:06 05:49 WBC RBC Hgb Hct MCV MCHC RDW Lymph % (Auto) Lymph # (Auto) [place] # (Auto) Seg Neutrophils % Seg Neutrophils # VBG pH Sodium 156 H D Potassium 3.5 L D Chloride 114.0 H Carbon Dioxide BUN 42 H Creatinine 1.4 H Glucose 217 H POC Glucose 210 H 177 H Phosphorus Magnesium Alkaline Phosphatase Total Creatine Kinase Total Protein Albumin 06/06/21 06/06/21 06/06/21 08:05 08:37 09:19 WBC RBC Hgb Hct MCV MCHC RDW Lymph % (Auto) Lymph # (Auto) [place] # (Auto) Seg Neutrophils % Seg Neutrophils # VBG pH Sodium 154 H Potassium 3.3 L Chloride 114.1 H Carbon Dioxide BUN 29 H Creatinine Glucose 194 H POC Glucose 175 H 190 H Phosphorus Magnesium Alkaline Phosphatase Total Creatine Kinase Total Protein Albumin 06/06/21 06/06/21 06/06/21 10:49 12:18 17:28 WBC RBC Hgb Hct MCV MCHC RDW Lymph % (Auto) Lymph # (Auto) [place] # (Auto) Seg Neutrophils % Seg Neutrophils # VBG pH Sodium Potassium Chloride Carbon Dioxide BUN Creatinine Glucose POC Glucose 152 H 189 H 340 H Phosphorus Magnesium Alkaline Phosphatase Total Creatine Kinase Total Protein Albumin 06/06/21 06/07/21 06/07/21 23:52 04:10 04:10 WBC 18.8 H RBC Hgb 11.4 L Hct 34.5 L MCV MCHC RDW Lymph % (Auto) 11.6 L Lymph # (Auto) [place] # (Auto) 0.9 H Seg Neutrophils % 82.6 H Seg Neutrophils # 15.5 H VBG pH Sodium 156 H Potassium Chloride 117.9 H Carbon Dioxide BUN 22 H Creatinine 0.7 L Glucose 137 H POC Glucose 217 H Phosphorus Magnesium Alkaline Phosphatase Total Creatine Kinase Total Protein Albumin 06/07/21 06/07/21 06/07/21 10:07 13:00 17:20 WBC RBC Hgb Hct MCV MCHC RDW Lymph % (Auto) Lymph # (Auto) [place] # (Auto) Seg Neutrophils % Seg Neutrophils # VBG pH Sodium Potassium Chloride Carbon Dioxide BUN Creatinine Glucose POC Glucose 43 L 189 H 117 H Phosphorus Magnesium Alkaline Phosphatase Total Creatine Kinase Total Protein Albumin 06/07/21 06/08/21 06/08/21 21:27 00:57 06:00 WBC RBC Hgb Hct MCV MCHC RDW Lymph % (Auto) Lymph # (Auto) [place] # (Auto) Seg Neutrophils % Seg Neutrophils # VBG pH Sodium Potassium Chloride Carbon Dioxide BUN Creatinine Glucose POC Glucose 300 H 300 H 152 H Phosphorus Magnesium Alkaline Phosphatase Total Creatine Kinase Total Protein Albumin 06/08/21 06/08/21 06/08/21 08:31 08:31 12:34 WBC 18.1 H RBC 3.33 L Hgb 10.0 L Hct 31.1 L MCV MCHC RDW Lymph % (Auto) Lymph # (Auto) [place] # (Auto) Seg Neutrophils % Seg Neutrophils # VBG pH Sodium 146 H D Potassium Chloride 111.3 H Carbon Dioxide BUN 21 H Creatinine Glucose 334 H POC Glucose 369 H Phosphorus Magnesium Alkaline Phosphatase Total Creatine Kinase Total Protein Albumin Assessment and Plan Assessment and Plan - Patient Problems # DKA (diabetic ketoacidosis) Status: Acute Qualifiers: Diabetes mellitus type: type 1 Plan to address problem: DKA protocol: Insulin drip, IV fluid resuscitation therapy, serial BMP, monitor anion gap, monitor fluid balance, urine output every shift, # Metabolic encephalopathy Neuro check, seizure precautions, aspiration precautions # Mild confusion related to above -he is with generalized myalgia and slight right pronator drift -Suggest CPK level -Pt/ST evaluate -CT brain , and or MRI if possible ? he is with insulin pump -ASA 81 mg daily -LDL profil -CTA brain and neck # Metabolic acidosis Status: Acute Plan to address problem: IV bicarbonate therapy, BMP, repeat BMP in a.m. # Acute kidney injury IV fluid resuscitation therapy, monitor urine output q. shift, monitor fluid balance, BMP, repeat BMP in a.m. to monitor serum creatinine as well as GFR # Systemic inflammatory response syndrome CBC, CMP, urinalysis, IV antibiotic therapy x1, his repeat CBC in a.m. # DVT prophylaxis Status: Acute Plan to address problem: SCD to bilateral lower extremities while in bed # Advance care planning Disease education conducted, care plan discussed, diagnoses discussed, prognosis discussed, patient is full code, +30 minutes.
[2021-06-08] MEDS: ASPIRIN 325 MG TAB PO SCH (16:35)
--- NOTE | 2021-06-08 20:21 | Progress Note ---
Assessment and Plan 5 YO Male with DM, ME, CVA with LHP, GERD, CAD, CKD, Asthma, COPD, ETOH Dependence, Chronic Pancreatitis presents to ED for evaluation. Patient is lethargic with diminished cognition and is unable to provide detailed history at the time my evaluation. Patient history provided by EMS staff, ED staff, as well as patient's family was made available by telephone for interview. As per family the patient "was not acting right". EMS was notified and upon arrival the patient was found to be in distress and subsequent transported to [facility] for f urther care and evaluation of the aforementioned symptoms. The patient was seen and evaluated in the emergency department. All lab and imaging studies reviewed. The patient was found to have diabetic ketoacidosis complicated by metabolic encephalopathy, metabolic acidosis, acute kidney injury, as well as systemic inflammatory response syndrome. The patient was admitted to ICU due to increased risk of worsening symptoms and initiated on DKA protocol. No reports of fever, chills, chest pain, palpitation, productive cough, skin rash, trauma, recent ill contacts, or known exposure to COVID-19. Patient has history of smoking. 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 No Known drug allergies. Patient sleeping at this time but arousable. Patient is on room air. Patient is weak. No acute respiratory distress. O2 saturation 98%. Patient afebrile. Has leukocytosis. Blood pressure running low 77/43. Patient is not symptomatic. Recommend to monitor blood pressure closely. Pulse 103. Chest xray done 06/06/21 reported No acute findings. Patient presently on Levaquin, Vancomycin, Protonix, Proventil inhalor. Recommend DVT prophylaxis. - Patient Problems (1) Acute on chronic pancreatitis Current Visit: No Status: Acute Plan to address problem: management as per primary care and GI. (2) Abdominal pain Current Visit: No Status: Acute Qualifiers: Abdominal location: generalized Qualified Code(s): R10.84 - Generalized abdominal pain Plan to address problem: Patient is on pain medication. Management as per primary care. (3) Diabetes mellitus type 2 in nonobese Current Visit: No Status: Acute Plan to address problem: Management as per primary care. (4) Encephalopathy acute Current Visit: No Status: Acute Plan to address problem: Management as per primary care and neurology. (5) HTN (hypertension) Current Visit: No Status: Acute Plan to address problem: Management as per primary care. (6) Non-ST elevation myocardial infarction (NSTEMI) Onset Date: 05/06/13 Current Visit: No Status: Acute Plan to address problem: Management as per cardiology. (7) COPD (chronic obstructive pulmonary disease) Current Visit: No Status: Chronic Qualifiers: COPD type: unspecified COPD Qualified Code(s): J44.9 - Chronic obstructive pulmonary disease, unspecified Plan to address problem: Patient he stopped smoking. Proventil inhalor 2 puffs po qid prn for shortness of breath. Recommend PFTs as out patient. Subjective Date of service: 06/08/21 Interval history: 55 YO Male with DM, ME, CVA with LHP, GERD, CAD, CKD, Asthma, COPD, ETOH Dependence, Chronic Pancreatitis presents to ED for evaluation. Patient is lethargic with diminished cognition and is unable to provide detailed history at the time my evaluation. Patient history provided by EMS staff, ED staff, as well as patient's family was made available by telephone for interview. As per family the patient "was not acting right". EMS was notified and upon arrival the patient was found to be in distress and subsequent transported to [facility] for further care and evaluation of the aforementioned symptoms. The patient was seen and evaluated in the emergency department. All lab and imaging studies reviewed. The patient was found to have diabetic ketoacidosis complicated by metabolic encephalopathy, metabolic acidosis, acute kidney injury, as well as systemic inflammatory response syndrome. The patient was admitted to ICU due to increased risk of worsening symptoms and initiated on DKA protocol. No reports of fever, chills, chest pain, palpitation, productive cough, skin rash, trauma, recent ill contacts, or known exposure to COVID-19. Patient has history of smoking. 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 No Known drug allergies. Patient sleeping at this time but arousable. Patient is on room air. Patient is weak. No acute respiratory distress. O2 saturation 98%. Patient afebrile. Has leukocytosis. Blood pressure running low 77/43. Patient is not symptomatic. Recommend to monitor blood pressure closely. Pulse 103. Chest xray done 06/06/21 reported No acute findings. Patient presently on Levaquin, Vancomycin, Protonix, Proventil inhalor. Recommend DVT prophylaxis. Objective Vital Signs - 12hr 06/08/21 06/08/21 06/08/21 09:00 09:17 12:08 Temperature 98.1 F 98.1 F Pulse Rate 112 H 107 H Respiratory 16 16 16 Rate Blood Pressure 90/56 89/58 Blood Pressure [Left] O2 Sat by Pulse 100 Oximetry 06/08/21 06/08/21 06/08/21 12:15 12:47 16:12 Temperature 98.8 F Pulse Rate 101 H Respiratory 18 20 Rate Blood Pressure 89/50 Blood Pressure 96/57 [Left] O2 Sat by Pulse 97 99 Oximetry 06/08/21 19:19 Temperature 98.6 F Pulse Rate 103 H Respiratory 18 Rate Blood Pressure 77/43 Blood Pressure [Left] O2 Sat by Pulse 98 Oximetry Constitutional: no acute distress, other (Sleepy, arousable and weak.) Eyes: non-icteric Neck: supple, no lymphadenopathy Effort: mildly labored Ascultation: Bilateral: diminished breath sounds Cardiovascular: regular rate and rhythm Gastrointestinal: normoactive bowel sounds, tender Integumentary: normal Extremities: no cyanosis, no edema Neurologic: non-focal exam, pupils equal and round Psychiatric: depressed CBC and BMP: 06/09/21 05:12 06/09/21 05:12 Abnormal lab findings: Abnormal Labs 06/05/21 06/05/21 06/05/21 14:50 14:50 14:50 WBC 12.9 H RBC 3.26 L Hgb 10.1 L Hct 34.5 L MCV 106 H MCHC 29 L RDW 15.8 H Lymph % (Auto) 7.7 L Lymph # (Auto) 1.0 L [place] # (Auto) Seg Neutrophils % 85.9 H Seg Neutrophils # 11.1 H VBG pH 7.103 L* Sodium Potassium 6.4 H* Chloride 90.7 L Carbon Dioxide 8 L* BUN 59 H Creatinine 2.3 H Glucose 953 H* POC Glucose Phosphorus Magnesium Alkaline Phosphatase 721 H Total Creatine Kinase 30 L Total Protein 8.5 H Albumin 3.5 L 06/05/21 06/05/21 06/05/21 16:06 17:58 18:43 WBC RBC Hgb Hct MCV MCHC RDW Lymph % (Auto) Lymph # (Auto) [place] # (Auto) Seg Neutrophils % Seg Neutrophils # VBG pH Sodium Potassium 5.7 H 5.2 H Chloride 96.1 L Carbon Dioxide 5 L* 9 L* BUN 57 H 53 H Creatinine 2.2 H 1.9 H Glucose 892 H* 740 H* POC Glucose > 600 H Phosphorus 6.90 H Magnesium 2.80 H Alkaline Phosphatase Total Creatine Kinase Total Protein Albumin 06/05/21 06/05/21 06/05/21 19:59 21:57 23:54 WBC RBC Hgb Hct MCV MCHC RDW Lymph % (Auto) Lymph # (Auto) [place] # (Auto) Seg Neutrophils % Seg Neutrophils # VBG pH Sodium Potassium Chloride Carbon Dioxide BUN Creatinine Glucose POC Glucose 499 H 417 H 237 H Phosphorus Magnesium Alkaline Phosphatase Total Creatine Kinase Total Protein Albumin 06/06/21 06/06/21 06/06/21 01:38 03:06 05:49 WBC RBC Hgb Hct MCV MCHC RDW Lymph % (Auto) Lymph # (Auto) [place] # (Auto) Seg Neutrophils % Seg Neutrophils # VBG pH Sodium 156 H D Potassium 3.5 L D Chloride 114.0 H Carbon Dioxide BUN 42 H Creatinine 1.4 H Glucose 217 H POC Glucose 210 H 177 H Phosphorus Magnesium Alkaline Phosphatase Total Creatine Kinase Total Protein Albumin 06/06/21 06/06/21 06/06/21 08:05 08:37 09:19 WBC RBC Hgb Hct MCV MCHC RDW Lymph % (Auto) Lymph # (Auto) [place] # (Auto) Seg Neutrophils % Seg Neutrophils # VBG pH Sodium 154 H Potassium 3.3 L Ch[place] 114.1 H Carbon Dioxide BUN 29 H Creatinine Glucose 194 H POC Glucose 175 H 190 H Phosphorus Magnesium Alkaline Phosphatase Total Creatine Kinase Total Protein Albumin 06/06/21 06/06/21 06/06/21 10:49 12:18 17:28 WBC RBC Hgb Hct MCV MCHC RDW Lymph % (Auto) Lymph # (Auto) [place] # (Auto) Seg Neutrophils % Seg Neutrophils # VBG pH Sodium Potassium Chloride Carbon Dioxide BUN Creatinine Glucose POC Glucose 152 H 189 H 340 H Phosphorus Magnesium Alkaline Phosphatase Total Creatine Kinase Total Protein Albumin 06/06/21 06/07/21 06/07/21 23:52 04:10 04:10 WBC 18.8 H RBC Hgb 11.4 L Hct 34.5 L MCV MCHC RDW Lymph % (Auto) 11.6 L Lymph # (Auto) [place] # (Auto) 0.9 H Seg Neutrophils % 82.6 H Seg Neutrophils # 15.5 H VBG pH Sodium 156 H Potassium Chloride 117.9 H Carbon Dioxide BUN 22 H Creatinine 0.7 L Glucose 137 H POC Glucose 217 H Phosphorus Magnesium Alkaline Phosphatase Total Creatine Kinase Total Protein Albumin 06/07/21 06/07/21 06/07/21 10:07 13:00 17:20 WBC RBC Hgb Hct MCV MCHC RDW Lymph % (Auto) Lymph # (Auto) [place] # (Auto) Seg Neutrophils % Seg Neutrophils # VBG pH Sodium Potassium Chloride Carbon Dioxide BUN Creatinine Glucose POC Glucose 43 L 189 H 117 H Phosphorus Magnesium Alkaline Phosphatase Total Creatine Kinase Total Protein Albumin 06/07/21 06/08/21 06/08/21 21:27 00:57 06:00 WBC RBC Hgb Hct MCV MCHC RDW Lymph % (Auto) Lymph # (Auto) [place] # (Auto) Seg Neutrophils % Seg Neutrophils # VBG pH Sodium Potassium Chloride Carbon Dioxide BUN Creatinine Glucose POC Glucose 300 H 300 H 152 H Phosphorus Magnesium Alkaline Phosphatase Total Creatine Kinase Total Protein Albumin 06/08/21 06/08/21 06/08/21 08:31 08:31 12:34 WBC 18.1 H RBC 3.33 L Hgb 10.0 L Hct 31.1 L MCV MCHC RDW Lymph % (Auto) Lymph # (Auto) [place] # (Auto) Seg Neutrophils % Seg Neutrophils # VBG pH Sodium 146 H D Potassium Chloride 111.3 H Carbon Dioxide BUN 21 H Creatinine Glucose 334 H POC Glucose 369 H Phosphorus Magnesium Alkaline Phosphatase Total Creatine Kinase Total Protein Albumin 06/08/21 17:29 WBC RBC Hgb Hct MCV MCHC RDW Lymph % (Auto) Lymph # (Auto) [place] # (Auto) Seg Neutrophils % Seg Neutrophils # VBG pH Sodium Potassium Chloride Carbon Dioxide BUN Creatinine Glucose POC Glucose 280 H Phosphorus Magnesium Alkaline Phosphatase Total Creatine Kinase Total Protein Albumin Chest x-ray: report reviewed, image reviewed Additional Studies: CHEST 1 VIEW 06/06/2021 8:48 AM INDICATION / CLINICAL INFORMATION: SIRS. COMPARISON: 06/12/2019 FINDINGS: SUPPORT DEVICES: None. HEART / MEDIASTINUM: No significant abnormality. LUNGS / PLEURA: No significant pulmonary or pleural abnormality. No pn eumothorax. ADDITIONAL FINDINGS: No significant additional findings. IMPRESSION: 1. No acute findings.
[2021-06-08] MEDS: PRAVASTATIN 40 MG TAB PO SCH (22:08)
[2021-06-08] MEDS: INSULIN GLARGINE 100 UNITS/ML SUB-Q SCH ×2 (22:09→23:30)
[2021-06-09] MEDS: INSULIN REGULAR, HUMAN 100 UNITS/1 ML SUB-Q SCH ×4 (01:50→17:21)
[2021-06-09] MEDS: oxyCODONE /ACETAMINOPHEN 5-325MG TAB PO PRN (02:36)
[2021-06-09 06:14] LABS: Hematocrit 29.6 % (35.5-45.6); Hemoglobin 9.7 gm/dl (11.8-15.2); Mean Corpuscular HGB Conc 33 % (32-34); Mean Corpuscular Volume 92 fl (84-94); Platelet Count 218 K/mm3 (140-440); Red Blood Count 3.22 M/mm3 (3.65-5.03); Red Cell Distribution Width 14.2 % (13.2-15.2)
[2021-06-09 06:29] LABS: BUN/Creatinine Ratio 18; Blood Urea Nitrogen 18 mg/dL (9-20); Calcium 8.8 mg/dL (8.4-10.2); Hemolysis Index 2
[2021-06-09] MEDS: PANTOPRAZOLE 40 MG TAB PO SCH (09:11)
[2021-06-09] MEDS: FOLIC ACID 1 MG TAB PO SCH (09:11)
[2021-06-09] MEDS: ASPIRIN 325 MG TAB PO SCH (09:11)
[2021-06-09] MEDS: ESCITALOPRAM 10 MG TAB PO SCH (09:11)
[2021-06-09] MEDS ORDERED: SODIUM CHLORIDE 0.9% 500 ML IVPB IV ONE (11:40)
--- NOTE | 2021-06-09 11:43 | Progress Note ---
Assessment and Plan Assessment and plan: DKA Metabolic encephalopathy Acute kidney injury SIRS/leukocytosis Diabetes mellitus type 2 History of CVA with left hemiparesis Acute kidney injury with etiology secondary to vasomotor nephropathy. Asthma. EtOH dependence CAD History of chronic pancreatitis. Severe Malnutrition 06/06/2021. DKA has resolved. Patient will be transition from IV insulin drip to home regimen of Lantus 15 units at bedtime. We will give 70/30 25 units x 1 today. Start diabetic diet. Follow-up chest x-ray for SIRS. Urinalysis is negative. Check CBC. Patient had a baseline creatinine of 1.June. Continue IV fluid hydration and monitor creatinine. The patient will be transferred to [facility]. Continue CIWA protocol 06/07/2021. Patient still appears to be confused. Etiology is multifactorial likely secondary to hypoglycemia and EtOH withdrawal. Patient with hypoglycemia this morning with BG 43. Decrease Lantus to 10 units at bedtime. D50 as needed for hypoglycemia. Creatinine has improved back to baseline of 0.7. Continue CIWA protocol. Patient with no obvious signs of infection. However, leukocytosis worse. Afebrile. Empiric antibiotics with Levaquin 06/08/2021 Patient presented with altered mental status. Likely acute metabolic encephalopathy. Blood glucose still elevated. Increase Lantus to 20 Units QHS. Patient has been on Insulin pump but his glucose was more than 600 at presentation. Consult Neurology. patient also has severe malnutrition. Consult claims correspondence clerk. 06/09/2021 Patient presented with altered mental status. Likely acute metabolic encephalopathy. Blood glucose now improved after Increase Lantus to 20 Units QHS. Patient has been on Insulin pump but his glucose was more than 600 at presentation. Consulted Neurology. Patient seen by Neurology, Dr. Diaz and he ordered Ct Head, CTA head. Patient also has severe malnutrition. Consulted claims correspondence clerk. Today BP is low, so gave bolus iv fluid. Called by Nurse that patient has temp of 100.1. Will consult ID because fever, leukocytosis, altered mental status. History Interval history: Altered mental status Low BP Hospitalist Physical - Physical exam Narrative exam: Gen: Not in acute distress, lying in bed, malnourished HEENT: Normocephalic, atraumatic Lungs: Clear to auscultation Heart: S1 and S2 reg, no murmurs, rubs or gallop Abd:soft, non-tender, non distended, normal bowel sounds, PEG tube, Insulin pump Ext: No edema, clubbing or cyanosis Neuro: Awake, alert. Knows name, knows he is in [facility], knows its 2020, but still confused on conversations, moves all extremities - Constitutional Vitals: Temp Pulse Resp BP Pulse Ox 98.1 F 85 18 95/56 97 06/09/21 08:18 06/09/21 08:45 06/09/21 08:18 06/09/21 08:18 06/09/21 08:45 General appearance: Present: no acute distress HEART Score - HEART Score Troponin: Troponin T < 0.010 ng/mL (0.00-0.029) 06/05/21 14:50 Results - Labs CBC & Chem 7: 06/09/21 05:12 06/09/21 05:12 Labs: Laboratory Last Values WBC 17.8 K/mm3 (4.5-11.0) H 06/09/21 05:12 RBC 3.22 M/mm3 (3.65-5.03) L 06/09/21 05:12 Hgb 9.7 gm/dl (11.8-15.2) L 06/09/21 05:12 Hct 29.6 % (35.5-45.6) L 06/09/21 05:12 MCV 92 fl (84-94) 06/09/21 05:12 MCH 30 pg (28-32) 06/09/21 05:12 MCHC 33 % (32-34) 06/09/21 05:12 RDW 14.2 % (13.2-15.2) 06/09/21 05:12 Plt Count 218 K/mm3 (140-440) 06/09/21 05:12 Lymph % (Auto) 11.6 % (13.4-35.0) L 06/07/21 04:10 [place] % (Auto) 4.9 % (0.0-7.3) 06/07/21 04:10 Eos % (Auto) 0.3 % (0.0-4.3) 06/07/21 04:10 Baso % (Auto) 0.6 % (0.0-1.8) 06/07/21 04:10 Lymph # (Auto) 2.2 K/mm3 (1.2-5.4) 06/07/21 04:10 [place] # (Auto) 0.9 K/mm3 (0.0-0.8) H 06/07/21 04:10 Eos # (Auto) 0.1 K/mm3 (0.0-0.4) 06/07/21 04:10 Baso # (Auto) 0.1 K/mm3 (0.0-0.1) 06/07/21 04:10 Seg Neutrophils % 82.6 % (40.0-70.0) H 06/07/21 04:10 Seg Neutrophils # 15.5 K/mm3 (1.8-7.7) H 06/07/21 04:10 VBG pH 7.103 (7.320-7.420) L* 06/05/21 14:50 Sodium 132 mmol/L (137-145) L D 06/09/21 05:12 Potassium 3.4 mmol/L (3.6-5.0) L 06/09/21 05:12 Chloride 97.0 mmol/L (98-107) L 06/09/21 05:12 Carbon Dioxide 23 mmol/L (22-30) 06/09/21 05:12 Anion Gap 15 mmol/L 06/09/21 05:12 BUN 18 mg/dL (9-20) 06/09/21 05:12 Creatinine 1.0 mg/dL (0.8-1.3) 06/09/21 05:12 Estimated GFR > 60 ml/min 06/09/21 05:12 BUN/Creatinine Ratio 18 % 06/09/21 05:12 Glucose 246 mg/dL (75-100) H 06/09/21 05:12 POC Glucose 113 mg/dL (70-105) H 06/09/21 11:37 Calcium 8.8 mg/dL (8.4-10.2) 06/09/21 05:12 Phosphorus 6.90 mg/dL (2.5-4.5) H 06/05/21 16:06 Magnesium 2.80 mg/dL (1.7-2.3) H 06/05/21 16:06 Total Bilirubin 0.20 mg/dL (0.1-1.2) 06/05/21 14:50 AST 19 units/L (5-40) 06/05/21 14:50 ALT 43 units/L (7-56) 06/05/21 14:50 Alkaline Phosphatase 721 units/L (35-129) H 06/05/21 14:50 Total Creatine Kinase 30 units/L (55-170) L 06/05/21 14:50 CK-MB (CK-2) < 1.0 ng/mL (0.0-4.0) 06/05/21 14:50 CK-MB (CK-2) Rel Index 3.3 (0-4) 06/05/21 14:50 Troponin T < 0.010 ng/mL (0.00-0.029) 06/05/21 14:50 Total Protein 8.5 g/dL (6.3-8.2) H 06/05/21 14:50 Albumin 3.5 g/dL (3.9-5) L 06/05/21 14:50 Albumin/Globulin Ratio 0.7 % 06/05/21 14:50 Lipase 18 units/L (13-60) 06/05/21 14:50 Urine Color Straw (Yellow) 06/05/21 16:35 Urine Turbidity Clear (Clear) 06/05/21 16:35 Urine pH 5.0 (5.0-7.0) 06/05/21 16:35 Ur Specific [place] 1.017 (1.003-1.030) 06/05/21 16:35 Urine Protein <15 mg/dl mg/dL (Negative) 06/05/21 16:35 Urine Glucose (UA) >=500 mg/dL (Negative) 06/05/21 16:35 Urine Ketones 80 mg/dL (Negative) 06/05/21 16:35 Urine Blood Neg (Negative) 06/05/21 16:35 Urine Nitrite Neg (Negative) 06/05/21 16:35 Urine Bilirubin Neg (Negative) 06/05/21 16:35 Urine Urobilinogen < 2.0 mg/dL (<2.0) 06/05/21 16:35 Ur Leukocyte Esterase Neg (Negative) 06/05/21 16:35 Urine WBC (Auto) 4.0 /HPF (0.0-6.0) 06/05/21 16:35 Urine RBC (Auto) 1.0 /HPF (0.0-6.0) 06/05/21 16:35 Urine Mucus Few /HPF 06/05/21 16:35 Microbiology: Microbiology 06/07/21 10:55 Peripheral/Venous Blood Culture - Preliminary NO GROWTH AFTER 48 HOURS 06/07/21 10:55 Peripheral/Venous Blood Culture - Preliminary NO GROWTH AFTER 48 HOURS Villarreal/IV: Voiding Method Indwelling Catheter Active Medications - Current Medications Current Medications: Generic Name Dose Route Start Last Admin Trade Name Freq PRN Reason Stop Dose Admin Acetaminophen 650 mg 06/05/21 15:55 Acetaminophen 325 Mg Tab PO Q6H PRN Pain MILD(1-3)/Fever >100.5/HOLT Albuterol 2.5 mg 06/05/21 15:55 Albuterol 2.5 Mg/3 Ml Nebu IH Q3H PRN Shortness Of Breath Aspirin 325 mg 06/08/21 15:00 06/09/21 09:11 Aspirin 325 Mg Tab PO 325 mg QDAY VIVI Administration Dextrose 50 ml 06/06/21 10:32 06/07/21 10:18 Dextrose 50% In Water (25gm) 50 Ml Syringe IV 50 ml Q30MIN PRN Administration Hypoglycemia Protocol Escitalopram Oxalate 20 mg 06/06/21 10:00 06/09/21 09:11 Escitalopram 10 Mg Tab PO 20 mg DAILY VIVI Administration Folic Acid 1 mg 06/06/21 10:00 06/09/21 09:11 Folic Acid 1 Mg Tab PO 1 mg QDAY VIVI Administration Hydromorphone HCl 0.5 mg 06/05/21 15:55 Hydromorphone 1 Mg/1 Ml Inj IV Q23H PRN Pain , Severe (7-10) Levofloxacin/Dextrose 500 mg in 100 mls @ 100 mls/hr 06/07/21 11:00 06/09/21 11:42 Levaquin 500mg/100ml IV 06/11/21 11:59 100 mls/hr Q24H VIVI Administration Protocol Insulin Glargine 20 units 06/08/21 14:22 06/08/21 23:30 Insulin Glargine 100 Units/Ml SUB-Q 20 units QHS VIVI Administration Insulin Human Regular 0 units 06/06/21 12:00 06/09/21 11:37 Insulin Regular, Human 100 Units/1 Ml SUB-Q Not Given Q6HR VIVI Protocol Lorazepam 1 mg 06/05/21 16:01 Lorazepam 1 Mg Tab PO TID PRN Anxiety Lorazepam 2 mg 06/05/21 16:30 Lorazepam 2 Mg/Ml Vial IV Q1H PRN CIWA-Ar 8-15 Oxycodone/Acetaminophen 1 tab 06/05/21 15:55 06/09/21 02:36 Oxycodone /Acetaminophen 5-325mg Tab PO 1 tab Q16H PRN Administration Pain, Moderate (4-6) Pantoprazole Sodium 40 mg 06/06/21 10:00 06/09/21 09:11 Pantoprazole 40 Mg Tab PO 40 mg DAILY VIVI Administration Pravastatin Sodium 40 mg 06/05/21 22:00 06/08/21 22:08 Pravastatin 40 Mg Tab PO 40 mg QHS VIVI Administration Sodium Chloride 10 ml 06/05/21 22:00 06/09/21 09:13 Sodium Chloride 0.9% 10 Ml Flush Syringe IV 10 ml BID VIVI Administration Sodium Chloride 10 ml 06/05/21 15:55 Sodium Chloride 0.9% 10 Ml Flush Syringe IV PRN PRN LINE FLUSH Nutrition/Malnutrition Assess - Dietary Evaluation Nutrition/Malnutrition Findings: Nutrition Notes Start: 06/08/21 13:44 Freq: Status: Active Protocol: Document 06/08/21 13:44 GB (Rec: 06/08/21 14:24 GB [id number]) Nutrition Notes Need for Assessment generated from: MD Order,Low BMI Initial or Follow up Assessment Current Diagnosis Acute Kidney Injury,Diabetes Other Pertinent Diagnosis AMS, DKA, metabolic encephalopathy, metabolic acidosis. Hx: VA, CVA, GERD Current Diet cardiac consistent Labs/Tests 06/08: Na 146, BUN 21, glucose 334 (showing improvement) Pertinent Medications D5 @75ml/hr (306 kcal), folic acid, Insulin, NaCl Height 5 ft 9 in Weight 39.5 kg [place] Body Weight (kg) 72.72 BMI 12.8 Weight change and time frame Weight change noted: -10kg, recommend reweigh to confirm significant change Weight Status Underweight Subjective/Other Information per MD notes: DKA resolved, diet advanced Per discussion with nursing staff, pt ate his breakfast, drinks fluids well Percent of energy/protein needs met: unable to assess at this time. PO reported as decreased, appetite changes Burn Absent Trauma Absent GI Symptoms None Food Allergy No Current % PO Poor (25-49%) Minimum of two criteria Yes Energy Intake (severe) < or equal to 50% Estimated Energy Requirement > or equal to 5 days Body Fat Depletion Moderate depletion (severe) Muscle Mass Moderate Depletion (severe) #1 Nutrition Diagnosis Malnutrition Etiology DKA, metabolic encephalopathy, metabolic acidosis, ALAYNA, Altered nutrition related labs As Evidenced by Signs and Symptoms DKA, evident depletion of fat/ muscle mass in upper extremities and torso, Blood glucose severely over acceptable range, BMI < 18.5 ( 17.6), 52% IBW Is patient on ventilator? No Is Patient Ambulatory and/or Out of Bed Yes REE-(Garza-St. Jeor-ambulatory/OOB) [ 1579.994 [id number]] Kcal/Kg value to use for calculation 35 Approximate Energy Requirements Using 1383 kcal/Kg Calculation Used for Recommendations Kcal/kg Additional Notes protein: 1-1.5 g/kg @ 40k -60g 1 ml/kcal or per MD Nutrition Intervention Change Diet Order: continue Nutrition Support: n/a Add Supplement/Snack (indicate name/kcal glucerna BID /protein ) Provides kCal: 440 Provides Protein (gm) 20 Goal #1 PO intake of meals to be 50% or greater TID daily for LOS Goal #2 PO intake of supplement to be 50% or greater BID for LOS Goal #3 Weight to maintain within +3% current weight for LOS Follow-Up By: 06/15/[address] entered/updated supplement order f/u: po % meals/supplements
--- NOTE | 2021-06-09 13:08 | Progress Note ---
Assessment and Plan Assessment and Plan - Patient Problems # DKA (diabetic ketoacidosis) Status: Acute Qualifiers: Diabetes mellitus type: type 1 Plan to address problem: DKA protocol: Insulin drip, IV fluid resuscitation therapy, serial BMP, monitor anion gap, monitor fluid balance, urine output every shift, # Metabolic encephalopathy Neuro check, seizure precautions, aspiration precautions # Mild confusion related to above -he is with generalized myalgia and slight right pronator drift -Suggest CPK level WNL, -Pt/ST evaluate -CT brain , and or MRI if possible ? he is with insulin pump -ASA 81 mg daily -LDL profil -CTA brain and neck is pending # Metabolic acidosis Status: Acute Plan to address problem: IV bicarbonate therapy, BMP, repeat BMP in a.m. # Acute kidney injury IV fluid resuscitation therapy, monitor urine output q. shift, monitor fluid balance, BMP, repeat BMP in a.m. to monitor serum creatinine as well as GFR # Systemic inflammatory response syndrome CBC, CMP, urinalysis, IV antibiotic therapy x1, his repeat CBC in a.m. # DVT prophylaxis Status: Acute Plan to address problem: SCD to bilateral lower extremities while in bed # Advance care planning Disease education conducted, care plan discussed, diagnoses discussed, prognosis discussed, patient is full code, +30 minutes. PLAN 1- Nutritional therapy evaluation , due to weight loss and lack of appetite 2- review CTA brain and neck 3- Pt therapy will follow as needed Subjective Date of service: 06/09/21 Principal diagnosis: weakness and confusion Interval history: today he is more alert interactive , still with diffuse mild myalgia and no focal weakness CTA brain and neck are pending Objective - Vital Sign Vital Signs - 12hr 06/09/21 06/09/21 06/09/21 03:32 08:18 08:45 Temperature 98.0 F 98.1 F Pulse Rate 115 H 85 Respiratory 18 18 Rate Blood Pressure 87/49 95/56 O2 Sat by Pulse 98 97 Oximetry - General Apperance Constitutional: comfortable - EENT EENT: PERRL, mucous membranes moist - Respiratory Respiratory: chest non-tender, lungs clear, rhonchi - Cardiovascular Cardiovascular: regular rate, normal S1, normal S2 Extremities: no peripheral edema bilat, no clubbing, cyanosis - Gastrointestinal Gastrointestinal: normoactive bowel sounds - Integumentary Integumentary: normal - Neurologic Cranial nerve examination: PERRL, EOMI, intact Speech examination: intact Detailed motor examination: other (diffuse weakness and muscles wasting , suppressed reflexes , gait not done) - Laboratory Findings CBC and BMP: 06/09/21 05:12 06/09/21 05:12 Abnormal Lab Findings: Abnormal Labs 06/05/21 06/05/21 06/05/21 14:50 14:50 14:50 WBC 12.9 H RBC 3.26 L Hgb 10.1 L Hct 34.5 L MCV 106 H MCHC 29 L RDW 15.8 H Lymph % (Auto) 7.7 L Lymph # (Auto) 1.0 L [place] # (Auto) Seg Neutrophils % 85.9 H Seg Neutrophils # 11.1 H VBG pH 7.103 L* Sodium Potassium 6.4 H* Chloride 90.7 L Carbon Dioxide 8 L* BUN 59 H Creatinine 2.3 H Glucose 953 H* POC Glucose Phosphorus Magnesium Alkaline Phosphatase 721 H Total Creatine Kinase 30 L Total Protein 8.5 H Albumin 3.5 L 06/05/21 06/05/21 06/05/21 16:06 17:58 18:43 WBC RBC Hgb Hct MCV MCHC RDW Lymph % (Auto) Lymph # (Auto) [place] # (Auto) Seg Neutrophils % Seg Neutrophils # VBG pH Sodium Potassium 5.7 H 5.2 H Chloride 96.1 L Carbon Dioxide 5 L* 9 L* BUN 57 H 53 H Creatinine 2.2 H 1.9 H Glucose 892 H* 740 H* POC Glucose > 600 H Phosphorus 6.90 H Magnesium 2.80 H Alkaline Phosphatase Total Creatine Kinase Total Protein Albumin 06/05/21 06/05/21 06/05/21 19:59 21:57 23:54 WBC RBC Hgb Hct MCV MCHC RDW Lymph % (Auto) Lymph # (Auto) [place] # (Auto) Seg Neutrophils % Seg Neutrophils # VBG pH Sodium Potassium Chloride Carbon Dioxide BUN Creatinine Glucose POC Glucose 499 H 417 H 237 H Phosphorus Magnesium Alkaline Phosphatase Total Creatine Kinase Total Protein Albumin 06/06/21 06/06/21 06/06/21 01:38 03:06 05:49 WBC RBC Hgb Hct MCV MCHC RDW Lymph % (Auto) Lymph # (Auto) [place] # (Auto) Seg Neutrophils % Seg Neutrophils # VBG pH Sodium 156 H D Potassium 3.5 L D Chloride 114.0 H Carbon Dioxide BUN 42 H Creatinine 1.4 H Glucose 217 H POC Glucose 210 H 177 H Phosphorus Magnesium Alkaline Phosphatase Total Creatine Kinase Total Protein Albumin 06/06/21 06/06/21 06/06/21 08:05 08:37 09:19 WBC RBC Hgb Hct MCV MCHC RDW Lymph % (Auto) Lymph # (Auto) [place] # (Auto) Seg Neutrophils % Seg Neutrophils # VBG pH Sodium 154 H Potassium 3.3 L Chloride 114.1 H Carbon Dioxide BUN 29 H Creatinine Glucose 194 H POC Glucose 175 H 190 H Phosphorus Magnesium Alkaline Phosphatase Total Creatine Kinase Total Protein Albumin 06/06/21 06/06/21 06/06/21 10:49 12:18 17:28 WBC RBC Hgb Hct MCV MCHC RDW Lymph % (Auto) Lymph # (Auto) [place] # (Auto) Seg Neutrophils % Seg Neutrophils # VBG pH Sodium Potassium Chloride Carbon Dioxide BUN Creatinine Glucose POC Glucose 152 H 189 H 340 H Phosphorus Magnesium Alkaline Phosphatase Total Creatine Kinase Total Protein Albumin 06/06/21 06/07/21 06/07/21 23:52 04:10 04:10 WBC 18.8 H RBC Hgb 11.4 L Hct 34.5 L MCV MCHC RDW Lymph % (Auto) 11.6 L Lymph # (Auto) [place] # (Auto) 0.9 H Seg Neutrophils % 82.6 H Seg Neutrophils # 15.5 H VBG pH Sodium 156 H Potassium Chloride 117.9 H Carbon Dioxide BUN 22 H Creatinine 0.7 L Glucose 137 H POC Glucose 217 H Phosphorus Magnesium Alkaline Phosphatase Total Creatine Kinase Total Protein Albumin 06/07/21 06/07/21 06/07/21 10:07 13:00 17:20 WBC RBC Hgb Hct MCV MCHC RDW Lymph % (Auto) Lymph # (Auto) [place] # (Auto) Seg Neutrophils % Seg Neutrophils # VBG pH Sodium Potassium Chloride Carbon Dioxide BUN Creatinine Glucose POC Glucose 43 L 189 H 117 H Phosphorus Magnesium Alkaline Phosphatase Total Creatine Kinase Total Protein Albumin 06/07/21 06/08/21 06/08/21 21:27 00:57 06:00 WBC RBC Hgb Hct MCV MCHC RDW Lymph % (Auto) Lymph # (Auto) [place] # (Auto) Seg Neutrophils % Seg Neutrophils # VBG pH Sodium Potassium Chloride Carbon Dioxide BUN Creatinine Glucose POC Glucose 300 H 300 H 152 H Phosphorus Magnesium Alkaline Phosphatase Total Creatine Kinase Total Protein Albumin 06/08/21 06/08/21 06/08/21 08:31 08:31 12:34 WBC 18.1 H RBC 3.33 L Hgb 10.0 L Hct 31.1 L MCV MCHC RDW Lymph % (Auto) Lymph # (Auto) [place] # (Auto) Seg Neutrophils % Seg Neutrophils # VBG pH Sodium 146 H D Potassium Chloride 111.3 H Carbon Dioxide BUN 21 H Creatinine Glucose 334 H POC Glucose 369 H Phosphorus Magnesium Alkaline Phosphatase Total Creatine Kinase Total Protein Albumin 06/08/21 06/09/21 06/09/21 17:29 01:46 05:12 WBC 17.8 H RBC 3.22 L Hgb 9.7 L Hct 29.6 L MCV MCHC RDW Lymph % (Auto) Lymph # (Auto) [place] # (Auto) Seg Neutrophils % Seg Neutrophils # VBG pH Sodium Potassium Chloride Carbon Dioxide BUN Creatinine Glucose POC Glucose 280 H 317 H Phosphorus Magnesium Alkaline Phosphatase Total Creatine Kinase Total Protein Albumin 06/09/21 06/09/21 06/09/21 05:12 05:58 08:25 WBC RBC Hgb Hct MCV MCHC RDW Lymph % (Auto) Lymph # (Auto) [place] # (Auto) Seg Neutrophils % Seg Neutrophils # VBG pH Sodium 132 L D Potassium 3.4 L Chloride 97.0 L Carbon Dioxide BUN Creatinine Glucose 246 H POC Glucose 243 H 182 H Phosphorus Magnesium Alkaline Phosphatase Total Creatine Kinase Total Protein Albumin 06/09/21 11:37 WBC RBC Hgb Hct MCV MCHC RDW Lymph % (Auto) Lymph # (Auto) [place] # (Auto) Seg Neutrophils % Seg Neutrophils # VBG pH Sodium Potassium Chloride Carbon Dioxide BUN Creatinine Glucose POC Glucose 113 H Phosphorus Magnesium Alkaline Phosphatase Total Creatine Kinase Total Protein Albumin
--- NOTE | 2021-06-09 15:42 | Cat Scan Report ---
CT BRAIN: 06/09/2021 INDICATION / CLINICAL INFORMATION: cva. COMPARISON: 06/12/2019 FINDINGS: BRAIN/INTRACRANIAL STRUCTURES: Unenhanced CT images of the brain demonstrate no evidence of acute int racranial abnormality. Ventricles and sulci are prominent in size, consistent with diffuse cerebral atrophy, somewhat more t ness is typically seen in a patient of this age. There is no evidence of acute ischemic injury, hemorrhage, or mass. There are no abnormal extra-axial fluid collections. EXTRACRANIAL STRUCTURES: Unremarkable. IMPRESSION: No acute abnormality. No change when compared to the prior exam. All CT scans at this location are performed using dose reduction to ALARA by means of automated expos ure control. Signer Name: Watson Leija MD Signed: 06/09/2021 3:37 PM Workstation Name: [id number]
[2021-06-09] MEDS ORDERED: SODIUM CHLORIDE 0.9% 1000 ML 1,000 ML IV ONE (16:30)
--- NOTE | 2021-06-09 16:30 | Consultation ---
History of Present Illness - Reason for Consult Consult date: 06/09/21 - History of Present Illness 55-year-old man past medical history diabetes, TX, CVA, CKD, asthma, COPD, chronic pancreatitis presented to hospital with mental status and lethargy. He was found to have DKA on presentation with an ALAYNA and SIRS. He was initially admitted to the ICU and then sent to the floors. At present he remains soft- spoken but alert and oriented. Afebrile since admission of 17.8. Cultures no growth so far. Currently on Levaquin. Urinalysis normal. Imaging personally reviewed: Chest x-ray: No acute findings. Review of Systems: Bold if positive, otherwise negative General: fevers, chills, rigors HEENT: visual disturbance, diplopia, eye pain Respiratory: cough, sputum, hemoptysis, shortness of breath Cardiovascular: chest pain, syncope Gastrointestinal: nausea, vomiting, diarrhea, abdominal pain Genitourinary: dysuria, hematuria, flank pain Musculoskeletal: neck pain, back pain, joint pain, edema Neurologic: headaches, seizures Hematologic: easy bruising or bleeding Endocrine: night sweats, acute weight loss Skin: rash, jaundice, redness Psychiatric: suicidal, homicidal ideation Past History Past Medical History: acute TX, COPD, diabetes, GERD, other (See HPI) Past Surgical History: Other (ERCP with sphincterotomy) Social history: , lives with family, alcohol abuse. denies: smoking Family history: diabetes, hypertension Medications and Allergies Allergies Allergy/AdvReac Type Severity Reaction Status Date / Time No Known Drug Allergies Allergy Unknown Verified 05/05/13 02:40 Home Medications Medication Instructions Recorded Confirmed Last Taken Type Simvastatin 20 mg PO HS 10/13/18 06/08/21 Unknown History Escitalopram Oxalate [Lexapro] 20 mg PO QDAY #30 tablet 10/15/18 06/12/19 Unknown Rx Pantoprazole [Protonix TAB] 40 mg PO DAILY #30 tablet 10/15/18 06/08/21 Unknown Rx Albuterol Sulfate 2 puff INHALATION QID PRN 06/08/21 06/08/21 Unknown History Cyclobenzaprine HCl [Flexeril 5 MG 5 mg PO BID 06/08/21 06/08/21 Unknown History TAB] Fluticasone 50 mcg INNOSTRIL BID 06/08/21 06/08/21 Unknown History Gabapentin [Neurontin] 800 mg PO TID 06/08/21 06/08/21 Unknown History HYDROcodone/APAP 5-325 5 - 325 mg PO TID PRN 06/08/21 06/08/21 Unknown History Loperamide [Imodium] 4 mg PO QID 06/08/21 06/08/21 Unknown History Meloxicam [Mobic] 7.5 mg PO QDAY 06/08/21 06/08/21 Unknown History QUEtiapine [SEROquel] 1 tab PO DAILY 06/08/21 06/08/21 Unknown History NovoLOG 100 UNITS/ML VIAL 80 units SQ 06/09/21 Unknown History Active Meds: Active Medications Acetaminophen (Acetaminophen 325 Mg Tab) 650 mg PO Q6H PRN PRN Reason: Pain MILD(1-3)/Fever >100.5/HOLT Albuterol (Albuterol 2.5 Mg/3 Ml Nebu) 2.5 mg IH Q3H PRN PRN Reason: Shortness Of Breath Aspirin (Aspirin 325 Mg Tab) 325 mg PO QDAY [facility] Last Admin: 06/09/21 09:11 Dose: 325 mg Documented by: Dextrose (Dextrose 50% In Water (25gm) 50 Ml Syringe) 50 ml IV Q30MIN PRN; Protocol PRN Reason: Hypoglycemia Last Admin: 06/07/21 10:18 Dose: 50 ml Documented by: Escitalopram Oxalate (Escitalopram 10 Mg Tab) 20 mg PO DAILY [facility] Last Admin: 06/09/21 09:11 Dose: 20 mg Documented by: Folic Acid (Folic Acid 1 Mg Tab) 1 mg PO QDAY [facility] Last Admin: 06/09/21 09:11 Dose: 1 mg Documented by: Hydromorphone HCl (Hydromorphone 1 Mg/1 Ml Inj) 0.5 mg IV Q23H PRN PRN Reason: Pain , Severe (7-10) Levofloxacin/Dextrose (Levaquin 500mg/100ml) 500 mg in 100 mls @ 100 mls/hr IV Q24H [facility]; Protocol Stop: 06/11/21 11:59 Last Admin: 06/09/21 11:42 Dose: 100 mls/hr Documented by: Sodium Chloride (Nacl 0.9% 1000 Ml) 1,000 mls @ 999 mls/hr IV BOLUS ONE Stop: 06/09/21 17:30 Last Admin: 06/09/21 16:23 Dose: 999 mls/hr Documented by: Insulin Glargine (Insulin Glargine 100 Units/Ml) 20 units SUB-Q QHS [facility] Last Admin: 06/08/21 23:30 Dose: 20 units Documented by: Insulin Human Regular (Insulin Regular, Human 100 Units/1 Ml) 0 units SUB-Q Q6HR [facility]; Protocol Last Admin: 06/09/21 11:37 Dose: Not Given Documented by: Lorazepam (Lorazepam 1 Mg Tab) 1 mg PO TID PRN PRN Reason: Anxiety Lorazepam (Lorazepam 2 Mg/Ml Vial) 2 mg IV Q1H PRN PRN Reason: CIWA-Ar 8-15 Oxycodone/Acetaminophen (Oxycodone /Acetaminophen 5-325mg Tab) 1 tab PO Q16H PRN PRN Reason: Pain, Moderate (4-6) Last Admin: 06/09/21 02:36 Dose: 1 tab Documented by: Pantoprazole Sodium (Pantoprazole 40 Mg Tab) 40 mg PO DAILY [facility] Last Admin: 06/09/21 09:11 Dose: 40 mg Documented by: Pravastatin Sodium (Pravastatin 40 Mg Tab) 40 mg PO QHS [facility] Last Admin: 06/08/21 22:08 Dose: 40 mg Documented by: Sodium Chloride (Sodium Chloride 0.9% 10 Ml Flush Syringe) 10 ml IV BID [facility] Last Admin: 06/09/21 09:13 Dose: 10 ml Documented by: Sodium Chloride (Sodium Chloride 0.9% 10 Ml Flush Syringe) 10 ml IV PRN PRN PRN Reason: LINE FLUSH Physical Examination - Physical Exam Narrative exam: Physical Exam: Constitutional: Alert, cooperative. No acute distress Head, Ears, Nose: Normocephalic, atraumatic. External ears, nose normal Eyes: Conjunctivae/corneas clear. No icterus. No ptosis. Neck: Supple, no meningeal signs Oral: dentition fair, no thrush Cardiovascular: S1, S2 normal. Respiratory: Good air entry, clear to auscultation bilaterally GI: Soft, non-tender; bowel sounds normal. No peritoneal signs. Musculoskeletal: No pedal edema, no cyanosis. Skin: No rash or abscess Hem/Lymphatic: No palpable cervical or supraclavicular nodes. No lymphangitis Psych: Mood ok. Affect normal Neurological: Awake, alert, oriented. No gross abnormality - Constitutional Vitals: Vital Signs Temp Pulse Resp BP Pulse Ox 99.1 F 98 H 18 80/47 97 06/09/21 15:37 06/09/21 13:00 06/09/21 15:37 06/09/21 15:37 06/09/21 13:00 Temperature -Last 24 Hours Temperature 99.1 F Temperature 100.1 F Temperature 98.1 F Temperature 98.0 F Temperature 98.4 F Temperature 98.6 F Results - Labs CBC & Chem 7: 06/09/21 05:12 06/09/21 05:12 Labs: Abnormal lab results 06/08/21 06/09/21 06/09/21 Range/Units 17:29 01:46 05:12 WBC 17.8 H (4.5-11.0) K/mm3 RBC 3.22 L (3.65-5.03) M/mm3 Hgb 9.7 L (11.8-15.2) gm/dl Hct 29.6 L (35.5-45.6) % Sodium (137-145) mmol/L Potassium (3.6-5.0) mmol/L Chloride (98-107) mmol/L Glucose (75-100) mg/dL POC Glucose 280 H 317 H (70-105) mg/dL 06/09/21 06/09/21 06/09/21 Range/Units 05:12 05:58 08:25 WBC (4.5-11.0) K/mm3 RBC (3.65-5.03) M/mm3 Hgb (11.8-15.2) gm/dl Hct (35.5-45.6) % Sodium 132 L D (137-145) mmol/L Potassium 3.4 L (3.6-5.0) mmol/L Chloride 97.0 L (98-107) mmol/L Glucose 246 H (75-100) mg/dL POC Glucose 243 H 182 H (70-105) mg/dL 06/09/21 Range/Units 11:37 WBC (4.5-11.0) K/mm3 RBC (3.65-5.03) M/mm3 Hgb (11.8-15.2) gm/dl Hct (35.5-45.6) % Sodium (137-145) mmol/L Potassium (3.6-5.0) mmol/L Chloride (98-107) mmol/L Glucose (75-100) mg/dL POC Glucose 113 H (70-105) mg/dL Assessment and Plan Cultures: Blood culture no growth so far A/P: 55-year-old man past medical history diabetes, TX, CVA, CKD, asthma, COPD, chronic pancreatitis admitted in DKA #Leukocytosis: Likely secondary to DKA and acute infection, however we will continue antibiotics Covid testing pending. #DKA #CKD: Renally adjust antibiotics. Recs: -Continue Levaquin to complete 5 days -Follow-up cultures -Trend white count Thank you for the consult, we will continue to follow. MD Emelia [facility] O: [phone] F: [phone]
[2021-06-09] MEDS ORDERED: SODIUM CHLORIDE 0.9% 1000 ML IV SOLN IV ONE (17:59)
[2021-06-09] MEDS ORDERED: VANCOMYCIN PHARMACY TO DOSE IV SCH (19:00)
[2021-06-09] MEDS: VANCOMYCIN 750 MG in SODIUM CHLORIDE 0.9% 250ML 250 ML IV SCH (20:20)
--- NOTE | 2021-06-09 21:52 | Progress Note ---
Assessment and Plan 5 YO Male with DM, DE, CVA with LHP, GERD, CAD, CKD, Asthma, COPD, ETOH Dependence, Chronic Pancreatitis presents to ED for evaluation. Patient is lethargic with diminished cognition and is unable to provide detailed history at the time my evaluation. Patient history provided by EMS staff, ED staff, as well as patient's family was made available by telephone for interview. As per family the patient "was not acting right". EMS was notified and upon arrival the patient was found to be in distress and subsequent transported to [facility] for f urther care and evaluation of the aforementioned symptoms. The patient was seen and evaluated in the emergency department. All lab and imaging studies reviewed. The patient was found to have diabetic ketoacidosis complicated by metabolic encephalopathy, metabolic acidosis, acute kidney injury, as well as systemic inflammatory response syndrome. The patient was admitted to ICU due to increased risk of worsening symptoms and initiated on DKA protocol. No reports of fever, chills, chest pain, palpitation, productive cough, skin rash, trauma, recent ill contacts, or known exposure to COVID-19. Patient has history of smoking. 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 No Known drug allergies. Patient sleeping . Patient is on room air. Patient is weak. No acute respiratory distress. O2 saturation 97%. Patient afebrile. Has leukocytosis. Blood pressure running low 86/51. Patient is not symptomatic. Recommend to monitor blood pressure closely. Pulse 106. Chest xray done 06/06/21 reported No acute findings. Patient presently on Vancomycin, Protonix, Proventil inhalor. Recommend DVT prophylaxis. - Patient Problems (1) Acute on chronic pancreatitis Current Visit: No Status: Acute Plan to address problem: management as per primary care and GI. (2) Abdominal pain Current Visit: No Status: Acute Qualifiers: Abdominal location: generalized Qualified Code(s): R10.84 - Generalized abdominal pain Plan to address problem: Patient is on pain medication. Management as per primary care. (3) Diabetes mellitus type 2 in nonobese Current Visit: No Status: Acute Plan to address problem: Management as per primary care. (4) Encephalopathy acute Current Visit: No Status: Acute Plan to address problem: Management as per primary care and neurology. (5) HTN (hypertension) Current Visit: No Status: Acute Plan to address problem: Management as per primary care. (6) Non-ST elevation myocardial infarction (NSTEMI) Onset Date: 05/06/13 Current Visit: No Status: Acute Plan to address problem: Management as per cardiology. (7) COPD (chronic obstructive pulmonary disease) Current Visit: No Status: Chronic Qualifiers: COPD type: unspecified COPD Qualified Code(s): J44.9 - Chronic obstructive pulmonary disease, unspecified Plan to address problem: Patient he stopped smoking. Proventil inhalor 2 puffs po qid prn for shortness of breath. Recommend PFTs as out patient. Subjective Date of service: 06/09/21 Principal diagnosis: weakness and confusion Interval history: 55 YO Male with DM, DE, CVA with LHP, GERD, CAD, CKD, Asthma, COPD, ETOH Dependence, Chronic Pancreatitis presents to ED for evaluation. Patient is lethargic with diminished cognition and is unable to provide detailed history at the time my evaluation. Patient history provided by EMS staff, ED staff, as well as patient's family was made available by telephone for interview. As per family the patient "was not acting right". EMS was notified and upon arrival the patient was found to be in distress and subsequent transported to [facility] for further care and evaluation of the aforementioned symptoms. The patient was seen and evaluated in the emergency department. All lab and imaging studies reviewed. The patient was found to have diabetic ketoacidosis complicated by metabolic encephalopathy, metabolic acidosis, acute kidney injury, as well as systemic inflammatory response syndrome. The patient was admitted to ICU due to increased risk of worsening symptoms and initiated on DKA protocol. No reports of fever, chills, chest pain, palpitation, productive cough, skin rash, trauma, recent ill contacts, or known exposure to COVID-19. Patient has history of smoking. 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 No Known drug allergies. Patient sleeping . Patient is on room air. Patient is weak. No acute respiratory distress. O2 saturation 97%. Patient afebrile. Has leukocytosis. Blood pressure running low 86/51. Patient is not symptomatic. Recommend to monitor blood pres sure closely. Pulse 106. Chest xray done 06/06/21 reported No acute findings. Patient presently on Vancomycin, Protonix, Proventil inhalor. Recommend DVT prophylaxis. Objective Vital Signs - 12hr 06/09/21 06/09/21 06/09/21 11:30 13:00 14:45 Temperature 100.1 F H Pulse Rate Pulse Rate [ 98 H From Monitor] Respiratory 16 18 18 Rate Blood Pressure 88/52 82/47 Blood Pressure [Left] O2 Sat by Pulse 97 Oximetry 06/09/21 06/09/21 06/09/21 15:37 17:41 17:45 Temperature 99.1 F 99.1 F Pulse Rate Pulse Rate [ From Monitor] Respiratory 18 Rate Blood Pressure 80/47 Blood Pressure 85/47 70/50 [Left] O2 Sat by Pulse Oximetry 06/09/21 06/09/21 19:45 19:46 Temperature 98.9 F Pulse Rate 95 H 94 H Pulse Rate [ From Monitor] Respiratory 18 Rate Blood Pressure 80/45 Blood Pressure [Left] O2 Sat by Pulse 97 97 Oximetry Constitutional: no acute distress, asleep Eyes: non-icteric Neck: supple, no lymphadenopathy Effort: mildly labored Ascultation: Bilateral: diminished breath sounds Cardiovascular: regular rate and rhythm Gastrointestinal: normoactive bowel sounds, tender Integumentary: normal Extremities: no cyanosis, no edema Neurologic: non-focal exam, pupils equal and round Psychiatric: depressed CBC and BMP: 06/11/21 05:22 06/12/21 08:47 Abnormal lab findings: Abnormal Labs 06/05/21 06/05/21 06/05/21 14:50 14:50 14:50 WBC 12.9 H RBC 3.26 L Hgb 10.1 L Hct 34.5 L MCV 106 H MCHC 29 L RDW 15.8 H Lymph % (Auto) 7.7 L Lymph # (Auto) 1.0 L Young # (Auto) Seg Neutrophils % 85.9 H Seg Neutrophils # 11.1 H VBG pH 7.103 L* Sodium Potassium 6.4 H* Chloride 90.7 L Carbon Dioxide 8 L* BUN 59 H Creatinine 2.3 H Glucose 953 H* POC Glucose Phosphorus Magnesium Alkaline Phosphatase 721 H Total Creatine Kinase 30 L Total Protein 8.5 H Albumin 3.5 L 06/05/21 06/05/21 06/05/21 16:06 17:58 18:43 WBC RBC Hgb Hct MCV MCHC RDW Lymph % (Auto) Lymph # (Auto) Young # (Auto) Seg Neutrophils % Seg Neutrophils # VBG pH Sodium Potassium 5.7 H 5.2 H Chloride 96.1 L Carbon Dioxide 5 L* 9 L* BUN 57 H 53 H Creatinine 2.2 H 1.9 H Glucose 892 H* 740 H* POC Glucose > 600 H Phosphorus 6.90 H Magnesium 2.80 H Alkaline Phosphatase Total Creatine Kinase Total Protein Albumin 06/05/21 06/05/21 06/05/21 19:59 21:57 23:54 WBC RBC Hgb Hct MCV MCHC RDW Lymph % (Auto) Lymph # (Auto) Young # (Auto) Seg Neutrophils % Seg Neutrophils # VBG pH Sodium Potassium Chloride Carbon Dioxide BUN Creatinine Glucose POC Glucose 499 H 417 H 237 H Phosphorus Magnesium Alkaline Phosphatase Total Creatine Kinase Total Protein Albumin 06/06/21 06/06/21 06/06/21 01:38 03:06 05:49 WBC RBC Hgb Hct MCV MCHC RDW Lymph % (Auto) Lymph # (Auto) Young # (Auto) Seg Neutrophils % Seg Neutrophils # VBG pH Sodium 156 H D Potassium 3.5 L D Chloride 114.0 H Carbon Dioxide BUN 42 H Creatinine 1.4 H Glucose 217 H POC Glucose 210 H 177 H Phosphorus Magnesium Alkaline Phosphatase Total Creatine Kinase Total Protein Albumin 06/06/21 06/06/21 06/06/21 08:05 08:37 09:19 WBC RBC Hgb Hct MCV MCHC RDW Lymph % (Auto) Lymph # (Auto) Young # (Auto) Seg Neutrophils % Seg Neutrophils # VBG pH Sodium 154 H Potassium 3.3 L Chloride 114.1 H Carbon Dioxide BUN 29 H Creatinine Glucose 194 H POC Glucose 175 H 190 H Phosphorus Magnesium Alkaline Phosphatase Total Creatine Kinase Total Protein Albumin 06/06/21 06/06/21 06/06/21 10:49 12:18 17:28 WBC RBC Hgb Hct MCV MCHC RDW Lymph % (Auto) Lymph # (Auto) Young # (Auto) Seg Neutrophils % Seg Neutrophils # VBG pH Sodium Potassium Chloride Carbon Dioxide BUN Creatinine Glucose POC Glucose 152 H 189 H 340 H Phosphorus Magnesium Alkaline Phosphatase Total Creatine Kinase Total Protein Albumin 06/06/21 06/07/21 06/07/21 23:52 04:10 04:10 WBC 18.8 H RBC Hgb 11.4 L Hct 34.5 L MCV MCHC RDW Lymph % (Auto) 11.6 L Lymph # (Auto) Young # (Auto) 0.9 H Seg Neutrophils % 82.6 H Seg Neutrophils # 15.5 H VBG pH Sodium 156 H Potassium Chloride 117.9 H Carbon Dioxide BUN 22 H Creatinine 0.7 L Glucose 137 H POC Glucose 217 H Phosphorus Magnesium Alkaline Phosphatase Total Creatine Kinase Total Protein Albumin 06/07/21 06/07/21 06/07/21 10:07 13:00 17:20 WBC RBC Hgb Hct MCV MCHC RDW Lymph % (Auto) Lymph # (Auto) Young # (Auto) Seg Neutrophils % Seg Neutrophils # VBG pH Sodium Potassium Chloride Carbon Dioxide BUN Creatinine Glucose POC Glucose 43 L 189 H 117 H Phosphorus Magnesium Alkaline Phosphatase Total Creatine Kinase Total Protein Albumin 06/07/21 06/08/21 06/08/21 21:27 00:57 06:00 WBC RBC Hgb Hct MCV MCHC RDW Lymph % (Auto) Lymph # (Auto) Young # (Auto) Seg Neutrophils % Seg Neutrophils # VBG pH Sodium Potassium Chloride Carbon Dioxide BUN Creatinine Glucose POC Glucose 300 H 300 H 152 H Phosphorus Magnesium Alkaline Phosphatase Total Creatine Kinase Total Protein Albumin 06/08/21 06/08/21 06/08/21 08:31 08:31 12:34 WBC 18.1 H RBC 3.33 L Hgb 10.0 L Hct 31.1 L MCV MCHC RDW Lymph % (Auto) Lymph # (Auto) Young # (Auto) Seg Neutrophils % Seg Neutrophils # VBG pH Sodium 146 H D Potassium Chloride 111.3 H Carbon Dioxide BUN 21 H Creatinine Glucose 334 H POC Glucose 369 H Phosphorus Magnesium Alkaline Phosphatase Total Creatine Kinase Total Protein Albumin 06/08/21 06/09/21 06/09/21 17:29 01:46 05:12 WBC 17.8 H RBC 3.22 L Hgb 9.7 L Hct 29.6 L MCV MCHC RDW Lymph % (Auto) Lymph # (Auto) Young # (Auto) Seg Neutrophils % Seg Neutrophils # VBG pH Sodium Potassium Chloride Carbon Dioxide BUN Creatinine Glucose POC Glucose 280 H 317 H Phosphorus Magnesium Alkaline Phosphatase Total Creatine Kinase Total Protein Albumin 06/09/21 06/09/21 06/09/21 05:12 05:58 08:25 WBC RBC Hgb Hct MCV MCHC RDW Lymph % (Auto) Lymph # (Auto) Young # (Auto) Seg Neutrophils % Seg Neutrophils # VBG pH Sodium 132 L D Potassium 3.4 L Chloride 97.0 L Carbon Dioxide BUN Creatinine Glucose 246 H POC Glucose 243 H 182 H Phosphorus Magnesium Alkaline Phosphatase Total Creatine Kinase Total Protein Albumin 06/09/21 11:37 WBC RBC Hgb Hct MCV MCHC RDW Lymph % (Auto) Lymph # (Auto) Young # (Auto) Seg Neutrophils % Seg Neutrophils # VBG pH Sodium Potassium Chloride Carbon Dioxide BUN Creatinine Glucose POC Glucose 113 H Phosphorus Magnesium Alkaline Phosphatase Total Creatine Kinase Total Protein Albumin
[2021-06-09] MEDS: INSULIN GLARGINE 100 UNITS/ML SUB-Q SCH (22:15)
[2021-06-09] MEDS: PRAVASTATIN 40 MG TAB PO SCH (22:18)
--- NOTE | 2021-06-09 22:45 | Event Note ---
Date: 06/09/21 Patient has been hypotensive. Ordered several ivf bolus. I called Dr. Anand ID discussed case and he recommends add Vancomycin to Levaquin. If BP remain low may consider transfer to ICU for pressors.
[2021-06-10 05:58] LABS: Hematocrit 27.3 % (35.5-45.6); Hemoglobin 8.9 gm/dl (11.8-15.2); Mean Corpuscular HGB Conc 33 % (32-34); Mean Corpuscular Volume 94 fl (84-94); Platelet Count 192 K/mm3 (140-440); Red Blood Count 2.92 M/mm3 (3.65-5.03)
[2021-06-10 06:22] LABS: Alanine Aminotransferase 35 units/L (7-56); Albumin 1.9 g/dL (3.9-5); BUN/Creatinine Ratio 13; Blood Urea Nitrogen 10 mg/dL (9-20); Calcium 8.1 mg/dL (8.4-10.2); Hemolysis Index 3
[2021-06-10] MEDS: INSULIN REGULAR, HUMAN 100 UNITS/1 ML SUB-Q SCH ×4 (06:23→19:12)
[2021-06-10] MEDS: oxyCODONE /ACETAMINOPHEN 5-325MG TAB PO PRN (07:45)
[2021-06-10] MEDS: ASPIRIN 325 MG TAB PO SCH (10:25)
[2021-06-10] MEDS: PANTOPRAZOLE 40 MG TAB PO SCH (10:25)
[2021-06-10] MEDS: FOLIC ACID 1 MG TAB PO SCH (10:25)
[2021-06-10] MEDS: ESCITALOPRAM 10 MG TAB PO SCH (10:25)
--- NOTE | 2021-06-10 13:12 | Progress Note ---
Assessment and Plan Assessment and Plan - Patient Problems # DKA (diabetic ketoacidosis) Status: Acute Qualifiers: Diabetes mellitus type: type 1 Plan to address problem: DKA protocol: Insulin drip, IV fluid resuscitation therapy, serial BMP, monitor anion gap, monitor fluid balance, urine output every shift, # Metabolic encephalopathy Neuro check, seizure precautions, aspiration precautions # Mild confusion related to above -he is with generalized myalgia and slight right pronator drift -Suggest CPK level WNL, -Pt/ST evaluate -CT brain , and or MRI if possible ? he is with insulin pump -ASA 81 mg daily -LDL profil -CTA brain is unremarkable and neck MRA is pending # Abdominal pain -Chronic pancreatitis # Metabolic acidosis Status: Acute Plan to address problem: IV bicarbonate therapy, BMP, repeat BMP in a.m. # Acute kidney injury IV fluid resuscitation therapy, monitor urine output q. shift, monitor fluid balance, BMP, repeat BMP in a.m. to monitor serum creatinine as well as GFR # Systemic inflammatory response syndrome CBC, CMP, urinalysis, IV antibiotic therapy x1, his repeat CBC in a.m. # DVT prophylaxis Status: Acute Plan to address problem: SCD to bilateral lower extremities while in bed # Advance care planning Disease education conducted, care plan discussed, diagnoses discussed, prognosis discussed, patient is full code, +30 minutes. PLAN 1- Nutritional therapy evaluation , due to weight loss and lack of appetite 2- review CTA brain and neck 3- Pt therapy will follow as needed Subjective Date of service: 06/10/21 Principal diagnosis: weakness and confusion Interval history: today he is more alert interactive , still with diffuse mild myalgia and no focal weakness CTA brain and neck CTA are pending Ct brain is remarkable for small vessels disease Objective - Vital Sign Vital Signs - 12hr 06/10/21 06/10/21 06/10/21 03:56 04:20 08:00 Temperature 99.0 F 99.0 F 98.9 F Pulse Rate 98 H 103 H 99 H Respiratory 18 18 18 Rate Blood Pressure 104/44 Blood Pressure 104/44 101/52 [Left] O2 Sat by Pulse 97 99 Oximetry - General Apperance Constitutional: comfortable - EENT EENT: PERRL, mucous membranes moist - Respiratory Respiratory: chest non-tender, lungs clear, rhonchi - Cardiovascular Cardiovascular: regular rate, normal S1, normal S2 Extremities: no peripheral edema bilat, no clubbing, cyanosis - Gastrointestinal Gastrointestinal: normoactive bowel sounds - Integumentary Integumentary: normal - Neurologic Cranial nerve examination: PERRL, EOMI, intact Speech examination: intact Detailed motor examination: grossly full strength in - Laboratory Findings CBC and BMP: 06/10/21 05:29 06/10/21 05:29 Abnormal Lab Findings: Abnormal Labs 06/05/21 06/05/21 06/05/21 14:50 14:50 14:50 WBC 12.9 H RBC 3.26 L Hgb 10.1 L Hct 34.5 L MCV 106 H MCHC 29 L RDW 15.8 H Lymph % (Auto) 7.7 L Lymph # (Auto) 1.0 L [place] # (Auto) Seg Neutrophils % 85.9 H Seg Neutrophils # 11.1 H VBG pH 7.103 L* Sodium Potassium 6.4 H* Chloride 90.7 L Carbon Dioxide 8 L* BUN 59 H Creatinine 2.3 H Glucose 953 H* POC Glucose Calcium Phosphorus Magnesium AST Alkaline Phosphatase 721 H Total Creatine Kinase 30 L Total Protein 8.5 H Albumin 3.5 L 06/05/21 06/05/21 06/05/21 16:06 17:58 18:43 WBC RBC Hgb Hct MCV MCHC RDW Lymph % (Auto) Lymph # (Auto) [place] # (Auto) Seg Neutrophils % Seg Neutrophils # VBG pH Sodium Potassium 5.7 H 5.2 H Chloride 96.1 L Carbon Dioxide 5 L* 9 L* BUN 57 H 53 H Creatinine 2.2 H 1.9 H Glucose 892 H* 740 H* POC Glucose > 600 H Calcium Phosphorus 6.90 H Magnesium 2.80 H AST Alkaline Phosphatase Total Creatine Kinase Total Protein Albumin 06/05/21 06/05/21 06/05/21 19:59 21:57 23:54 WBC RBC Hgb Hct MCV MCHC RDW Lymph % (Auto) Lymph # (Auto) [place] # (Auto) Seg Neutrophils % Seg Neutrophils # VBG pH Sodium Potassium Chloride Carbon Dioxide BUN Creatinine Glucose POC Glucose 499 H 417 H 237 H Calcium Phosphorus Magnesium AST Alkaline Phosphatase Total Creatine Kinase Total Protein Albumin 06/06/21 06/06/21 06/06/21 01:38 03:06 05:49 WBC RBC Hgb Hct MCV MCHC RDW Lymph % (Auto) Lymph # (Auto) [place] # (Auto) Seg Neutrophils % Seg Neutrophils # VBG pH Sodium 156 H D Potassium 3.5 L D Chloride 114.0 H Carbon Dioxide BUN 42 H Creatinine 1.4 H Glucose 217 H POC Glucose 210 H 177 H Calcium Phosphorus Magnesium AST Alkaline Phosphatase Total Creatine Kinase Total Protein Albumin 06/06/21 06/06/21 06/06/21 08:05 08:37 09:19 WBC RBC Hgb Hct MCV MCHC RDW Lymph % (Auto) Lymph # (Auto) [place] # (Auto) Seg Neutrophils % Seg Neutrophils # VBG pH Sodium 154 H Potassium 3.3 L Chloride 114.1 H Carbon Dioxide BUN 29 H Creatinine Glucose 194 H POC Glucose 175 H 190 H Calcium Phosphorus Magnesium AST Alkaline Phosphatase Total Creatine Kinase Total Protein Albumin 06/06/21 06/06/21 06/06/21 10:49 12:18 17:28 WBC RBC Hgb Hct MCV MCHC RDW Lymph % (Auto) Lymph # (Auto) [place] # (Auto) Seg Neutrophils % Seg Neutrophils # VBG pH Sodium Potassium Chloride Carbon Dioxide BUN Creatinine Glucose POC Glucose 152 H 189 H 340 H Calcium Phosphorus Magnesium AST Alkaline Phosphatase Total Creatine Kinase Total Protein Albumin 06/06/21 06/07/21 06/07/21 23:52 04:10 04:10 WBC 18.8 H RBC Hgb 11.4 L Hct 34.5 L MCV MCHC RDW Lymph % (Auto) 11.6 L Lymph # (Auto) [place] # (Auto) 0.9 H Seg Neutrophils % 82.6 H Seg Neutrophils # 15.5 H VBG pH Sodium 156 H Potassium Chloride 117.9 H Carbon Dioxide BUN 22 H Creatinine 0.7 L Glucose 137 H POC Glucose 217 H Calcium Phosphorus Magnesium AST Alkaline Phosphatase Total Creatine Kinase Total Protein Albumin 06/07/21 06/07/21 06/07/21 10:07 13:00 17:20 WBC RBC Hgb Hct MCV MCHC RDW Lymph % (Auto) Lymph # (Auto) [place] # (Auto) Seg Neutrophils % Seg Neutrophils # VBG pH Sodium Potassium Chloride Carbon Dioxide BUN Creatinine Glucose POC Glucose 43 L 189 H 117 H Calcium Phosphorus Magnesium AST Alkaline Phosphatase Total Creatine Kinase Total Protein Albumin 06/07/21 06/08/21 06/08/21 21:27 00:57 06:00 WBC RBC Hgb Hct MCV MCHC RDW Lymph % (Auto) Lymph # (Auto) [place] # (Auto) Seg Neutrophils % Seg Neutrophils # VBG pH Sodium Potassium Chloride Carbon Dioxide BUN Creatinine Glucose POC Glucose 300 H 300 H 152 H Calcium Phosphorus Magnesium AST Alkaline Phosphatase Total Creatine Kinase Total Protein Albumin 06/08/21 06/08/21 06/08/21 08:31 08:31 12:34 WBC 18.1 H RBC 3.33 L Hgb 10.0 L Hct 31.1 L MCV MCHC RDW Lymph % (Auto) Lymph # (Auto) [place] # (Auto) Seg Neutrophils % Seg Neutrophils # VBG pH Sodium 146 H D Potassium Chloride 111.3 H Carbon Dioxide BUN 21 H Creatinine Glucose 334 H POC Glucose 369 H Calcium Phosphorus Magnesium AST Alkaline Phosphatase Total Creatine Kinase Total Protein Albumin 06/08/21 06/09/21 06/09/21 17:29 01:46 05:12 WBC 17.8 H RBC 3.22 L Hgb 9.7 L Hct 29.6 L MCV MCHC RDW Lymph % (Auto) Lymph # (Auto) [place] # (Auto) Seg Neutrophils % Seg Neutrophils # VBG pH Sodium Potassium Chloride Carbon Dioxide BUN Creatinine Glucose POC Glucose 280 H 317 H Calcium Phosphorus Magnesium AST Alkaline Phosphatase Total Creatine Kinase Total Protein Albumin 06/09/21 06/09/21 06/09/21 05:12 05:58 08:25 WBC RBC Hgb Hct MCV MCHC RDW Lymph % (Auto) Lymph # (Auto) [place] # (Auto) Seg Neutrophils % Seg Neutrophils # VBG pH Sodium 132 L D Potassium 3.4 L Chloride 97.0 L Carbon Dioxide BUN Creatinine Glucose 246 H POC Glucose 243 H 182 H Calcium Phosphorus Magnesium AST Alkaline Phosphatase Total Creatine Kinase Total Protein Albumin 06/09/21 06/10/21 06/10/21 11:37 00:01 05:29 WBC 17.4 H RBC 2.92 L Hgb 8.9 L Hct 27.3 L MCV MCHC RDW Lymph % (Auto) Lymph # (Auto) [place] # (Auto) Seg Neutrophils % Seg Neutrophils # VBG pH Sodium Potassium Chloride Carbon Dioxide BUN Creatinine Glucose POC Glucose 113 H 115 H Calcium Phosphorus Magnesium AST Alkaline Phosphatase Total Creatine Kinase Total Protein Albumin 06/10/21 06/10/21 06/10/21 05:29 05:40 11:28 WBC RBC Hgb Hct MCV MCHC RDW Lymph % (Auto) Lymph # (Auto) [place] # (Auto) Seg Neutrophils % Seg Neutrophils # VBG pH Sodium 135 L Potassium Chloride Carbon Dioxide BUN Creatinine Glucose 133 H POC Glucose 133 H 108 H Calcium 8.1 L Phosphorus Magnesium 1.60 L AST 75 H Alkaline Phosphatase 415 H Total Creatine Kinase Total Protein 5.8 L D Albumin 1.9 L
--- NOTE | 2021-06-10 14:04 | Progress Note ---
Assessment and Plan Cultures: Blood culture no growth so far A/P: 55-year-old man past medical history diabetes, IA, CVA, CKD, asthma, COPD, chronic pancreatitis admitted in DKA #Leukocytosis: Likely secondary to DKA and acute infection, however we will con tinue antibiotics Covid testing pending. #DKA #CKD: Renally adjust antibiotics. Recs: -Continue Levaquin to complete 5 days -Continue vancomycin for same duration. -Follow-up cultures -Trend white count Thank you for the consult, we will continue to follow. Alden Anand MD [facility] ([facility]) O: [phone] F: [phone] Subjective Date of service: 06/10/21 Principal diagnosis: weakness and confusion Interval history: Afebrile, ongoing tachycardia. White count 17.4. Blood cultures remain no growth so far. Objective - Exam Narrative Exam: Physical Exam: Constitutional: Alert, cooperative. No acute distress Head, Ears, Nose: Normocephalic, atraumatic. External ears, nose normal Eyes: Conjunctivae/corneas clear. No icterus. No ptosis. Neck: Supple, no meningeal signs Oral: dentition fair, no thrush Cardiovascular: S1, S2 normal. Respiratory: Good air entry, clear to auscultation bilaterally GI: Soft, non-tender; bowel sounds normal. No peritoneal signs. Musculoskeletal: No pedal edema, no cyanosis. Skin: No rash or abscess Hem/Lymphatic: No palpable cervical or supraclavicular nodes. No lymphangitis Psych: Mood ok. Affect normal Neurological: Awake, alert, oriented. No gross abnormality - Constitutional Vitals: Vital Signs Temp Pulse Resp BP Pulse Ox 97.9 F 101 H 18 90/47 99 06/10/21 12:29 06/10/21 12:29 06/10/21 12:29 06/10/21 12:29 06/10/21 12:29 Temperature -Last 24 Hours Temperature 97.9 F Temperature 98.9 F Temperature 99.0 F Temperature 99.0 F Temperature 99.1 F Temperature 99.1 F Temperature 98.9 F Temperature 99.1 F Temperature 99.1 F - Labs CBC & Chem 7: 06/10/21 05:29 06/10/21 05:29 Labs: Abnormal lab results 06/10/21 06/10/21 06/10/21 Range/Units 00:01 05:29 05:29 WBC 17.4 H (4.5-11.0) K/mm3 RBC 2.92 L (3.65-5.03) M/mm3 Hgb 8.9 L (11.8-15.2) gm/dl Hct 27.3 L (35.5-45.6) % Sodium 135 L (137-145) mmol/L Glucose 133 H (75-100) mg/dL POC Glucose 115 H (70-105) mg/dL Calcium 8.1 L (8.4-10.2) mg/dL Magnesium 1.60 L (1.7-2.3) mg/dL AST 75 H (5-40) units/L Alkaline Phosphatase 415 H (35-129) units/L Total Protein 5.8 L D (6.3-8.2) g/dL Albumin 1.9 L (3.9-5) g/dL 06/10/21 06/10/21 Range/Units 05:40 11:28 WBC (4.5-11.0) K/mm3 RBC (3.65-5.03) M/mm3 Hgb (11.8-15.2) gm/dl Hct (35.5-45.6) % Sodium (137-145) mmol/L Glucose (75-100) mg/dL POC Glucose 133 H 108 H (70-105) mg/dL Calcium (8.4-10.2) mg/dL Magnesium (1.7-2.3) mg/dL AST (5-40) units/L Alkaline Phosphatase (35-129) units/L Total Protein (6.3-8.2) g/dL Albumin (3.9-5) g/dL
--- NOTE | 2021-06-10 14:14 | Cat Scan Report ---
CTA NECK WITH CONTRAST HISTORY: Stroke COMPARISON: None. TECHNIQUE: Routine CTA of the neck was performed. 3-D/MIP reformats were postprocessed. Percentage s tenosis is determined by direct quantitative measurements of diseased internal carotid artery diamete r compared with normal distal internal carotid artery reference segments or by criteria similar to NA SCET where applicable.All CT scans at this location are performed using CT dose reduction for ALARA b y means of automated exposure control CONTRAST: 100 ml of Omnipaque 350 FINDINGS: Aortic arch: No significant abnormality. Cervical vertebral arteries: No significant abnormality. Common carotid arteries: No significant abnormality. Carotid bifurcations: Right carotid bifurcation: Focal calcified atheromatous plaque in the proximal right internal carotid artery with the 3 to 4 mm thick calcification; no stenoses Left carotid bifurcation: 15 mm long calcified atheromatous plaque along the proximal left internal c arotid artery; in the distal left common carotid artery, concentric calcified plaque with thickness o f 3 mm with less than 50%. In the proximal left internal carotid artery, 3 mm thick calcified plaque along the posterior wall; the upper margin of the plaque, focal low-attenuation area Lipid rich area Cervical internal carotid arteries: No significant abnormality. Additional findings: None. IMPRESSION: Calcified atheromatous plaques in both carotid bifurcations; no stenoses on the right side; on the le ft side less than 50% stenoses Signer Name: Tanika Ramírez MD Signed: 06/10/2021 2:10 PM Workstation Name: [id number]
--- NOTE | 2021-06-10 14:16 | Cat Scan Report ---
CTA HEAD WITH CONTRAST HISTORY: Stroke COMPARISON: None. TECHNIQUE: Routine non-contrast CT Head, CTA of the head and post-contrast CT Head are performed. 3-D /MIP reformats postprocessed. All CT scans at this location are performed using CT dose reduction for ALARA by means of automated exposure control CONTRAST: 100 ml of Omnipaque 350 FINDINGS: CTA Head: Intracranial vertebral arteries: No significant abnormality. Basilar artery: No significant abnormality. Posterior cerebral arteries: No significant abnormality. Intracranial internal carotid arteries: No significant abnormality. Anterior cerebral arteries: No significant abnormality. Middle cerebral arteries: No significant abnormality. Dural venous sinuses:Not optimally opacified. No significant abnormality. Additional findings: None. IMPRESSION: 1. No significant abnormality. Signer Name: Tanika Ramírez MD Signed: 06/10/2021 2:12 PM Workstation Name: [id number]
--- NOTE | 2021-06-10 15:02 | Progress Note ---
Assessment and Plan Assessment and plan: DKA resolved. Patient is off insulin drip. Blood glucose is controlled. Continue current dose of insulin 70/30. Patient has diabetes mellitus type 2. Metabolic encephalopathy due to DKA, resolved. He is currently alert and oriented x3. Acute kidney injury. Resolved. SIRS/leukocytosis. UA, blood cultures, chest x-ray negative. Patient is on empiric IV Levaquin and vancomycin. ID has recommended total of 5 days treatment and has signed off. Diabetes mellitus type 2 Hypotension. Monitor blood pressure. He is asymptomatic. History of CVA with left hemiparesis. On aspirin. Asthma. No sign of exacerbation. EtOH dependence CAD COPD. No sign of exacerbation. Patient has history of tobacco abuse and noted that he has stopped smoking. Continue current bronchodilators. Outpatient PFT recommended by rose grading supervisor. History of chronic pancreatitis. Lipase is normal. Bilateral thigh pain. Check Doppler ultrasound bilateral lower extremities rule out DVT. CK is normal. Hyponatremia. Monitor sodium. Severe Malnutrition 06/06/2021. DKA has resolved. Patient will be transition from IV insulin drip to home regimen of Lantus 15 units at bedtime. We will give 70/30 25 units x 1 today. Start diabetic diet. Follow-up chest x-ray for SIRS. Urinalysis is negative. Check CBC. Patient had a baseline creatinine of 1.June. Continue IV fluid hydration and monitor creatinine. The patient will be transferred to [facility]. Continue CIWA protocol 06/07/2021. Patient still appears to be confused. Etiology is multifactorial likely secondary to hypoglycemia and EtOH withdrawal. Patient with hypoglycemia this morning with BG 43. Decrease Lantus to 10 units at bedtime. D50 as needed for hypoglycemia. Creatinine has improved back to baseline of 0.7. Continue CIWA protocol. Patient with no obvious signs of infection. However, leukocytosis worse. Afebrile. Empiric antibiotics with Levaquin 06/08/2021 Patient presented with altered mental status. Likely acute metabolic encephalopathy. Blood glucose still elevated. Increase Lantus to 20 Units QHS. Patient has been on Insulin pump but his glucose was more than 600 at presentation. Consult Neurology. patient also has severe malnutrition. Consult medical instrument cable fabricator. 06/09/2021 Patient presented with altered mental status. Likely acute metabolic encephalopathy. Blood glucose now improved after Increase Lantus to 20 Units QHS. Patient has been on Insulin pump but his glucose was more than 600 at pre sentation. Consulted Neurology. Patient seen by Neurology, Dr. Diaz and he ordered Ct Head, CTA head. Patient also has severe malnutrition. Consulted medical instrument cable fabricator. Today BP is low, so gave bolus iv fluid. Called by Nurse that patient has temp of 100.1. Will consult ID because fever, leukocytosis, altered mental status. 06/10/2021. Complained of bilateral thigh pain. Will check Doppler ultrasound bilateral lower extremity to rule out DVT. Has hyponatremia today. Will monitor sodium. PT evaluation. Possible discharge home tomorrow. History Interval history: Bilateral posterior thigh pain. No fever or chills. No shortness of breath or cough. Hospitalist Physical - Constitutional Vitals: Temp Pulse Resp BP Pulse Ox 97.9 F 101 H 18 90/47 99 06/10/21 12:29 06/10/21 12:29 06/10/21 12:29 06/10/21 12:29 06/10/21 12:29 General appearance: Present: no acute distress - EENT Eyes: Present: PERRL, EOM intact ENT: hearing intact - Neck Neck: Present: supple, normal ROM - Respiratory Respiratory effort: normal Respiratory: bilateral: CTA - Cardiovascular Rhythm: regular Heart Sounds: Present: S1 & S2 - Extremities Extremities: No edema, abnormal (Tenderness posterior thigh bilaterally) - Abdominal General gastrointestinal: soft, non-tender, non-distended, normal bowel sounds - Integumentary Integumentary: Present: clear, warm, dry - Psychiatric Psychiatric: appropriate mood/affect - Neurologic Neurologic: CNII-XII intact, other (Alert and oriented x3) HEART Score - HEART Score Troponin: Troponin T < 0.010 ng/mL (0.00-0.029) 06/05/21 14:50 Results - Labs CBC & Chem 7: 06/10/21 05:29 06/10/21 05:29 Labs: Laboratory Last Values WBC 17.4 K/mm3 (4.5-11.0) H 06/10/21 05:29 RBC 2.92 M/mm3 (3.65-5.03) L 06/10/21 05:29 Hgb 8.9 gm/dl (11.8-15.2) L 06/10/21 05:29 Hct 27.3 % (35.5-45.6) L 06/10/21 05:29 MCV 94 fl (84-94) 06/10/21 05:29 MCH 30 pg (28-32) 06/10/21 05:29 MCHC 33 % (32-34) 06/10/21 05:29 RDW 14.0 % (13.2-15.2) 06/10/21 05:29 Plt Count 192 K/mm3 (140-440) 06/10/21 05:29 Lymph % (Auto) 11.6 % (13.4-35.0) L 06/07/21 04:10 [place] % (Auto) 4.9 % (0.0-7.3) 06/07/21 04:10 Eos % (Auto) 0.3 % (0.0-4.3) 06/07/21 04:10 Baso % (Auto) 0.6 % (0.0-1.8) 06/07/21 04:10 Lymph # (Auto) 2.2 K/mm3 (1.2-5.4) 06/07/21 04:10 [place] # (Auto) 0.9 K/mm3 (0.0-0.8) H 06/07/21 04:10 Eos # (Auto) 0.1 K/mm3 (0.0-0.4) 06/07/21 04:10 Baso # (Auto) 0.1 K/mm3 (0.0-0.1) 06/07/21 04:10 Seg Neutrophils % 82.6 % (40.0-70.0) H 06/07/21 04:10 Seg Neutrophils # 15.5 K/mm3 (1.8-7.7) H 06/07/21 04:10 VBG pH 7.103 (7.320-7.420) L* 06/05/21 14:50 Sodium 135 mmol/L (137-145) L 06/10/21 05:29 Potassium 3.6 mmol/L (3.6-5.0) 06/10/21 05:29 Chloride 103.0 mmol/L (98-107) 06/10/21 05:29 Carbon Dioxide 22 mmol/L (22-30) 06/10/21 05:29 Anion Gap 14 mmol/L 06/10/21 05:29 BUN 10 mg/dL (9-20) 06/10/21 05:29 Creatinine 0.8 mg/dL (0.8-1.3) 06/10/21 05:29 Estimated GFR > 60 ml/min 06/10/21 05:29 BUN/Creatinine Ratio 13 % 06/10/21 05:29 Glucose 133 mg/dL (75-100) H 06/10/21 05:29 POC Glucose 108 mg/dL (70-105) H 06/10/21 11:28 Calcium 8.1 mg/dL (8.4-10.2) L 06/10/21 05:29 Phosphorus 2.50 mg/dL (2.5-4.5) 06/10/21 05:29 Magnesium 1.60 mg/dL (1.7-2.3) L 06/10/21 05:29 Total Bilirubin 0.30 mg/dL (0.1-1.2) 06/10/21 05:29 AST 75 units/L (5-40) H 06/10/21 05:29 ALT 35 units/L (7-56) 06/10/21 05:29 Alkaline Phosphatase 415 units/L (35-129) H 06/10/21 05:29 Total Creatine Kinase 30 units/L (55-170) L 06/05/21 14:50 CK-MB (CK-2) < 1.0 ng/mL (0.0-4.0) 06/05/21 14:50 CK-MB (CK-2) Rel Index 3.3 (0-4) 06/05/21 14:50 Troponin T < 0.010 ng/mL (0.00-0.029) 06/05/21 14:50 Total Protein 5.8 g/dL (6.3-8.2) L D 06/10/21 05:29 Albumin 1.9 g/dL (3.9-5) L 06/10/21 05:29 Albumin/Globulin Ratio 0.5 % 06/10/21 05:29 Lipase 18 units/L (13-60) 06/05/21 14:50 Urine Color Straw (Yellow) 06/05/21 16:35 Urine Turbidity Clear (Clear) 06/05/21 16:35 Urine pH 5.0 (5.0-7.0) 06/05/21 16:35 Ur Specific [place] 1.017 (1.003-1.030) 06/05/21 16:35 Urine Protein <15 mg/dl mg/dL (Negative) 06/05/21 16:35 Urine Glucose (UA) >=500 mg/dL (Negative) 06/05/21 16:35 Urine Ketones 80 mg/dL (Negative) 06/05/21 16:35 Urine Blood Neg (Negative) 06/05/21 16:35 Urine Nitrite Neg (Negative) 06/05/21 16:35 Urine Bilirubin Neg (Negative) 06/05/21 16:35 Urine Urobilinogen < 2.0 mg/dL (<2.0) 06/05/21 16:35 Ur Leukocyte Esterase Neg (Negative) 06/05/21 16:35 Urine WBC (Auto) 4.0 /HPF (0.0-6.0) 06/05/21 16:35 Urine RBC (Auto) 1.0 /HPF (0.0-6.0) 06/05/21 16:35 Urine Mucus Few /HPF 06/05/21 16:35 Microbiology: Microbiology 06/07/21 10:55 Peripheral/Venous Blood Culture - Preliminary NO GROWTH AFTER 72 HOURS 06/07/21 10:55 Peripheral/Venous Blood Culture - Preliminary NO GROWTH AFTER 72 HOURS Villarreal/IV: Voiding Method Indwelling Catheter Active Medications - Current Medications Current Medications: Generic Name Dose Route Start Last Admin Trade Name Freq PRN Reason Stop Dose Admin Acetaminophen 650 mg 06/05/21 15:55 Acetaminophen 325 Mg Tab PO Q6H PRN Pain MILD(1-3)/Fever >100.5/HOLT Albuterol 2.5 mg 06/05/21 15:55 Albuterol 2.5 Mg/3 Ml Nebu IH Q3H PRN Shortness Of Breath Aspirin 325 mg 06/08/21 15:00 06/10/21 10:25 Aspirin 325 Mg Tab PO 325 mg QDAY VIVI Administration Dextrose 50 ml 06/06/21 10:32 06/07/21 10:18 Dextrose 50% In Water (25gm) 50 Ml Syringe IV 50 ml Q30MIN PRN Administration Hypoglycemia Protocol Escitalopram Oxalate 20 mg 06/06/21 10:00 06/10/21 10:25 Escitalopram 10 Mg Tab PO 20 mg DAILY VIVI Administration Folic Acid 1 mg 06/06/21 10:00 06/10/21 10:25 Folic Acid 1 Mg Tab PO 1 mg QDAY VIVI Administration Hydromorphone HCl 0.5 mg 06/05/21 15:55 Hydromorphone 1 Mg/1 Ml Inj IV Q23H PRN Pain , Severe (7-10) Levofloxacin/Dextrose 500 mg in 100 mls @ 100 mls/hr 06/07/21 11:00 06/09/21 11:42 Levaquin 500mg/100ml IV 06/11/21 11:59 100 mls/hr Q24H VIVI Administration Protocol Vancomycin HCl 750 mg/ Sodium 265 mls @ 166.667 mls/hr 06/09/21 19:00 06/09/21 20:20 Chloride IV 166.667 mls/hr Q12H VIVI Administration Sodium Chloride 1,000 mls @ 100 mls/hr 06/09/21 20:45 Nacl 0.9% 1000 Ml IV DIRECT [facility] Insulin Glargine 20 units 06/08/21 14:22 06/09/21 22:15 Insulin Glargine 100 Units/Ml SUB-Q Not Given QHS [facility] Insulin Human Regular 0 units 06/06/21 12:00 06/10/21 12:08 Insulin Regular, Human 100 Units/1 Ml SUB-Q Not Given Q6HR [facility] Protocol Lorazepam 1 mg 06/05/21 16:01 Lorazepam 1 Mg Tab PO TID PRN Anxiety Lorazepam 2 mg 06/05/21 16:30 Lorazepam 2 Mg/Ml Vial IV Q1H PRN CIWA-Ar 8-15 Oxycodone/Acetaminophen 1 tab 06/05/21 15:55 06/10/21 07:45 Oxycodone /Acetaminophen 5-325mg Tab PO 1 tab Q16H PRN Administration Pain, Moderate (4-6) Pantoprazole Sodium 40 mg 06/06/21 10:00 06/10/21 10:25 Pantoprazole 40 Mg Tab PO 40 mg DAILY VIVI Administration Pravastatin Sodium 40 mg 06/05/21 22:00 06/09/21 22:18 Pravastatin 40 Mg Tab PO 40 mg QHS VIVI Administration Sodium Chloride 10 ml 06/05/21 22:00 06/10/21 10:25 Sodium Chloride 0.9% 10 Ml Flush Syringe IV 10 ml BID VIVI Administration Sodium Chloride 10 ml 06/05/21 15:55 Sodium Chloride 0.9% 10 Ml Flush Syringe IV PRN PRN LINE FLUSH Nutrition/Malnutrition Assess - Dietary Evaluation Nutrition/Malnutrition Findings: Nutrition Notes Start: 06/08/21 13:44 Freq: Status: Active Protocol: Document 06/08/21 13:44 GB (Rec: 06/08/21 14:24 GB [id number]) Nutrition Notes Need for Assessment generated from: MD Order,Low BMI Initial or Follow up Assessment Current Diagnosis Acute Kidney Injury,Diabetes Other Pertinent Diagnosis AMS, DKA, metabolic encephalopathy, metabolic acidosis. Hx: [place], CVA, GERD Current Diet cardiac consistent Labs/Tests 06/08: Na 146, BUN 21, glucose 334 (showing improvement) Pertinent Medications D5 @75ml/hr (306 kcal), folic acid, Insulin, NaCl Height 5 ft 9 in Weight 39.5 kg [place] Body Weight (kg) 72.72 BMI 12.8 Weight change and time frame Weight change noted: -10kg, recommend reweigh to confirm significant change Weight Status Underweight Subjective/Other Information per MD notes: DKA resolved, diet advanced Per discussion with nursing staff, pt ate his breakfast, drinks fluids well Percent of energy/protein needs met: unable to assess at this time. PO reported as decreased, appetite changes Burn Absent Trauma Absent GI Symptoms None Food Allergy No Current % PO Poor (25-49%) Minimum of two criteria Yes Energy Intake (severe) < or equal to 50% Estimated Energy Requirement > or equal to 5 days Body Fat Depletion Moderate depletion (severe) Muscle Mass Moderate Depletion (severe) #1 Nutrition Diagnosis Malnutrition Etiology DKA, metabolic encephalopathy, metabolic acidosis, ALAYNA, Altered nutrition related labs As Evidenced by Signs and Symptoms DKA, evident depletion of fat/ muscle mass in upper extremities and torso, Blood glucose severely over acceptable range, BMI < 18.5 ( 17.6), 52% IBW Is patient on ventilator? No Is Patient Ambulatory and/or Out of Bed Yes REE-([place]-ambulatory/OOB) [ 3489.994 [id number]] Kcal/Kg value to use for calculation 35 Approximate Energy Requirements Using 1383 kcal/Kg Calculation Used for Recommendations Kcal/kg Additional Notes protein: 1-1.5 g/kg @ 40k -60g 1 ml/kcal or per MD Nutrition Intervention Change Diet Order: continue Nutrition Support: n/a Add Supplement/Snack (indicate name/kcal glucerna BID /protein ) Provides kCal: 440 Provides Protein (gm) 20 Goal #1 PO intake of meals to be 50% or greater TID daily for LOS Goal #2 PO intake of supplement to be 50% or greater BID for LOS Goal #3 Weight to maintain within +3% current weight for LOS Follow-Up By: 06/15/[address] entered/updated supplement order f/u: po % meals/supplements
[2021-06-10] MEDS: HYDROmorphone 1 MG/1 ML INJ IV PRN (16:03)
--- NOTE | 2021-06-10 16:54 | Vascular Lab Report ---
DUPLEX DOPPLER LOWER EXTREMITY VEINS, BILATERAL INDICATION / CLINICAL INFORMATION: Bilateral lower extremity pain. TECHNIQUE: Duplex doppler imaging was performed through the veins of both lower extremities using franco ous compression and other maneuvers. COMPARISON: None available. FINDINGS: RIGHT COMMON FEMORAL VEIN: Negative. RIGHT FEMORAL VEIN: Negative. RIGHT POPLITEAL VEIN: Negative. RIGHT CALF VEINS: Negative. LEFT COMMON FEMORAL VEIN: Negative. LEFT FEMORAL VEIN: Negative. LEFT POPLITEAL VEIN: Negative. LEFT CALF VEINS: Negative. ADDITIONAL FINDINGS: None. IMPRESSION: 1. No sonographic evidence for DVT in either lower extremity. Scribed by: Risa Patel RDMS, RVT Scribed: 06/10/2021 3:35 PM I have reviewed the images, agree with this report, and edited this report as needed. Signer Name: Shimon Vasquez MD Signed: 06/10/2021 4:50 PM Workstation Name: [id number]
[2021-06-10] MEDS: SODIUM CHLORIDE 0.9% 1000 ML 1,000 ML IV SCH (19:52)
[2021-06-10] MEDS: PRAVASTATIN 40 MG TAB PO SCH (22:48)
[2021-06-10] MEDS: INSULIN GLARGINE 100 UNITS/ML SUB-Q SCH (22:48)
[2021-06-10] MEDS: VANCOMYCIN 750 MG in SODIUM CHLORIDE 0.9% 250ML 250 ML IV SCH ×2 (22:50→22:55)
[2021-06-11] MEDS: INSULIN REGULAR, HUMAN 100 UNITS/1 ML SUB-Q SCH ×3 (00:13→12:10)
[2021-06-11 05:53] LABS: Basophils % (Auto) 0.2 % (0.0-1.8); Eosinophils # (Auto) 0.1 K/mm3 (0.0-0.4); Eosinophils % (Auto) 0.7 % (0.0-4.3); Hematocrit 26.8 % (35.5-45.6); Lymphocytes # (Auto) 1.4 K/mm3 (1.2-5.4); Lymphocytes % (Auto) 9.9 % (13.4-35.0); Mean Corpuscular HGB Conc 34 % (32-34); Mean Corpuscular Volume 92 fl (84-94); Monocytes # (Auto) 1.4 K/mm3 (0.0-0.8); Monocytes % (Auto) 10.1 % (0.0-7.3); Platelet Count 216 K/mm3 (140-440); Red Blood Count 2.92 M/mm3 (3.65-5.03); Red Cell Distribution Width 14.2 % (13.2-15.2)
[2021-06-11] MEDS: DEXTROSE 50% IN WATER (25GM) 50 ML SYRINGE IV PRN (06:01)
[2021-06-11 06:02] LABS: Blood Urea Nitrogen 8 mg/dL (9-20); Calcium 8.2 mg/dL (8.4-10.2); Hemolysis Index 3
[2021-06-11] MEDS: oxyCODONE /ACETAMINOPHEN 5-325MG TAB PO PRN (06:02)
[2021-06-11 06:04] LABS: BUN/Creatinine Ratio 11
--- NOTE | 2021-06-11 09:07 | Progress Note ---
Assessment and Plan Assessment and plan: DKA resolved. Patient is off insulin drip. Diabetes mellitus type 2. Lantus 20 units subcu nightly. He had hypoglycemia early this morning. Monitor blood glucose. Metabolic encephalopathy due to DKA, resolved. He is currently alert and oriented x3. Acute kidney injury. Resolved. SIRS/leukocytosis. UA, blood cultures, chest x-ray negative. Patient is on empiric IV Levaquin and vancomycin. ID has recommended total of 5 days treatment and has signed off. Hypotension. Monitor blood pressure. He is asymptomatic. History of CVA with left hemiparesis. On aspirin. Asthma. No sign of exacerbation. EtOH dependence CAD COPD. No sign of exacerbation. Patient has history of tobacco abuse and noted that he has stopped smoking. Continue current bronchodilators. Outpatient PFT recommended by cell stripper. History of chronic pancreatitis. Lipase is normal. Bilateral thigh pain. Doppler ultrasound is negative for DVT. CK is normal. Hyponatremia. Stable. Monitor sodium. Hypokalemia. Replete potassium. Anemia. Stable. Patient was most likely hemoconcentrated at time of admission. Severe Malnutrition 06/06/2021. DKA has resolved. Patient will be transition from IV insulin drip to home regimen of Lantus 15 units at bedtime. We will give 70/30 25 units x 1 today. Start diabetic diet. Follow-up chest x-ray for SIRS. Urinalysis is negative. Check CBC. Patient had a baseline creatinine of 1.June. Continue IV fluid hydration and monitor creatinine. The patient will be transferred to [facility]. Continue CIWA protocol 06/07/2021. Patient still appears to be confused. Etiology is multifactorial likely secondary to hypoglycemia and EtOH withdrawal. Patient with hypoglycemia this morning with BG 43. Decrease Lantus to 10 units at bedtime. D50 as needed for hypoglycemia. Creatinine has improved back to baseline of 0.7. Continue CIWA protocol. Patient with no obvious signs of infection. However, leukocytosis worse. Afebrile. Empiric antibiotics with Levaquin 06/08/2021 Patient presented with altered mental status. Likely acute metabolic encephalopathy. Blood glucose still elevated. Increase Lantus to 20 Units QHS. Patient has been on Insulin pump but his glucose was more than 600 at presentation. Consult Neurology. patient also has severe malnutrition. Consult emt basic. 06/09/2021 Patient presented with altered mental status. Likely acute metabolic encephalopathy. Blood glucose now improved after Increase Lantus to 20 Units QHS. Patient has been on Insulin pump but his glucose was more than 600 at presentation. Consulted Neurology. Patient seen by Neurology, Dr. Diaz and he ordered Ct Head, CTA head. Patient also has severe malnutrition. Consulted emt basic. Today BP is low, so gave bolus iv fluid. Called by Nurse that patient has temp of 100.1. Will consult ID because fever, leukocytosis, altered mental status. 06/10/2021. Complained of bilateral thigh pain. Will check Doppler ultrasound bilateral lower extremity to rule out DVT. Has hyponatremia today. Will monitor sodium. PT evaluation. Possible discharge home tomorrow. 06/11/2021. Had hypoglycemia early this morning. Monitor blood glucose and consider decreasing Lantus if repeat hypoglycemia. Hyponatremia stable. Has hypokalemia which will be repleted. Still hypotension which is asymptomatic. Possible discharge home tomorrow if no hypoglycemia. History Interval history: Still bilateral posterior thigh pain. No other complaints. Hospitalist Physical - Constitutional Vitals: Temp Pulse Resp BP Pulse Ox 98.3 F 96 H 20 98/50 100 06/11/21 05:07 06/11/21 05:07 06/11/21 05:07 06/11/21 05:07 06/11/21 05:07 General appearance: Present: no acute distress - EENT Eyes: Present: PERRL, EOM intact ENT: hearing intact - Neck Neck: Present: supple, normal ROM - Respiratory Respiratory effort: normal - Cardiovascular Rhythm: regular Heart Sounds: Present: S1 & S2 - Extremities Extremities: No edema - Abdominal General gastrointestinal: soft, non-tender, non-distended, normal bowel sounds - Integumentary Integumentary: Present: warm, dry - Psychiatric Psychiatric: appropriate mood/affect HEART Score - HEART Score Troponin: Troponin T < 0.010 ng/mL (0.00-0.029) 06/05/21 14:50 Results - Labs CBC & Chem 7: 06/11/21 05:22 06/11/21 05:22 Labs: Laboratory Last Values WBC 13.9 K/mm3 (4.5-11.0) H 06/11/21 05:22 RBC 2.92 M/mm3 (3.65-5.03) L 06/11/21 05:22 Hgb 9.0 gm/dl (11.8-15.2) L 06/11/21 05:22 Hct 26.8 % (35.5-45.6) L 06/11/21 05:22 MCV 92 fl (84-94) 06/11/21 05:22 MCH 31 pg (28-32) 06/11/21 05:22 MCHC 34 % (32-34) 06/11/21 05:22 RDW 14.2 % (13.2-15.2) 06/11/21 05:22 Plt Count 216 K/mm3 (140-440) 06/11/21 05:22 Lymph % (Auto) 9.9 % (13.4-35.0) L 06/11/21 05:22 [place] % (Auto) 10.1 % (0.0-7.3) H 06/11/21 05:22 Eos % (Auto) 0.7 % (0.0-4.3) 06/11/21 05:22 Baso % (Auto) 0.2 % (0.0-1.8) 06/11/21 05:22 Lymph # (Auto) 1.4 K/mm3 (1.2-5.4) 06/11/21 05:22 [place] # (Auto) 1.4 K/mm3 (0.0-0.8) H 06/11/21 05:22 Eos # (Auto) 0.1 K/mm3 (0.0-0.4) 06/11/21 05:22 Baso # (Auto) 0.0 K/mm3 (0.0-0.1) 06/11/21 05:22 Seg Neutrophils % 79.1 % (40.0-70.0) H 06/11/21 05:22 Seg Neutrophils # 11.0 K/mm3 (1.8-7.7) H 06/11/21 05:22 VBG pH 7.103 (7.320-7.420) L* 06/05/21 14:50 Sodium 135 mmol/L (137-145) L 06/11/21 05:22 Potassium 3.2 mmol/L (3.6-5.0) L 06/11/21 05:22 Chloride 104.2 mmol/L (98-107) 06/11/21 05:22 Carbon Dioxide 21 mmol/L (22-30) L 06/11/21 05:22 Anion Gap 13 mmol/L 06/11/21 05:22 BUN 8 mg/dL (9-20) L 06/11/21 05:22 Creatinine 0.7 mg/dL (0.8-1.3) L 06/11/21 05:22 Estimated GFR > 60 ml/min 06/11/21 05:22 BUN/Creatinine Ratio 11 % 06/11/21 05:22 Glucose 67 mg/dL (75-100) L 06/11/21 05:22 POC Glucose 56 mg/dL (70-105) L 06/11/21 05:56 Calcium 8.2 mg/dL (8.4-10.2) L 06/11/21 05:22 Phosphorus 2.50 mg/dL (2.5-4.5) 06/10/21 05:29 Magnesium 1.60 mg/dL (1.7-2.3) L 06/10/21 05:29 Total Bilirubin 0.30 mg/dL (0.1-1.2) 06/10/21 05:29 AST 75 units/L (5-40) H 06/10/21 05:29 ALT 35 units/L (7-56) 06/10/21 05:29 Alkaline Phosphatase 415 units/L (35-129) H 06/10/21 05:29 Total Creatine Kinase 30 units/L (55-170) L 06/05/21 14:50 CK-MB (CK-2) < 1.0 ng/mL (0.0-4.0) 06/05/21 14:50 CK-MB (CK-2) Rel Index 3.3 (0-4) 06/05/21 14:50 Troponin T < 0.010 ng/mL (0.00-0.029) 06/05/21 14:50 Total Protein 5.8 g/dL (6.3-8.2) L D 06/10/21 05:29 Albumin 1.9 g/dL (3.9-5) L 06/10/21 05:29 Albumin/Globulin Ratio 0.5 % 06/10/21 05:29 Lipase 18 units/L (13-60) 06/05/21 14:50 Urine Color Straw (Yellow) 06/05/21 16:35 Urine Turbidity Clear (Clear) 06/05/21 16:35 Urine pH 5.0 (5.0-7.0) 06/05/21 16:35 Ur Specific [place] 1.017 (1.003-1.030) 06/05/21 16:35 Urine Protein <15 mg/dl mg/dL (Negative) 06/05/21 16:35 Urine Glucose (UA) >=500 mg/dL (Negative) 06/05/21 16:35 Urine Ketones 80 mg/dL (Negative) 06/05/21 16:35 Urine Blood Neg (Negative) 06/05/21 16:35 Urine Nitrite Neg (Negative) 06/05/21 16:35 Urine Bilirubin Neg (Negative) 06/05/21 16:35 Urine Urobilinogen < 2.0 mg/dL (<2.0) 06/05/21 16:35 Ur Leukocyte Esterase Neg (Negative) 06/05/21 16:35 Urine WBC (Auto) 4.0 /HPF (0.0-6.0) 06/05/21 16:35 Urine RBC (Auto) 1.0 /HPF (0.0-6.0) 06/05/21 16:35 Urine Mucus Few /HPF 06/05/21 16:35 Microbiology: Microbiology 06/07/21 10:55 Peripheral/Venous Blood Culture - Preliminary NO GROWTH AFTER 72 HOURS 06/07/21 10:55 Peripheral/Venous Blood Culture - Preliminary NO GROWTH AFTER 72 HOURS Villarreal/IV: Voiding Method Indwelling Catheter Active Medications - Current Medications Current Medications: Generic Name Dose Route Start Last Admin Trade Name Freq PRN Reason Stop Dose Admin Acetaminophen 650 mg 06/05/21 15:55 Acetaminophen 325 Mg Tab PO Q6H PRN Pain MILD(1-3)/Fever >100.5/HOLT Albuterol 2.5 mg 06/05/21 15:55 Albuterol 2.5 Mg/3 Ml Nebu IH Q3H PRN Shortness Of Breath Aspirin 325 mg 06/08/21 15:00 06/10/21 10:25 Aspirin 325 Mg Tab PO 325 mg QDAY VIVI Administration Dextrose 50 ml 06/06/21 10:32 06/11/21 06:01 Dextrose 50% In Water (25gm) 50 Ml Syringe IV 20 ml Q30MIN PRN Administration Hypoglycemia Protocol Escitalopram Oxalate 20 mg 06/06/21 10:00 06/10/21 10:25 Escitalopram 10 Mg Tab PO 20 mg DAILY VIVI Administration Folic Acid 1 mg 06/06/21 10:00 06/10/21 10:25 Folic Acid 1 Mg Tab PO 1 mg QDAY VIVI Administration Hydromorphone HCl 0.5 mg 06/05/21 15:55 06/10/21 16:03 Hydromorphone 1 Mg/1 Ml Inj IV 0.5 mg Q23H PRN Administration Pain , Severe (7-10) Levofloxacin/Dextrose 500 mg in 100 mls @ 100 mls/hr 06/07/21 11:00 06/10/21 20:14 Levaquin 500mg/100ml IV 06/11/21 11:59 100 mls/hr Q24H VIVI Administration Protocol Vancomycin HCl 750 mg/ Sodium 265 mls @ 166.667 mls/hr 06/09/21 19:00 06/10/21 22:55 Chloride IV 166.667 mls/hr Q12H VIVI Administration Sodium Chloride 1,000 mls @ 100 mls/hr 06/09/21 20:45 06/10/21 19:52 Nacl 0.9% 1000 Ml IV 100 mls/hr DIRECT VIVI Administration Insulin Glargine 20 units 06/08/21 14:22 06/10/21 22:48 Insulin Glargine 100 Units/Ml SUB-Q 20 units QHS VIVI Administration Insulin Human Regular 0 units 06/06/21 12:00 06/11/21 05:58 Insulin Regular, Human 100 Units/1 Ml SUB-Q Not Given Q6HR VIVI Protocol Lorazepam 1 mg 06/05/21 16:01 Lorazepam 1 Mg Tab PO TID PRN Anxiety Lorazepam 2 mg 06/05/21 16:30 Lorazepam 2 Mg/Ml Vial IV Q1H PRN CIWA-Ar 8-15 Oxycodone/Acetaminophen 1 tab 06/05/21 15:55 06/11/21 06:02 Oxycodone /Acetaminophen 5-325mg Tab PO 1 tab Q16H PRN Administration Pain, Moderate (4-6) Pantoprazole Sodium 40 mg 06/06/21 10:00 06/10/21 10:25 Pantoprazole 40 Mg Tab PO 40 mg DAILY VIVI Administration Pravastatin Sodium 40 mg 06/05/21 22:00 06/10/21 22:48 Pravastatin 40 Mg Tab PO 40 mg QHS VIVI Administration Sodium Chloride 10 ml 06/05/21 22:00 06/10/21 22:49 Sodium Chloride 0.9% 10 Ml Flush Syringe IV 10 ml BID VIVI Administration Sodium Chloride 10 ml 06/05/21 15:55 Sodium Chloride 0.9% 10 Ml Flush Syringe IV PRN PRN LINE FLUSH Nutrition/Malnutrition Assess - Dietary Evaluation Nutrition/Malnutrition Findings: Nutrition Notes Start: 06/08/21 13:44 Freq: Status: Active Protocol: Document 06/08/21 13:44 GB (Rec: 06/08/21 14:24 GB [id number]) Nutrition Notes Need for Assessment generated from: MD Order,Low BMI Initial or Follow up Assessment Current Diagnosis Acute Kidney Injury,Diabetes Other Pertinent Diagnosis AMS, DKA, metabolic encephalopathy, metabolic acidosis. Hx: [place], CVA, GERD Current Diet cardiac consistent Labs/Tests 06/08: Na 146, BUN 21, glucose 334 (showing improvement) Pertinent Medications D5 @75ml/hr (306 kcal), folic acid, Insulin, NaCl Height 5 ft 9 in Weight 39.5 kg [place] Body Weight (kg) 72.72 BMI 12.8 Weight change and time frame Weight change noted: -10kg, recommend reweigh to confirm significant change Weight Status Underweight Subjective/Other Information per MD notes: DKA resolved, diet advanced Per discussion with nursing staff, pt ate his breakfast, drinks fluids well Percent of energy/protein needs met: unable to assess at this time. PO reported as decreased, appetite changes Burn Absent Trauma Absent GI Symptoms None Food Allergy No Current % PO Poor (25-49%) Minimum of two criteria Yes Energy Intake (severe) < or equal to 50% Estimated Energy Requirement > or equal to 5 days Body Fat Depletion Moderate depletion (severe) Muscle Mass Moderate Depletion (severe) #1 Nutrition Diagnosis Malnutrition Etiology DKA, metabolic encephalopathy, metabolic acidosis, ALAYNA, Altered nutrition related labs As Evidenced by Signs and Symptoms DKA, evident depletion of fat/ muscle mass in upper extremities and torso, Blood glucose severely over acceptable range, BMI < 18.5 ( 17.6), 52% IBW Is patient on ventilator? No Is Patient Ambulatory and/or Out of Bed Yes REE-(Graves-St. Jeor-ambulatory/OOB) [ 1579.994 [id number]] Kcal/Kg value to use for calculation 35 Approximate Energy Requirements Using 1383 kcal/Kg Calculation Used for Recommendations Kcal/kg Additional Notes protein: 1-1.5 g/kg @ 40k -60g 1 ml/kcal or per MD Nutrition Intervention Change Diet Order: continue Nutrition Support: n/a Add Supplement/Snack (indicate name/kcal glucerna BID /protein ) Provides kCal: 440 Provides Protein (gm) 20 Goal #1 PO intake of meals to be 50% or greater TID daily for LOS Goal #2 PO intake of supplement to be 50% or greater BID for LOS Goal #3 Weight to maintain within +3% current weight for LOS Follow-Up By: 06/15/[address] entered/updated supplement order f/u: po % meals/supplements
[2021-06-11] MEDS ORDERED: POTASSIUM CHLORIDE ER 20 MEQ TAB PO NR (09:30)
[2021-06-11] MEDS: VANCOMYCIN 750 MG in SODIUM CHLORIDE 0.9% 250ML 250 ML IV SCH ×2 (10:31→21:29)
[2021-06-11] MEDS: ESCITALOPRAM 10 MG TAB PO SCH (10:45)
[2021-06-11] MEDS: PANTOPRAZOLE 40 MG TAB PO SCH (11:17)
[2021-06-11] MEDS: SODIUM CHLORIDE 0.9% 1000 ML 1,000 ML IV SCH (11:17)
[2021-06-11] MEDS: ASPIRIN 325 MG TAB PO SCH (11:17)
[2021-06-11] MEDS: FOLIC ACID 1 MG TAB PO SCH (11:17)
[2021-06-11] MEDS: HYDROmorphone 1 MG/1 ML INJ IV PRN ×3 (11:21→21:28)
--- NOTE | 2021-06-11 11:30 | Progress Note ---
Assessment and Plan Cultures: Blood culture no growth so far A/P: 55-year-old man past medical history diabetes, [place], CVA, CKD, asthma, COPD, chronic pancreatitis admitted in DKA #Leukocytosis: Likely secondary to DKA and acute infection, however we will con tinue antibiotics Covid testing pending. #DKA #CKD: Renally adjust antibiotics. Recs: -Continue Levaquin to complete 5 days -Continue vancomycin for same duration. -If discharging send with Levaquin/Bactrim DS q12h to complete the 5 days -Follow-up cultures -Trend white count Thank you for the consult, we will sign off. Please call with questions. Alden Anand MD [facility] O: [phone] F: [phone] Subjective Date of service: 06/11/21 Principal diagnosis: weakness and confusion Interval history: Afebrile, white count improving. Imaging personally viewed: Dopplers: No evidence of DVT. Objective - Exam Narrative Exam: Physical Exam: Constitutional: Alert, cooperative. No acute distress Head, Ears, Nose: Normocephalic, atraumatic. External ears, nose normal Eyes: Conjunctivae/corneas clear. No icterus. No ptosis. Neck: Supple, no meningeal signs Oral: dentition fair, no thrush Cardiovascular: S1, S2 normal. Respiratory: Good air entry, clear to auscultation bilaterally GI: Soft, non-tender; bowel sounds normal. No peritoneal signs. Musculoskeletal: No pedal edema, no cyanosis. Skin: No rash or abscess Hem/Lymphatic: No palpable cervical or supraclavicular nodes. No lymphangitis Psych: Mood ok. Affect normal Neurological: Awake, alert, oriented. No gross abnormality - Constitutional Vitals: Vital Signs Temp Pulse Resp BP Pulse Ox 98.3 F 96 H 20 98/50 99 06/11/21 05:07 06/11/21 05:07 06/11/21 05:07 06/11/21 05:07 06/11/21 10:18 Temperature -Last 24 Hours Temperature 98.3 F Temperature 98.7 F Temperature 98.5 F Temperature 99 F Temperature 97.9 F - Labs CBC & Chem 7: 06/11/21 05:22 06/11/21 05:22 Labs: Abnormal lab results 06/10/21 06/10/21 06/11/21 Range/Units 11:28 16:20 00:08 WBC (4.5-11.0) K/mm3 RBC (3.65-5.03) M/mm3 Hgb (11.8-15.2) gm/dl Hct (35.5-45.6) % Lymph % (Auto) (13.4-35.0) % [place] % (Auto) (0.0-7.3) % [place] # (Auto) (0.0-0.8) K/mm3 Seg Neutrophils % (40.0-70.0) % Seg Neutrophils # (1.8-7.7) K/mm3 Sodium (137-145) mmol/L Potassium (3.6-5.0) mmol/L Carbon Dioxide (22-30) mmol/L BUN (9-20) mg/dL Creatinine (0.8-1.3) mg/dL Glucose (75-100) mg/dL POC Glucose 108 H 276 H 202 H (70-105) mg/dL Calcium (8.4-10.2) mg/dL 06/11/21 06/11/21 06/11/21 Range/Units 05:22 05:22 05:56 WBC 13.9 H (4.5-11.0) K/mm3 RBC 2.92 L (3.65-5.03) M/mm3 Hgb 9.0 L (11.8-15.2) gm/dl Hct 26.8 L (35.5-45.6) % Lymph % (Auto) 9.9 L (13.4-35.0) % [place] % (Auto) 10.1 H (0.0-7.3) % [place] # (Auto) 1.4 H (0.0-0.8) K/mm3 Seg Neutrophils % 79.1 H (40.0-70.0) % Seg Neutrophils # 11.0 H (1.8-7.7) K/mm3 Sodium 135 L (137-145) mmol/L Potassium 3.2 L (3.6-5.0) mmol/L Carbon Dioxide 21 L (22-30) mmol/L BUN 8 L (9-20) mg/dL Creatinine 0.7 L (0.8-1.3) mg/dL Glucose 67 L (75-100) mg/dL POC Glucose 56 L (70-105) mg/dL Calcium 8.2 L (8.4-10.2) mg/dL
[2021-06-11] MEDS: INSULIN GLARGINE 100 UNITS/ML SUB-Q SCH (21:23)
[2021-06-11] MEDS: PRAVASTATIN 40 MG TAB PO SCH (21:29)
[2021-06-12] MEDS: DEXTROSE 50% IN WATER (25GM) 50 ML SYRINGE IV PRN ×3 (00:24→12:40)
[2021-06-12] MEDS: SODIUM CHLORIDE 0.9% 1000 ML 1,000 ML IV SCH (00:25)
[2021-06-12] MEDS: INSULIN REGULAR, HUMAN 100 UNITS/1 ML SUB-Q SCH ×5 (00:41→21:57)
[2021-06-12] MEDS: HYDROmorphone 1 MG/1 ML INJ IV PRN ×2 (03:54→10:08)
[2021-06-12 09:25] LABS: Blood Urea Nitrogen 5 mg/dL (9-20); Hemolysis Index 15
[2021-06-12 09:28] LABS: BUN/Creatinine Ratio 7
--- NOTE | 2021-06-12 09:36 | Progress Note ---
Assessment and Plan Assessment and plan: DKA resolved. Patient is off insulin drip. Diabetes mellitus type 2. Lantus 20 units subcu nightly. He had hypoglycemia early this morning. Monitor blood glucose. Metabolic encephalopathy due to DKA, resolved. He is currently alert and oriented x3. Acute kidney injury. Resolved. SIRS/leukocytosis. UA, blood cultures, chest x-ray negative. Patient is on empiric IV Levaquin and vancomycin. ID has recommended total of 5 days treatment and has signed off. Hypotension. Monitor blood pressure. He is asymptomatic. History of CVA with left hemiparesis. On aspirin. Asthma. No sign of exacerbation. EtOH dependence CAD COPD. No sign of exacerbation. Patient has history of tobacco abuse and noted that he has stopped smoking. Continue current bronchodilators. Outpatient PFT recommended by clinical courier. History of chronic pancreatitis. Lipase is normal. Bilateral thigh pain. Doppler ultrasound is negative for DVT. CK is normal. Hyponatremia. Stable. Monitor sodium. Hypokalemia. Replete potassium. Anemia. Stable. Patient was most likely hemoconcentrated at time of admission. Severe Malnutrition 06/06/2021. DKA has resolved. Patient will be transition from IV insulin drip to home regimen of Lantus 15 units at bedtime. We will give 70/30 25 units x 1 today. Start diabetic diet. Follow-up chest x-ray for SIRS. Urinalysis is negative. Check CBC. Patient had a baseline creatinine of 1.June. Continue IV fluid hydration and monitor creatinine. The patient will be transferred to [facility]. Continue CIWA protocol 06/07/2021. Patient still appears to be confused. Etiology is multifactorial likely secondary to hypoglycemia and EtOH withdrawal. Patient with hypoglycemia this morning with BG 43. Decrease Lantus to 10 units at bedtime. D50 as needed for hypoglycemia. Creatinine has improved back to baseline of 0.7. Continue CIWA protocol. Patient with no obvious signs of infection. However, leukocytosis worse. Afebrile. Empiric antibiotics with Levaquin 06/08/2021 Patient presented with altered mental status. Likely acute metabolic encephalopathy. Blood glucose still elevated. Increase Lantus to 20 Units QHS. Patient has been on Insulin pump but his glucose was more than 600 at presentation. Consult Neurology. patient also has severe malnutrition. Consult fight manager. 06/09/2021 Patient presented with altered mental status. Likely acute metabolic encephalopathy. Blood glucose now improved after Increase Lantus to 20 Units QHS. Patient has been on Insulin pump but his glucose was more than 600 at presentation. Consulted Neurology. Patient seen by Neurology, Dr. Diaz and he ordered Ct Head, CTA head. Patient also has severe malnutrition. Consulted fight manager. Today BP is low, so gave bolus iv fluid. Called by Nurse that patient has temp of 100.1. Will consult ID because fever, leukocytosis, altered mental status. 06/10/2021. Complained of bilateral thigh pain. Will check Doppler ultrasound bilateral lower extremity to rule out DVT. Has hyponatremia today. Will monitor sodium. PT evaluation. Possible discharge home tomorrow. 06/11/2021. Had hypoglycemia early this morning. Monitor blood glucose and consider decreasing Lantus if repeat hypoglycemia. Hyponatremia stable. Has hypokalemia which will be repleted. Still hypotension which is asymptomatic. Possible discharge home tomorrow if no hypoglycemia. 06/12/2021 Patient with DKA, metabolic encephalopathy, hypotension. Bp still low. Start Midodrine. History Interval history: Altered mental status Tiredness Low BP Hospitalist Physical - Physical exam Narrative exam: Gen: Not in acute distress, lying in bed, malnourished HEENT: Normocephalic, atraumatic Lungs: Clear to auscultation Heart: S1 and S2 reg, no murmurs, rubs or gallop Abd:soft, non-tender, non distended, normal bowel sounds, PEG tube, Insulin pump Ext: No edema, clubbing or cyanosis Neuro: Awake, alert. - Constitutional Vitals: Temp Pulse Resp BP Pulse Ox 98.8 F 104 H 18 88/45 97 06/12/21 08:11 06/12/21 08:11 06/12/21 08:11 06/12/21 08:11 06/12/21 08:30 General appearance: Present: no acute distress HEART Score - HEART Score Troponin: Troponin T < 0.010 ng/mL (0.00-0.029) 06/05/21 14:50 Results - Labs CBC & Chem 7: 06/11/21 05:22 06/12/21 08:47 Labs: Laboratory Last Values WBC 13.9 K/mm3 (4.5-11.0) H 06/11/21 05:22 RBC 2.92 M/mm3 (3.65-5.03) L 06/11/21 05:22 Hgb 9.0 gm/dl (11.8-15.2) L 06/11/21 05:22 Hct 26.8 % (35.5-45.6) L 06/11/21 05:22 MCV 92 fl (84-94) 06/11/21 05:22 MCH 31 pg (28-32) 06/11/21 05:22 MCHC 34 % (32-34) 06/11/21 05:22 RDW 14.2 % (13.2-15.2) 06/11/21 05:22 Plt Count 216 K/mm3 (140-440) 06/11/21 05:22 Lymph % (Auto) 9.9 % (13.4-35.0) L 06/11/21 05:22 Sebastian % (Auto) 10.1 % (0.0-7.3) H 06/11/21 05:22 Eos % (Auto) 0.7 % (0.0-4.3) 06/11/21 05:22 Baso % (Auto) 0.2 % (0.0-1.8) 06/11/21 05:22 Lymph # (Auto) 1.4 K/mm3 (1.2-5.4) 06/11/21 05:22 Sebastian # (Auto) 1.4 K/mm3 (0.0-0.8) H 06/11/21 05:22 Eos # (Auto) 0.1 K/mm3 (0.0-0.4) 06/11/21 05:22 Baso # (Auto) 0.0 K/mm3 (0.0-0.1) 06/11/21 05:22 Seg Neutrophils % 79.1 % (40.0-70.0) H 06/11/21 05:22 Seg Neutrophils # 11.0 K/mm3 (1.8-7.7) H 06/11/21 05:22 VBG pH 7.103 (7.320-7.420) L* 06/05/21 14:50 Sodium 134 mmol/L (137-145) L 06/12/21 08:47 Potassium 3.4 mmol/L (3.6-5.0) L 06/12/21 08:47 Chloride 103.3 mmol/L (98-107) 06/12/21 08:47 Carbon Dioxide 19 mmol/L (22-30) L 06/12/21 08:47 Anion Gap 15 mmol/L 06/12/21 08:47 BUN 5 mg/dL (9-20) L 06/12/21 08:47 Creatinine 0.7 mg/dL (0.8-1.3) L 06/12/21 08:47 Estimated GFR > 60 ml/min 06/12/21 08:47 BUN/Creatinine Ratio 7 % 06/12/21 08:47 Glucose 65 mg/dL (75-100) L 06/12/21 08:47 POC Glucose 55 mg/dL (70-105) L 06/12/21 06:18 Calcium 8.0 mg/dL (8.4-10.2) L 06/12/21 08:47 Phosphorus 2.50 mg/dL (2.5-4.5) 06/10/21 05:29 Magnesium 1.60 mg/dL (1.7-2.3) L 06/10/21 05:29 Total Bilirubin 0.30 mg/dL (0.1-1.2) 06/10/21 05:29 AST 75 units/L (5-40) H 06/10/21 05:29 ALT 35 units/L (7-56) 06/10/21 05:29 Alkaline Phosphatase 415 units/L (35-129) H 06/10/21 05:29 Total Creatine Kinase 30 units/L (55-170) L 06/05/21 14:50 CK-MB (CK-2) < 1.0 ng/mL (0.0-4.0) 06/05/21 14:50 CK-MB (CK-2) Rel Index 3.3 (0-4) 06/05/21 14:50 Troponin T < 0.010 ng/mL (0.00-0.029) 06/05/21 14:50 Total Protein 5.8 g/dL (6.3-8.2) L D 06/10/21 05:29 Albumin 1.9 g/dL (3.9-5) L 06/10/21 05:29 Albumin/Globulin Ratio 0.5 % 06/10/21 05:29 Lipase 18 units/L (13-60) 06/05/21 14:50 Urine Color Straw (Yellow) 06/05/21 16:35 Urine Turbidity Clear (Clear) 06/05/21 16:35 Urine pH 5.0 (5.0-7.0) 06/05/21 16:35 Ur Specific [place] 1.017 (1.003-1.030) 06/05/21 16:35 Urine Protein <15 mg/dl mg/dL (Negative) 06/05/21 16:35 Urine Glucose (UA) >=500 mg/dL (Negative) 06/05/21 16:35 Urine Ketones 80 mg/dL (Negative) 06/05/21 16:35 Urine Blood Neg (Negative) 06/05/21 16:35 Urine Nitrite Neg (Negative) 06/05/21 16:35 Urine Bilirubin Neg (Negative) 06/05/21 16:35 Urine Urobilinogen < 2.0 mg/dL (<2.0) 06/05/21 16:35 Ur Leukocyte Esterase Neg (Negative) 06/05/21 16:35 Urine WBC (Auto) 4.0 /HPF (0.0-6.0) 06/05/21 16:35 Urine RBC (Auto) 1.0 /HPF (0.0-6.0) 06/05/21 16:35 Urine Mucus Few /HPF 06/05/21 16:35 Microbiology: Microbiology 06/07/21 10:55 Peripheral/Venous Blood Culture - Preliminary NO GROWTH AFTER 4 DAYS 06/07/21 10:55 Peripheral/Venous Blood Culture - Preliminary NO GROWTH AFTER 4 DAYS Villarreal/IV: Voiding Method Indwelling Catheter Active Medications - Current Medications Current Medications: Generic Name Dose Route Start Last Admin Trade Name Freq PRN Reason Stop Dose Admin Acetaminophen 650 mg 06/05/21 15:55 Acetaminophen 325 Mg Tab PO Q6H PRN Pain MILD(1-3)/Fever >100.5/HOLT Albuterol 2.5 mg 06/05/21 15:55 Albuterol 2.5 Mg/3 Ml Nebu IH Q3H PRN Shortness Of Breath Aspirin 325 mg 06/08/21 15:00 06/11/21 11:17 Aspirin 325 Mg Tab PO 325 mg QDAY VIVI Administration Dextrose 50 ml 06/06/21 10:32 06/12/21 06:25 Dextrose 50% In Water (25gm) 50 Ml Syringe IV 20 ml Q30MIN PRN Administration Hypoglycemia Protocol Escitalopram Oxalate 20 mg 06/06/21 10:00 06/11/21 10:45 Escitalopram 10 Mg Tab PO 20 mg DAILY VIVI Administration Folic Acid 1 mg 06/06/21 10:00 06/11/21 11:17 Folic Acid 1 Mg Tab PO 1 mg QDAY VIVI Administration Hydromorphone HCl 0.5 mg 06/05/21 15:55 06/12/21 03:54 Hydromorphone 1 Mg/1 Ml Inj IV 0.5 mg Q23H PRN Administration Pain , Severe (7-10) Vancomycin HCl 750 mg/ Sodium 265 mls @ 166.667 mls/hr 06/09/21 19:00 06/11/21 21:29 Chloride IV 166.667 mls/hr Q12H VIVI Administration Sodium Chloride 1,000 mls @ 100 mls/hr 06/09/21 20:45 06/12/21 00:25 Nacl 0.9% 1000 Ml IV 100 mls/hr DIRECT VIVI Administration Insulin Glargine 20 units 06/08/21 14:22 06/11/21 21:23 Insulin Glargine 100 Units/Ml SUB-Q Not Given QHS [facility] Insulin Human Regular 0 units 06/06/21 12:00 06/12/21 00:41 Insulin Regular, Human 100 Units/1 Ml SUB-Q Not Given Q6HR [facility] Protocol Lorazepam 1 mg 06/05/21 16:01 Lorazepam 1 Mg Tab PO TID PRN Anxiety Lorazepam 2 mg 06/05/21 16:30 Lorazepam 2 Mg/Ml Vial IV Q1H PRN CIWA-Ar 8-15 Midodrine 5 mg 06/12/21 12:00 Midodrine 2.5 Mg Tab PO TID@0800,1200,1600 [facility] Oxycodone/Acetaminophen 1 tab 06/05/21 15:55 06/11/21 06:02 Oxycodone /Acetaminophen 5-325mg Tab PO 1 tab Q16H PRN Administration Pain, Moderate (4-6) Pantoprazole Sodium 40 mg 06/06/21 10:00 06/11/21 11:17 Pantoprazole 40 Mg Tab PO 40 mg DAILY VIVI Administration Pravastatin Sodium 40 mg 06/05/21 22:00 06/11/21 21:29 Pravastatin 40 Mg Tab PO 40 mg QHS VIVI Administration Sodium Chloride 10 ml 06/05/21 22:00 06/11/21 21:29 Sodium Chloride 0.9% 10 Ml Flush Syringe IV 10 ml BID VIVI Administration Sodium Chloride 10 ml 06/05/21 15:55 Sodium Chloride 0.9% 10 Ml Flush Syringe IV PRN PRN LINE FLUSH Nutrition/Malnutrition Assess - Dietary Evaluation Nutrition/Malnutrition Findings: Nutrition Notes Start: 06/08/21 13:44 Freq: Status: Active Protocol: Document 06/08/21 13:44 GB (Rec: 06/08/21 14:24 GB [id number]) Nutrition Notes Need for Assessment generated from: MD Order,Low BMI Initial or Follow up Assessment Current Diagnosis Acute Kidney Injury,Diabetes Other Pertinent Diagnosis AMS, DKA, metabolic encephalopathy, metabolic acidosis. Hx: DE, CVA, GERD Current Diet cardiac consistent Labs/Tests 06/08: Na 146, BUN 21, glucose 334 (showing improvement) Pertinent Medications D5 @75ml/hr (306 kcal), folic acid, Insulin, NaCl Height 5 ft 9 in Weight 39.5 kg [place] Body Weight (kg) 72.72 BMI 12.8 Weight change and time frame Weight change noted: -10kg, recommend reweigh to confirm significant change Weight Status Underweight Subjective/Other Information per MD notes: DKA resolved, diet advanced Per discussion with nursing staff, pt ate his breakfast, drinks fluids well Percent of energy/protein needs met: unable to assess at this time. PO reported as decreased, appetite changes Burn Absent Trauma Absent GI Symptoms None Food Allergy No Current % PO Poor (25-49%) Minimum of two criteria Yes Energy Intake (severe) < or equal to 50% Estimated Energy Requirement > or equal to 5 days Body Fat Depletion Moderate depletion (severe) Muscle Mass Moderate Depletion (severe) #1 Nutrition Diagnosis Malnutrition Etiology DKA, metabolic encephalopathy, metabolic acidosis, ALAYNA, Altered nutrition related labs As Evidenced by Signs and Symptoms DKA, evident depletion of fat/ muscle mass in upper extremities and torso, Blood glucose severely over acceptable range, BMI < 18.5 ( 17.6), 52% IBW Is patient on ventilator? No Is Patient Ambulatory and/or Out of Bed Yes REE-([place]-St. Jeor-ambulatory/OOB) [ 1579.994 [id number]] Kcal/Kg value to use for calculation 35 Approximate Energy Requirements Using 1383 kcal/Kg Calculation Used for Recommendations Kcal/kg Additional Notes protein: 1-1.5 g/kg @ 40k -60g 1 ml/kcal or per MD Nutrition Intervention Change Diet Order: continue Nutrition Support: n/a Add Supplement/Snack (indicate name/kcal glucerna BID /protein ) Provides kCal: 440 Provides Protein (gm) 20 Goal #1 PO intake of meals to be 50% or greater TID daily for LOS Goal #2 PO intake of supplement to be 50% or greater BID for LOS Goal #3 Weight to maintain within +3% current weight for LOS Follow-Up By: 06/15/[address] entered/updated supplement order f/u: po % meals/supplements
[2021-06-12] MEDS: ESCITALOPRAM 10 MG TAB PO SCH (10:10)
[2021-06-12] MEDS: FOLIC ACID 1 MG TAB PO SCH (10:10)
[2021-06-12] MEDS: ASPIRIN 325 MG TAB PO SCH (10:10)
[2021-06-12] MEDS: PANTOPRAZOLE 40 MG TAB PO SCH (10:10)
[2021-06-12] MEDS: VANCOMYCIN 750 MG in SODIUM CHLORIDE 0.9% 250ML 250 ML IV SCH ×2 (10:10→22:00)
[2021-06-12] MEDS: D5W/0.9% NACL 1,000 ML IV SCH (15:22)
[2021-06-12] MEDS: MIDODRINE 2.5 MG TAB PO SCH ×2 (18:44→20:48)
[2021-06-12] MEDS: oxyCODONE /ACETAMINOPHEN 5-325MG TAB PO PRN (20:14)
[2021-06-12] MEDS: PRAVASTATIN 40 MG TAB PO SCH (21:58)
[2021-06-13] MEDS: INSULIN REGULAR, HUMAN 100 UNITS/1 ML SUB-Q SCH ×4 (01:39→18:38)
[2021-06-13] MEDS: oxyCODONE /ACETAMINOPHEN 5-325MG TAB PO PRN ×3 (04:39→21:28)
--- NOTE | 2021-06-13 09:02 | Progress Note ---
Assessment and Plan Assessment and plan: DKA resolved. Patient is off insulin drip. Diabetes mellitus type 2. Lantus 20 units subcu nightly. He had hypoglycemia early this morning. Monitor blood glucose. Metabolic encephalopathy due to DKA, resolved. He is currently alert and oriented x3. Acute kidney injury. Resolved. SIRS/leukocytosis. UA, blood cultures, chest x-ray negative. Patient is on empiric IV Levaquin and vancomycin. ID has recommended total of 5 days treatment and has signed off. Hypotension. Monitor blood pressure. He is asymptomatic. History of CVA with left hemiparesis. On aspirin. Asthma. No sign of exacerbation. EtOH dependence CAD COPD. No sign of exacerbation. Patient has history of tobacco abuse and noted that he has stopped smoking. Continue current bronchodilators. Outpatient PFT recommended by fighter pilot. History of chronic pancreatitis. Lipase is normal. Bilateral thigh pain. Doppler ultrasound is negative for DVT. CK is normal. Hyponatremia. Stable. Monitor sodium. Hypokalemia. Replete potassium. Anemia. Stable. Patient was most likely hemoconcentrated at time of admission. Severe Malnutrition 06/06/2021. DKA has resolved. Patient will be transition from IV insulin drip to home regimen of Lantus 15 units at bedtime. We will give 70/30 25 units x 1 today. Start diabetic diet. Follow-up chest x-ray for SIRS. Urinalysis is negative. Check CBC. Patient had a baseline creatinine of 1.June. Continue IV fluid hydration and monitor creatinine. The patient will be transferred to [facility]. Continue CIWA protocol 06/07/2021. Patient still appears to be confused. Etiology is multifactorial likely secondary to hypoglycemia and EtOH withdrawal. Patient with hypoglycemia this morning with BG 43. Decrease Lantus to 10 units at bedtime. D50 as needed for hypoglycemia. Creatinine has improved back to baseline of 0.7. Continue CIWA protocol. Patient with no obvious signs of infection. However, leukocytosis worse. Afebrile. Empiric antibiotics with Levaquin 06/08/2021 Patient presented with altered mental status. Likely acute metabolic encephalopathy. Blood glucose still elevated. Increase Lantus to 20 Units QHS. Patient has been on Insulin pump but his glucose was more than 600 at presentation. Consult Neurology. patient also has severe malnutrition. Consult payroll analyst. 06/09/2021 Patient presented with altered mental status. Likely acute metabolic encephalopathy. Blood glucose now improved after Increase Lantus to 20 Units QHS. Patient has been on Insulin pump but his glucose was more than 600 at presentation. Consulted Neurology. Patient seen by Neurology, Dr. Diaz and he ordered Ct Head, CTA head. Patient also has severe malnutrition. Consulted payroll analyst. Today BP is low, so gave bolus iv fluid. Called by Nurse that patient has temp of 100.1. Will consult ID because fever, leukocytosis, altered mental status. 06/10/2021. Complained of bilateral thigh pain. Will check Doppler ultrasound bilateral lower extremity to rule out DVT. Has hyponatremia today. Will monitor sodium. PT evaluation. Possible discharge home tomorrow. 06/11/2021. Had hypoglycemia early this morning. Monitor blood glucose and consider decreasing Lantus if repeat hypoglycemia. Hyponatremia stable. Has hypokalemia which will be repleted. Still hypotension which is asymptomatic. Possible discharge home tomorrow if no hypoglycemia. 06/12/2021 Patient with DKA, metabolic encephalopathy, hypotension. Bp still low. Start Midodrine. 06/13/21 Patient with DKA, acute metabolic encephalopathy with altered mental status. Also has been hypotensive so started on iv fluids, Midodrine. He complains of pain both lower ext. Doppler US of legs negative for DVT. History Interval history: Altered mental status Tiredness Bilateral lower ext pains Hospitalist Physical - Physical exam Narrative exam: Gen: Not in acute distress, lying in bed, malnourished HEENT: Normocephalic, atraumatic Lungs: Clear to auscultation Heart: S1 and S2 reg, no murmurs, rubs or gallop Abd:soft, non-tender, non distended, normal bowel sounds, PEG tube, Insulin pump Ext: No edema, clubbing or cyanosis Neuro: Awake, alert. - Constitutional Vitals: Temp Pulse Resp BP Pulse Ox 98.3 F 91 H 16 92/45 96 06/13/21 08:04 06/13/21 08:04 06/13/21 08:04 06/13/21 08:04 06/13/21 08:04 General appearance: Present: no acute distress HEART Score - HEART Score Troponin: Troponin T < 0.010 ng/mL (0.00-0.029) 06/05/21 14:50 Results - Labs CBC & Chem 7: 06/11/21 05:22 06/12/21 08:47 Labs: Laboratory Last Values WBC 13.9 K/mm3 (4.5-11.0) H 06/11/21 05:22 RBC 2.92 M/mm3 (3.65-5.03) L 06/11/21 05:22 Hgb 9.0 gm/dl (11.8-15.2) L 06/11/21 05:22 Hct 26.8 % (35.5-45.6) L 06/11/21 05:22 MCV 92 fl (84-94) 06/11/21 05:22 MCH 31 pg (28-32) 06/11/21 05:22 MCHC 34 % (32-34) 06/11/21 05:22 RDW 14.2 % (13.2-15.2) 06/11/21 05:22 Plt Count 216 K/mm3 (140-440) 06/11/21 05:22 Lymph % (Auto) 9.9 % (13.4-35.0) L 06/11/21 05:22 [place] % (Auto) 10.1 % (0.0-7.3) H 06/11/21 05:22 Eos % (Auto) 0.7 % (0.0-4.3) 06/11/21 05:22 Baso % (Auto) 0.2 % (0.0-1.8) 06/11/21 05:22 Lymph # (Auto) 1.4 K/mm3 (1.2-5.4) 06/11/21 05:22 [place] # (Auto) 1.4 K/mm3 (0.0-0.8) H 06/11/21 05:22 Eos # (Auto) 0.1 K/mm3 (0.0-0.4) 06/11/21 05:22 Baso # (Auto) 0.0 K/mm3 (0.0-0.1) 06/11/21 05:22 Seg Neutrophils % 79.1 % (40.0-70.0) H 06/11/21 05:22 Seg Neutrophils # 11.0 K/mm3 (1.8-7.7) H 06/11/21 05:22 VBG pH 7.103 (7.320-7.420) L* 06/05/21 14:50 Sodium 134 mmol/L (137-145) L 06/12/21 08:47 Potassium 3.4 mmol/L (3.6-5.0) L 06/12/21 08:47 Chloride 103.3 mmol/L (98-107) 06/12/21 08:47 Carbon Dioxide 19 mmol/L (22-30) L 06/12/21 08:47 Anion Gap 15 mmol/L 06/12/21 08:47 BUN 5 mg/dL (9-20) L 06/12/21 08:47 Creatinine 0.7 mg/dL (0.8-1.3) L 06/12/21 08:47 Estimated GFR > 60 ml/min 06/12/21 08:47 BUN/Creatinine Ratio 7 % 06/12/21 08:47 Glucose 65 mg/dL (75-100) L 06/12/21 08:47 POC Glucose 221 mg/dL (70-105) H 06/13/21 00:01 Hemoglobin A1c 14.6 % (4-6) H 06/12/21 05:22 Calcium 8.0 mg/dL (8.4-10.2) L 06/12/21 08:47 Phosphorus 2.50 mg/dL (2.5-4.5) 06/10/21 05:29 Magnesium 1.60 mg/dL (1.7-2.3) L 06/10/21 05:29 Total Bilirubin 0.30 mg/dL (0.1-1.2) 06/10/21 05:29 AST 75 units/L (5-40) H 06/10/21 05:29 ALT 35 units/L (7-56) 06/10/21 05:29 Alkaline Phosphatase 415 units/L (35-129) H 06/10/21 05:29 Total Creatine Kinase 30 units/L (55-170) L 06/05/21 14:50 CK-MB (CK-2) < 1.0 ng/mL (0.0-4.0) 06/05/21 14:50 CK-MB (CK-2) Rel Index 3.3 (0-4) 06/05/21 14:50 Troponin T < 0.010 ng/mL (0.00-0.029) 06/05/21 14:50 Total Protein 5.8 g/dL (6.3-8.2) L D 06/10/21 05:29 Albumin 1.9 g/dL (3.9-5) L 06/10/21 05:29 Albumin/Globulin Ratio 0.5 % 06/10/21 05:29 Lipase 18 units/L (13-60) 06/05/21 14:50 Urine Color Straw (Yellow) 06/05/21 16:35 Urine Turbidity Clear (Clear) 06/05/21 16:35 Urine pH 5.0 (5.0-7.0) 06/05/21 16:35 Ur Specific [place] 1.017 (1.003-1.030) 06/05/21 16:35 Urine Protein <15 mg/dl mg/dL (Negative) 06/05/21 16:35 Urine Glucose (UA) >=500 mg/dL (Negative) 06/05/21 16:35 Urine Ketones 80 mg/dL (Negative) 06/05/21 16:35 Urine Blood Neg (Negative) 06/05/21 16:35 Urine Nitrite Neg (Negative) 06/05/21 16:35 Urine Bilirubin Neg (Negative) 06/05/21 16:35 Urine Urobilinogen < 2.0 mg/dL (<2.0) 06/05/21 16:35 Ur Leukocyte Esterase Neg (Negative) 06/05/21 16:35 Urine WBC (Auto) 4.0 /HPF (0.0-6.0) 06/05/21 16:35 Urine RBC (Auto) 1.0 /HPF (0.0-6.0) 06/05/21 16:35 Urine Mucus Few /HPF 06/05/21 16:35 Microbiology: Microbiology 06/07/21 10:55 Peripheral/Venous Blood Culture - Final NO GROWTH AFTER 5 DAYS 06/07/21 10:55 Peripheral/Venous Blood Culture - Final NO GROWTH AFTER 5 DAYS Villarreal/IV: Voiding Method Indwelling Catheter Active Medications - Current Medications Current Medications: Generic Name Dose Route Start Last Admin Trade Name Freq PRN Reason Stop Dose Admin Acetaminophen 650 mg 06/05/21 15:55 Acetaminophen 325 Mg Tab PO Q6H PRN Pain MILD(1-3)/Fever >100.5/HOLT Albuterol 2.5 mg 06/05/21 15:55 Albuterol 2.5 Mg/3 Ml Nebu IH Q3H PRN Shortness Of Breath Aspirin 325 mg 06/08/21 15:00 06/12/21 10:10 Aspirin 325 Mg Tab PO 325 mg QDAY VIVI Administration Dextrose 50 ml 06/06/21 10:32 06/12/21 12:40 Dextrose 50% In Water (25gm) 50 Ml Syringe IV 50 ml Q30MIN PRN Administration Hypoglycemia Protocol Escitalopram Oxalate 20 mg 06/06/21 10:00 06/12/21 10:10 Escitalopram 10 Mg Tab PO 20 mg DAILY VIVI Administration Folic Acid 1 mg 06/06/21 10:00 06/12/21 10:10 Folic Acid 1 Mg Tab PO 1 mg QDAY VIVI Administration Hydromorphone HCl 0.5 mg 06/05/21 15:55 06/12/21 10:08 Hydromorphone 1 Mg/1 Ml Inj IV 0.5 mg Q23H PRN Administration Pain , Severe (7-10) Vancomycin HCl 750 mg/ Sodium 265 mls @ 166.667 mls/hr 06/09/21 19:00 06/13/21 01:49 Chloride IV 06/13/21 23:59 Infused Q12H VIVI Infusion Dextrose/Sodium Chloride 1,000 mls @ 100 mls/hr 06/12/21 15:00 06/13/21 01:49 D5ns IV Infused DIRECT VIVI Infusion Insulin Human Regular 0 units 06/06/21 12:00 06/13/21 01:39 Insulin Regular, Human 100 Units/1 Ml SUB-Q 3 units Q6HR VIVI Administration Protocol Lorazepam 1 mg 06/05/21 16:01 Lorazepam 1 Mg Tab PO TID PRN Anxiety Lorazepam 2 mg 06/05/21 16:30 Lorazepam 2 Mg/Ml Vial IV Q1H PRN CIWA-Ar 8-15 Midodrine 5 mg 06/12/21 12:00 06/12/21 20:48 Midodrine 2.5 Mg Tab PO Not Given TID@0800,1200,1600 VIVI Oxycodone/Acetaminophen 1 tab 06/05/21 15:55 06/13/21 04:39 Oxycodone /Acetaminophen 5-325mg Tab PO 1 tab Q16H PRN Administration Pain, Moderate (4-6) Pantoprazole Sodium 40 mg 06/06/21 10:00 06/12/21 10:10 Pantoprazole 40 Mg Tab PO 40 mg DAILY VIVI Administration Pravastatin Sodium 40 mg 06/05/21 22:00 06/12/21 21:58 Pravastatin 40 Mg Tab PO 40 mg QHS VIVI Administration Sodium Chloride 10 ml 06/05/21 22:00 06/12/21 22:00 Sodium Chloride 0.9% 10 Ml Flush Syringe IV 10 ml BID VIVI Administration Sodium Chloride 10 ml 06/05/21 15:55 Sodium Chloride 0.9% 10 Ml Flush Syringe IV PRN PRN LINE FLUSH Nutrition/Malnutrition Assess - Dietary Evaluation Nutrition/Malnutrition Findings: Nutrition Notes Start: 06/08/21 13:44 Freq: Status: Active Protocol: Document 06/08/21 13:44 GB (Rec: 06/08/21 14:24 GB [id number]) Nutrition Notes Need for Assessment generated from: MD Order,Low BMI Initial or Follow up Assessment Current Diagnosis Acute Kidney Injury,Diabetes Other Pertinent Diagnosis AMS, DKA, metabolic encephalopathy, metabolic acidosis. Hx: ND, CVA, GERD Current Diet cardiac consistent Labs/Tests 06/08: Na 146, BUN 21, glucose 334 (showing improvement) Pertinent Medications D5 @75ml/hr (306 kcal), folic acid, Insulin, NaCl Height 5 ft 9 in Weight 39.5 kg Men[place] Body Weight (kg) 72.72 BMI 12.8 Weight change and time frame Weight change noted: -10kg, recommend reweigh to confirm significant change Weight Status Underweight Subjective/Other Information per MD notes: DKA resolved, diet advanced Per discussion with nursing staff, pt ate his breakfast, drinks fluids well Percent of energy/protein needs met: unable to assess at this time. PO reported as decreased, appetite changes Burn Absent Trauma Absent GI Symptoms None Food Allergy No Current % PO Poor (25-49%) Minimum of two criteria Yes Energy Intake (severe) < or equal to 50% Estimated Energy Requirement > or equal to 5 days Body Fat Depletion Moderate depletion (severe) Muscle Mass Moderate Depletion (severe) #1 Nutrition Diagnosis Malnutrition Etiology DKA, metabolic encephalopathy, metabolic acidosis, ALAYNA, Altered nutrition related labs As Evidenced by Signs and Symptoms DKA, evident depletion of fat/ muscle mass in upper extremities and torso, Blood glucose severely over acceptable range, BMI < 18.5 ( 17.6), 52% IBW Is patient on ventilator? No Is Patient Ambulatory and/or Out of Bed Yes REE-([place]-St. Jeor-ambulatory/OOB) [ 3869.994 [id number]] Kcal/Kg value to use for calculation 35 Approximate Energy Requirements Using 1383 kcal/Kg Calculation Used for Recommendations Kcal/kg Additional Notes protein: 1-1.5 g/kg @ 40k -60g 1 ml/kcal or per MD Nutrition Intervention Change Diet Order: continue Nutrition Support: n/a Add Supplement/Snack (indicate name/kcal glucerna BID /protein ) Provides kCal: 440 Provides Protein (gm) 20 Goal #1 PO intake of meals to be 50% or greater TID daily for LOS Goal #2 PO intake of supplement to be 50% or greater BID for LOS Goal #3 Weight to maintain within +3% current weight for LOS Follow-Up By: 06/15/[address] entered/updated supplement order f/u: po % meals/supplements
[2021-06-13] MEDS: FOLIC ACID 1 MG TAB PO SCH (11:09)
[2021-06-13] MEDS: ESCITALOPRAM 10 MG TAB PO SCH (11:09)
[2021-06-13] MEDS: MIDODRINE 2.5 MG TAB PO SCH ×2 (11:09→18:38)
[2021-06-13] MEDS: PANTOPRAZOLE 40 MG TAB PO SCH (11:09)
[2021-06-13] MEDS: ASPIRIN 325 MG TAB PO SCH (11:09)
[2021-06-13] MEDS: VANCOMYCIN 750 MG in SODIUM CHLORIDE 0.9% 250ML 250 ML IV SCH ×2 (11:22→21:35)
[2021-06-13] MEDS: D5W/0.9% NACL 1,000 ML IV SCH (18:42)
[2021-06-13] MEDS: PRAVASTATIN 40 MG TAB PO SCH (21:27)
[2021-06-14 10:13] LABS: BUN/Creatinine Ratio 10; Blood Urea Nitrogen 8 mg/dL (9-20); Calcium 8.2 mg/dL (8.4-10.2); Hemolysis Index 14
[2021-06-14 11:12] LABS: Hematocrit 26.8 % (35.5-45.6); Hemoglobin 8.6 gm/dl (11.8-15.2); Mean Corpuscular HGB Conc 32 % (32-34); Mean Corpuscular Volume 95 fl (84-94); Platelet Count 310 K/mm3 (140-440); Red Blood Count 2.82 M/mm3 (3.65-5.03); Red Cell Distribution Width 14.4 % (13.2-15.2)
[2021-06-14] MEDS: MIDODRINE 2.5 MG TAB PO SCH ×5 (11:56→23:08)
[2021-06-14] MEDS: FOLIC ACID 1 MG TAB PO SCH (11:57)
[2021-06-14] MEDS: ASPIRIN 325 MG TAB PO SCH (11:57)
[2021-06-14] MEDS: ESCITALOPRAM 10 MG TAB PO SCH (11:57)
[2021-06-14] MEDS: PANTOPRAZOLE 40 MG TAB PO SCH (11:57)
[2021-06-14] MEDS: INSULIN REGULAR, HUMAN 100 UNITS/1 ML SUB-Q SCH ×4 (11:58→21:22)
[2021-06-14] MEDS: POTASSIUM CHLORIDE 20 MEQ PACKET PO SCH ×2 (12:07→19:00)
[2021-06-14] MEDS: HEPARIN 5,000 UNIT/1 ML VIAL SUB-Q SCH (21:19)
[2021-06-14] MEDS: PRAVASTATIN 40 MG TAB PO SCH (21:19)
[2021-06-14] MEDS: D5W/0.9% NACL 1,000 ML IV SCH (21:19)
[2021-06-15] MEDS: INSULIN REGULAR, HUMAN 100 UNITS/1 ML SUB-Q SCH ×4 (00:10→18:01)
[2021-06-15] MEDS: ACETAMINOPHEN 325 MG TAB PO PRN ×2 (03:09→21:49)
[2021-06-15] MEDS: HEPARIN 5,000 UNIT/1 ML VIAL SUB-Q SCH ×3 (07:27→21:46)
[2021-06-15] MEDS: MIDODRINE 2.5 MG TAB PO SCH ×3 (10:24→18:01)
[2021-06-15] MEDS: PANTOPRAZOLE 40 MG TAB PO SCH (10:24)
[2021-06-15] MEDS: ESCITALOPRAM 10 MG TAB PO SCH (10:24)
[2021-06-15] MEDS: ASPIRIN 325 MG TAB PO SCH (10:24)
[2021-06-15] MEDS: FOLIC ACID 1 MG TAB PO SCH (10:24)
--- NOTE | 2021-06-15 10:47 | Progress Note ---
Assessment and Plan Assessment and plan: DKA Metabolic encephalopathy Acute kidney injury SIRS/leukocytosis Diabetes mellitus type 2 History of CVA with left hemiparesis Acute kidney injury with etiology secondary to vasomotor nephropathy. Asthma. EtOH dependence CAD History of chronic pancreatitis. Bilateral thigh pain. Doppler ultrasound is negative for DVT. CK is normal. Hyponatremia. Stable. Monitor sodium. Hypokalemia. Replete potassium. Anemia. Stable. Patient was most likely hemoconcentrated at time of admission. Severe Malnutrition 06/06/2021. DKA has resolved. Patient will be transition from IV insulin drip to home regimen of Lantus 15 units at bedtime. We will give 70/30 25 units x 1 today. Start diabetic diet. Follow-up chest x-ray for SIRS. Urinalysis is negative. Check CBC. Patient had a baseline creatinine of 1.June. Continue IV fluid hydration and monitor creatinine. The patient will be transferred to [facility]. Continue CIWA protocol 06/07/2021. Patient still appears to be confused. Etiology is multifactorial likely secondary to hypoglycemia and EtOH withdrawal. Patient with hypoglycemia this morning with BG 43. Decrease Lantus to 10 units at bedtime. D50 as needed for hypoglycemia. Creatinine has improved back to baseline of 0.7. Continue CIWA protocol. Patient with no obvious signs of infection. However, leukocytosis worse. Afebrile. Empiric antibiotics with Levaquin 06/08/2021 Patient presented with altered mental status. Likely acute metabolic encephalopathy. Blood glucose still elevated. Increase Lantus to 20 Units QHS. Patient has been on Insulin pump but his glucose was more than 600 at presentation. Consult Neurology. patient also has severe malnutrition. Consult on call. 06/09/2021 Patient presented with altered mental status. Likely acute metabolic encephalopathy. Blood glucose now improved after Increase Lantus to 20 Units QHS. Patient has been on Insulin pump but his glucose was more than 600 at presentation. Consulted Neurology. Patient seen by Neurology, Dr. Diaz and he ordered Ct Head, CTA head. Patient also has severe malnutrition. Consulted on call. Today BP is low, so gave bolus iv fluid. Called by Nurse that patient has temp of 100.1. Will consult ID because fever, leukocytosis, altered mental status. 06/10/2021. Complained of bilateral thigh pain. Will check Doppler ultrasound bilateral lower extremity to rule out DVT. Has hyponatremia today. Will monitor sodium. PT evaluation. Possible discharge home tomorrow. 06/11/2021. Had hypoglycemia early this morning. Monitor blood glucose and consider decreasing Lantus if repeat hypoglycemia. Hyponatremia stable. Has hypokalemia which will be repleted. Still hypotension which is asymptomatic. Possible discharge home tomorrow if no hypoglycemia. 06/12/2021 Patient with DKA, metabolic encephalopathy, hypotension. Bp still low. Start Midodrine. 06/13/21 Patient with DKA, acute metabolic encephalopathy with altered mental status. Also has been hypotensive so started on iv fluids, Midodrine. He complains of pain both lower ext. Doppler US of legs negative for DVT. 06/15/2021. Patient continues to have hypotension but likely at his baseline. Blood culture negative x5 days. Patient is asymptomatic. Continue midodrine. Physical therapy recommends home health PT. leukocytosis likely secondary to DKA and acute infection. ID recommends Levaquin/Bactrim x5 days. Follow-up WBC in a.m. History Interval history: No new issues overnight Hospitalist Physical - Constitutional Vitals: Temp Pulse Resp BP Pulse Ox 97.7 F 87 18 95/41 98 06/15/21 03:36 06/15/21 03:36 06/15/21 03:36 06/15/21 03:36 06/15/21 03:36 General appearance: Present: no acute distress - EENT Eyes: Present: PERRL, EOM intact ENT: hearing intact, clear oral mucosa, dentition normal - Neck Neck: Present: supple, normal ROM - Respiratory Respiratory effort: normal Respiratory: bilateral: CTA - Cardiovascular Rhythm: regular Heart Sounds: Present: S1 & S2. Absent: gallop, rub - Extremities Extremities: no ischemia, No edema, Full ROM - Abdominal General gastrointestinal: soft, non-tender, non-distended, normal bowel sounds - Integumentary Integumentary: Present: clear, warm, dry - Neurologic Neurologic: CNII-XII intact, moves all extremities HEART Score - HEART Score Troponin: Troponin T < 0.010 ng/mL (0.00-0.029) 06/05/21 14:50 Results - Labs CBC & Chem 7: 06/14/21 08:48 06/14/21 08:48 Labs: Laboratory Last Values WBC 14.6 K/mm3 (4.5-11.0) H 06/14/21 08:48 RBC 2.82 M/mm3 (3.65-5.03) L 06/14/21 08:48 Hgb 8.6 gm/dl (11.8-15.2) L 06/14/21 08:48 Hct 26.8 % (35.5-45.6) L 06/14/21 08:48 MCV 95 fl (84-94) H 06/14/21 08:48 MCH 30 pg (28-32) 06/14/21 08:48 MCHC 32 % (32-34) 06/14/21 08:48 RDW 14.4 % (13.2-15.2) 06/14/21 08:48 Plt Count 310 K/mm3 (140-440) 06/14/21 08:48 Lymph % (Auto) 9.9 % (13.4-35.0) L 06/11/21 05:22 [place] % (Auto) 10.1 % (0.0-7.3) H 06/11/21 05:22 Eos % (Auto) 0.7 % (0.0-4.3) 06/11/21 05:22 Baso % (Auto) 0.2 % (0.0-1.8) 06/11/21 05:22 Lymph # (Auto) 1.4 K/mm3 (1.2-5.4) 06/11/21 05:22 [place] # (Auto) 1.4 K/mm3 (0.0-0.8) H 06/11/21 05:22 Eos # (Auto) 0.1 K/mm3 (0.0-0.4) 06/11/21 05:22 Baso # (Auto) 0.0 K/mm3 (0.0-0.1) 06/11/21 05:22 Seg Neutrophils % 79.1 % (40.0-70.0) H 06/11/21 05:22 Seg Neutrophils # 11.0 K/mm3 (1.8-7.7) H 06/11/21 05:22 VBG pH 7.103 (7.320-7.420) L* 06/05/21 14:50 Sodium 136 mmol/L (137-145) L 06/14/21 08:48 Potassium 3.3 mmol/L (3.6-5.0) L 06/14/21 08:48 Chloride 105.0 mmol/L (98-107) 06/14/21 08:48 Carbon Dioxide 18 mmol/L (22-30) L 06/14/21 08:48 Anion Gap 16 mmol/L 06/14/21 08:48 BUN 8 mg/dL (9-20) L 06/14/21 08:48 Creatinine 0.8 mg/dL (0.8-1.3) 06/14/21 08:48 Estimated GFR > 60 ml/min 06/14/21 08:48 BUN/Creatinine Ratio 10 % 06/14/21 08:48 Glucose 178 mg/dL (75-100) H 06/14/21 08:48 POC Glucose 280 mg/dL (70-105) H 06/15/21 00:01 Hemoglobin A1c 14.6 % (4-6) H 06/12/21 05:22 Calcium 8.2 mg/dL (8.4-10.2) L 06/14/21 08:48 Phosphorus 2.50 mg/dL (2.5-4.5) 06/10/21 05:29 Magnesium 1.60 mg/dL (1.7-2.3) L 06/10/21 05:29 Total Bilirubin 0.30 mg/dL (0.1-1.2) 06/10/21 05:29 AST 75 units/L (5-40) H 06/10/21 05:29 ALT 35 units/L (7-56) 06/10/21 05:29 Alkaline Phosphatase 415 units/L (35-129) H 06/10/21 05:29 Total Creatine Kinase 30 units/L (55-170) L 06/05/21 14:50 CK-MB (CK-2) < 1.0 ng/mL (0.0-4.0) 06/05/21 14:50 CK-MB (CK-2) Rel Index 3.3 (0-4) 06/05/21 14:50 Troponin T < 0.010 ng/mL (0.00-0.029) 06/05/21 14:50 Total Protein 5.8 g/dL (6.3-8.2) L D 06/10/21 05:29 Albumin 1.9 g/dL (3.9-5) L 06/10/21 05:29 Albumin/Globulin Ratio 0.5 % 06/10/21 05:29 Lipase 18 units/L (13-60) 06/05/21 14:50 Urine Color Straw (Yellow) 06/05/21 16:35 Urine Turbidity Clear (Clear) 06/05/21 16:35 Urine pH 5.0 (5.0-7.0) 06/05/21 16:35 Ur Specific [place] 1.017 (1.003-1.030) 06/05/21 16:35 Urine Protein <15 mg/dl mg/dL (Negative) 06/05/21 16:35 Urine Glucose (UA) >=500 mg/dL (Negative) 06/05/21 16:35 Urine Ketones 80 mg/dL (Negative) 06/05/21 16:35 Urine Blood Neg (Negative) 06/05/21 16:35 Urine Nitrite Neg (Negative) 06/05/21 16:35 Urine Bilirubin Neg (Negative) 06/05/21 16:35 Urine Urobilinogen < 2.0 mg/dL (<2.0) 06/05/21 16:35 Ur Leukocyte Esterase Neg (Negative) 06/05/21 16:35 Urine WBC (Auto) 4.0 /HPF (0.0-6.0) 06/05/21 16:35 Urine RBC (Auto) 1.0 /HPF (0.0-6.0) 06/05/21 16:35 Urine Mucus Few /HPF 06/05/21 16:35 [place]/IV: Voiding Method Indwelling Catheter Active Medications - Current Medications Current Medications: Generic Name Dose Route Start Last Admin Trade Name Freq PRN Reason Stop Dose Admin Acetaminophen 650 mg 06/05/21 15:55 06/15/21 03:09 Acetaminophen 325 Mg Tab PO 650 mg Q6H PRN Administration Pain MILD(1-3)/Fever >100.5/HOLT Albuterol 2.5 mg 06/05/21 15:55 Albuterol 2.5 Mg/3 Ml Nebu IH Q3H PRN Shortness Of Breath Aspirin 325 mg 06/08/21 15:00 06/15/21 10:24 Aspirin 325 Mg Tab PO 325 mg QDAY VIVI Administration Dextrose 50 ml 06/06/21 10:32 06/12/21 12:40 Dextrose 50% In Water (25gm) 50 Ml Syringe IV 50 ml Q30MIN PRN Administration Hypoglycemia Protocol Escitalopram Oxalate 20 mg 06/06/21 10:00 06/15/21 10:24 Escitalopram 10 Mg Tab PO 20 mg DAILY VIVI Administration Folic Acid 1 mg 06/06/21 10:00 06/15/21 10:24 Folic Acid 1 Mg Tab PO 1 mg QDAY VIVI Administration Heparin Sodium (Porcine) 5,000 unit 06/14/21 22:00 06/15/21 07:27 Heparin 5,000 Unit/1 Ml Vial SUB-Q 5,000 unit Q8HR VIVI Administration Hydromorphone HCl 0.5 mg 06/05/21 15:55 06/12/21 10:08 Hydromorphone 1 Mg/1 Ml Inj IV 0.5 mg Q23H PRN Administration Pain , Severe (7-10) Dextrose/Sodium Chloride 1,000 mls @ 100 mls/hr 06/12/21 15:00 06/14/21 21:19 D5ns IV 100 mls/hr DIRECT VIVI Administration Insulin Human Regular 0 units 06/06/21 12:00 06/15/21 09:01 Insulin Regular, Human 100 Units/1 Ml SUB-Q Not Given Q6HR [facility] Protocol Lorazepam 1 mg 06/05/21 16:01 Lorazepam 1 Mg Tab PO TID PRN Anxiety Lorazepam 2 mg 06/05/21 16:30 Lorazepam 2 Mg/Ml Vial IV Q1H PRN CIWA-Ar 8-15 Midodrine 10 mg 06/13/21 13:20 06/15/21 10:24 Midodrine 2.5 Mg Tab PO 10 mg TID@0800,1200,1600 VIVI Administration Oxycodone/Acetaminophen 1 tab 06/05/21 15:55 06/13/21 21:28 Oxycodone /Acetaminophen 5-325mg Tab PO 1 tab Q16H PRN Administration Pain, Moderate (4-6) Pantoprazole Sodium 40 mg 06/06/21 10:00 06/15/21 10:24 Pantoprazole 40 Mg Tab PO 40 mg DAILY VIVI Administration Pravastatin Sodium 40 mg 06/05/21 22:00 06/14/21 21:19 Pravastatin 40 Mg Tab PO 40 mg QHS VIVI Administration Sodium Chloride 10 ml 06/05/21 22:00 06/15/21 10:24 Sodium Chloride 0.9% 10 Ml Flush Syringe IV 10 ml BID VIVI Administration Sodium Chloride 10 ml 06/05/21 15:55 Sodium Chloride 0.9% 10 Ml Flush Syringe IV PRN PRN LINE FLUSH Nutrition/Malnutrition Assess - Dietary Evaluation Nutrition/Malnutrition Findings: Nutrition Notes Start: 06/08/21 13:44 Freq: Status: Active Protocol: Document 06/08/21 13:44 GB (Rec: 06/08/21 14:24 GB [id number]) Nutrition Notes Need for Assessment generated from: MD Order,Low BMI Initial or Follow up Assessment Current Diagnosis Acute Kidney Injury,Diabetes Other Pertinent Diagnosis AMS, DKA, metabolic encephalopathy, metabolic acidosis. Hx: AL, CVA, GERD Current Diet cardiac consistent Labs/Tests 06/08: Na 146, BUN 21, glucose 334 (showing improvement) Pertinent Medications D5 @75ml/hr (306 kcal), folic acid, Insulin, NaCl Height 5 ft 9 in Weight 39.5 kg Wilder Body Weight (kg) 72.72 BMI 12.8 Weight change and time frame Weight change noted: -10kg, recommend reweigh to confirm significant change Weight Status Underweight Subjective/Other Information per MD notes: DKA resolved, diet advanced Per discussion with nursing staff, pt ate his breakfast, drinks fluids well Percent of energy/protein needs met: unable to assess at this time. PO reported as decreased, appetite changes Burn Absent Trauma Absent GI Symptoms None Food Allergy No Current % PO Poor (25-49%) Minimum of two criteria Yes Energy Intake (severe) < or equal to 50% Estimated Energy Requirement > or equal to 5 days Body Fat Depletion Moderate depletion (severe) Muscle Mass Moderate Depletion (severe) #1 Nutrition Diagnosis Malnutrition Etiology DKA, metabolic encephalopathy, metabolic acidosis, ALAYNA, Altered nutrition related labs As Evidenced by Signs and Symptoms DKA, evident depletion of fat/ muscle mass in upper extremities and torso, Blood glucose severely over acceptable range, BMI < 18.5 ( 17.6), 52% IBW Is patient on ventilator? No Is Patient Ambulatory and/or Out of Bed Yes REE-([place] Jeor-ambulatory/OOB) [ 1579.994 [id number]] Kcal/Kg value to use for calculation 35 Approximate Energy Requirements Using 1383 kcal/Kg Calculation Used for Recommendations Kcal/kg Additional Notes protein: 1-1.5 g/kg @ 40k -60g 1 ml/kcal or per MD Nutrition Intervention Change Diet Order: continue Nutrition Support: n/a Add Supplement/Snack (indicate name/kcal glucerna BID /protein ) Provides kCal: 440 Provides Protein (gm) 20 Goal #1 PO intake of meals to be 50% or greater TID daily for LOS Goal #2 PO intake of supplement to be 50% or greater BID for LOS Goal #3 Weight to maintain within +3% current weight for LOS Follow-Up By: 06/15/[address] entered/updated supplement order f/u: po % meals/supplements
[2021-06-15] MEDS ORDERED: SODIUM CHLORIDE 0.9% 1000 ML 1,000 ML IV SCH (13:00)
[2021-06-15] MEDS: PRAVASTATIN 40 MG TAB PO SCH (21:50)
[2021-06-16] MEDS: INSULIN REGULAR, HUMAN 100 UNITS/1 ML SUB-Q SCH ×3 (00:05→12:27)
[2021-06-16] MEDS: HEPARIN 5,000 UNIT/1 ML VIAL SUB-Q SCH (06:48)
[2021-06-16 07:53] LABS: Hematocrit 21.7 % (35.5-45.6); Hemoglobin 7.9 gm/dl (11.8-15.2); Mean Corpuscular HGB Conc 36 % (32-34); Mean Corpuscular Volume 88 fl (84-94); Platelet Count 330 K/mm3 (140-440); Red Blood Count 2.47 M/mm3 (3.65-5.03)
[2021-06-16 08:04] LABS: BUN/Creatinine Ratio 12; Blood Urea Nitrogen 11 mg/dL (9-20); Calcium 7.6 mg/dL (8.4-10.2); Hemolysis Index 14
--- NOTE | 2021-06-16 08:12 | Discharge Summary ---
Providers - Providers Date of Admission: 06/05/21 17:17 Date of discharge: 06/16/21 Attending physician: LAVERNE QUEVEDO 06/05/21 15:57 Consult to Physician [CONS] Routine Comment: Consulting Provider: ALL JOSHUA Physician Instructions: Reason For Exam: DKA 06/08/21 11:11 Consult to Physician [CONS] Routine Comment: Consulting Provider: KERRY LOOMIS Physician Instructions: Reason For Exam: Altered mental status 06/09/21 11:42 Consult to Physician [CONS] Routine Comment: Consulting Provider: SYLVIE ROTH Physician Instructions: Reason For Exam: Fever,leukocytosis,altered mental status 06/09/21 15:08 Consult to Dietitian/Nutrition [CONS] Routine Physician Instructions: Reason For Exam: Reason for Consult: Malnutrition 06/10/21 15:01 Physical Therapy Evaluation and Treat [CONS] Routine Comment: Reason For Exam: Eval and treat Primary care physician: [employer] SPECIALIST Hospitalization Reason for admission: DKA Condition: Fair Hospital course: 55-year-old man past medical history diabetes, [place], CVA, CKD, asthma, COPD, chronic pancreatitis admitted with diagnosis of DKA, metabolic encephalopathy, acute kidney injury, leukocytosis, hyponatremia, hypokalemia, severe protein calorie malnutrition and bilateral thigh pain. Hospital course: 06/06/2021. DKA has resolved. Patient will be transition from IV insulin drip to home regimen of Lantus 15 units at bedtime. We will give 70/30 25 units x 1 today. Start diabetic diet. Follow-up chest x-ray for SIRS. Urinalysis is negative. Check CBC. Patient had a baseline creatinine of 1.June. Continue IV fluid hydration and monitor creatinine. The patient will be transferred to [facility]. Continue CIWA protocol 06/07/2021. Patient still appears to be confused. Etiology is multifactorial likely secondary to hypoglycemia and EtOH withdrawal. Patient with hypoglycemia this morning with BG 43. Decrease Lantus to 10 units at bedtime. D50 as needed for hypoglycemia. Creatinine has improved back to baseline of 0.7. Continue CIWA protocol. Patient with no obvious signs of infection. However, leukocytosis worse. Afebrile. Empiric antibiotics with Levaquin 06/08/2021 Patient presented with altered mental status. Likely acute metabolic encephalopathy. Blood glucose still elevated. Increase Lantus to 20 Units QHS. Patient has been on Insulin pump but his glucose was more than 600 at presentation. Consult Neurology. patient also has severe malnutrition. Consult internal control analyst. 06/09/2021 Patient presented with altered mental status. Likely acute metabolic encephalopathy. Blood glucose now improved after Increase Lantus to 20 Units QHS. Patient has been on Insulin pump but his glucose was more than 600 at presentation. Consulted Neurology. Patient seen by Neurology, Dr. Loomis and he ordered Ct Head, CTA head. Patient also has severe malnutrition. Consulted internal control analyst. Today BP is low, so gave bolus iv fluid. Called by Nurse that patient has temp of 100.1. Will consult ID because fever, leukocytosis, altered mental status. 06/10/2021. Complained of bilateral thigh pain. Will check Doppler ultrasound bilateral lower extremity to rule out DVT. Has hyponatremia today. Will monitor sodium. PT evaluation. Possible discharge home tomorrow. 06/11/2021. Had hypoglycemia early this morning. Monitor blood glucose and consider decreasing Lantus if repeat hypoglycemia. Hyponatremia stable. Has hypokalemia which will be repleted. Still hypotension which is asymptomatic. Possible discharge home tomorrow if no hypoglycemia. 06/12/2021 Patient with DKA, metabolic encephalopathy, hypotension. Bp still low. Start Midodrine. 06/13/21 Patient with DKA, acute metabolic encephalopathy with altered mental status. Also has been hypotensive so started on iv fluids, Midodrine. He complains of pain both lower ext. Doppler US of legs negative for DVT. 06/15/2021. Patient continues to have hypotension but likely at his baseline. Blood culture negative x5 days. Patient is asymptomatic. Continue midodrine. Physical therapy recommends home health PT. leukocytosis likely secondary to DKA and acute infection. ID recommends Levaquin/Bactrim x5 days. Follow-up WBC in a.m. 06/16/2021. Patient's bilateral lower extremity pain likely related to diabetic neuropathy and patient will be discharged home on gabapentin. Patient's blood pressure stabilized on midodrine. ID was consulted and felt that the leukocytosis was likely secondary to DKA there was no evidence of infection. Blood cultures remain negative. ID felt patient could discharge with Levaquin/Bactrim for total of 5 days. Patient was treated with IV vancomycin during hospitalization. Patient also had PT evaluation who recommended home health physical therapy. Case management was also consulted and patient reportedly has equipment at home and is to transport home. Dedicated disc harge time 35 minutes Disposition: HOME / SELF CARE / HOMELESS Final Discharge Diagnosis (Prints w/discharge instructions): DKA, metabolic encephalopathy, leukocytosis, chronic hypotension, chronic kidney disease, severe protein calorie malnutrition, hyponatremia, hypokalemia Core Measure Documentation - Palliative Care Palliative Care/ Comfort Measures: Not Applicable - Core Measures Any of the following diagnoses?: none Exam - Constitutional Vitals: Temp Pulse Resp BP Pulse Ox 98.3 F 98 H 18 83/45 96 06/16/21 07:49 06/15/21 23:30 06/16/21 07:49 06/16/21 07:49 06/15/21 23:30 General appearance: Present: no acute distress, well-nourished - EENT Eyes: Present: PERRL ENT: hearing intact, clear oral mucosa - Neck Neck: Present: supple, normal ROM - Respiratory Respiratory effort: normal Respiratory: bilateral: CTA - Cardiovascular Heart Sounds: Present: S1 & S2. Absent: rub, click - Extremities Extremities: pulses symmetrical, No edema Peripheral Pulses: within normal limits - Abdominal General gastrointestinal: Present: soft, non-tender, non-distended, normal bowel sounds Male genitourinary: Present: normal - Integumentary Integumentary: Present: clear, warm, dry - Musculoskeletal Musculoskeletal: gait normal, strength equal bilaterally - Psychiatric Psychiatric: appropriate mood/affect, intact judgment & insight - Neurologic Neurologic: CNII-XII intact, moves all extremities Plan Activity: advance as tolerated Weight Bearing Status: Weight Bear as Tolerated Diet: diabetic Follow up with: PRIMARY CARE, [Primary Care Provider] - 7 Days SYLVIE ROTH MD [Staff Physician] - 7 Days SAURAV LOVE MD [Staff Physician] - 7 Days Prescriptions: HYDROcodone/APAP 5-325 5 - 325 mg PO TID PRN #8 PRN Reason: Pain , Severe (7-10) Escitalopram Oxalate [Lexapro] 20 mg PO QDAY #30 tablet Gabapentin [Neurontin] 800 mg PO TID #90 Midodrine [Proamatine] 10 mg PO TID@0800,1200,1600 #90 tablet Pantoprazole [Protonix TAB] 40 mg PO DAILY #30 tablet QUEtiapine [SEROquel] 1 tab PO DAILY #30 Simvastatin 20 mg PO HS #30
[2021-06-16] MEDS: MIDODRINE 2.5 MG TAB PO SCH ×2 (10:25→12:27)
[2021-06-16] MEDS: ASPIRIN 325 MG TAB PO SCH (10:25)
[2021-06-16] MEDS: PANTOPRAZOLE 40 MG TAB PO SCH (10:25)
[2021-06-16] MEDS: ESCITALOPRAM 10 MG TAB PO SCH (10:25)
[2021-06-16] MEDS: FOLIC ACID 1 MG TAB PO SCH (10:25)
[2021-06-16 11:46] VITALS: BP 97/49
== END 2021-06-16 14:40 | disposition home or self-care (01) | DRG 637 ==
LOC: ED 14:22 → CC1 17:17 → 4A 06-07 14:45
PROVIDERS: ADMIT Internal Medicine; ATTEND Hospitalist
DX: E11.10 Type 2 diabetes mellitus with ketoacidosis without coma (principal); G93.41 Metabolic encephalopathy; E43 Unspecified severe protein-calorie malnutrition; N17.0 Acute kidney failure with tubular necrosis; R65.10 Systemic inflammatory response syndrome (SIRS) of non-infectious origin without acute organ dysfunction; Z68.1 Body mass index [BMI] 19.9 or less, adult; K86.1 Other chronic pancreatitis; E87.1 Hypo-osmolality and hyponatremia; N18.9 Chronic kidney disease, unspecified; I12.9 Hypertensive chronic kidney disease with stage 1 through stage 4 chronic kidney disease, or unspecified chronic kidney disease; K21.9 Gastro-esophageal reflux disease without esophagitis; J45.909 Unspecified asthma, uncomplicated; J44.9 Chronic obstructive pulmonary disease, unspecified; I25.10 Atherosclerotic heart disease of native coronary artery without angina pectoris; I25.2 Old myocardial infarction; Z83.3 Family history of diabetes mellitus; Z82.49 Family history of ischemic heart disease and other diseases of the circulatory system; Z86.73 Personal history of transient ischemic attack (TIA), and cerebral infarction without residual deficits; F10.20 Alcohol dependence, uncomplicated; Z20.822 Contact with and (suspected) exposure to COVID-19; I95.9 Hypotension, unspecified; E87.6 Hypokalemia; D64.9 Anemia, unspecified; E11.22 Type 2 diabetes mellitus with diabetic chronic kidney disease
CPT/HCPCS: 36415; 70450; 70496; 70498; 71045; 80048; 80053; 81001; 82550; 82553; 82805; 82962; 83036; 83690; 83735; 84100; 84484; 85025; 85027; 87040; 93005; 93970; G0378; J1170; J1644; J1815; J1956; J3370; J3411; J7030; J7040; J7042; J7050; J7070; Q9967